=== PATIENT | male | born 1945 | race Caucasian/White ===

== ENCOUNTER → 2018-05-26 14:02 | Outpatient (CLI) | payer MEDICARE, OTHER, SELFPAY ==
[2018-05-26 14:38] LABS: Add Manual Diff / Slide Review NO; Basophils Percent Auto 0.7 % (0-2); Eosinophils Percent Auto 2.5 % (2-4); Hematocrit 39.8 % (41-53); Hemoglobin 13.8 g/dL (13.5-17.5); Mean Corpuscular HGB Conc 34.6 % (30-36); Mean Corpuscular Hemoglobin 30.6 PG (26-34); Mean Corpuscular Volume 88.2 fL (80-100); Neutrophils Absolute Auto 2000 /uL (3000-5900); Neutrophils Percent Auto 54.8 % (50-75); Platelet Count 56 X10^3/uL (150-400); Red Blood Cell Count 4.51 X10^6/uL (4.5-5.9); Red Cell Distribution Width 14.4 % (11.6-14.8); White Blood Cell Count 3.7 X10^3/uL (4.5-11.0)
[2018-05-26 14:56] LABS: Alanine Aminotransferase 65 IU/L (21-72); Albumin 3.8 g/dL (3.5-5.0); Albumin Globulin Ratio 1.5 (1.0-2.8); Alkaline Phosphatase 82 U/L (38-126); Aspartate Aminotransferase 55 IU/L (17-59); Blood Urea Nitrogen 16 mg/dL (9-20); Calcium 9.3 mg/dL (8.4-10.2); Carbon Dioxide 24 mmol/L (22-32); Chloride 107 mmol/L (98-107); Estimated Glomerular Filt Rate > 60.0 mL/min (>60); Globulin 2.6 g/dL (1.7-4.1); Glucose 198 mg/dL (80-110); HEMOLYSIS < 15 (0-50); Potassium 4.1 mmol/L (3.4-5.1); Sodium 142 mmol/L (137-145); Total Protein 6.4 g/dL (6.3-8.2)
== END ==
PROVIDERS: PCP Internal Medicine; Visit Provider Nurse Practitioner Gerontology
DX: D70.9 Neutropenia, unspecified (principal)
CPT/HCPCS: 36415; 80053; 85025

== ENCOUNTER → 2018-06-10 09:11 | Outpatient (CLI) | payer MEDICARE, OTHER, SELFPAY ==
--- NOTE | 2018-06-10 09:17 | DI.US.S_ITS ---
PROCEDURE: US ABDOMEN LIMITED INDICATIONS: Splenomegaly TECHNIQUE: Real-time focused scanning was performed of the abdomen, with image documentation. COMPARISON: [facility], CT, NECK/CHEST/ABD/PEL W CONTRAST, 10/11/2015, 10:06. [facility], US, ABDOMEN LIMITED, 04/03/2016, 9:07. FINDINGS: The spleen is enlarged measuring 17.7 cm in greatest length, with additional dimensions of 8.2 and 17 cm, with a total calculated volume of 1296 cubic centimeters. In 2016, it measured 13.6 cm in length and had a calculated volume of 513 cc. IMPRESSION: Enlarged spleen, which has increased in size compared to 2016. Dictated by: Olvin Cárdenas M.D. on 06/10/2018 at 8:58 Approved by: Olvin Cárdenas M.D. on 06/10/2018 at 9:01
== END ==
PROVIDERS: Family Provider Internal Medicine; Visit Provider Nurse Practitioner Gerontology
DX: R16.1 Splenomegaly, not elsewhere classified (principal); D69.6 Thrombocytopenia, unspecified; D70.9 Neutropenia, unspecified
CPT/HCPCS: 76705

== ENCOUNTER → 2019-09-07 12:19 | Outpatient (CLI) | payer MEDICARE, OTHER, SELFPAY ==
--- NOTE | 2019-09-07 | DI.RAD.S_ITS ---
PROCEDURE: XR CHEST 2V INDICATIONS: PLEURAL EFFUSION TECHNIQUE: 2 views of the chest were acquired. COMPARISON: [facility], CT, ABDOMEN/PELVIS WITH CONTRAST, 01/14/2015, 15:36. FINDINGS: Surgical changes and devices: None. Lungs and pleura: There are small bilateral pleural effusions and bibasilar compression atelectasis. No pneumothorax. Mediastinum: Mediastinal contours are normal. Heart size is normal. Bones and chest wall: No suspicious bony abnormalities. Soft tissues appear unremarkable. IMPRESSION: Small bilateral pleural effusions and bibasilar compression atelectasis. Dictated by: Sylvester Thomson M.D. on 09/07/2019 at 16:45 Approved by: Sylvester Thomson M.D. on 09/07/2019 at 16:46
[2019-09-07 12:57] LABS: Add Manual Diff / Slide Review NO; Basophils Absolute Auto 0 /uL (0-100); Basophils Percent Auto 0.7 % (0-2); Eosinophils Absolute Auto 100 /uL (0-450); Eosinophils Percent Auto 2.1 % (2-4); Hematocrit 39.4 % (41-53); Hemoglobin 13.4 g/dL (13.5-17.5); Lymphocytes Absolute Auto 800 /uL (1100-4500); Lymphocytes Percent Auto 21.3 % (25-40); Mean Corpuscular Hemoglobin 28.7 PG (26-34); Mean Corpuscular Volume 84.3 fL (80-100); Monocytes Absolute Auto 600 /uL (0-900); Monocytes Percent Auto 15.5 % (3-14); Neutrophils Absolute Auto 2400 /uL (1500-7000); Neutrophils Percent Auto 60.4 % (50-75); Platelet Count 82 X10^3/uL (150-400); Red Blood Cell Count 4.67 X10^6/uL (4.5-5.9); Red Cell Distribution Width 15.7 % (11.6-14.8)
[2019-09-07 13:08] LABS: Alanine Aminotransferase 30 IU/L (<50); Albumin 3.5 g/dL (3.5-5.0); Albumin Globulin Ratio 1.3 (1.0-2.8); Alkaline Phosphatase 139 U/L (38-126); Aspartate Aminotransferase 46 IU/L (17-59); Bilirubin Direct 0.1 mg/dL (0.0-0.4); Bilirubin Total 1.3 mg/dL (0.2-1.3); Blood Urea Nitrogen 16 mg/dL (9-20); Calcium 8.7 mg/dL (8.4-10.2); Carbon Dioxide 27 mmol/L (22-32); Chloride 104 mmol/L (98-107); Estimated Glomerular Filt Rate > 60.0 mL/min (>60); Globulin 2.8 g/dL (1.7-4.1); Glucose 146 mg/dL (80-110); HEMOLYSIS < 15 (0-50); Potassium 3.6 mmol/L (3.4-5.1); Sodium 138 mmol/L (137-145); Total Protein 6.3 g/dL (6.3-8.2)
== END ==
PROVIDERS: PCP Internal Medicine; Visit Provider Internal Medicine
DX: J90 Pleural effusion, not elsewhere classified (principal); R18.8 Other ascites; R05 Cough
CPT/HCPCS: 36415; 71046; 80053; 82248; 85025

== ENCOUNTER → 2019-09-09 13:57 | Outpatient (CLI) | payer MEDICARE, OTHER, SELFPAY ==
--- NOTE | 2019-09-09 | DI.CT.S_ITS ---
PROCEDURE: CT ABDOMEN PELVIS W CON INDICATIONS: Other ascites TECHNIQUE: After the administration of oral and intravenous contrast, 5 mm thick sections acquired from the diaphragms to the symphysis. 5 mm thick coronal and sagittal reformats were performed. For radiation dose reduction, the following was used: automated exposure control, adjustment of mA and/or kV according to patient size. COMPARISON: [facility], US, US ABDOMEN LIMITED, 06/10/2018, 9:36. [facility], US, ABDOMEN LIMITED, 04/03/2016, 9:07. [facility], CT, NECK/CHEST/ABD/PEL W CONTRAST, 10/11/2015, 10:06. [facility], CT, ABDOMEN/PELVIS WITH CONTRAST, 01/14/2015, 15:36. FINDINGS: Image quality: Excellent. ABDOMEN: Lung bases: Moderate pleural effusions bilaterally. Bibasilar compression atelectasis. Heart size is normal. There is a small hiatal hernia. Solid organs: Liver is small and nodular in contour consistent with cirrhosis. Gallbladder contains gallstones. Biliary system is non-dilated. Pancreas enhances normally. Spleen is enlarged. There is a 1.9 cm low density mass in spleen, which appears unchanged in size compared to 01/14/2015. Tiny low density nodules are noted in spleen, not definitely seen on the last exam. No adrenal nodules. Kidneys are normal in size and enhancement, without hydronephrosis. Peritoneum and bowel: There is a large amount of ascites. Jejunal loops and colon loops demonstrate increased wall thickness. There are numerous colonic diverticula in descending and sigmoid colon. No CT findings to suggest acute diverticulitis. No free air. Nodes and vessels: No retroperitoneal or mesenteric adenopathy. Aorta and inferior vena cava are normal in caliber. Recannulized umbilical vein consistent portal hypertension. Miscellaneous: No ventral hernias. PELVIS: Genitourinary: Bladder wall thickness is normal. Enlarged prostate. Miscellaneous: No inguinal hernias or adenopathy. Bones: No suspicious bony lesions. No vertebral body compression fractures. IMPRESSION: 1. Cirrhosis. 2. Splenomegaly which may be secondary to portal hypertension. 3. Stable 1.9 cm mass in the spleen. Several small hypodense nodules in spleen are indeterminate. 4. A large amount of ascites. 5. There is diffuse jejunal and colonic wall thickening. Differential diagnoses include hypoalbuminemia versus infectious etiology. 6. Diverticulosis without diverticulitis. 7. Moderate bilateral pleural effusions and bibasilar compression atelectasis. 8. Cholelithiasis. 9. Enlarged prostate. After discussing with the patient, the patient was referred to ER. The result was discussed with Dr. Jernigan in ER. Dictated by: Sylvester Thomson M.D. on 09/09/2019 at 15:00 Approved by: Sylvester Thomson M.D. on 09/09/2019 at 15:24
== END ==
PROVIDERS: PCP Internal Medicine; Visit Provider Internal Medicine
DX: R18.8 Other ascites (principal); K74.60 Unspecified cirrhosis of liver; R16.1 Splenomegaly, not elsewhere classified
CPT/HCPCS: 74177

== ENCOUNTER 2019-09-09 15:04 | Emergency (ER) | payer MEDICARE, OTHER, SELFPAY ==
[2019-09-09 15:15] VITALS: BP 178/87; PULSE 85; RESP 15; TEMP 36.5; O2SAT 96; BMI 26.7
[2019-09-09 15:37] VITALS: BP 163/76; PULSE 71; RESP 16; O2SAT 94
[2019-09-09 16:00] VITALS: BP 147/73; PULSE 73; RESP 16; O2SAT 94
--- NOTE | 2019-09-09 16:15 | ED_ITS ---
HPI - Abdominal Pain <Marlena Jernigan DO - Last Filed: 09/09/19 19:01> General Chief Complaint: Abdominal Pain Stated Complaint: sent post CT scan Time Seen by Provider: 09/09/19 15:18 Source: patient Mode of arrival: Ambulatory Limitations: no limitations History of Present Illness HPI narrative: This is a 73-year-old male who comes to the emergency department with complaint of swelling in his abdomen. Patient states when he lays flat he feels like there's lot of pressure and shortness of breath in his chest. Patient states that if he is upright he does not have much symptoms. Patient denies any fevers. He states he usually doesn't feel nauseated he had a little bit this afternoon while getting a CT scan. Patient states his abdomen has been increasing in size over time. They state that they've noted that it's very hard. He has had some loose stools for the past month. He states that they're back to normal as of this week. He denies any new urinary symptoms. He gets mi ld swelling in his lower extremities. Patient's states he was told he had fatty liver about 20 years ago. He states that some his primary care ordered some lab work to evaluate increasing swelling in his belly. And he is scheduled for an echo later in the month. Patient states he has never had a blood transfusion, he denies IV drug abuse, no history of hepatitis he is aware of. He denies any alcohol use except for occasional. Related Data Home Medications Medication Instructions Recorded Confirmed tamsulosin [Flomax] 0.4 mg PO QDAY #0 01/28/12 05/29/18 hydrochlorothiazide 6.26 mg PO QDAY #0 06/28/16 05/29/18 magnesium 200 mg PO DAILY #0 09/10/16 05/29/18 Allergies Allergy/AdvReac Type Severity Reaction Status Date / Time No Known Drug Allergies Allergy Verified 09/09/19 15:15 Review of Systems <Marlena Jernigan DO - Last Filed: 09/09/19 19:01> Review of Systems ROS Unobtainable: All systems reviewed & are unremarkable except as noted in HPI and below Patient History <Marlena Jernigan DO - Last Filed: 09/09/19 19:01> Social History Smoking Status: Unknown if ever smoked Smoking Status: Unknown if ever smoked alcohol intake frequency: other Substance Use Type: does not use Exam <Marlena Jernigan DO - Last Filed: 09/09/19 19:01> Narrative Exam Narrative: GENERAL: Alert and oriented x three, well-appearing male in mild distress. Patient does appear much more comfortable when sitting upright. HEENT: Head normocephalic, atraumatic, EOMI, pupils reactive, face symmetric, moist mucous membranes NECK: Supple, full range of motion CARDIOVASCULAR: Regular rate and rhythm without murmurs, rubs or gallops. RESPIRATORY: Breath sounds equal bilaterally, no wheezes rales or rhonchi. Patient has mild cough on exam. ABDOMEN: Soft, distended, abdomen feels tight but not hard. No caput. Normoactive bowel sounds all 4 quadrants. No guarding or rebound, rigidity, no mass. : No CVA tenderness EXTREMITIES: Normal range of motion, trace lower extremity edema. Neurova scularly intact NEUROLOGICAL: Cranial nerves II through XII grossly intact. Moving all extremities SKIN: Warm, dry, no petechiae, no rashes or lesions. Initial Vital Signs Initial Vital Signs: Vital Signs Temperature 97.7 F 09/09/19 15:15 Pulse Rate 85 09/09/19 15:15 Respiratory Rate 15 09/09/19 15:15 Blood Pressure 178/87 H 09/09/19 15:15 Pulse Oximetry 96 09/09/19 15:15 <Sandra Hollingsworth PA-C - Last Filed: 09/09/19 17:27> Initial Vital Signs Initial Vital Signs: Vital Signs Temperature 97.7 F 09/09/19 15:15 Pulse Rate 85 09/09/19 15:15 Respiratory Rate 15 09/09/19 15:15 Blood Pressure 178/87 H 09/09/19 15:15 Pulse Oximetry 96 09/09/19 15:15 Course <Marlena Jernigan DO - Last Filed: 09/09/19 19:01> Orders Ordered: ED Orders 09/09/19 15:18 Complete Blood Count AUTO DIFF Stat Comprehensive Metabolic Panel Stat Lipase Stat Partial Thromboplastin Time Stat Prothrombin Time INR Stat Type and Screen Stat 09/09/19 16:37 US paracentesis Stat 09/09/19 17:30 Amylase Body Fluid Stat Cell Count w Diff Body Fluid Stat Glucose Body Fluid Stat LDH Body Fluid Stat Total Protein Body Fluid Stat Vital Signs Vital signs: Vital Signs - 8 hr 09/09/19 15:15 09/09/19 15:37 09/09/19 16:00 Temperature 97.7 F Pulse Rate 85 71 73 Respiratory Rate 15 16 16 Blood Pressure 178/87 H Blood Pressure [Right Arm] 163/76 H 147/73 H Pulse Oximetry 96 94 94 09/09/19 18:34 09/09/19 18:48 Temperature Pulse Rate 83 84 Respiratory Rate 18 19 Blood Pressure 172/69 H Blood Pressure [Right Arm] 172/64 H Pulse Oximetry 96 95 <Sandra Hollingsworth PA-C - Last Filed: 09/09/19 17:27> Orders Ordered: ED Orders 09/09/19 15:18 Complete Blood Count AUTO DIFF Stat Comprehensive Metabolic Panel Stat Lipase Stat Partial Thromboplastin Time Stat Prothrombin Time INR Stat Type and Screen Stat 09/09/19 16:37 US paracentesis Stat 09/09/19 17:30 Amylase Body Fluid Stat Cell Count w Diff Body Fluid Stat Glucose Body Fluid Stat LDH Body Fluid Stat Total Protein Body Fluid Stat Vital Signs Vital signs: Vital Signs - 8 hr 09/09/19 15:15 09/09/19 15:37 09/09/19 16:00 Temperature 97.7 F Pulse Rate 85 71 73 Respiratory Rate 15 16 16 Blood Pressure 178/87 H Blood Pressure [Right Arm] 163/76 H 147/73 H Pulse Oximetry 96 94 94 09/09/19 18:34 09/09/19 18:48 Temperature Pulse Rate 83 84 Respiratory Rate 18 19 Blood Pressure 172/69 H Blood Pressure [Right Arm] 172/64 H Pulse Oximetry 96 95 MDM - Abdominal Pain <Marlena Jernigan DO - Last Filed: 09/09/19 19:01> Lab Data Attestation: I reviewed the patient's lab results. Result diagrams: 09/09/19 15:18 09/09/19 15:18 Labs: Lab Results 09/09/19 09/09/19 09/09/19 Range/Units 15:18 15:18 15:18 WBC 3.6 L (4.5-11.0) X10^3/uL RBC 4.87 (4.5-5.9) X10^6/uL Hgb 13.9 (13.5-17.5) g/dL Hct 40.9 L (41-53) % MCV 84.1 (80-100) fL MCH 28.6 (26-34) PG MCHC 34.0 (30-36) % RDW 15.8 H (11.6-14.8) % Plt Count 84 L (150-400) X10^3/uL Neut % (Auto) 57.5 (50-75) % Lymph % (Auto) 22.3 L (25-40) % Hinds % (Auto) 15.8 H (3-14) % Eos % (Auto) 3.6 (2-4) % Baso % (Auto) 0.8 (0-2) % Neut # (Auto) 2100 (9271-5353) /uL Lymph # (Auto) 800 L (2329-9415) /uL Hinds # (Auto) 600 (0-900) /uL Eos # (Auto) 100 (0-450) /uL Baso # (Auto) 0 (0-100) /uL PT 14.4 H (10.1-12.7) SECONDS INR 1.3 (0.9-1.3) APTT 32 (26.4-36.2) SECONDS Sodium 135 L (137-145) mmol/L Potassium 3.5 (3.4-5.1) mmol/L Chloride 101 (98-107) mmol/L Carbon Dioxide 27 (22-32) mmol/L BUN 20 (9-20) mg/dL Creatinine 0.90 (0.66-1.25) mg/dL Estimated GFR > 60.0 (>60) mL/min BUN/Creatinine Ratio 22.2 H (6-22) Glucose 106 (80-110) mg/dL Calcium 8.9 (8.4-10.2) mg/dL Total Bilirubin 1.4 H (0.2-1.3) mg/dL AST 53 (17-59) IU/L ALT 32 (<50) IU/L Alkaline Phosphatase 144 H (38-126) U/L Total Protein 6.7 (6.3-8.2) g/dL Albumin 3.7 (3.5-5.0) g/dL Globulin 3.0 (1.7-4.1) g/dL Albumin/Globulin Ratio 1.2 (1.0-2.8) Lipase 189 (23-300) U/L Fluid RBC /uL Fld Tot Nucleated Cell /uL Fluid Glucose mg/dL Fluid Total Protein g/dL Fluid LDH U/L Fluid Amylase IU/L Blood Type Antibody Screen 09/09/19 09/09/19 Range/Units 15:18 17:30 WBC (4.5-11.0) X10^3/uL RBC (4.5-5.9) X10^6/uL Hgb (13.5-17.5) g/dL Hct (41-53) % MCV (80-100) fL MCH (26-34) PG MCHC (30-36) % RDW (11.6-14.8) % Plt Count (150-400) X10^3/uL Neut % (Auto) (50-75) % Lymph % (Auto) (25-40) % Hinds % (Auto) (3-14) % Eos % (Auto) (2-4) % Baso % (Auto) (0-2) % Neut # (Auto) (0282-2716) /uL Lymph # (Auto) (9726-5280) /uL Hinds # (Auto) (0-900) /uL Eos # (Auto) (0-450) /uL Baso # (Auto) (0-100) /uL PT (10.1-12.7) SECONDS INR (0.9-1.3) APTT (26.4-36.2) SECONDS Sodium (137-145) mmol/L Potassium (3.4-5.1) mmol/L Chloride (98-107) mmol/L Carbon Dioxide (22-32) mmol/L BUN (9-20) mg/dL Creatinine (0.66-1.25) mg/dL Estimated GFR (>60) mL/min BUN/Creatinine Ratio (6-22) Glucose (80-110) mg/dL Calcium (8.4-10.2) mg/dL Total Bilirubin (0.2-1.3) mg/dL AST (17-59) IU/L ALT (<50) IU/L Alkaline Phosphatase (38-126) U/L Total Protein (6.3-8.2) g/dL Albumin (3.5-5.0) g/dL Globulin (1.7-4.1) g/dL Albumin/Globulin Ratio (1.0-2.8) Lipase (23-300) U/L Fluid RBC 1548 /uL Fld Tot Nucleated Cell 578 /uL Fluid Glucose 125 mg/dL Fluid Total Protein < 2.0 g/dL Fluid LDH 188 U/L Fluid Amylase < 30 IU/L Blood Type O Negative Antibody Screen Negative Imaging Data CT scan - abdomen: Radiologist's impression: [address] [id number] [address] Scan Report Signed Patient: Leonardo Avina [facility]#: [id number] : 5Acct:[id number] Age/Sex: 73 / MDate of Service: 09/09/19 Loc: CT Accession Number: [id number] Procedure: CT abdomen pelvis w con Ordering Provider: Katelyn Campbell MD PROCEDURE: CT ABDOMEN PELVIS W CON INDICATIONS: Other ascites TECHNIQUE: After the administration of oral and intravenous contrast, 5 mm thick sections acquired from the diaphragms to the symphysis. 5 mm thick coronal and sagittal reformats were performed. For radiation dose reduction, the following was used: automated exposure control, adjustment of mA and/or kV according to patient size. COMPARISON: [facility], US, US ABDOMEN LIMITED, 06/10/2018, 9:36. [facility], US, ABDOMEN LIMITED, 04/03/2016, 9:07. [facility], CT, NECK/CHEST/ABD/PEL W CONTRAST, 10/11/2015, 10:06. [facility], CT, ABDOMEN/PELVIS WITH CONTRAST, 01/14/2015, 15:36. FINDINGS: Image quality: Excellent. ABDOMEN: Lung bases: Moderate pleural effusions bilaterally. Bibasilar compression atelectasis. Heart size is normal. There is a small hiatal hernia. Solid organs: Liver is small and nodular in contour consistent with cirrhosis. Gallbladder contains gallstones. Biliary system is non-dilated. Pancreas enhances normally. Spleen is enlarged. There is a 1.9 cm low density mass in spleen, which appears unchanged in size compared to 01/14/2015. Tiny low density nodules are noted in spleen, not definitely seen on the last exam. No adrenal nodules. Kidneys are normal in size and enhancement, without hydronephrosis. Peritoneum and bowel: There is a large amount of ascites. Jejunal loops and colon loops demonstrate increased wall thickness. There are numerous colonic diverticula in descending and sigmoid colon. No CT findings to suggest acute diverticulitis. No free air. Nodes and vessels: No retroperitoneal or mesenteric adenopathy. Aorta and inferior vena cava are normal in caliber. Recannulized umbilical vein consistent portal hypertension. Miscellaneous: No ventral hernias. PELVIS: Genitourinary: Bladder wall thickness is normal. Enlarged prostate. Miscellaneous: No inguinal hernias or adenopathy. Bones: No suspicious bony lesions. No vertebral body compression fractures. IMPRESSION: 1. Cirrhosis. 2. Splenomegaly which may be secondary to portal hypertension. 3. Stable 1.9 cm mass in the spleen. Several small hypodense nodules in spleen are indeterminate. 4. A large amount of ascites. 5. There is diffuse jejunal and colonic wall thickening. Differential diagnoses include hypoalbuminemia versus infectious etiology. 6. Diverticulosis without diverticulitis. 7. Moderate bilateral pleural effusions and bibasilar compression atelectasis. 8. Cholelithiasis. 9. Enlarged prostate. After discussing with the patient, the patient was referred to ER. The result was discussed with Dr. Jernigan in ER. Dictated by: Sylvester Thomson M.D. on 09/09/2019 at 15:00 Approved by: Sylvester Thomson M.D. on 09/09/2019 at 15:24 MDM Narrative Medical decision making narrative: Patient came in with shortness of breath and chest pressure when he lays flat and has again if again ascites. Patient had 5 L drained off with ultrasound-guided paracentesis. Patient feels much better afterwards. We discussed labs from most recently ordered by his primary care in today's labs and potential differential. I did discuss that he may benefit from following up with gastroenterology. Fluid was sent for diagnostic purposes as well. Patient does have some pleural effusions as well. We discussed he can do a short course where he increases his hydrochlorothiazide to see if this is helpful. And patient is to return if worsening symptoms. Has follow-up on with his primary care but I asked that they call tomorrow to discuss today's findings. Patient and family feel comfortable the plan and all questions were answered. <Sandra Hollingsworth PA-C - Last Filed: 09/09/19 17:27> Lab Data Labs: Lab Results 09/09/19 09/09/19 09/09/19 Range/Units 15:18 15:18 15:18 WBC 3.6 L (4.5-11.0) X10^3/uL RBC 4.87 (4.5-5.9) X10^6/uL Hgb 13.9 (13.5-17.5) g/dL Hct 40.9 L (41-53) % MCV 84.1 (80-100) fL MCH 28.6 (26-34) PG MCHC 34.0 (30-36) % RDW 15.8 H (11.6-14.8) % Plt Count 84 L (150-400) X10^3/uL Neut % (Auto) 57.5 (50-75) % Lymph % (Auto) 22.3 L (25-40) % Hinds % (Auto) 15.8 H (3-14) % Eos % (Auto) 3.6 (2-4) % Baso % (Auto) 0.8 (0-2) % Neut # (Auto) 2100 (8600-4970) /uL Lymph # (Auto) 800 L (9469-9208) /uL Hinds # (Auto) 600 (0-900) /uL Eos # (Auto) 100 (0-450) /uL Baso # (Auto) 0 (0-100) /uL PT 14.4 H (10.1-12.7) SECONDS INR 1.3 (0.9-1.3) APTT 32 (26.4-36.2) SECONDS Sodium 135 L (137-145) mmol/L Potassium 3.5 (3.4-5.1) mmol/L Chloride 101 (98-107) mmol/L Carbon Dioxide 27 (22-32) mmol/L BUN 20 (9-20) mg/dL Creatinine 0.90 (0.66-1.25) mg/dL Estimated GFR > 60.0 (>60) mL/min BUN/Creatinine Ratio 22.2 H (6-22) Glucose 106 (80-110) mg/dL Calcium 8.9 (8.4-10.2) mg/dL Total Bilirubin 1.4 H (0.2-1.3) mg/dL AST 53 (17-59) IU/L ALT 32 (<50) IU/L Alkaline Phosphatase 144 H (38-126) U/L Total Protein 6.7 (6.3-8.2) g/dL Albumin 3.7 (3.5-5.0) g/dL Globulin 3.0 (1.7-4.1) g/dL Albumin/Globulin Ratio 1.2 (1.0-2.8) Lipase 189 (23-300) U/L Fluid RBC /uL Fld Tot Nucleated Cell /uL Fluid Glucose mg/dL Fluid Total Protein g/dL Fluid LDH U/L Fluid Amylase IU/L Blood Type Antibody Screen 09/09/19 09/09/19 Range/Units 15:18 17:30 WBC (4.5-11.0) X10^3/uL RBC (4.5-5.9) X10^6/uL Hgb (13.5-17.5) g/dL Hct (41-53) % MCV (80-100) fL MCH (26-34) PG MCHC (30-36) % RDW (11.6-14.8) % Plt Count (150-400) X10^3/uL Neut % (Auto) (50-75) % Lymph % (Auto) (25-40) % Hinds % (Auto) (3-14) % Eos % (Auto) (2-4) % Baso % (Auto) (0-2) % Neut # (Auto) (0166-1170) /uL Lymph # (Auto) (4220-6350) /uL Hinds # (Auto) (0-900) /uL Eos # (Auto) (0-450) /uL Baso # (Auto) (0-100) /uL PT (10.1-12.7) SECONDS INR (0.9-1.3) APTT (26.4-36.2) SECONDS Sodium (137-145) mmol/L Potassium (3.4-5.1) mmol/L Chloride (98-107) mmol/L Carbon Dioxide (22-32) mmol/L BUN (9-20) mg/dL Creatinine (0.66-1.25) mg/dL Estimated GFR (>60) mL/min BUN/Creatinine Ratio (6-22) Glucose (80-110) mg/dL Calcium (8.4-10.2) mg/dL Total Bilirubin (0.2-1.3) mg/dL AST (17-59) IU/L ALT (<50) IU/L Alkaline Phosphatase (38-126) U/L Total Protein (6.3-8.2) g/dL Albumin (3.5-5.0) g/dL Globulin (1.7-4.1) g/dL Albumin/Globulin Ratio (1.0-2.8) Lipase (23-300) U/L Fluid RBC 1548 /uL Fld Tot Nucleated Cell 578 /uL Fluid Glucose 125 mg/dL Fluid Total Protein < 2.0 g/dL Fluid LDH 188 U/L Fluid Amylase < 30 IU/L Blood Type O Negative Antibody Screen Negative Discharge Plan Departure Patient Disposition: Home Clinical Impression: Ascites, Cirrhosis, Splenic mass, Gallstones Discharge Date/Time: 09/09/19 18:49 Instructions: Ascites, DI for Abdominal Paracentesis Activity Restrictions/Additional Instructions: Follow up with Dr. Campbell at your appointment on , call to update Dr. Campbell tomorrow. Recommend following up with Gastroenterology, below is a referral. Call for an appointment. You may increase your hydrochlorothiazide to 2 pills daily for the next 3 days. Continue your other home medications as prescribed. Return for fevers greater 100.4 F, new or worsening CP shortness of breath, lily st pain or pressure, lightheadedness or passing out, abdominal pain, rapidly worsening swelling, new swelling in your lower extremities, altered mental status or other new or concerning symptoms. Prescriptions: No Action tamsulosin [Flomax] 0.4 MG capsule,extended release 24hr 0.4 mg PO QDAY Qty: 0 RF: 0 hydrochlorothiazide 12.5 MG capsule 6.26 mg PO QDAY Qty: 0 RF: 0 magnesium 200 MG tablet 200 mg PO DAILY Qty: 0 RF: 0 Referrals: Aubrey Perez MD [Non-Staff] - Katelyn Campbell MD [Primary Care Provider] -
[2019-09-09 16:22] LABS: INR 1.3 (0.9-1.3); Prothrombin Time 14.4 SECONDS (10.1-12.7)
[2019-09-09 16:24] LABS: Add Manual Diff / Slide Review NO; Basophils Absolute Auto 0 /uL (0-100); Basophils Percent Auto 0.8 % (0-2); Eosinophils Absolute Auto 100 /uL (0-450); Eosinophils Percent Auto 3.6 % (2-4); Hematocrit 40.9 % (41-53); Hemoglobin 13.9 g/dL (13.5-17.5); Lymphocytes Absolute Auto 800 /uL (1100-4500); Lymphocytes Percent Auto 22.3 % (25-40); Mean Corpuscular Hemoglobin 28.6 PG (26-34); Mean Corpuscular Volume 84.1 fL (80-100); Monocytes Absolute Auto 600 /uL (0-900); Monocytes Percent Auto 15.8 % (3-14); Neutrophils Absolute Auto 2100 /uL (1500-7000); Neutrophils Percent Auto 57.5 % (50-75); Red Blood Cell Count 4.87 X10^6/uL (4.5-5.9); Red Cell Distribution Width 15.8 % (11.6-14.8); White Blood Cell Count 3.6 X10^3/uL (4.5-11.0)
[2019-09-09 16:25] LABS: PTT Partial Thromboplastin Tim 32 SECONDS (26.4-36.2)
[2019-09-09 16:26] LABS: Platelet Count 84 X10^3/uL (150-400)
[2019-09-09 16:27] LABS: Alanine Aminotransferase 32 IU/L (<50); Albumin 3.7 g/dL (3.5-5.0); Albumin Globulin Ratio 1.2 (1.0-2.8); Alkaline Phosphatase 144 U/L (38-126); Aspartate Aminotransferase 53 IU/L (17-59); BUN Creatinine Ratio 22.2 (6-22); Bilirubin Total 1.4 mg/dL (0.2-1.3); Blood Urea Nitrogen 20 mg/dL (9-20); Calcium 8.9 mg/dL (8.4-10.2); Carbon Dioxide 27 mmol/L (22-32); Chloride 101 mmol/L (98-107); Estimated Glomerular Filt Rate > 60.0 mL/min (>60); Glucose 106 mg/dL (80-110); HEMOLYSIS 34 (0-50); Lipase 189 U/L (23-300); Potassium 3.5 mmol/L (3.4-5.1); Sodium 135 mmol/L (137-145); Total Protein 6.7 g/dL (6.3-8.2)
--- NOTE | 2019-09-09 16:37 | DI.US.S_ITS ---
PROCEDURE: US PARACENTESIS INDICATIONS: ascites, unknown cause. diagnostic and therapeutic TECHNIQUE: The indications, alternatives, benefits, risks, and complications of the procedure were explained to the patient. Written informed consent was obtained and placed in the chart. The abdomen and pelvis were examined sonographically, and an appropriate site was chosen for paracentesis. The skin was prepared and draped in the usual sterile fashion, and 1% lidocaine was infiltrated from the skin down through the peritoneal surface. A 19-gauge catheter-covered needle was then introduced into the peritoneal space, the catheter was advanced and the needle was withdrawn, and thereafter peritoneal fluid was withdrawn. The catheter was then removed and a dressing was applied. The fluid was discarded if the clinician did not order diagnostic testing of the fluid. COMPARISON: None. FINDINGS: Access site: Right lower quadrant Needle: One-Step centesis catheter with introducer needle. Fluid volume and description: 5000 mL, slightly cloudy Fluid sent for diagnostic testing: Per Dr. Jernigan Medications: 1% lidocaine for local anaesthesia. Complications: None. IMPRESSION: Successful ultrasound-guided paracentesis. Dictated by: Sylvester Thomson M.D. on 09/09/2019 at 18:07 Approved by: Sylvester Thomson M.D. on 09/09/2019 at 18:07
[2019-09-09 18:21] LABS: Amylase Body Fluid < 30 IU/L; Glucose Body Fluid 125 mg/dL; LDH Body Fluid 188 U/L; Total Protein Body Fluid < 2.0 g/dL
[2019-09-09 18:34] VITALS: BP 172/64; PULSE 83; RESP 18; O2SAT 96
[2019-09-09 18:41] LABS: Body Fluid Red Blood Cells 1548 /uL; Body Fluid Tot Nucleated Cells 578 /uL
[2019-09-09 18:48] VITALS: BP 172/69; PULSE 84; RESP 19; O2SAT 95
[2019-09-09 19:00] LABS: Body Fluid Appearance CLEAR; Body Fluid Clotted? NO CLOTS PRESENT; Body Fluid Color YELLOW
[2019-09-09 19:13] LABS: Eosinophils Body Fluid 0 %; Mononuclear WBC Body Fluid 88 %; Other Cells Body Fluid 4 %; Polynuclear WBC Body Fluid 8 %
== END 2019-09-09 18:49 | disposition home or self-care (01) ==
PROVIDERS: Emergency Provider Emergency Medicine; Family Provider Internal Medicine; PCP Internal Medicine
DX: R18.8 Other ascites (principal); K74.60 Unspecified cirrhosis of liver; R16.1 Splenomegaly, not elsewhere classified; K80.20 Calculus of gallbladder without cholecystitis without obstruction
CPT/HCPCS: 36415; 49083; 74177; 80053; 82150; 82945; 83615; 83690; 84157; 85025; 85610; 85730; 86850; 86900; 86901; 89051; 99284

== ENCOUNTER 2019-09-15 12:21 | Emergency (ER) | payer MEDICARE, OTHER, SELFPAY ==
[2019-09-15] VITALS (7 sets, daily range): BP systolic 134–163; BP diastolic 64–76; PULSE 68–75; RESP 16–20; TEMP 36.6; O2SAT 90–98
--- NOTE | 2019-09-15 13:44 | DI.US.S_ITS ---
PROCEDURE: US ABDOMEN LIMITED INDICATIONS: ASCITES TECHNIQUE: Real-time focused scanning was performed of the abdomen, with image documentation. COMPARISON: [facility], CT, CT ABDOMEN PELVIS W CON, 09/09/2019, 14:36. [facility], US, US ABDOMEN LIMITED, 06/10/2018, 9:36. [facility], US, ABDOMEN LIMITED, 04/03/2016, 9:07. FINDINGS: There is moderate simple appearing ascites, and a site was marked on the skin surface overlying the area of safe access for paracentesis, which will be performed by the emergency room physician caring for the patient Nodular hepatic margination with heterogeneous hepatic echotexture indicate cirrhosis. There is a angular focus of increased echotexture within the anterior aspect of the liver, along the inferior hepatic margin measuring 1.2 x 2.1 cm. This structure is mildly heterogeneous and of uncertain etiology and clinical significance. It cannot be seen in this same area on prior CT scanning 09/09/19. IMPRESSION: Cirrhosis, moderate ascites, questionable 1.2 x 2.1 cm mass lesion within the inferior margin of the liver not seen by recent CT scanning. A dedicated hepatic protocol MRI could be obtained if clinically indicated. Dictated by: Calderon Whaley M.D. on 09/15/2019 at 14:49 Approved by: Calderon Whaley M.D. on 09/15/2019 at 14:52
--- NOTE | 2019-09-15 15:53 | ED_ITS ---
HPI - SOB/Dyspnea General Chief Complaint: Shortness of Breath/Dyspnea Stated Complaint: difficulty breathing, sent by oncology Time Seen by Provider: 09/15/19 12:28 Source: patient Mode of arrival: Ambulatory Limitations: no limitations History of Present Illness HPI Narrative: Patient comes emergency department complaining of increasing abdominal girth and difficulty breathing. The patient was recently diagnosed with liver cirrhosis of unknown etiology. Patient states he has never been a regular or heavy drinker and states that he has no history of hepatitis or chronic Tylenol use. Patient states that he just had 5 L of ascitic fluid drained by paracentesis last week and that he feels as though he is feeling up again. Patient went for his annual checkup with Dr. Rodriguez for unrelated issues, and when he reported the symptoms he was having, Dr. Rodriguez asked the patient to come to the emergency department for further evaluation. Patient denies fever or abdominal pain, other than some discomfort associated with the increased abdominal girth. No other complaints at this time. Related Data Home Medications Medication Instructions Recorded Confirmed tamsulosin [Flomax] 0.4 mg PO QDAY #0 01/28/12 09/15/19 acetaminophen 325 mg PO BEDTIME 09/15/19 09/15/19 Previous Rx's Medication Instructions Recorded furosemide [Lasix] 20 mg PO DAILY #30 tab 09/15/19 spironolactone [Aldactone] 25 mg PO DAILY #30 tab 09/15/19 Allergies Allergy/AdvReac Type Severity Reaction Status Date / Time No Known Drug Allergies Allergy Verified 09/09/19 15:15 Review of Systems Constitutional Constitutional: Denies chills, Denies fatigue, Denies fever(s), Denies frequent falls, Denies lethargy and Denies weakness Eyes Eyes: Denies change in vision, Denies eye discharge, Denies irritation and Denies loss of vision ENT Ears, Nose, Mouth, and Throat: Denies change in voice, Denies dizziness, Denies neck pain, Denies sore throat and Denies throat swelling Cardiovascular Cardiovascular: Denies chest pain, Denies irregular heart rhythm, Denies lightheadedness, Denies palpitations, Denies dyspnea, Denies dyspnea on exertion and Denies orthopnea Respiratory Respiratory: Denies cough, Denies dyspnea, Denies dyspnea on exertion and Denies wheezing Gastrointestinal Gastrointestinal: Denies abdominal pain, Denies change in bowel habits, Denies diarrhea, Denies nausea and Denies vomiting Comments: Abdominal discomfort and increasing girth Genitourinary Genitourinary: Denies hematuria, Denies flank pain, Denies urinary incontinence and Denies urinary urgency Musculoskeletal Musculoskeletal: Denies back pain, Denies muscle weakness, Denies neck pain, Denies numbness and Denies tingling Integumentary/Breasts Skin/Breast: Denies pruritus, Denies erythema, Denies rash and Denies wounds Neurologic Neurologic: Denies behavioral changes, Denies confusion, Denies dizziness, Denies frequent falls, Denies loss of vision, Denies numbness, Denies tingling and Denies weakness Psychiatric Psychiatric: Denies anxiety, Denies behavioral changes, Denies confusion, Denies depression, Denies homicidal ideation and Denies suicidal ideation Endocrine Endocrine: Denies fatigue, Denies flushing and Denies palpitations Hematologic/Lymphatic Hematologic/Lymphatic: Denies easy bruising Allergic/Immunologic Allergic/Immunologic: Denies urticaria, Denies throat swelling and Denies wheezing Patient History Medical History Ascites (Acute) Cirrhosis (Acute) Gallstones (Acute) Neutropenia (Acute) Splenic mass (Acute) Thrombocytopenia (Acute) Social History Smoking Status: Unknown if ever smoked Smoking Status: Unknown if ever smoked alcohol intake frequency: other Substance Use Type: does not use Exam Initial Vital Signs Initial Vital Signs: Vital Signs Temperature 97.8 F 09/15/19 12:31 Pulse Rate 68 09/15/19 12:31 Respiratory Rate 20 09/15/19 12:31 Blood Pressure 142/72 H 09/15/19 12:31 Pulse Oximetry 94 09/15/19 12:31 Const General: cooperative and well developed Nutritional Appearance: well nourished Orientation: alert, awake, oriented x3 and not confused [facility] Head: normocephalic and atraumatic Ears: external ears normal Nose: external nose normal and No nasal discharge Face and sinus: face symmetric and No dry mucous membranes Mouth: oral mucosae normal and moist mucous membranes Teeth and gingiva: dentition normal Eyes General: appearance normal, both eyes and all related structures Eyelids: eyelids normal Conjunctivae: conjunctivae normal Sclera: sclerae normal Pupils: PERRL EOM: EOM intact bilaterally Neck Neck: normal visual inspection, trachea midline, No lymphadenopathy, No midline deformity and No JVD Lymphatic: No lymphedema Chest Chest: normal inspection of the chest Resp Effort & Inspection: normal respiratory effort, able to speak in complete sentences, no respiratory distress and no use of accessory muscles Auscultation: clear to auscultation bilaterally, diminished lung sounds bilatera lly in the lower lung diego, no rales, no rhonchi and no wheezes Cardio Rate: regular rate Rhythm: regular rhythm Heart Sounds: no click, no gallops, no murmurs and no rubs Pulses: normal peripheral pulses GI Inspection: distended Palpation: soft, no hepatosplenomegaly, No guarding, No pulsatile mass, tender (Mild, bilateral flank) and ascites (Moderate) Auscultation: normal bowel sounds Back/Spine/Pelvis Back: No CVA tenderness Cervical Spine: cervical ROM normal and No pain with cervical ROM Thoracic/Lumbar Spine: thoracic and lumbar spine normal to inspection Skin General: no rashes or lesions noted, No jaundice and No petechiae Neuro General: alert, oriented x3, gait normal and no focal motor deficits Speech: speech normal Extrem General: full ROM, no clubbing, cyanosis or edema, no pedal edema and no calf tenderness Psych Appearance: well kempt Mental Status: mental status grossly normal Attitude: cooperative Thought Content: normal and suicidality Judgment: judgment good Procedures Paracentesis Indication: Ascites Procedure: therapeutic paracentesis Location: RLQ Local Anesthetic: lidocaine 1% Amount of anesthesia used (mL): 10 Bedside Ultrasound Used: yes, Ascites confirmed and location marked Preparation: sterile prep and drape Amount of fluid obtained (mL): 2,200 Fluid: clear Post Procedure Exam: awake, alert, normal BP, normal HR and normal SpO2 Patient Tolerated Procedure: Well Complications: none Course Course Course Narrative: Paracentesis was performed as above, and a total of 2200 cc of fluid was drained until flow of fluid stopped even with positional change. The patient did not have a fever or significant abdominal pain, and had already had a fluid analysis last week, and I did not feel this needed to be repeated. I do not find any evidence of spontaneous bacterial peritonitis. The patient reported feeling quite a bit better after the procedure. The patient has an appointment coming up with his doctor for further evaluation of his liver issues this week. We've discussed home management of symptoms, as well as the usual indications for return. Orders Ordered: ED Orders 09/15/19 12:41 EKG-12 Lead Routine 09/15/19 13:44 US abdomen limited Stat Vital Signs Vital signs: Vital Signs - 8 hr 09/15/19 12:31 09/15/19 13:03 09/15/19 14:30 Temperature 97.8 F Pulse Rate 68 70 73 Respiratory Rate 20 17 Blood Pressure 142/72 H Blood Pressure [Left Arm] 142/70 H 147/64 H Pulse Oximetry 94 91 98 09/15/19 15:04 Temperature Pulse Rate 71 Respiratory Rate 19 Blood Pressure Blood Pressure [Left Arm] 156/71 H Pulse Oximetry 95 MDM - SOB/Dyspnea Medical Records Attestation: I reviewed the patient's medical records. Discharge Plan Departure Patient Disposition: Home Clinical Impression: Ascites Qualifiers: Ascites type: other type Qualified Code(s): R18.8 - Other ascites Cirrhosis Qualifiers: Hepatic cirrhosis type: unspecified hepatic cirrhosis Ascites presence: with ascites Qualified Code(s): K74.60 - Unspecified cirrhosis of liver Discharge Date/Time: 09/15/19 16:00 Instructions: DI for Ascites, DI for Abdominal Paracentesis Prescriptions: No Action tamsulosin [Flomax] 0.4 MG capsule,extended release 24hr 0.4 mg PO QDAY Qty: 0 RF: 0 acetaminophen 325 mg Tablet 325 mg PO BEDTIME RF: 0 spironolactone [Aldactone] 25 mg Tablet 25 mg PO DAILY Qty: 30 RF: 2 furosemide [Lasix] 20 mg Tablet 20 mg PO DAILY Qty: 30 RF: 3 Referrals: Katelyn Campbell MD [Primary Care Provider] -
--- NOTE | 2019-09-15 16:39 | PC.NURSE ---
one on one with patient during paracentesis procedure
== END 2019-09-15 16:00 | disposition home or self-care (01) ==
PROVIDERS: Emergency Provider Emergency Medicine; Family Provider Internal Medicine; PCP Internal Medicine
DX: K74.60 Unspecified cirrhosis of liver (principal); R18.8 Other ascites; R03.0 Elevated blood-pressure reading, without diagnosis of hypertension
CPT/HCPCS: 36415; 76705; 76942; 80053; 82525; 82728; 83540; 83550; 83735; 85025; 93005; 93010; 99215; 99283; 99284; 99291

== ENCOUNTER → 2019-09-16 15:15 | Outpatient (ROUT) | payer MEDICARE, OTHER, SELFPAY ==
[2019-09-16 16:21] LABS: Hep C Virus Ab w/Reflex Quant NEGATIVE s/c (NEGATIVE)
[2019-09-18 15:04] LABS: Hepatitis B Surf Ab Qualitativ Nonreactive (Nonreactive)
== END ==
PROVIDERS: Family Provider Internal Medicine; PCP Internal Medicine; Visit Provider Internal Medicine
DX: K74.60 Unspecified cirrhosis of liver (principal)
CPT/HCPCS: 86706; 86803

== ENCOUNTER → 2019-09-24 13:28 | Outpatient (CLI) | payer MEDICARE, OTHER, SELFPAY ==
--- NOTE | 2019-09-24 | DI.ECHO.S_ITS ---
[facility] +---------+ : : [address] : : : : [id number] : : : : Phone: [phone] Echocardiogram Report + + :Name: JESSICA CABRAL Study Date: 09/24/2019 Height: 73 in : :[facility] Weight: 193 lb : : Gender: Male BSA: 2.1 m2 : :: 1945 Age: 73 yrs BP: 154/60 mmHg: :Reason For Study: Dyspnea : : Performed By: Ailyn Posey : :Referring: DORCAS SCHREIBER : + + Interpretation Summary 1) Normal left ventricular thickness, size, wall motion, and systolic function (EF 60-65%). 2) Normal right ventricular size and function. 3) No significant valvular abnormalities. 4) The right ventricular systolic pressure is estimated to be at least 25 mmHg based on an estimated right atrial pressure of 3 mm Hg. 5) There are moderate sized bilateral pleural effusions. 6) Hypertension is present during the study (BP 154/60mmHg). 7) No prior Echo available for comparison. Dyspnea probably from bilateral pleural effusions. Procedure: A two-dimensional transthoracic echocardiogram with color flow and Doppler was performed. The study quality was technically adequate. There is no prior echocardiogram noted for this patient. The patient was in normal sinus rhythm during the exam. Left Ventricle: The left ventricle is normal in size, wall thickness, and systolic function without any focal wall motion abnormalities. The ejection fraction is estimated to be 60-65%. Diastolic parameters suggest a relaxation abnormality of the left ventricle, consistent with probable normal filling pressures. Right Ventricle: The right ventricle grossly appears normal in size with probable normal systolic function. Atria: The left atrial size is normal. Right atrial size is normal. Mitral Valve: The mitral valve is normal in structure and function. There is no mitral regurgitation noted. Aortic Valve: The aortic valve opens well. There is no aortic valve stenosis. No aortic regurgitation is present. Tricuspid Valve: The tricuspid valve is normal in structure and function. There is a trace or physiologic amount of tricuspid regurgitation. The right ventricular systolic pressure is estimated to be at least 25 mmHg based on an estimated right atrial pressure of 3 mm Hg. Pulmonic Valve: The pulmonic valve is not well visualized. Great Vessels: The aortic root is borderline dilated. The dimensions of the ascending aorta are normal. The aortic arch could not be visualized. The IVC is of normal diameter and collapses greater than 50% with a sniff. This suggests a low right atrial pressure of 3 mm Hg. Pericardium/ Pleura There is no pericardial effusion. There is a moderate right-sided pleural effusion. There is a moderate left-sided pleural effusion. MMode/2D Measurements & Calculations LVIDd: 4.3 cm Ao root diam: 3.8 cm LVIDs: 1.9 cm Aortic Jxn: 3.2 cm FS: 54.5 % asc Aorta Diam: 3.3 cm IVSd: 1.0 cm LVPWd: 0.93 cm LV gatica. diameter/BSA (cm/m^2): 2.0 LV sys. diameter/BSA (cm/m^2): 0.91 LA dimension: 3.1 cm RA long axis: 3.6 cm LA A2 area: 11.7 cm2 RA area: 11.7 cm2 LA A4 area: 11.7 cm2 RA vol: 31.8 ml LA length (vol): 3.5 cm RA : 15.0 ml/m2 LA vol: 32.9 ml LA vol index: 15.5 ml/m2 Doppler Measurements & Calculations Ao V2 max: 174.7 cm/sec MV E max ryan: 70.5 cm/sec Ao V2 mean: 110.9 cm/sec MV A max ryan: 95.2 cm/sec Ao max P.2 mmHg MV E/A: 0.74 Ao mean P.8 mmHg Med Peak E' Ryan: 5.2 cm/sec Ao V2 VTI: 31.4 cm E/E' med: 13.7 Lat Peak E' Ryan: 8.0 cm/sec E/E' lat: 8.8 E/e' average: 11.2 MV dec time: 0.22 sec MV P1/2t: 66.4 msec TR max ryan: 233.8 cm/sec MV P1/2t max ryan: 70.2 cm/sec TR max P.9 mmHg MVA(P1/2t): 3.3 cm2 Reading Physician:04:04 PM
--- NOTE | 2019-09-24 13:31 | DI.US.S_ITS ---
PROCEDURE: US ABDOMEN LIMITED INDICATIONS: ASCITES, CIRRHOSIS TECHNIQUE: Real-time focused scanning was performed of the abdomen, with image documentation. COMPARISON: [facility], , US ABDOMEN LIMITED, 09/15/2019, 14:22. FINDINGS: Ultrasound examination of abdomen shows no large pockets of ascites fluid for paracentesis. IMPRESSION: No significant ascites fluid is seen. No paracentesis was performed. Dictated by: Carlito Mcdonough M.D. on 09/24/2019 at 15:56 Approved by: Carlito Mcdonough M.D. on 09/24/2019 at 15:57
== END ==
PROVIDERS: PCP Internal Medicine; Visit Provider Internal Medicine
DX: R06.09 Other forms of dyspnea (principal); J90 Pleural effusion, not elsewhere classified; R18.8 Other ascites; K74.60 Unspecified cirrhosis of liver; D69.6 Thrombocytopenia, unspecified
CPT/HCPCS: 76705; 93306

== ENCOUNTER → 2019-09-27 11:37 | Outpatient (CLI) | payer MEDICARE, OTHER, SELFPAY ==
--- NOTE | 2019-09-27 | DI.RAD.S_ITS ---
PROCEDURE: XR CHEST 1V INDICATIONS: POST THORO TECHNIQUE: One view of the chest was acquired. COMPARISON: [facility], CR, XR CHEST 2V, 09/07/2019, 12:26. FINDINGS: Surgical changes and devices: None. Lungs and pleura: Moderate large right pleural effusion. Small left pleural effusion. There is adjacent atelectasis Bones and chest wall: No suspicious bony lesions. Overlying soft tissues appear unremarkable. IMPRESSION: No pneumothorax status post ultrasound-guided right thoracentesis Bilateral persistent pleural effusions, right greater than left Dictated by: Benjamín Mcclani M.D. on 09/27/2019 at 13:50 Approved by: Benjamín Mcclain M.D. on 09/27/2019 at 16:43
--- NOTE | 2019-09-27 | PATH_ITS ---
Note [facility] Accession Number: [id number] TESTS RESULT FLAG UNITS REF RANGE LAB Clinician Provided Cytology Information No. of containers..01 Other (Miscellaneous) 01 PLEURAL FLUID DIAGNOSIS: 02 PLEURAL FLUID MESOTHELIAL CELLS AND A BACKGROUND OF SMALL, MATURE LYMPHOCYTES. NEGATIVE FOR CYTOLOGICALLY MALIGNANT CELLS. CONSIDER FLOW CYTOMETRIC STUDIES TO EXCLUDE A LYMPHOPROLIFERATIVE PROCESS, IF CLINICAL AND IMAGING STUDIES ARE CONCORDANT OR IF FLUID RE-ACCUMULATES. Pathologist ICD10: 02 J90 02 Vani Finely MD, Pathologist NPI- [id number] Chad Lund, Superannuation Funds Manager ([facility]) 01 60 CC, ORANGE, CLEAR /LCS 09/28/2019 1146 Local FLAG LEGEND: L-Low Normal,H-High Normal,LL-Alert Low,HH-Alert High <-Panic Low,>-Panic High,A-Abnormal,AA-Critical Abnormal Performed at: 01 =Z [facility] [address], [place] [address] Trung Costa MD, 02 LWA [facility] [address] [place] [id number] Eneida Lama MD, Performed at: [address] [facility] [address], [place], [place] [id number] MD Trung Costa MD Phone: [phone]
--- NOTE | 2019-09-27 | DI.US.S_ITS ---
PROCEDURE: US THORACENTESIS INDICATIONS: PLEURAL EFFUSION TECHNIQUE: The indications, alternatives, benefits, risks, and complications of the procedure were explained to the patient. Written informed consent was obtained and placed in the chart. The chest was examined sonographically, and an appropriate site was chosen for thoracentesis. The skin was prepared and draped in the usual sterile fashion, and 1% lidocaine was infiltrated from the skin down through the pleural surface. A 19-gauge catheter-covered needle was then introduced into the pleural space, the catheter was advanced and the needle was withdrawn, and thereafter pleural fluid was aspirated. The catheter was then removed and a dressing was applied. COMPARISON: None. FINDINGS: Access site: Right hemithorax. Needle: One-Step centesis catheter with introducer needle. Fluid volume and description: 1620 cc of serosanguineous fluid Fluid sent for diagnostic testing: As requested Medications: 1% lidocaine for local anaesthesia. Complications: None; post-procedural chest radiograph is pending to assess for pneumothorax. IMPRESSION: Successful ultrasound-guided thoracentesis. Dictated by: Benjamín Mcclain M.D. on 09/27/2019 at 16:49 Approved by: Benjamín Mcclain M.D. on 09/27/2019 at 16:49
[2019-09-27 13:34] LABS: Add Manual Diff / Slide Review NO; Basophils Absolute Auto 0 /uL (0-100); Basophils Percent Auto 0.6 % (0-2); Eosinophils Absolute Auto 200 /uL (0-450); Eosinophils Percent Auto 3.2 % (2-4); Hematocrit 41.5 % (41-53); Hemoglobin 13.8 g/dL (13.5-17.5); Lymphocytes Absolute Auto 900 /uL (1100-4500); Lymphocytes Percent Auto 16.9 % (25-40); Mean Corpuscular HGB Conc 33.4 % (30-36); Mean Corpuscular Hemoglobin 28.4 PG (26-34); Mean Corpuscular Volume 85.2 fL (80-100); Monocytes Absolute Auto 1000 /uL (0-900); Monocytes Percent Auto 18.7 % (3-14); Neutrophils Absolute Auto 3300 /uL (1500-7000); Neutrophils Percent Auto 60.6 % (50-75); Platelet Count 86 X10^3/uL (150-400); Red Blood Cell Count 4.86 X10^6/uL (4.5-5.9); Red Cell Distribution Width 16.6 % (11.6-14.8); White Blood Cell Count 5.5 X10^3/uL (4.5-11.0)
[2019-09-27 14:09] LABS: Alanine Aminotransferase 41 IU/L (<50); Albumin 3.5 g/dL (3.5-5.0); Albumin Globulin Ratio 1.3 (1.0-2.8); Alkaline Phosphatase 184 U/L (38-126); Aspartate Aminotransferase 56 IU/L (17-59); Bilirubin Total 1.2 mg/dL (0.2-1.3); Blood Urea Nitrogen 26 mg/dL (9-20); Calcium 8.9 mg/dL (8.4-10.2); Carbon Dioxide 30 mmol/L (22-32); Chloride 101 mmol/L (98-107); Estimated Glomerular Filt Rate > 60.0 mL/min (>60); Globulin 2.8 g/dL (1.7-4.1); Glucose 120 mg/dL (80-110); HEMOLYSIS < 15 (0-50); Sodium 138 mmol/L (137-145); Total Protein 6.3 g/dL (6.3-8.2)
== END ==
PROVIDERS: PCP Internal Medicine; Visit Provider Internal Medicine
DX: J90 Pleural effusion, not elsewhere classified (principal); D69.6 Thrombocytopenia, unspecified; R18.8 Other ascites; K74.60 Unspecified cirrhosis of liver
CPT/HCPCS: 32555; 36415; 71045; 80053; 85025; 88182

== ENCOUNTER → 2019-09-28 11:38 | Outpatient (CLI) | payer MEDICARE, OTHER, SELFPAY ==
--- NOTE | 2019-09-28 11:46 | DI.CT.S_ITS ---
PROCEDURE: CT CHEST W CON INDICATIONS: Cough TECHNIQUE: After the administration of intravenous contrast, 5 mm thick sections acquired from the pulmonary apices to the posterior costophrenic angles. 1 mm axial lung, 5 mm thick coronal and sagittal reformats and 7 mm axial MIP were acquired. For radiation dose reduction, the following was used: automated exposure control, adjustment of mA and/or kV according to patient size. COMPARISON: [facility], CT, ABDOMEN/PELVIS WITH CONTRAST, 01/14/2015, 15:36. [facility], US, US PARACENTESIS, 09/09/2019, 16:44. [facility], CT, CT ABDOMEN PELVIS W CON, 09/09/2019, 14:36. [facility], CR, XR CHEST 2V, 09/07/2019, 12:26. [facility], US, US THORACENTESIS, 09/27/2019, 13:02. [facility], CR, XR CHEST 1V, 09/27/2019, 13:38. FINDINGS: Image quality: Excellent. Lungs and pleura: There is a large right pleural effusion and small to moderate left pleural effusion. Bibasilar atelectasis. There are lingular scars. No acute air space opacities. No pneumothorax. Central and peripheral airways are patent and normal in caliber. Mediastinum: Heart size is normal. No pericardial effusion. No mediastinal or hilar adenopathy by size criteria. A calcified lymph node in the right hilum. Thoracic aorta and central pulmonary arteries are normal in size. Esophagus is normal in caliber. No hiatal hernia. Bones and chest wall: No suspicious bony lesions. No vertebral body compression fractures. No axillary or supraclavicular adenopathy by size criteria. Thyroid gland contains a partially calcified nodule in the left lower lobe measure 1.8 x 2.9 cm. Abdomen: There are gallstones. The liver demonstrates nodular contour suggesting cirrhosis. There is moderate splenomegaly likely secondary to portal hypertension. A of low-density nodules are noted in spleen measuring up to 2 cm. there is ascites. There is thickening of duodenum and jejunum. IMPRESSION: 1. Large right pleural effusion and [id number] left pleural effusion. There are bibasilar partial atelectasis. 2. Lingular scars. 3. The partially calcified left thyroid nodule. Recommend thyroid ultrasound followup. 4. Cholelithiasis. 5. Thickening of duodenum and proximal jejunum, which may be secondary to hypoalbuminemia, infection, or inflammatory process. Recommend clinical correlation. 6. Low density nodules in spleen, indeterminate. Dictated by: Sylvester Thomson M.D. on 09/28/2019 at 15:12 Approved by: Sylvester Thomson M.D. on 09/28/2019 at 18:13
== END ==
PROVIDERS: PCP Internal Medicine; Visit Provider Internal Medicine
DX: R05 Cough (principal); J90 Pleural effusion, not elsewhere classified; J98.4 Other disorders of lung; J98.11 Atelectasis; D73.9 Disease of spleen, unspecified; E04.1 Nontoxic single thyroid nodule; K80.20 Calculus of gallbladder without cholecystitis without obstruction
CPT/HCPCS: 71260; Q9967

== ENCOUNTER → 2019-09-30 13:41 | Outpatient (CLI) | payer MEDICARE, OTHER, SELFPAY ==
--- NOTE | 2019-09-30 | PATH_ITS ---
Note [facility] Accession Number: [id number] TESTS RESULT FLAG UNITS REF RANGE LAB Clinician Provided Cytology Information No. of containers..01 Body Fluid in a Sterile Container 01 ASCITES DIAGNOSIS: 01 ASCITES NEGATIVE FOR MALIGNANT CELLS. COMMENT: Including cell block evaluation. Pathologist ICD10: 01 R18.8 Tamia Cronin MD, Pathologist NPI- [id number] Chad Lund, Microfilmer ([facility]) 01 55 CC, YELLOW, CLEAR /LCS 10/01/2019 1417 Local FLAG LEGEND: L-Low Normal,H-High Normal,LL-Alert Low,HH-Alert High <-Panic Low,>-Panic High,A-Abnormal,AA-Critical Abnormal Performed at: 01 =Z [facility] [address], [place] [address] Trung Costa MD, Performed at: 01 [facility] [address], [place], [place] [id number] MD Trung Costa MD Phone: [phone]
--- NOTE | 2019-09-30 | DI.US.S_ITS ---
PROCEDURE: US PARACENTESIS INDICATIONS: ASCITIES TECHNIQUE: The indications, alternatives, benefits, risks, and complications of the procedure were explained to the patient. Written informed consent was obtained and placed in the chart. The abdomen and pelvis were examined sonographically, and an appropriate site was chosen for paracentesis. The skin was prepared and draped in the usual sterile fashion, and 1% lidocaine was infiltrated from the skin down through the peritoneal surface. A 19-gauge catheter-covered needle was then introduced into the peritoneal space, the catheter was advanced and the needle was withdrawn, and thereafter peritoneal fluid was withdrawn. The catheter was then removed and a dressing was applied. The fluid was discarded if the clinician did not order diagnostic testing of the fluid. COMPARISON: [facility], , PARACENTESIS, 09/09/2019, 16:44. FINDINGS: Access site: Right flank Needle: One-Step centesis catheter with introducer needle. Fluid volume and description: 120 cc of serous fluid Fluid sent for diagnostic testing: As requested Medications: 1% lidocaine for local anaesthesia. Complications: None. IMPRESSION: Successful ultrasound-guided paracentesis. Dictated by: Benjamín Mcclain M.D. on 09/30/2019 at 15:37 Approved by: Benjamín Mcclain M.D. on 09/30/2019 at 15:37
== END ==
PROVIDERS: PCP Internal Medicine; Visit Provider Internal Medicine
DX: R18.8 Other ascites (principal)
CPT/HCPCS: 49083; 88182

== ENCOUNTER → 2019-10-06 19:46 | Outpatient (ROUT) | payer MEDICARE, OTHER, SELFPAY ==
[2019-10-06 20:51] LABS: TSH w/ Reflex to FT4 2.34 uIU/mL (0.47-4.68)
== END ==
PROVIDERS: PCP Internal Medicine; Visit Provider Internal Medicine
DX: E04.1 Nontoxic single thyroid nodule (principal)
CPT/HCPCS: 84443

== ENCOUNTER → 2019-10-08 10:42 | Outpatient (CLI) | payer MEDICARE, OTHER, SELFPAY ==
--- NOTE | 2019-10-08 10:44 | DI.US.S_ITS ---
PROCEDURE: US THYROID INDICATIONS: THYROID NODULE TECHNIQUE: Real-time scanning was performed of the thyroid gland, with image documentation. COMPARISON: None. FINDINGS: Right: Thyroid lobe measures 5 x 2.2 x 2 cm, and is homogeneous in echotexture. Left: Thyroid lobe measures 5.9 x 3.5 x 2.8 cm, and is homogenous in echotexture. Isthmus: 5 mm thick. Nodule number: #1 Location: Upper pole right thyroid lobe Size: 0.8 x 0.7 x 0.6 cm. Composition: Spongiform Echogenicity: Hypoechoic Shape: Wider than tall Margins: Smooth Echogenic foci: None Total points: 2 ACR TI-RADS category: Not suspicious Nodule number: #2 Location: Midpole right thyroid lobe Size: 0.9 x 0.7 x 0.7 cm. Composition: Spongiform Echogenicity: Hypoechoic Shape: Wider than tall Margins: Smooth Echogenic foci: None Total points: 2 ACR TI-RADS category: Not suspicious Nodule number: #3 Location: Inferior pole of right thyroid lobe Size: 1.8 x 1.5 x 1.5 cm. Composition: Solid Echogenicity: Hypoechoic Shape: Wider than tall Margins: Ill-defined Echogenic foci: Macrocalcifications are seen Total points: 5 ACR TI-RADS category: Moderately suspicious Nodule number: #4 Location: Midpole left thyroid lobe Size: 4.1 x 3.3 x 2.5 cm. Composition: Spongiform Echogenicity: Hypoechoic Shape: Wider than tall Margins: Smooth Echogenic foci: Macrocalcifications are seen. Total points: 3 ACR TI-RADS category: Mildly suspicious. IMPRESSION: 1. 3 hypoechoic nodules seen in right thyroid lobe and one hypoechoic nodule seen in left thyroid lobe. The lower pole of right thyroid lobe nodule is moderately suspicious, sonographic followup is recommended. Findings aspiration of this nodule can also be done for more definitive diagnosis. 2. Single hypoechoic nodule in left thyroid lobe is mildly suspicious. Followup ultrasound is recommended. ACR TI-RADS definitions and recommendations: TI-RADS 1 (benign): 0 points. FNA not needed. TI-RADS 2 (not suspicious): 2 points. FNA not needed. TI-RADS 3 (mildly suspicious): 3 points. * FNA if 2.5 cm or larger, follow up if 1.5 cm or larger (at 1, 3, and 5 years). TI-RADS 4 (moderately suspicious): 4-6 points. * FNA if 1.5 cm or larger, follow up if 1 cm or larger (at 1, 2, 3, and 5 years). TI-RADS 5 (highly suspicious): 7 points or more. * FNA if 1 cm or larger, follow up if 0.5 cm or larger (every year for 5 years). Dictated by: Carlito Mcdonough M.D. on 10/08/2019 at 12:25 Approved by: Carlito Mcdonough M.D. on 10/08/2019 at 12:32
== END ==
PROVIDERS: PCP Internal Medicine; Visit Provider Internal Medicine
DX: E04.2 Nontoxic multinodular goiter (principal)
CPT/HCPCS: 76536

== ENCOUNTER → 2019-10-11 13:30 | Outpatient (CLI) | payer MEDICARE, OTHER, SELFPAY ==
--- NOTE | 2019-10-11 | DI.US.S_ITS ---
PROCEDURE: US THORACENTESIS INDICATIONS: PLEURAL EFFUSION TECHNIQUE: The indications, alternatives, benefits, risks, and complications of the procedure were explained to the patient. Written informed consent was obtained and placed in the chart. The chest was examined sonographically, and an appropriate site was chosen for thoracentesis. The skin was prepared and draped in the usual sterile fashion, and 1% lidocaine was infiltrated from the skin down through the pleural surface. A 19-gauge catheter-covered needle was then introduced into the pleural space, the catheter was advanced and the needle was withdrawn, and thereafter pleural fluid was aspirated. The catheter was then removed and a dressing was applied. COMPARISON: [facility], THORACENTESIS, 09/27/2019, 13:02. FINDINGS: Access site: Right hemithorax. Needle: One-Step centesis catheter with introducer needle. Fluid volume and description: 3000 cc of clear serous fluid. Fluid sent for diagnostic testing: At the request of the ordering healthcare provider. Medications: 1% lidocaine for local anaesthesia. Complications: None; post-procedural chest radiograph is pending to assess for pneumothorax. IMPRESSION: Successful ultrasound-guided thoracentesis. Dictated by: Calderon Whaley M.D. on 10/12/2019 at 9:24 Approved by: Calderon Whaley M.D. on 10/12/2019 at 9:25
--- NOTE | 2019-10-11 | PATH_ITS ---
Note [facility] Accession Number: [id number] TESTS RESULT FLAG UNITS REF RANGE LAB Clinician Provided Cytology Information No. of containers..01 Other (Miscellaneous) 01 RIGHT PLEURAL EFFUSI Clinician ICD10: J90 DIAGNOSIS: 01 RIGHT PLEURAL EFFUSION, ASPIRATION. NEGATIVE FOR MALIGNANT CELLS. FEW MESOTHELIAL CELLS AND BACKGROUND LYMPHOCYTES ALSO PRESENT. THIS INTERPRETATION INCLUDES EVALUATION OF A CELL BLOCK. Pathologist ICD10: J90 01 Nasim Robledo MD, Pathologist NPI- [id number] Chad Lund, Manager System ([facility]) 01 80 CC, ORANGE, HAZY /LCS 10/13/2019 1052 Local FLAG LEGEND: L-Low Normal,H-High Normal,LL-Alert Low,HH-Alert High <-Panic Low,>-Panic High,A-Abnormal,AA-Critical Abnormal Performed at: 01 =Z [facility] [address], [place] [address] Trung Costa MD, Performed at: 01 [facility] [address], [place], [place] [id number] MD Trung Costa MD Phone: [phone]
--- NOTE | 2019-10-11 16:20 | DI.RAD.S_ITS ---
PROCEDURE: XR CHEST 1V INDICATIONS: POST THORACENTESIS TECHNIQUE: One view of the chest was acquired. COMPARISON: [facility], CR, XR CHEST 1V, 09/27/2019, 13:38. [facility], CR, XR CHEST 2V, 09/07/2019, 12:26. FINDINGS: Surgical changes and devices: None. Lungs and pleura: Lungs are improved after thoracentesis of the right, with a moderate right and small left residual pleural effusion. No pleural effusions or pneumothorax. Mediastinum: Mediastinal contours appear normal. Heart size is normal. Bones and chest wall: No suspicious bony lesions. Overlying soft tissues appear unremarkable. IMPRESSION: No pneumothorax after right-sided thoracentesis earlier today. Residual moderate right and small left effusion. Dictated by: Calderon Whaley M.D. on 10/11/2019 at 16:30 Approved by: Calderon Whaley M.D. on 10/11/2019 at 16:35
== END ==
PROVIDERS: Family Provider Internal Medicine Gastroenterology; Visit Provider Internal Medicine
DX: J90 Pleural effusion, not elsewhere classified (principal)
CPT/HCPCS: 32555; 71045; 85610

== ENCOUNTER 2020-03-24 15:35 | Inpatient (IN) | payer MEDICARE, OTHER, SELFPAY ==
[2020-03-24] VITALS (13 sets, daily range): BP systolic 138–157; BP diastolic 61–70; PULSE 61–73; RESP 13–18; TEMP 35.7–36.6; O2SAT 92–97; BMI 25.7
[2020-03-24 16:20] LABS: Add Manual Diff / Slide Review NO; Basophils Absolute Auto 100 /uL (0-100); Basophils Percent Auto 0.8 % (0-2); Eosinophils Absolute Auto 200 /uL (0-450); Eosinophils Percent Auto 2.4 % (2-4); Hemoglobin 13.3 g/dL (13.5-17.5); Lymphocytes Absolute Auto 1500 /uL (1100-4500); Lymphocytes Percent Auto 20.3 % (25-40); Mean Corpuscular Hemoglobin 30.2 PG (26-34); Mean Corpuscular Volume 86.2 fL (80-100); Monocytes Absolute Auto 1400 /uL (0-900); Monocytes Percent Auto 19.4 % (3-14); Neutrophils Absolute Auto 4100 /uL (1500-7000); Neutrophils Percent Auto 57.1 % (50-75); Platelet Count 95 X10^3/uL (150-400); Red Blood Cell Count 4.41 X10^6/uL (4.5-5.9); Red Cell Distribution Width 19.5 % (11.6-14.8); White Blood Cell Count 7.2 X10^3/uL (4.5-11.0)
[2020-03-24 16:24] LABS: INR 1.3 (0.9-1.3); Prothrombin Time 14.9 SECONDS (10.1-12.7)
[2020-03-24 16:26] LABS: PTT Partial Thromboplastin Tim 30 SECONDS (26.4-36.2)
[2020-03-24 16:28] LABS: Ammonia (NH3) 115 umol/L (9-30)
[2020-03-24 16:29] LABS: Alanine Aminotransferase 37 IU/L (<50); Albumin 3.9 g/dL (3.5-5.0); Albumin Globulin Ratio 1.3 (1.0-2.8); Alkaline Phosphatase 103 U/L (38-126); Aspartate Aminotransferase 43 IU/L (17-59); BUN Creatinine Ratio 20.2 (6-22); Bilirubin Total 2.1 mg/dL (0.2-1.3); Blood Urea Nitrogen 23 mg/dL (9-20); Calcium 9.9 mg/dL (8.4-10.2); Carbon Dioxide 23 mmol/L (22-32); Chloride 99 mmol/L (98-107); Estimated Glomerular Filt Rate > 60.0 mL/min (>60); Glucose 415 mg/dL (80-110); HEMOLYSIS < 15 (0-50); Lipase 278 U/L (23-300); Potassium 4.8 mmol/L (3.4-5.1); Sodium 131 mmol/L (137-145); Total Protein 6.9 g/dL (6.3-8.2)
--- NOTE | 2020-03-24 16:43 | ED.WEAKNESS ---
HPI - Weakness <MOSHE Negron - Last Filed: 03/24/20 21:43> General Chief complaint: Weakness Stated complaint: dizziness, confusion, weakness/ pain with catheter Time Seen by Provider: 03/24/20 16:20 Mode of arrival: Family Vehicle History of Present Illness HPI Narrative: 74-year-old male with a history of hepatic stenosis and recent TIPPS procedure on 03/06/2020 with at Medicine. Presents to the emergency department with his for increasing weakness and confusion. states after the tips procedure he was feeling better, a week after the procedure he felt well enough to drive. However, over the past week he has had increasing weakness and reports of dizziness. states she notices he is slower to answer questions. Patient reports ?restless leg syndrome over my whole body ?and has difficulty sleeping at night. He states he paces the floor at night when this happens and has noticed the past week he occasionally feels like he will pass out. Patient states 2 days ago he fell in the shower as he felt weak and lost his balance. Patient grabbed the shower curtain and lowered to the floor. states she heard the patient fall and observed in Related Data Home Medications Medication Instructions Recorded Confirmed tamsulosin [Flomax] 0.4 mg PO QDAY #0 01/28/12 03/24/20 furosemide 40 mg PO BID 10/13/19 03/24/20 spironolactone 50 mg PO BID 10/13/19 03/24/20 lactulose 60 ml PO Q6HR 03/24/20 03/24/20 Allergies Allergy/AdvReac Type Severity Reaction Status Date / Time No Known Drug Allergies Allergy Verified 03/24/20 15:54 Patient History <MOSHE Negron - Last Filed: 03/24/20 21:43> Medical History Ascites (Inactive) Cirrhosis (Inactive) Gallstones (Inactive) Hepatic encephalopathy (Acute) MIMS (nonalcoholic steatohepatitis) (Acute) Neutropenia (Resolved) Splenic mass (Inactive) Thrombocytopenia (Chronic) Surgical History S/P TIPS (transjugular intrahepatic portosystemic shunt) (Acute) Family History (Updated 03/24/20 @ 22:22 by MOSHE Schultz) Mother Pancreatic cancer Father Colon cancer Social History household members: significant other Smoking Status: Former smoker Smoking Status: Former smoker alcohol intake frequency: 0-2 drinks per day Substance Use Type: does not use Exam <MOSHE Negron - Last Filed: 03/24/20 21:43> Initial Vital Signs Initial Vital Signs: Vital Signs Temperature 97.8 F 03/24/20 15:48 Pulse Rate 65 03/24/20 15:48 Respiratory Rate 18 03/24/20 15:48 Blood Pressure 153/67 H 03/24/20 15:48 Pulse Oximetry 96 03/24/20 15:48 <Clarisse Magallon MD - Last Filed: 03/25/20 12:39> Initial Vital Signs Initial Vital Signs: Vital Signs Temperature 97.8 F 03/24/20 15:48 Pulse Rate 65 03/24/20 15:48 Respiratory Rate 18 03/24/20 15:48 Blood Pressure 153/67 H 03/24/20 15:48 Pulse Oximetry 96 03/24/20 15:48 Course <MOSHE Negron - Last Filed: 03/24/20 21:43> Course Course Narrative: 1729: Spoke with nuclear fuel processing technician Dr. Wyatt about patient's lab results. She reported labs were completed at on 03/16 which are comparable to today's labs. She reported at that time bilirubin: 2, Creatine 1.28. Discussed ammonia levels and bilirubin are consistent, renal function is improving. States patient is stable due to past reports. She recommended increasing lactulose from 4 times a day to every 4 hours (6 times a day) as patient is tolerating this well with 1 bowel movement. She also recommended treating UTI and admitting for observation. 1808: Spoke with Dr. Solares about patient's history, test, test results, and recent consultation with . Discussed elevated ammonia verses UTI for increased weakness. He recommends transfer to due to lack of GI resources at this time. Dr. Solares willing to speak to if needed. 1845: I spoke with Dr. Wyatt at , she reported no specialized care was needed. Monitoring medicine was appropriate. Additionally, currently had no beds available. Did not recommend transfer. Attempted a [address] Solares was unable to take the call at this time 1906: Spoke with MOSHE Mcclain discussed test, test results, and consult with Dr. Wyatt who accepts patient for admission. MOSHE Mcclain at bedside evaluate patient. Orders Ordered: Dextrose (D50w) 25 gm IV PRN PRN PRN Reason: Hypoglycemia Furosemide (Lasix) 40 mg PO 0900,1700 [facility] Last Admin: 03/25/20 10:24 Dose: 40 mg Documented by: KOKO Ceftriaxone Sodium/Dextrose (Rocephin) 2 gm in 50 mls @ 100 mls/hr IV Q24H [facility] Last Admin: 03/25/20 10:23 Dose: 100 mls/hr Documented by: KOKO Insulin Aspart (Novolog Flexpen) 0 unit SUBCUT ACHS [facility]; Protocol Last Admin: 03/25/20 10:38 Dose: 7 unit Documented by: KOKO Cosigned by: MARTINA Admin: 03/25/20 02:03 Dose: 7 unit Documented by: ROSA Cosigned by: CRISTOFER Admin: 03/24/20 22:12 Dose: 7 unit Documented by: RIAZ Cosigned by: LEONORA Insulin Glargine (Lantus Solostar (Pen)) 10 unit SUBCUT DAILY [facility] Last Admin: 03/25/20 10:39 Dose: 10 unit Documented by: KOKO Cosigned by: MARTINA Lactulose (Enulose) 30 gm PO Q4HR [facility] Last Admin: 03/25/20 10:24 Dose: 30 gm Documented by: KOKO Naloxone HCl (Narcan) 0.2 mg IV Q2MIN PRN PRN Reason: Opiate Reversal Ondansetron HCl (Zofran) 4 mg IV Q6HR [facility] Last Admin: 03/25/20 06:07 Dose: Not Given Documented by: Admin: 03/25/20 00:11 Dose: Not Given Documented by: ROSA Spironolactone (Aldactone) 50 mg PO 0900,1700 [facility] Last Admin: 03/25/20 10:34 Dose: 50 mg Documented by: KOKO Tamsulosin HCl (Flomax) 0.4 mg PO DAILY [facility] Last Admin: 03/25/20 10:34 Dose: 0.4 mg Documented by: KOKO Discontinued Medications Furosemide (Lasix) 40 mg PO BID [facility] Last Admin: 03/24/20 21:41 Dose: 40 mg Documented by: RIAZ Sodium Chloride (Normal Saline 0.9%) 1,000 mls @ 100 mls/hr IV CONT [facility] Last Admin: 03/24/20 21:41 Dose: 75 mls/hr Documented by: RIAZ Ceftriaxone Sodium/Dextrose (Rocephin) 1 gm in 50 mls @ 100 mls/hr IV Q24H [facility] Last Admin: 03/24/20 21:42 Dose: 100 mls/hr Documented by: RIAZ Insulin Aspart (Novolog Flexpen) 0 unit SUBCUT [facility]; Protocol Insulin Human Regular (Humulin R) 5 unit IV NOW ONE Stop: 03/25/20 07:53 Last Admin: 03/25/20 10:40 Dose: 5 unit Documented by: KOKO Cosigned by: JACKIEFARChica Lactulose (Enulose) 20 gm PO Q4HR [facility] Last Admin: 03/25/20 06:04 Dose: 20 gm Documented by: Admin: 03/25/20 00:10 Dose: 20 gm Documented by: Admin: 03/24/20 21:40 Dose: 20 gm Documented by: RIAZ Spironolactone (Aldactone) 50 mg PO BID [facility] Last Admin: 03/24/20 22:28 Dose: Not Given Documented by: RAJEEV Spironolactone (Aldactone) 50 mg PO 0800,1700 [facility] Last Admin: 03/24/20 23:39 Dose: Not Given Documented by: ROSA Spironolactone (Aldactone) 25 mg PO 0900,1700 [facility] Spironolactone (Aldactone) 50 mg PO 0900,1700 [facility] Spironolactone (Aldactone) 50 mg PO 0900,1700 [facility] Last Admin: 03/24/20 23:25 Dose: 50 mg Documented by: RAJEEV Spironolactone (Aldactone) 50 mg PO 0900,1700 [facility] Vital Signs Vital signs: Vital Signs - 8 hr 03/24/20 15:48 03/24/20 17:15 03/24/20 17:30 Temperature 97.8 F Pulse Rate 65 65 62 Respiratory Rate 18 13 14 Blood Pressure 153/67 H Blood Pressure [Left Arm] 138/68 149/70 H Blood Pressure [Right Arm] 149/70 H Pulse Oximetry 96 95 92 03/24/20 17:45 03/24/20 18:00 03/24/20 18:15 Temperature Pulse Rate 62 64 61 Respiratory Rate 15 15 13 Blood Pressure Blood Pressure [Left Arm] 157/70 H Blood Pressure [Right Arm] 157/70 H Pulse Oximetry 94 96 95 03/24/20 18:30 03/24/20 18:45 03/24/20 19:00 Temperature Pulse Rate 63 64 65 Respiratory Rate 14 15 14 Blood Pressure Blood Pressure [Left Arm] 153/68 H Blood Pressure [Right Arm] 153/68 H 142/65 H Pulse Oximetry 93 94 95 03/24/20 19:30 03/24/20 20:00 Temperature Pulse Rate 68 67 Respiratory Rate 15 15 Blood Pressure Blood Pressure [Left Arm] Blood Pressure [Right Arm] 142/65 H 145/64 H Pulse Oximetry 95 95 <Clarisse Magallon MD - Last Filed: 03/25/20 12:39> Orders Ordered: Dextrose (D50w) 25 gm IV PRN PRN PRN Reason: Hypoglycemia Furosemide (Lasix) 40 mg PO 0900,1700 [facility] Last Admin: 03/25/20 10:24 Dose: 40 mg Documented by: KOKO Ceftriaxone Sodium/Dextrose (Rocephin) 2 gm in 50 mls @ 100 mls/hr IV Q24H [facility] Last Admin: 03/25/20 10:23 Dose: 100 mls/hr Documented by: KOKO Insulin Aspart (Novolog Flexpen) 0 unit SUBCUT ACHS [facility]; Protocol Last Admin: 03/25/20 10:38 Dose: 7 unit Documented by: KOKO Cosigned by: MARTINA Admin: 03/25/20 02:03 Dose: 7 unit Documented by: ROSA Cosigned by: CRISTOFER Admin: 03/24/20 22:12 Dose: 7 unit Documented by: RIAZ Cosigned by: LEONORA Insulin Glargine (Lantus Solostar (Pen)) 10 unit SUBCUT DAILY [facility] Last Admin: 03/25/20 10:39 Dose: 10 unit Documented by: KOKO Cosigned by: MARTINA Lactulose (Enulose) 30 gm PO Q4HR [facility] Last Admin: 03/25/20 10:24 Dose: 30 gm Documented by: KOKO Naloxone HCl (Narcan) 0.2 mg IV Q2MIN PRN PRN Reason: Opiate Reversal Ondansetron HCl (Zofran) 4 mg IV Q6HR [facility] Last Admin: 03/25/20 06:07 Dose: Not Given Documented by: Admin: 03/25/20 00:11 Dose: Not Given Documented by: ROSA Spironolactone (Aldactone) 50 mg PO 0900,1700 [facility] Last Admin: 03/25/20 10:34 Dose: 50 mg Documented by: KOKO Tamsulosin HCl (Flomax) 0.4 mg PO DAILY [facility] Last Admin: 03/25/20 10:34 Dose: 0.4 mg Documented by: KOKO Discontinued Medications Furosemide (Lasix) 40 mg PO BID [facility] Last Admin: 03/24/20 21:41 Dose: 40 mg Documented by: RIAZ Sodium Chloride (Normal Saline 0.9%) 1,000 mls @ 100 mls/hr IV CONT [facility] Last Admin: 03/24/20 21:41 Dose: 75 mls/hr Documented by: RIAZ Ceftriaxone Sodium/Dextrose (Rocephin) 1 gm in 50 mls @ 100 mls/hr IV Q24H [facility] Last Admin: 03/24/20 21:42 Dose: 100 mls/hr Documented by: RIAZ Insulin Aspart (Novolog Flexpen) 0 unit SUBCUT [facility]; Protocol Insulin Human Regular (Humulin R) 5 unit IV NOW ONE Stop: 03/25/20 07:53 Last Admin: 03/25/20 10:40 Dose: 5 unit Documented by: KOKO Cosigned by: MARTINA Lactulose (Enulose) 20 gm PO Q4HR [facility] Last Admin: 03/25/20 06:04 Dose: 20 gm Documented by: Admin: 03/25/20 00:10 Dose: 20 gm Documented by: Admin: 03/24/20 21:40 Dose: 20 gm Documented by: RIAZ Spironolactone (Aldactone) 50 mg PO BID [facility] Last Admin: 03/24/20 22:28 Dose: Not Given Documented by: RAJEEV Spironolactone (Aldactone) 50 mg PO 0800,1700 [facility] Last Admin: 03/24/20 23:39 Dose: Not Given Documented by: ROSA Spironolactone (Aldactone) 25 mg PO 0900,1700 [facility] Spironolactone (Aldactone) 50 mg PO 0900,1700 [facility] Spironolactone (Aldactone) 50 mg PO 0900,1700 [facility] Last Admin: 03/24/20 23:25 Dose: 50 mg Documented by: RAJEEV Spironolactone (Aldactone) 50 mg PO 0900,1700 [facility] Vital Signs Vital signs: Vital Signs - 8 hr 03/24/20 15:48 03/24/20 17:15 03/24/20 17:30 Temperature 97.8 F Pulse Rate 65 65 62 Respiratory Rate 18 13 14 Blood Pressure 153/67 H Blood Pressure [Left Arm] 138/68 149/70 H Blood Pressure [Right Arm] 149/70 H Pulse Oximetry 96 95 92 03/24/20 17:45 03/24/20 18:00 03/24/20 18:15 Temperature Pulse Rate 62 64 61 Respiratory Rate 15 15 13 Blood Pressure Blood Pressure [Left Arm] 157/70 H Blood Pressure [Right Arm] 157/70 H Pulse Oximetry 94 96 95 03/24/20 18:30 03/24/20 18:45 03/24/20 19:00 Temperature Pulse Rate 63 64 65 Respiratory Rate 14 15 14 Blood Pressure Blood Pressure [Left Arm] 153/68 H Blood Pressure [Right Arm] 153/68 H 142/65 H Pulse Oximetry 93 94 95 03/24/20 19:30 03/24/20 20:00 Temperature Pulse Rate 68 67 Respiratory Rate 15 15 Blood Pressure Blood Pressure [Left Arm] Blood Pressure [Right Arm] 142/65 H 145/64 H Pulse Oximetry 95 95 MDM - Weakness <MOSHE Negron - Last Filed: 03/24/20 21:43> Medical Records Attestation: I reviewed the patient's medical records. Lab Data Attestation: I reviewed the patient's lab results. Result diagrams: 03/25/20 05:20 03/25/20 05:20 Labs: Lab Results 03/24/20 03/24/20 03/24/20 Range/Units 16:00 16:00 16:00 WBC 7.2 (4.5-11.0) X10^3/uL RBC 4.41 L (4.5-5.9) X10^6/uL Hgb 13.3 L (13.5-17.5) g/dL Hct 38.0 L (41-53) % MCV 86.2 (80-100) fL MCH 30.2 (26-34) PG MCHC 35.0 (30-36) % RDW 19.5 H (11.6-14.8) % Plt Count 95 L (150-400) X10^3/uL Neut % (Auto) 57.1 (50-75) % Lymph % (Auto) 20.3 L (25-40) % [place] % (Auto) 19.4 H (3-14) % Eos % (Auto) 2.4 (2-4) % Baso % (Auto) 0.8 (0-2) % Neut # (Auto) 4100 (2321-5725) /uL Lymph # (Auto) 1500 (2425-2792) /uL [place] # (Auto) 1400 H (0-900) /uL Eos # (Auto) 200 (0-450) /uL Baso # (Auto) 100 (0-100) /uL PT 14.9 H (10.1-12.7) SECONDS INR 1.3 (0.9-1.3) APTT 30 D (26.4-36.2) SECONDS Sodium 131 L (137-145) mmol/L Potassium 4.8 (3.4-5.1) mmol/L Chloride 99 (98-107) mmol/L Carbon Dioxide 23 (22-32) mmol/L BUN 23 H (9-20) mg/dL Creatinine 1.14 (0.66-1.25) mg/dL Estimated GFR > 60.0 (>60) mL/min BUN/Creatinine Ratio 20.2 (6-22) Glucose 415 H (80-110) mg/dL Hemoglobin A1c (4.0-6.0) % Lactate (0.7-2.1) mmol/L Calcium 9.9 (8.4-10.2) mg/dL Total Bilirubin 2.1 H (0.2-1.3) mg/dL AST 43 (17-59) IU/L ALT 37 (<50) IU/L Alkaline Phosphatase 103 (38-126) U/L Ammonia (9-30) umol/L Total Creatine Kinase (55-170) U/L CK-MB (CK-2) CK-MB (CK-2) Rel Index Troponin I (0.01-0.034) ng/mL Total Protein 6.9 (6.3-8.2) g/dL Albumin 3.9 (3.5-5.0) g/dL Globulin 3.0 (1.7-4.1) g/dL Albumin/Globulin Ratio 1.3 (1.0-2.8) Lipase 278 (23-300) U/L Urine RBC (0-5/HPF) Urine WBC (0-5/HPF) Ur Squamous Epith Cells (0-5/HPF) Amorphous Sediment Urine Bacteria (None) Urine Mucus (Negative) Ur Culture Indicated? 03/24/20 03/24/20 03/24/20 Range/Units 16:00 16:00 16:00 WBC (4.5-11.0) X10^3/uL RBC (4.5-5.9) X10^6/uL Hgb (13.5-17.5) g/dL Hct (41-53) % MCV (80-100) fL MCH (26-34) PG MCHC (30-36) % RDW (11.6-14.8) % Plt Count (150-400) X10^3/uL Neut % (Auto) (50-75) % Lymph % (Auto) (25-40) % [place] % (Auto) (3-14) % Eos % (Auto) (2-4) % Baso % (Auto) (0-2) % Neut # (Auto) (3394-5658) /uL Lymph # (Auto) (9922-6730) /uL [place] # (Auto) (0-900) /uL Eos # (Auto) (0-450) /uL Baso # (Auto) (0-100) /uL PT (10.1-12.7) SECONDS INR (0.9-1.3) APTT (26.4-36.2) SECONDS Sodium (137-145) mmol/L Potassium (3.4-5.1) mmol/L Chloride (98-107) mmol/L Carbon Dioxide (22-32) mmol/L BUN (9-20) mg/dL Creatinine (0.66-1.25) mg/dL Estimated GFR (>60) mL/min BUN/Creatinine Ratio (6-22) Glucose (80-110) mg/dL Hemoglobin A1c 8.2 H (4.0-6.0) % Lactate (0.7-2.1) mmol/L Calcium (8.4-10.2) mg/dL Total Bilirubin (0.2-1.3) mg/dL AST (17-59) IU/L ALT (<50) IU/L Alkaline Phosphatase (38-126) U/L Ammonia 115 H (9-30) umol/L Total Creatine Kinase 39 L (55-170) U/L CK-MB (CK-2) TNP CK-MB (CK-2) Rel Index TNP Troponin I < 0.012 (0.01-0.034) ng/mL Total Protein (6.3-8.2) g/dL Albumin (3.5-5.0) g/dL Globulin (1.7-4.1) g/dL Albumin/Globulin Ratio (1.0-2.8) Lipase (23-300) U/L Urine RBC (0-5/HPF) Urine WBC (0-5/HPF) Ur Squamous Epith Cells (0-5/HPF) Amorphous Sediment Urine Bacteria (None) Urine Mucus (Negative) Ur Culture Indicated? 03/24/20 03/24/20 Range/Units 16:52 18:13 WBC (4.5-11.0) X10^3/uL RBC (4.5-5.9) X10^6/uL Hgb (13.5-17.5) g/dL Hct (41-53) % MCV (80-100) fL MCH (26-34) PG MCHC (30-36) % RDW (11.6-14.8) % Plt Count (150-400) X10^3/uL Neut % (Auto) (50-75) % Lymph % (Auto) (25-40) % [place] % (Auto) (3-14) % Eos % (Auto) (2-4) % Baso % (Auto) (0-2) % Neut # (Auto) (2501-3795) /uL Lymph # (Auto) (8928-5162) /uL [place] # (Auto) (0-900) /uL Eos # (Auto) (0-450) /uL Baso # (Auto) (0-100) /uL PT (10.1-12.7) SECONDS INR (0.9-1.3) APTT (26.4-36.2) SECONDS Sodium (137-145) mmol/L Potassium (3.4-5.1) mmol/L Chloride (98-107) mmol/L Carbon Dioxide (22-32) mmol/L BUN (9-20) mg/dL Creatinine (0.66-1.25) mg/dL Estimated GFR (>60) mL/min BUN/Creatinine Ratio (6-22) Glucose (80-110) mg/dL Hemoglobin A1c (4.0-6.0) % Lactate 1.8 (0.7-2.1) mmol/L Calcium (8.4-10.2) mg/dL Total Bilirubin (0.2-1.3) mg/dL AST (17-59) IU/L ALT (<50) IU/L Alkaline Phosphatase (38-126) U/L Ammonia (9-30) umol/L Total Creatine Kinase (55-170) U/L CK-MB (CK-2) CK-MB (CK-2) Rel Index Troponin I (0.01-0.034) ng/mL Total Protein (6.3-8.2) g/dL Albumin (3.5-5.0) g/dL Globulin (1.7-4.1) g/dL Albumin/Globulin Ratio (1.0-2.8) Lipase (23-300) U/L Urine RBC 30-100/hpf H (0-5/HPF) Urine WBC 10-30/hpf H (0-5/HPF) Ur Squamous Epith Cells 0-1 /hpf (0-5/HPF) Amorphous Sediment 1+ Urine Bacteria Many (>30) H (None) Urine Mucus 1+ H (Negative) Ur Culture Indicated? Specimen cultured Urine Dip Bedside Urine Glucose 500 mg/dl Bedside Urine Bilirubin - Negative Bedside Urine Ketone - Negative Urine Specific [place] 1.015 Bedside Urine Occult Blood +++ Bedside Urine pH 6.5 Bedside Urine Protein +/- 15 Bedside Urine Urobilinogen +/- 1mg Bedside Urine Nitrite + Positive Bedside Urine Leukocytes +++ [address] scan - head: Radiologist Impression: [address] [address] [address] Scan Report Signed Patient: Leonardo Avina AMR#: [id number] : 5Acct:[id number] Age/Sex: 74 / MDate of Service: 03/24/20 Loc: ED Accession Number: [id number] Procedure: CT head/brain wo con Ordering Provider: Megha Vázquez PROCEDURE: CT HEAD/BRAIN WO CON INDICATIONS: weakness TECHNIQUE: Noncontrast 4.5 mm thick angled axial sections acquired from the foramen magnum to the vertex, with coronal and sagittal reformats. For radiation dose reduction, the following was used: automated exposure control, adjustment of mA and/or kV according to patient size. COMPARISON: [facility], CT, HEAD WITHOUT CONTRAST, 01/28/2012, 17:48. FINDINGS: Image quality: Excellent. CSF spaces: Basal cisterns are patent. No extra-axial fluid collections. The ventricles are symmetric in size and shape. Brain: No intracranial bleeds or masses. There is cerebral volume loss for age, with resultant ventricular and sulcal prominence. There are periventricular and deep white matter chronic small vessel ischemic changes. There is intracranial internal carotid artery atherosclerosis. Skull and face: Calvarium and visualized facial bones appear intact, without suspicious lesions. Sinuses: Visualized sinuses and mastoids are clear. IMPRESSION: No acute intracranial process. Dictated by: Benjamín Mcclain M.D. on 03/24/2020 at 17:11 Approved by: Benjamín Mcclain M.D. on 03/24/2020 at 17:12 Chest x-ray: Radiologist Impression: [address] [address] XRay Report Signed Patient: Leonardo Avina AMR#: [id number] : 5Acct:[id number] Age/Sex: 74 / MDate of Service: 03/24/20 Loc: ED Accession Number: [id number] Procedure: XR chest 1V Ordering Provider: Megha Vázquez PROCEDURE: XR CHEST 1V INDICATIONS: weakness TECHNIQUE: One view of the chest was acquired. COMPARISON: [facility], CR, XR CHEST 1 VIEW, 10/28/2019, 14:[address]. [facility], CR, XR CHEST 1V, 10/11/2019, 16:17. FINDINGS: Surgical changes and devices: None. Lungs and pleura: . Small right pleural effusion. Adjacent atelectasis. No pneumothorax. Mediastinum: Mediastinal contours appear normal. Heart size is normal. Bones and chest wall: No suspicious bony lesions. Overlying soft tissues appear unremarkable. IMPRESSION: Small right pleural effusion with adjacent atelectasis, decreased since 10/28/19. Dictated by: Benjamín Mcclain M.D. on 03/24/2020 at 17:13 Approved by: Benjamín Mcclain M.D. on 03/24/2020 at 17:15 [facility] Narrative Medical decision making narrative: 74-year-old male post TIPS procedure presents to the emergency department for increasing weakness over the past week. Differential for increasing weakness include encephalopathy due to elevated ammonia versus current urinary tract infection. While both may affecting patient's weakness, I suspect the urinary tract infection is the more acute cause at this point due to conversations with nuclear fuel processing technician at [facility] stating that liver function appears rather stable from previous labs. However, she suggested monitoring and increase lactulose every 4 hours. Patient was started on ceftriaxone for UTI, he does have a indwelling urinary catheter due to urinary retention. Less likely ACS due to lack of shortness of breath or chest pain, troponin negative, EKG non-remarkable, chest x-ray without signs of acute cardiac etiology. Less likely pulmonary etiology, while chest x-ray does show single right pleural effusion, this is decreasing since last observation on 10/28/2019. Less likely intracranial etiology due to negative head CT, no reports of fall or trauma. Patient is hemodynamically stable, alert, slow to respond to questions but does not appear acutely confused but rather more weak. Patient had elevated glucose, denies history of diabetes. Elevated sugar may be due to recent infection, however, further testing and monitoring is needed to determine additional etiology such as new onset diabetes. Patient was admitted, agrees to admission at [facility]. <Clarisse Magallon MD - Last Filed: 03/25/20 12:39> Lab Data Labs: Lab Results 03/24/20 03/24/20 03/24/20 Range/Units 16:00 16:00 16:00 WBC 7.2 (4.5-11.0) X10^3/uL RBC 4.41 L (4.5-5.9) X10^6/uL Hgb 13.3 L (13.5-17.5) g/dL Hct 38.0 L (41-53) % MCV 86.2 (80-100) fL MCH 30.2 (26-34) PG MCHC 35.0 (30-36) % RDW 19.5 H (11.6-14.8) % Plt Count 95 L (150-400) X10^3/uL Neut % (Auto) 57.1 (50-75) % Lymph % (Auto) 20.3 L (25-40) % [place] % (Auto) 19.4 H (3-14) % Eos % (Auto) 2.4 (2-4) % Baso % (Auto) 0.8 (0-2) % Neut # (Auto) 4100 (5268-9257) /uL Lymph # (Auto) 1500 (8443-0936) /uL [place] # (Auto) 1400 H (0-900) /uL Eos # (Auto) 200 (0-450) /uL Baso # (Auto) 100 (0-100) /uL PT 14.9 H (10.1-12.7) SECONDS INR 1.3 (0.9-1.3) APTT 30 D (26.4-36.2) SECONDS Sodium 131 L (137-145) mmol/L Potassium 4.8 (3.4-5.1) mmol/L Chloride 99 (98-107) mmol/L Carbon Dioxide 23 (22-32) mmol/L BUN 23 H (9-20) mg/dL Creatinine 1.14 (0.66-1.25) mg/dL Estimated GFR > 60.0 (>60) mL/min BUN/Creatinine Ratio 20.2 (6-22) Glucose 415 H (80-110) mg/dL Hemoglobin A1c (4.0-6.0) % Lactate (0.7-2.1) mmol/L Calcium 9.9 (8.4-10.2) mg/dL Total Bilirubin 2.1 H (0.2-1.3) mg/dL AST 43 (17-59) IU/L ALT 37 (<50) IU/L Alkaline Phosphatase 103 (38-126) U/L Ammonia (9-30) umol/L Total Creatine Kinase (55-170) U/L CK-MB (CK-2) CK-MB (CK-2) Rel Index Troponin I (0.01-0.034) ng/mL Total Protein 6.9 (6.3-8.2) g/dL Albumin 3.9 (3.5-5.0) g/dL Globulin 3.0 (1.7-4.1) g/dL Albumin/Globulin Ratio 1.3 (1.0-2.8) Lipase 278 (23-300) U/L Urine RBC (0-5/HPF) Urine WBC (0-5/HPF) Ur Squamous Epith Cells (0-5/HPF) Amorphous Sediment Urine Bacteria (None) Urine Mucus (Negative) Ur Culture Indicated? 03/24/20 03/24/20 03/24/20 Range/Units 16:00 16:00 16:00 WBC (4.5-11.0) X10^3/uL RBC (4.5-5.9) X10^6/uL Hgb (13.5-17.5) g/dL Hct (41-53) % MCV (80-100) fL MCH (26-34) PG MCHC (30-36) % RDW (11.6-14.8) % Plt Count (150-400) X10^3/uL Neut % (Auto) (50-75) % Lymph % (Auto) (25-40) % [place] % (Auto) (3-14) % Eos % (Auto) (2-4) % Baso % (Auto) (0-2) % Neut # (Auto) (8439-4685) /uL Lymph # (Auto) (8895-8646) /uL [place] # (Auto) (0-900) /uL Eos # (Auto) (0-450) /uL Baso # (Auto) (0-100) /uL PT (10.1-12.7) SECONDS INR (0.9-1.3) APTT (26.4-36.2) SECONDS Sodium (137-145) mmol/L Potassium (3.4-5.1) mmol/L Chloride (98-107) mmol/L Carbon Dioxide (22-32) mmol/L BUN (9-20) mg/dL Creatinine (0.66-1.25) mg/dL Estimated GFR (>60) mL/min BUN/Creatinine Ratio (6-22) Glucose (80-110) mg/dL Hemoglobin A1c 8.2 H (4.0-6.0) % Lactate (0.7-2.1) mmol/L Calcium (8.4-10.2) mg/dL Total Bilirubin (0.2-1.3) mg/dL AST (17-59) IU/L ALT (<50) IU/L Alkaline Phosphatase (38-126) U/L Ammonia 115 H (9-30) umol/L Total Creatine Kinase 39 L (55-170) U/L CK-MB (CK-2) TNP CK-MB (CK-2) Rel Index TNP Troponin I < 0.012 (0.01-0.034) ng/mL Total Protein (6.3-8.2) g/dL Albumin (3.5-5.0) g/dL Globulin (1.7-4.1) g/dL Albumin/Globulin Ratio (1.0-2.8) Lipase (23-300) U/L Urine RBC (0-5/HPF) Urine WBC (0-5/HPF) Ur Squamous Epith Cells (0-5/HPF) Amorphous Sediment Urine Bacteria (None) Urine Mucus (Negative) Ur Culture Indicated? 03/24/20 03/24/20 Range/Units 16:52 18:13 WBC (4.5-11.0) X10^3/uL RBC (4.5-5.9) X10^6/uL Hgb (13.5-17.5) g/dL Hct (41-53) % MCV (80-100) fL MCH (26-34) PG MCHC (30-36) % RDW (11.6-14.8) % Plt Count (150-400) X10^3/uL Neut % (Auto) (50-75) % Lymph % (Auto) (25-40) % [place] % (Auto) (3-14) % Eos % (Auto) (2-4) % Baso % (Auto) (0-2) % Neut # (Auto) (4147-3974) /uL Lymph # (Auto) (7934-6129) /uL [place] # (Auto) (0-900) /uL Eos # (Auto) (0-450) /uL Baso # (Auto) (0-100) /uL PT (10.1-12.7) SECONDS INR (0.9-1.3) APTT (26.4-36.2) SECONDS Sodium (137-145) mmol/L Potassium (3.4-5.1) mmol/L Chloride (98-107) mmol/L Carbon Dioxide (22-32) mmol/L BUN (9-20) mg/dL Creatinine (0.66-1.25) mg/dL Estimated GFR (>60) mL/min BUN/Creatinine Ratio (6-22) Glucose (80-110) mg/dL Hemoglobin A1c (4.0-6.0) % Lactate 1.8 (0.7-2.1) mmol/L Calcium (8.4-10.2) mg/dL Total Bilirubin (0.2-1.3) mg/dL AST (17-59) IU/L ALT (<50) IU/L Alkaline Phosphatase (38-126) U/L Ammonia (9-30) umol/L Total Creatine Kinase (55-170) U/L CK-MB (CK-2) CK-MB (CK-2) Rel Index Troponin I (0.01-0.034) ng/mL Total Protein (6.3-8.2) g/dL Albumin (3.5-5.0) g/dL Globulin (1.7-4.1) g/dL Albumin/Globulin Ratio (1.0-2.8) Lipase (23-300) U/L Urine RBC 30-100/hpf H (0-5/HPF) Urine WBC 10-30/hpf H (0-5/HPF) Ur Squamous Epith Cells 0-1 /hpf (0-5/HPF) Amorphous Sediment 1+ Urine Bacteria Many (>30) H (None) Urine Mucus 1+ H (Negative) Ur Culture Indicated? Specimen cultured Urine Dip Bedside Urine Glucose 500 mg/dl Bedside Urine Bilirubin - Negative Bedside Urine Ketone - Negative Urine Specific [place] 1.015 Bedside Urine Occult Blood +++ Bedside Urine pH 6.5 Bedside Urine Protein +/- 15 Bedside Urine Urobilinogen +/- 1mg Bedside Urine Nitrite + Positive Bedside Urine Leukocytes +++ 500 Esterase Discharge Plan Departure Patient Disposition: Admitted As Inpatient Clinical Impression: Encephalopathy, Acute UTI, S/P TIPS (transjugular intrahepatic portosystemic shunt), Acute hyperglycemia Discharge Date/Time: 03/24/20 20:30 Referrals: Katelyn Campbell MD [Primary Care Provider] - Admit Date/Time: 03/24/20 20:28 Admit Provider: Karli Mcclain <Clarisse Magallon MD - Last Filed: 03/25/20 12:39> Cosign ED Attending Cosignature Attestation: I was immediately available in the department for consultation throughout this patient's visit. I agree with documentation as above. Clarisse Magallon MD
--- NOTE | 2020-03-24 16:50 | DI.CT.S_ITS ---
PROCEDURE: CT HEAD/BRAIN WO CON INDICATIONS: weakness TECHNIQUE: Noncontrast 4.5 mm thick angled axial sections acquired from the foramen magnum to the vertex, with coronal and sagittal reformats. For radiation dose reduction, the following was used: automated exposure control, adjustment of mA and/or kV according to patient size. COMPARISON: [facility], CT, HEAD WITHOUT CONTRAST, 01/28/2012, 17:48. FINDINGS: Image quality: Excellent. CSF spaces: Basal cisterns are patent. No extra-axial fluid collections. The ventricles are symmetric in size and shape. Brain: No intracranial bleeds or masses. There is cerebral volume loss for age, with resultant ventricular and sulcal prominence. There are periventricular and deep white matter chronic small vessel ischemic changes. There is intracranial internal carotid artery atherosclerosis. Skull and face: Calvarium and visualized facial bones appear intact, without suspicious lesions. Sinuses: Visualized sinuses and mastoids are clear. IMPRESSION: No acute intracranial process. Dictated by: Benjamín Mcclain M.D. on 03/24/2020 at 17:11 Approved by: Benjamín Mcclain M.D. on 03/24/2020 at 17:12
[2020-03-24 17:01] LABS: Creatine Kinase 39 U/L (55-170)
[2020-03-24 17:14] LABS: Troponin I < 0.012 ng/mL (0.01-0.034)
[2020-03-24 17:25] LABS: Amorphous Sediment Urine 1+; Bacteria Urine Many (>30); Culture Indicated Urine Specimen Cultured; Mucus Urine 1+ (Negative); RBC Urine 30-100/HPF (0-5/HPF); Squamous Epithelial Cell Urine 0-1 /HPF (0-5/HPF); WBC Urine 10-30/HPF (0-5/HPF)
[2020-03-24 18:30] LABS: Lactate (Lactic Acid) 1.8 mmol/L (0.7-2.1)
[2020-03-24 21:35] LABS: Hemoglobin A1C% w Est Avg Glu 8.2 % (4.0-6.0)
[2020-03-24] MEDS: LACTULOSE 20 GM/30 ML SOLUTION PO (21:40)
[2020-03-24] MEDS: SODIUM CHLORIDE 0.9% 1,000 ML 75 ML IV (21:41)
[2020-03-24] MEDS: FUROSEMIDE 40 MG TABLET PO (21:41)
[2020-03-24] MEDS: CEFTRIAXONE 1 GM/50 ML FROZ.PIGGY IV (21:42)
--- NOTE | 2020-03-24 22:04 | P.HP_ITS ---
History of Present Illness History of Present Illness Date Patient Seen: 03/24/20 Time Patient Seen: 20:00 Chief complaint: dizziness, confusion, weakness/ pain with catheter Narrative: Leonardo Avina is a very pleasant 74-year-old male with a history of nonalcoholic fatty liver cirrhosis, status post TIPS on March 06, new diagnosis of diabetes type 2, recently diagnosed ileocecal valve polyps, acute urinary retention with an indwelling catheter presented with increased weakness. He was discharged from [facility] after the tips on March 07 and followed up as recently as 2 days ago with providers in the [place] area and drove home. He then began to have increasing in weakness, lethargy, his stated that he was confused, and decreasing bowel movements. Upon discharge from the TIPS surgery, he was placed on lactulose and at that time was having 3-4 bowel movements a day. When they decreased to twice a day his lactulose was increased with apparently no affect. He has been having only 1 bowel movement a day for the last several days. Also during the surgery and afterwards he developed urinary retention and was discharged with an indwelling catheter. He does have a minimal amount of nausea when he was being transported to the imaging room, he has chronic restless legs that has improved since the TIPS surgery. Denies fevers sweats or chills, difficulty swallowing, chest pain, shortness of breath, abdominal cramping or bloating or diarrhea. Patient is scheduled for resection of the ileocecal area in March and a prostate resection after he recovers from the colon surgery. Patient History Medical History Ascites (Inactive) Cirrhosis (Inactive) Gallstones (Inactive) Hepatic encephalopathy (Acute) MIMS (nonalcoholic steatohepatitis) (Acute) Neutropenia (Resolved) Splenic mass (Inactive) Thrombocytopenia (Chronic) Surgical History S/P TIPS (transjugular intrahepatic portosystemic shunt) (Acute) Family & Social History Family History (Updated 03/24/20 @ 22:22 by MOSHE Schultz) Mother Pancreatic cancer Father Colon cancer Social History: household members significant other Prior Living Arrangements House Safety & Behavioral: Feels Safe in Current Yes Environment Been Physically Hurt or No Threatened By a Person Suicidal Ideation Description None Suicide Plan Description No Plan Tobacco & Substance use: Smoking Status Former smoker quit at age 24 alcohol intake frequency denies Substance Use Type does not use Meds Home Medications and Allergies Home Medications Medication Instructions Recorded Confirmed Type tamsulosin [Flomax] 0.4 mg PO QDAY #0 01/28/12 03/24/20 History furosemide 40 mg PO BID 10/13/19 03/24/20 History spironolactone 50 mg PO BID 10/13/19 03/24/20 History lactulose 60 ml PO Q6HR 03/24/20 03/24/20 History Allergies Allergy/AdvReac Type Severity Reaction Status Date / Time No Known Drug Allergies Allergy Verified 03/24/20 15:54 Review of Systems Review of Systems ROS: Yes All systems reviewed with the patient and are negative except as otherwise documented Exam Vital Signs (past 8 hours): - 03/24/20 15:48 03/24/20 17:15 03/24/20 17:30 Temperature 97.8 F Pulse Rate 65 65 62 Respiratory Rate 18 13 14 Blood Pressure 153/67 H Blood Pressure [Left Arm] 138/68 149/70 H Blood Pressure [Right Arm] 149/70 H Pulse Oximetry 96 95 92 03/24/20 17:45 03/24/20 18:00 03/24/20 18:15 Temperature Pulse Rate 62 64 61 Respiratory Rate 15 15 13 Blood Pressure Blood Pressure [Left Arm] 157/70 H Blood Pressure [Right Arm] 157/70 H Pulse Oximetry 94 96 95 03/24/20 18:30 03/24/20 18:45 03/24/20 19:00 Temperature Pulse Rate 63 64 65 Respiratory Rate 14 15 14 Blood Pressure Blood Pressure [Left Arm] 153/68 H Blood Pressure [Right Arm] 153/68 H 142/65 H Pulse Oximetry 93 94 95 03/24/20 19:30 03/24/20 20:00 03/24/20 20:40 Temperature 96.3 F L Pulse Rate 68 67 73 Respiratory Rate 15 15 18 Blood Pressure 147/61 H Blood Pressure [Left Arm] Blood Pressure [Right Arm] 142/65 H 145/64 H Pulse Oximetry 95 95 96 Oxygen Delivery Method Room Air Oxygen Flow Rate 0 Narrative Exam Narrative: Gen: Alert, oriented, well-developed 74 y.o. male, very lethargic HEENT: normocephalic, atraumatic, conjunctiva clear, sclera non-icteric, oral mucosa pink and moist Neck: supple, full ROM, no JVD, trachea is midline Resp: Lungs CTA, non-labored breathing CV: RRR, no murmur or rubs Abd: distended but soft and non-tender, normoactive BTs Skin: Mild generalized jaundice, no lesions or rashes, dry and intact Neuro: Alert and oriented X 4 w/no focal deficits. Speech clear and coherent. Extremities: moves all 4 extremities, is ambulatory, negative Pastor?s sign Psyche: normal mood and affect. Objective Labs Result Diagrams: 03/24/20 16:00 03/24/20 16:00 Labs: Laboratory Results - last 24 hr 03/24/20 03/24/20 03/24/20 16:00 16:00 16:00 WBC 7.2 RBC 4.41 L Hgb 13.3 L Hct 38.0 L MCV 86.2 MCH 30.2 MCHC 35.0 RDW 19.5 H Plt Count 95 L Neut % (Auto) 57.1 Lymph % (Auto) 20.3 L [place] % (Auto) 19.4 H Eos % (Auto) 2.4 Baso % (Auto) 0.8 Neut # (Auto) 4100 Lymph # (Auto) 1500 [place] # (Auto) 1400 H Eos # (Auto) 200 Baso # (Auto) 100 PT 14.9 H INR 1.3 APTT 30 D Sodium 131 L Potassium 4.8 Chloride 99 Carbon Dioxide 23 BUN 23 H Creatinine 1.14 Estimated GFR > 60.0 BUN/Creatinine Ratio 20.2 Glucose 415 H Hemoglobin A1c Lactate Calcium 9.9 Total Bilirubin 2.1 H AST 43 ALT 37 Alkaline Phosphatase 103 Ammonia Total Creatine Kinase CK-MB (CK-2) CK-MB (CK-2) Rel Index Troponin I Total Protein 6.9 Albumin 3.9 Globulin 3.0 Albumin/Globulin Ratio 1.3 Lipase 278 Urine RBC Urine WBC Ur Squamous Epith Cells Amorphous Sediment Urine Bacteria Urine Mucus Ur Culture Indicated? 03/24/20 03/24/20 03/24/20 16:00 16:00 16:00 WBC RBC Hgb Hct MCV MCH MCHC RDW Plt Count Neut % (Auto) Lymph % (Auto) [place] % (Auto) Eos % (Auto) Baso % (Auto) Neut # (Auto) Lymph # (Auto) [place] # (Auto) Eos # (Auto) Baso # (Auto) PT INR APTT Sodium Potassium Chloride Carbon Dioxide BUN Creatinine Estimated GFR BUN/Creatinine Ratio Glucose Hemoglobin A1c 8.2 H Lactate Calcium Total Bilirubin AST ALT Alkaline Phosphatase Ammonia 115 H Total Creatine Kinase 39 L CK-MB (CK-2) TNP CK-MB (CK-2) Rel Index TNP Troponin I < 0.012 Total Protein Albumin Globulin Albumin/Globulin Ratio Lipase Urine RBC Urine WBC Ur Squamous Epith Cells Amorphous Sediment Urine Bacteria Urine Mucus Ur Culture Indicated? 03/24/20 03/24/20 16:52 18:13 WBC RBC Hgb Hct MCV MCH MCHC RDW Plt Count Neut % (Auto) Lymph % (Auto) [place] % (Auto) Eos % (Auto) Baso % (Auto) Neut # (Auto) Lymph # (Auto) [place] # (Auto) Eos # (Auto) Baso # (Auto) PT INR APTT Sodium Potassium Chloride Carbon Dioxide BUN Creatinine Estimated GFR BUN/Creatinine Ratio Glucose Hemoglobin A1c Lactate 1.8 Calcium Total Bilirubin AST ALT Alkaline Phosphatase Ammonia Total Creatine Kinase CK-MB (CK-2) CK-MB (CK-2) Rel Index Troponin I Total Protein Albumin Globulin Albumin/Globulin Ratio Lipase Urine RBC 30-100/hpf H Urine WBC 10-30/hpf H Ur Squamous Epith Cells 0-1 /hpf Amorphous Sediment 1+ Urine Bacteria Many (>30) H Urine Mucus 1+ H Ur Culture Indicated? Specimen cultured Assessment & Plan Assessment & Plan narrative: Leonardo Avina will be admitted for treatment of a catheter associated urinary tract infection and hepatic encephalopathy. Hepatic encephalopathy likely secondary to MIMS, acute, present on admission -ammonia is 115, recheck in the morning -He is increased on lactulose from q.i.d. to q.4 hours with the goal of having a 3-4 BMs in a 24 hour period. Non alcoholic fatty liver disease, ongoing, present on admission -patient underwent a TIPS surgery on March 06 at the [facility] -MELD-NA score is 19 with a mortality of 6 % -patient had been previously referred to GI specialist at [facility] and was attempting to set up an appointment with with Dr. Aubrey Perez -ED provider discussed the patient's case with Dr. Marley, on-call application security developer at the [facility] who remains available for further consultation Acute hyponatremia with a sodium of 131, present on admission -he is started on normal saline at 100 mL/hour. New diagnosis of diabetes type 2 with an A1c of 8.2, acute, present on admission -admission glucoses were over 400 so the A1c was drawn today -patient informed me that his sugars have been elevated but was not something he was pursuing at this time -consider discharge on pioglitazone or liraglutide, per Up-to-Date has shown benefit for improving fibrosis, inflammation and steatosis. -He will need diabetic teaching Consults: None Patient is inpatient status as his stay is likely to exceed 2 midnights. FEN: NS at 100ml/hour, carb control diet, CMP in the am. VTE prophylaxis: Bilateral SCDs, Enoxaparin 40 mg subQ daily Dispo: Unknown at this time Code Status: as discussed with patient and his COVID-19 COVID-19 status: Not tested
[2020-03-24] MEDS: INSULIN ASPART 100 UNIT/ML INSULN PEN SUBCUT (22:12)
[2020-03-24] MEDS: SPIRONOLACTONE 25 MG TABLET 50 MG PO (23:25)
--- NOTE | 2020-03-24 23:59 | PC.NURSE ---
Evening Shift/Admit Note- Patient arrived to room via stretcher from ER. Admission questions done, medications reviewed, and physical assessment completed. Oriented patient and spouse to room, lights, bathroom, phone, menu, and call blanco/tv remote. Skin assessment done with cage shift manager RN Georgie. Safety measures in place. bed alarm activated. Call blanco and phone within reach. will contiunue to monitor.
[2020-03-25] VITALS (9 sets, daily range): BP systolic 126–147; BP diastolic 45–63; PULSE 62–75; RESP 16–18; TEMP 36.1–37.6; O2SAT 93–97
[2020-03-25] MEDS: LACTULOSE 20 GM/30 ML SOLUTION PO ×2 (00:10→06:04)
[2020-03-25] MEDS: INSULIN ASPART 100 UNIT/ML INSULN PEN SUBCUT ×5 (02:03→21:11)
[2020-03-25 05:44] LABS: Add Manual Diff / Slide Review NO; Basophils Absolute Auto 100 /uL (0-100); Basophils Percent Auto 0.9 % (0-2); Eosinophils Absolute Auto 100 /uL (0-450); Eosinophils Percent Auto 2.3 % (2-4); Hematocrit 35.9 % (41-53); Hemoglobin 12.7 g/dL (13.5-17.5); Lymphocytes Absolute Auto 1600 /uL (1100-4500); Lymphocytes Percent Auto 27.4 % (25-40); Mean Corpuscular HGB Conc 35.4 % (30-36); Mean Corpuscular Hemoglobin 30.1 PG (26-34); Monocytes Absolute Auto 1000 /uL (0-900); Monocytes Percent Auto 17.9 % (3-14); Neutrophils Absolute Auto 3000 /uL (1500-7000); Neutrophils Percent Auto 51.5 % (50-75); Platelet Count 88 X10^3/uL (150-400); Red Blood Cell Count 4.23 X10^6/uL (4.5-5.9); Red Cell Distribution Width 19.5 % (11.6-14.8); White Blood Cell Count 5.8 X10^3/uL (4.5-11.0)
[2020-03-25 05:45] LABS: INR 1.3 (0.9-1.3); Prothrombin Time 15.2 SECONDS (10.1-12.7)
[2020-03-25 05:50] LABS: Ammonia (NH3) 98 umol/L (9-30)
[2020-03-25 05:51] LABS: Alanine Aminotransferase 34 IU/L (<50); Albumin 3.6 g/dL (3.5-5.0); Albumin Globulin Ratio 1.2 (1.0-2.8); Alkaline Phosphatase 95 U/L (38-126); Aspartate Aminotransferase 38 IU/L (17-59); BUN Creatinine Ratio 20.5 (6-22); Bilirubin Total 1.8 mg/dL (0.2-1.3); Blood Urea Nitrogen 23 mg/dL (9-20); Calcium 9.6 mg/dL (8.4-10.2); Carbon Dioxide 26 mmol/L (22-32); Chloride 100 mmol/L (98-107); Estimated Glomerular Filt Rate > 60.0 mL/min (>60); Globulin 2.9 g/dL (1.7-4.1); Glucose 351 mg/dL (80-110); HEMOLYSIS < 15 (0-50); Potassium 4.2 mmol/L (3.4-5.1); Sodium 133 mmol/L (137-145); Total Protein 6.5 g/dL (6.3-8.2)
--- NOTE | 2020-03-25 06:17 | PC.NURSE ---
Fingerstick overnight was 468, pt asymptomatic. Reported to MOSHE Mcclain who instructed to give another 7units regular insulin and have morning labs recheck it. AxOx3 No complaints of pain or nausea. NS@100mL/hr 1P FWW to BR
--- NOTE | 2020-03-25 07:42 | P.PN_ITS ---
Subjective Subjective Date Patient Seen: 03/25/20 Interval history: Leonardo Avina is a 74-year-old male with a past medical history significant for nonalcoholic cirrhosis status post recent TIPS and BPH with chronic urinary retention and indwelling Man catheter who presented to the ED with increasing weakness and confusion. The patient is sleeping in bed but arousable. He is quite lethargic and has slowed mentation. He does not appear overtly confused. He complains of pain w ith Man catheter at the tip of his penis and fatigue. He has no other complaints and denies headache, cough, shortness of breath, chest pain, abdominal pain, nausea, vomiting, fever, chills or constipation. He is voiding via Man catheter and eliminating without difficulty. He has had 2 bowel movements today and will titrate lactulose to 3+ bowel movements per day. He is up ambulating with assistance. Exam Vital Signs (past 8 hours): - 03/25/20 00:05 03/25/20 04:57 Temperature 96.9 F L 97.3 F L Pulse Rate 75 62 Respiratory Rate 16 16 Blood Pressure 135/58 L 135/63 Pulse Oximetry 97 96 Oxygen Delivery Method Room Air Oxygen Flow Rate 0 Narrative Exam Narrative: General: Older male lying in bed and in no acute distress, well-developed, well-nourished, slowed mentation and lethargy but otherwise appropriately interactive HEENT: Normocephalic, atraumatic. External ears without defect. Pupils equal, round, and reactive to light. Sclera are slightly icteric. Moist conjunctivae and no lid lag. Oropharynx free of erythema and cobble stoning with moist mucosa. Neck: Supple with full range of motion. No lymphadenopathy or thyromegaly. Cardiovascular: Regular rate and rhythm without murmurs, rubs, or gallops appreciated Pulmonary: Clear to auscultation bilaterally without crackles, wheezes, or rhonchi. Normal respiratory effort with no use of accessory muscles. Genitourinary: Man catheter in place with significant pain around glans penis and Man insertion site. Glans penis appears mildly irritated, slightly erythematous, and moist with probable yeast. Abdomen: Soft, bowel sounds present, mild tenderness to palpation over liver edge otherwise nontender, nondistended. No fluid wave or abdominal ascites. No hepatosplenomegaly or masses appreciated. Extremities: No clubbing, cyanosis, or edema. Skin: Normal temperature, turgor, and texture; no rash, ulcers, or subcutaneous nodules appreciated. Neurological: Cranial nerves grossly intact. Generalized weakness. No asterixis. Psychiatric: Depressed mood and affect. Alert and oriented to person, place, and time. Objective Labs Result Diagrams: 03/25/20 05:20 03/25/20 05:20 Labs: Laboratory Results - last 24 hr 03/24/20 03/24/20 03/24/20 16:00 16:00 16:00 WBC 7.2 RBC 4.41 L Hgb 13.3 L Hct 38.0 L MCV 86.2 MCH 30.2 MCHC 35.0 RDW 19.5 H Plt Count 95 L Neut % (Auto) 57.1 Lymph % (Auto) 20.3 L [place] % (Auto) 19.4 H Eos % (Auto) 2.4 Baso % (Auto) 0.8 Neut # (Auto) 4100 Lymph # (Auto) 1500 [place] # (Auto) 1400 H Eos # (Auto) 200 Baso # (Auto) 100 PT 14.9 H INR 1.3 APTT 30 D Sodium 131 L Potassium 4.8 Chloride 99 Carbon Dioxide 23 BUN 23 H Creatinine 1.14 Estimated GFR > 60.0 BUN/Creatinine Ratio 20.2 Glucose 415 H Hemoglobin A1c Lactate Calcium 9.9 Total Bilirubin 2.1 H AST 43 ALT 37 Alkaline Phosphatase 103 Ammonia Total Creatine Kinase CK-MB (CK-2) CK-MB (CK-2) Rel Index Troponin I Total Protein 6.9 Albumin 3.9 Globulin 3.0 Albumin/Globulin Ratio 1.3 Lipase 278 Urine RBC Urine WBC Ur Squamous Epith Cells Amorphous Sediment Urine Bacteria Urine Mucus Ur Culture Indicated? 03/24/20 03/24/20 03/24/20 16:00 16:00 16:00 WBC RBC Hgb Hct MCV MCH MCHC RDW Plt Count Neut % (Auto) Lymph % (Auto) [place] % (Auto) Eos % (Auto) Baso % (Auto) Neut # (Auto) Lymph # (Auto) [place] # (Auto) Eos # (Auto) Baso # (Auto) PT INR APTT Sodium Potassium Chloride Carbon Dioxide BUN Creatinine Estimated GFR BUN/Creatinine Ratio Glucose Hemoglobin A1c 8.2 H Lactate Calcium Total Bilirubin AST ALT Alkaline Phosphatase Ammonia 115 H Total Creatine Kinase 39 L CK-MB (CK-2) TNP CK-MB (CK-2) Rel Index TNP Troponin I < 0.012 Total Protein Albumin Globulin Albumin/Globulin Ratio Lipase Urine RBC Urine WBC Ur Squamous Epith Cells Amorphous Sediment Urine Bacteria Urine Mucus Ur Culture Indicated? 03/24/20 03/24/20 03/25/20 16:52 18:13 05:20 WBC 5.8 RBC 4.23 L Hgb 12.7 L Hct 35.9 L MCV 85.0 MCH 30.1 MCHC 35.4 RDW 19.5 H Plt Count 88 L Neut % (Auto) 51.5 Lymph % (Auto) 27.4 [place] % (Auto) 17.9 H Eos % (Auto) 2.3 Baso % (Auto) 0.9 Neut # (Auto) 3000 Lymph # (Auto) 1600 [place] # (Auto) 1000 H Eos # (Auto) 100 Baso # (Auto) 100 PT INR APTT Sodium Potassium Chloride Carbon Dioxide BUN Creatinine Estimated GFR BUN/Creatinine Ratio Glucose Hemoglobin A1c Lactate 1.8 Calcium Total Bilirubin AST ALT Alkaline Phosphatase Ammonia Total Creatine Kinase CK-MB (CK-2) CK-MB (CK-2) Rel Index Troponin I Total Protein Albumin Globulin Albumin/Globulin Ratio Lipase Urine RBC 30-100/hpf H Urine WBC 10-30/hpf H Ur Squamous Epith Cells 0-1 /hpf Amorphous Sediment 1+ Urine Bacteria Many (>30) H Urine Mucus 1+ H Ur Culture Indicated? Specimen cultured 03/25/20 03/25/20 03/25/20 05:20 05:20 05:20 WBC RBC Hgb Hct MCV MCH MCHC RDW Plt Count Neut % (Auto) Lymph % (Auto) [place] % (Auto) Eos % (Auto) Baso % (Auto) Neut # (Auto) Lymph # (Auto) [place] # (Auto) Eos # (Auto) Baso # (Auto) PT 15.2 H INR 1.3 APTT Sodium 133 L Potassium 4.2 Chloride 100 Carbon Dioxide 26 BUN 23 H Creatinine 1.12 Estimated GFR > 60.0 BUN/Creatinine Ratio 20.5 Glucose 351 H Hemoglobin A1c Lactate Calcium 9.6 Total Bilirubin 1.8 H AST 38 ALT 34 Alkaline Phosphatase 95 Ammonia 98 H Total Creatine Kinase CK-MB (CK-2) CK-MB (CK-2) Rel Index Troponin I Total Protein 6.5 Albumin 3.6 Globulin 2.9 Albumin/Globulin Ratio 1.2 Lipase Urine RBC Urine WBC Ur Squamous Epith Cells Amorphous Sediment Urine Bacteria Urine Mucus Ur Culture Indicated? Assessment & Plan Assessment & Plan narrative: Leonardo Avina is a 74-year-old male with a past medical history significant for nonalcoholic cirrhosis status post recent TIPS and BPH with chronic urinary retention and indwelling Man catheter who presented to the ED with increasing weakness and confusion. 1. Acute urinary tract infection, secondary to indwelling Man catheter, pres ent on admission. Active. -Patient presented with increasing weakness and confusion. Patient met sirs criteria but did not meet sepsis criteria as he had no end-organ dysfunction and SOFA score 0. -Initial WBC normal at 7.2 and procalcitonin normal at 0.05. Continue to monitor WBC and procalcitonin daily. -Urinalysis appears grossly infected and urine culture preliminarily growing gram-positive cocci. -Continue ceftriaxone 2 g IV daily pending urine culture identification and sensitivities. -Ordered physical and occupational therapy evaluation and treatment, pending. 2. Acute metabolic versus hepatic encephalopathy, present on admission. Resolved. -Likely metabolic encephalopathy and secondary to urinary tract infection versus hepatic encephalopathy and due to hyperammoniemia. -Ammonia level 115 which is reportedly comparable to previous labs at . ED physician discussed patient case with on-call GI at who recommended increasing frequency of lactulose 30 g every 4 hours until having 3+ BMs per day and treating for UTI as above. -Continue to treat UTI as above. 3. Newly diagnosed diabetes mellitus type 2, present on admission. Active. -Patient with elevated blood glucose of 415 on admission. Hemoglobin A1c 8.2% indicative of diabetes mellitus type 2. -Started Lantus 10 units twice daily to better control blood glucose levels during acute infection and . Plan to start metformin at time of discharge. -Continue [facility] blood glucose checks and medium dose correctional scale insulin. -Continue carbohydrate consistent diet. 4. Non alcoholic cirrhosis, chronic, present on admission. Stable. -Patient has non alcoholic cirrhosis with thrombocytopenia and mildly elevated bilirubin 1.8. Patient is status post recent TIPS procedure at [facility] with Dr. Ortiz. -Continue home diuretics furosemide 40 mg twice daily and spironolactone 50 mg twice daily. -Continue lactulose increased to 30 g every 4 hours until having 3 BMs or greater per day. 5. BPH with recent urinary retention and indwelling Man catheter, chronic, present on admission. Stable. -Continue tamsulosin 0.4 mg daily. -Continue Man care daily. Retract foreskin twice daily with lube and apply nystatin triamcinolone cream twice daily to glans penis. Code status: Full Code VTE prophylaxis: SCDs, no chemical due to thrombocytopenia Disposition: Patient will likely discharge home with home health once UTI adequately
[2020-03-25 08:31] LABS: Procalcitonin 0.05 ng/mL (<0.5)
[2020-03-25] MEDS: CEFTRIAXONE 2 GM/50 ML FROZ.PIGGY IV (10:23)
[2020-03-25] MEDS: FUROSEMIDE 40 MG TABLET PO ×2 (10:24→17:35)
[2020-03-25] MEDS: LACTULOSE 20 GM/30 ML SOLUTION 30 GM PO ×4 (10:24→21:14)
[2020-03-25] MEDS: SPIRONOLACTONE 50 MG TABLET PO ×2 (10:34→17:35)
[2020-03-25] MEDS: TAMSULOSIN 0.4 MG CAPSULE PO (10:34)
[2020-03-25] MEDS: INSULIN GLARGINE 100 UNIT/ML 3ML PEN 10 UNIT SUBCUT ×2 (10:39→21:17)
[2020-03-25] MEDS: INSULIN REGULAR 100 UNIT/ML 3 ML VIAL IV (10:40)
--- NOTE | 2020-03-25 10:48 | PT.IIE ---
Current Diagnoses Hepatic failure, unspecified without coma (03/24/20) Surgical History (Last Reviewed 03/24/20 @ 22:21 by MOSHE Schultz) S/P TIPS (transjugular intrahepatic portosystemic shunt) (Acute) Medical History (Last Reviewed 03/24/20 @ 22:21 by MOSHE Schultz) Ascites (Inactive) Cirrhosis (Inactive) Gallstones (Inactive) Hepatic encephalopathy (Acute) MIMS (nonalcoholic steatohepatitis) (Acute) Neutropenia (Resolved) Splenic mass (Inactive) Thrombocytopenia (Chronic) Physical Therapy Inpatient Evaluation/Re-Eval M1 PT/OT-IP Prior Functional Status Start: 03/25/20 14:06 Freq: NEEDED Status: Active Protocol: Document 03/25/20 10:48 AB (Rec: 03/25/20 14:30 AB [id number]) Medical Review Prior Functional Status Medical History Reviewed Yes Communication able to make needs known Mobility and Gait pt stated that he is independent with all mobilities and ambulation without AD. Pt stated that he has slowly been declining in function, still independent but with increrase difficulty moving Social History Household Members significant other Living Arrangements House Number of Floors (Floors) One Floor Number of Stairs To Enter/Railing? 1 step to enter Home Environment High Toilet,Tub/Shower Home Equipment Hand Held Shower Additional Social History Comment sleeps on a recliner spouse stated that they have access to a tub transfer bench M2 PT-IP Current Condition Start: 03/25/20 14:06 Freq: NEEDED Status: Active Protocol: Document 03/25/20 10:48 AB (Rec: 03/25/20 14:30 AB [id number]) Physical Therapy Current Condition Current Condition Evaluation Date 03/25/20 Treatment Diagnosis acute UTI; hepatic encephalopathy; difficulty in walking Onset Date 03/24/20 Precautions Other Precautions falls M3 PT-IP Subjective Start: 03/25/20 14:06 Freq: NEEDED Status: Active Protocol: Document 03/25/20 10:48 AB (Rec: 03/25/20 14:30 AB [id number]) Subjective Physical Therapy Visit Type Type Initial Evaluation Visit Start Time 10:48 Visit Stop Time 11:23 Total Visit Minutes 35 Number of BUSINESS PERFORMANCE SPECIALIST Visits 0 Physical Therapy Visit Comments Patient Comments agreeable to do PT Therapy Pain Assessment Pain When Pain Assessed During Mobility Location penis Scale Used stated due to the catheter Pain Management Techniques Modification of Treatment M4 PT-IP Mobility and Gait Start: 03/25/20 14:06 Freq: NEEDED Status: Active Protocol: Document 03/25/20 10:48 AB (Rec: 03/25/20 14:30 AB [id number]) PT-Bed Mobility Assessment Supine to Sit Supine to Sit Contact Guard Assistance PT-Transfer Assessment Sit to and From Stand Sit to and from Stand Contact Guard Assistance,1 Person Assistance,Use of Upper Extremities Equipment Transfer Assistive Device Gait Belt,Front Wheeled Walker Orthotic/Prosthetic Devices or Brace: No Transfers Transfer Destination Chair,Toilet Transfer Technique ambulated using FWW Transfer Ability Level of Assist Contact Guard Assistance,1 Person Assistance Comments Mobility Comments completed supine to sit SBA. able to sit on EOB SBA. completed sit to stand CGA. ambulated in room ~ 30 ft using FWW. pt agreed to sit on chair. after sitting, requested to use the toilet. completed sit to stand from the chair, CGA and ambulated to the toilet using FWW CGA. pt wants to sit on toilet for awhile. call light positioned next to pt and instructed. informed nurse Gait Assessment Gait Gait Assistance Required: Contact Guard Assist Distance (Feet) 30 Able to Maintain Weight Bearing Status Yes During Gait Assistive Devices Assistive Device Gait Belt,Front Wheeled Walker Orthotic/Prosthetic Devices or Brace: No Gait Deviations General Gait Pattern Decreased Stride Length, Decreased Feet Clearance, Flexed Trunk Factors Limiting Gait Function Factors Limiting Gait Function Decreased Activity Tolerance, Decreased Strength,Pain,Poor Balance,Poor Safety Awareness PT-Balance Assessment Sitting Balance and Reactions Static Sitting Balance Ability Good Dynamic Sitting Balance Ability Good Standing Balance and Reactions Static Standing Balance Ability Fair Dynamic Standing Balance Ability Fair Device Used FWW M5 PT-IP Objective Assessments Start: 03/25/20 14:06 Freq: NEEDED Status: Active Protocol: Document 03/25/20 10:48 AB (Rec: 03/25/20 14:30 AB [id number]) Orientation Orientation/Cognition Level of Alertness Alert Orientation Name,Place,Situation Language Function Ability No Deficits Noted Safety Awareness Understands Safety Issues Memory Description No Deficits Noted Gross Range of Motion Lower Extremity ROM Assessment Within Functional Limits Strength Lower Extremity Strength Assessment Within Functional Limits Coordination Assessment Gross Coordination Gross Coordination WNL Sensation Assessment Sensation Gross Sensation WNL Muscle Tone Muscle Tone WNL Yes M6 PT-IP Treatment Start: 03/25/20 14:06 Freq: NEEDED Status: Active Protocol: Document 03/25/20 10:48 AB (Rec: 03/25/20 14:30 AB [id number]) Physical Therapy Treatment Education Education Provided Safety M7 PT-IP Assessment and Plan Start: 03/25/20 14:06 Freq: NEEDED Status: Active Protocol: Document 03/25/20 10:48 AB (Rec: 03/25/20 14:30 AB [id number]) PT Summary Assessment and Plan Potential Rehabilitation Potential Good Status of Condition at Evaluation Evolving Summary Impairments Pain,ROM,Strength,Balance,Bed Mobility,Transfers,Gait, Activity Tolerance Assessment Summary pt requiring CGA with mobility using FWW but presents with decrease activity tolerance. pt plans to go home with spouse to assist. pt may require homehealth PT or outpt PT depending on progress. pt will need FWW at this time and will continue to assess and determine need upon d/c. Goals Bed Mobility Goal Independent Transfer Goal Independent,Front Wheeled Walker Gait Goal Independent,Front Wheel Walker Gait Distance 200 Other Goals ambulation without AD/least restrictive AD ~ 200 ft SBA 1 step to enter using AD/ without AD SBA Days to Meet Goals 5 Frequency of Treatment Frequency Of Treatment Once a Day Treatment Plan Physical Therapy Treatment Plan Bed Mobility Training,Transfer Training,Gait Training, Therapeutic Exercise,Balance Retraining,Post Op Education, Discharge Planning, Neuromuscular Re-ed, Coordination Retraining Other Recommendations and Next Treatment ambulation Focus Recommendations To Nursing Amount of Assist Needed 1 Person Assist Discharge Recommendations PT Discharge Recommendations Home with Assistance,Home Health,Outpatient PT Equipment Needed for Home Before FWW if not safe without AD/SPC Discharge Transportation Needs at Discharge Private Vehicle
--- NOTE | 2020-03-25 11:42 | PC.NURSE ---
Pt alert and oriented , follows commands one person sba with fww. Pt concerned with yates, catheter is appropriately placed and secure to leg. Presettled to bed. continues attentive at bedside.
[2020-03-25] MEDS: ONDANSETRON 4 MG/2 ML INJ IV ×2 (14:09→17:35)
--- NOTE | 2020-03-25 14:42 | OT.IP.TRT ---
Current Diagnoses Hepatic failure, unspecified without coma (03/24/20) Occupational Therapy Treatment Note M3 OT- IP Subjective and Pain Start: 03/25/20 14:39 Freq: Status: Active Protocol: Document 03/25/20 14:40 CGR (Rec: 03/25/20 14:42 CGR [id number]) OT- Subjective Occupational Therapy Visit Type Type Administrative Note Notes This financial writer spent [id number] in with this pt and his . Pt was sleeping and pt's requesting to allow pt to sleep at this time. Obtained home set up and PLOF from as documented in flow chart.
[2020-03-25 17:31] LABS: Creatine Kinase 28 U/L (55-170)
[2020-03-25] MEDS: NYSTATIN/TRIAMCIN CREAM 15 GM 1 APPLIC TOP (21:19)
--- NOTE | 2020-03-25 22:15 | PC.NURSE ---
Pt has had uneventful evening. Lungs clear, SpO2 98% RA HL LAC intact/patent. CBG AC = 285, (5u coverage) HS = 233 Lantus & Novolog coverage given Up ambulating hallway w/staff x 2 Man care/emily care given & ointment applied as per orders. Coude cath intact/patent derek urine. Call light w/in reach, bed alarm of for pt safety. Continue w/plan of care.
[2020-03-26] MEDS: LACTULOSE 20 GM/30 ML SOLUTION 30 GM PO ×3 (00:16→14:13)
[2020-03-26 03:30] VITALS: BP 125/48; PULSE 76; RESP 16; TEMP 36.3; O2SAT 96
--- NOTE | 2020-03-26 06:12 | PC.NURSE ---
Urine in yates is pretty brown in color with several mucus-like particles in it. Reports no pain CBG overnight 216 Had 1 loose BM overnight and is trying to have another one now
[2020-03-26 06:37] LABS: Add Manual Diff / Slide Review NO; Basophils Absolute Auto 0 /uL (0-100); Basophils Percent Auto 0.6 % (0-2); Eosinophils Absolute Auto 300 /uL (0-450); Eosinophils Percent Auto 4.3 % (2-4); Hematocrit 35.2 % (41-53); Hemoglobin 12.5 g/dL (13.5-17.5); Lymphocytes Absolute Auto 1600 /uL (1100-4500); Lymphocytes Percent Auto 22.7 % (25-40); Mean Corpuscular HGB Conc 35.6 % (30-36); Mean Corpuscular Hemoglobin 30.2 PG (26-34); Mean Corpuscular Volume 84.9 fL (80-100); Monocytes Absolute Auto 1200 /uL (0-900); Monocytes Percent Auto 17.4 % (3-14); Neutrophils Absolute Auto 3900 /uL (1500-7000); Platelet Count 82 X10^3/uL (150-400); Red Blood Cell Count 4.15 X10^6/uL (4.5-5.9); Red Cell Distribution Width 19.5 % (11.6-14.8); White Blood Cell Count 7.2 X10^3/uL (4.5-11.0)
[2020-03-26 06:43] LABS: BUN Creatinine Ratio 20.6 (6-22); Blood Urea Nitrogen 22 mg/dL (9-20); Calcium 9.3 mg/dL (8.4-10.2); Carbon Dioxide 20 mmol/L (22-32); Chloride 104 mmol/L (98-107); Estimated Glomerular Filt Rate > 60.0 mL/min (>60); Glucose 207 mg/dL (80-110); HEMOLYSIS < 15 (0-50); Magnesium 2.2 mg/dL (1.6-2.3); Sodium 132 mmol/L (137-145)
[2020-03-26] MEDS: CEFTRIAXONE 2 GM/50 ML FROZ.PIGGY IV (06:47)
--- NOTE | 2020-03-26 07:38 | P.DS_ITS ---
History of Present Illness History of Present Illness Date Patient Seen: 03/24/20 Chief complaint: dizziness, confusion, weakness/ pain with catheter Narrative: Written by Karli MESA: Leonardo Avina is a very pleasant 74-year-old male with a history of nonalcoholic fatty liver cirrhosis, status post TIPS on March 06, new diagnosis of diabetes type 2, recently diagnosed ileocecal valve polyps, acute urinary retention with an indwelling catheter presented with increased weakness. He was discharged from [facility] after the tips on March 07 and followed up as recently as 2 days ago with providers in the [place] area and drove home. He then began to have increasing in weakness, lethargy, his stated that he was confused, and decreasing bowel movements. Upon discharge from the TIPS surgery, he was placed on lactulose and at that time was having 3-4 bowel movements a day. When they decreased to twice a day his lactulose was increased with appare ntly no affect. He has been having only 1 bowel movement a day for the last several days. Also during the surgery and afterwards he developed urinary retention and was discharged with an indwelling catheter. He does have a minimal amount of nausea when he was being transported to the imaging room, he has chronic restless legs that has improved since the TIPS surgery. Denies fevers sweats or chills, difficulty swallowing, chest pain, shortness of breath, abdominal cramping or bloating or diarrhea. Patient is scheduled for resection of the ileocecal area in March and a prostate resection after he recovers from the colon surgery. Discharge Providers Provider Date of admission: 03/24/20 20:28 Discharge Date: 03/26/20 Primary care physician: Katelyn Campbell MD Consults: 03/25/20 07:56 Consult to Occupational Therapy Evaluate & Treat Comment: Physician Instructions: Evaluate and treat Consult to Physical Therapy Evaluate & Treat Comment: Physician Instructions: Evaluate and Treat 03/26/20 12:27 Consult to Dietitian, Adult Routine Comment: Please call sister superior in for consult and education Reason For Exam: New diagnosis of Diabetes Mellitis 03/26/20 15:19 Consult to Home Health Routine Comment: REFERRAL SENT TO [facility] Reason For Exam: HOME HEALTH RN AND PT AT D/C Discharge provider: Christy Manzano DO Summary Hospital Course Discharge Diagnosis: 1. Acute urinary tract infection, secondary to indwelling Man catheter, present on admission. Resolving. 2. Likely metabolic and hepatic encephalopathy, present on admission. Resolved. 3. Newly diagnosed diabetes mellitus type 2, present on admission. Active. 4. Non alcoholic cirrhosis, chronic, present on admission. Stable. 5. BPH with recent urinary retention and indwelling Man catheter and yeast infection of glans penis, chronic, present on admission. Stable. Hospital Course: Leonardo Avina is a 74-year-old male with a past medical history significant for nonalcoholic cirrhosis status post recent TIPS and BPH with chronic urinary retention and indwelling Man catheter who presented to the ED with increasing weakness and confusion. 1. Acute urinary tract infection, secondary to indwelling Man catheter, present on admission. Resolving. -Patient presented with increasing weakness and confusion. Patient met sirs criteria but did not meet sepsis criteria as he had no end-organ dysfunction and SOFA score 0. -Initial WBC normal at 7.2 and procalcitonin normal at 0.05. Continued to monitor WBC and procalcitonin daily. -Received ceftriaxone 2 g IV daily pending urine culture identification and sensitivities. Urine culture grew Enterococcus faecalis sensitive to fluoroquinolones and patient was discharged on levofloxacin 750 mg for 7 additional days to complete 10 days total of antibiotic therapy. -Continued physical and occupational therapy evaluation and treatment. 2. Likely metabolic and hepatic encephalopathy, present on admission. Resolved. -Likely metabolic encephalopathy and secondary to urinary tract infection versus hepatic encephalopathy and due to hyperammoniemia. -Ammonia level 115 which is reportedly comparable to previous labs at . ED physician discussed patient case with on-call GI at who recommended increasing frequency of lactulose 30 g every 4 hours until having 2-3 BMs per day and treating for UTI as above. -Continued to treat UTI as above. 3. Newly diagnosed diabetes mellitus type 2, present on admission. Active. -Patient with elevated blood glucose of 415 on admission. Hemoglobin A1c 8.2% indicative of diabetes mellitus type 2. -Continued Lantus 10 units twice daily while hospitalized to control blood glucose levels during acute infection. Patient discharged this start metformin XR 500 mg twice daily and titrate up per PCP. Provided glucometer and instructions to keep a blood glucose log. Recommend referral to dietitian and diabetic Education per PCP. -Continued ACHS blood glucose checks and medium dose correctional scale insulin. -Continued carbohydrate consistent diet. -Consulted dietitian but was not available on the weekend. 4. Non alcoholic cirrhosis, chronic, present on admission. Stable. -Patient has non alcoholic cirrhosis with thrombocytopenia and mildly elevated bilirubin 1.8. Patient is status post recent TIPS procedure at [facility] with Dr. Ortiz. -Continued home diuretics furosemide 40 mg twice daily and spironolactone 50 mg twice daily. -Continued lactulose increased to 30 g every 2-3 times per day until having 2-3 BMs per day. 5. BPH with recent urinary retention and indwelling Man catheter and yeast i nfection of glans penis, chronic, present on admission. Stable. -Continue tamsulosin 0.4 mg daily. -Continued Man care daily. Patient reports planned colon resection for large questionable polyp and probable TURP in the next several months with plans to keep Man catheter throughout that time. -Continued to lubricate and retract foreskin to avoid phimosis, cleaned penis twice daily with antibacterial soap and water and applied nystatin/triamcinolone cream twice daily to glans penis with significant improvement almost immediately. -Recommend continued follow-up with urology as previously instructed. Exam Vital Signs (past 8 hours): Oxygen Delivery Method Room Air Oxygen Flow Rate 0 Narrative Exam Narrative: General: Older male lying in bed and in no acute distress, well-developed, well-nourished, slowed mentation and lethargy but otherwise appropriately interactive HEENT: Normocephalic, atraumatic. External ears without defect. Pupils equal, round, and reactive to light. Sclera are slightly icteric. Moist conjunctivae and no lid lag. Oropharynx free of erythema and cobble stoning with moist mucosa. Neck: Supple with full range of motion. No lymphadenopathy or thyromegaly. Cardiovascular: Regular rate and rhythm without murmurs, rubs, or gallops appreciated Pulmonary: Clear to auscultation bilaterally without crackles, wheezes, or rhonchi. Normal respiratory effort with no use of accessory muscles. Genitourinary: Man catheter in place with tenderness around glans penis and Man insertion site nearly resolved. Glans penis appears mildly irritated, slightly erythematous, and moist with probable yeast, resolving. Abdomen: Soft, bowel sounds present, mild tenderness to palpation over liver edge otherwise nontender, nondistended. No fluid wave or abdominal ascites. Extremities: No clubbing, cyanosis, or edema. Skin: Normal temperature, turgor, and texture; no rash, ulcers, or subcutaneous nodules appreciated. No spider angiomata or palmar erythema. Neurological: Cranial nerves grossly intact. Generalized weakness. No asterixis. Psychiatric: Normal mood and affect. Alert and oriented to person, place, and time. Slowed mentation improved. Objective Labs Result Diagrams: 03/26/20 05:49 03/26/20 05:49 Labs: Laboratory Results - last 24 hr 03/26/20 05:49 Procalcitonin < 0.05 Discharge Plan Discharge Plan Patient Disposition: Home Health Service Discharge comment: You are being discharged home. You have and Enterococcus faecalis urinary tract infection and have been prescribed levofloxacin 750 mg d aily for 7 additional days to complete 10 days total. You also have a yeast infection of the head of your penis and recommend retracting foreskin with lubrication once in the morning and once in the evening then washing the foreskin and head of penis with mild antibacterial soap and water once in the morning and once in the evening then patting the penis and foreskin completely dry and applying nystatin/triamcinolone cream to the head of penis once in the morning and once in the evening for at least 7-10 days. Please follow-up with urology as previously instructed. You have diabetes mellitus type 2 and have been prescribed metformin XR 500 mg twice daily to help control blood glucose levels. Please keep a blood glucose log with 1 measurements fasting (1st thing in the morning nothing to eat or drink) and 3 additional 2 hours after meals. Goal blood glucose fasting 128 and after meals less than 180. Please follow-up with your primary care physician, Dr. Campbell, regarding your hospitalization and diabetic management and referral to telehealth nurse educator. Discharge orders & Medications Prescriptions: New nystatin-triamcinolone 100,000-0.1 unit/g-% Cream 1 applic topical BID Qty: 30 RF: 0 levofloxacin 750 mg tablet 750 mg PO DAILY Qty: 7 RF: 0 metformin 500 mg tablet extended release 24hr 500 mg PO BID Qty: 60 RF: 0 (DME) blood-glucose meter [Glucocard 01 Meter] Kit See Rx Instructions .ROUTE .MEDSUPPLY Qty: 1 RF: 0 Continued tamsulosin [Flomax] 0.4 MG capsule,extended release 24hr 0.4 mg PO QDAY Qty: 0 RF: 0 furosemide 40 mg Tablet 40 mg PO BID RF: 0 spironolactone 100 mg Tablet 50 mg PO BID RF: 0 Changed lactulose 10 gram/15 mL Solution 60 ml PO TID-QID Qty: 0 RF: 0 Follow up/Referrals: Katelyn Campbell MD [Primary Care Provider] - 1 Week Diet/Activity/Treatments Diet: Low-sodium Diet comment: < 2000 mg sodium and no more than 2L all fluid Visit Report/Discharge Packet Instructions: How to Care for Your Man Catheter -- Male, The Mediterranean Diet and Good Health, DI for Urinary Tract Infection (UTI), DI for Diabetes Type 2, Nystatin and Triamcinolone, Metformin, DI for Yeast Infection-Skin Visit Report Forms: Patient Portal/API, Stroke Signs & Symptoms Discharge Data Primary Care Provider: Katelyn Campbell Discharges patient from system. Discharge Date/Time: 03/26/20 17:45
[2020-03-26 08:00] VITALS: BP 140/58; PULSE 68; RESP 16; TEMP 36.3; O2SAT 97
--- NOTE | 2020-03-26 08:41 | PC.NURSE ---
Pt up frequently around change of shift dt increased stooling. Pt presently resting, holding off on b'fast. asleep at bedside.
[2020-03-26 09:04] LABS: Procalcitonin < 0.05 ng/mL (<0.5)
[2020-03-26] MEDS: FUROSEMIDE 40 MG TABLET PO ×2 (09:30→17:24)
[2020-03-26] MEDS: INSULIN GLARGINE 100 UNIT/ML 3ML PEN 10 UNIT SUBCUT (10:10)
[2020-03-26] MEDS: INSULIN ASPART 100 UNIT/ML INSULN PEN SUBCUT ×3 (10:11→17:23)
[2020-03-26] MEDS: NYSTATIN/TRIAMCIN CREAM 15 GM 1 APPLIC TOP (10:12)
[2020-03-26] MEDS: TAMSULOSIN 0.4 MG CAPSULE PO (10:12)
[2020-03-26] MEDS: SPIRONOLACTONE 50 MG TABLET PO ×2 (10:12→17:24)
--- NOTE | 2020-03-26 14:04 | PT.IPTN ---
Current Diagnoses Hepatic failure, unspecified without coma (03/24/20) Physical Therapy Treatment Note M2 PT-IP Current Condition Start: 03/25/20 14:06 Freq: NEEDED Status: Active Protocol: Document 03/25/20 10:48 AB (Rec: 03/25/20 14:30 AB [id number]) Physical Therapy Current Condition Current Condition Evaluation Date 03/25/20 Treatment Diagnosis acute UTI; hepatic encephalopathy; difficulty in walking Onset Date 03/24/20 Precautions Other Precautions falls M3 PT-IP Subjective Start: 03/25/20 14:06 Freq: NEEDED Status: Active Protocol: Document 03/26/20 13:16 LJ (Rec: 03/26/20 14:04 LJ [id number]) Subjective Physical Therapy Visit Type Type Treatment Note Visit Start Time 13:16 Visit Stop Time 13:41 Total Visit Minutes 25 Number of CLOUD SYSTEMS ARCHITECT Visits 1 Physical Therapy Visit Comments Patient Comments agreeable to do PT Therapy Pain Assessment Pain When Pain Assessed During Mobility Pain Present Pain Present Denied Pain M4 PT-IP Mobility and Gait Start: 03/25/20 14:06 Freq: NEEDED Status: Active Protocol: Document 03/26/20 13:16 LJ (Rec: 03/26/20 14:04 LJ [id number]) PT-Bed Mobility Assessment Supine to Sit Supine to Sit Standby Assistance Scooting Scooting to Edge of Bed Standby Assistance PT-Transfer Assessment Sit to and From Stand Sit to and from Stand Standby Assistance,1 Person Assistance,Use of Upper Extremities Equipment Transfer Assistive Device Gait Belt,Front Wheeled Walker Orthotic/Prosthetic Devices or Brace: No Transfers Transfer Destination Chair Transfer Technique ambulated using FWW Transfer Ability Level of Assist Standby Assistance,1 Person Assistance Comments Mobility Comments Pt sitting in bed with HEB elevated. Able to get out of bed SBA. After ambulating in hallway pt returned to ditting in chair SBA with cues for hand positioning on chair rails. Gait Assessment Gait Gait Assistance Required: Standby Assistance Distance (Feet) 250 Assistive Devices Assistive Device Gait Belt,Front Wheeled Walker Orthotic/Prosthetic Devices or Brace: No Gait Deviations General Gait Pattern Decreased Stride Length, Decreased Feet Clearance Factors Limiting Gait Function Factors Limiting Gait Function Decreased Activity Tolerance, Decreased Strength,Pain,Poor Balance Comments Gait Comments Pt initially walking in room carrying FWW. Cued to put it on the floor and push it. Pt had good FWW management and posture using FWW. was with pt during ambulation and stair trial. Discussed safety and activity level in house for return home Stair Climbing Assessment Evaluation Level of Assist On Stairs Standby Assistance Devices Stair Climbing Assistive Devices Front Wheel Walker Technique/Endurance Stair Climbing Direction Ascend and Descend Stair Climbing Technique Step to Step Number of Steps Climbed 2 Stair Climbing Set # Repetitions (reps) 2 Comments Stair Climbing Comments pt used FWW on platform step. Able to safely get up and down steps. Pt carried FWW when stepping down from the step first trial. M5 PT-IP Objective Assessments Start: 03/25/20 14:06 Freq: NEEDED Status: Active Protocol: Document 03/25/20 10:48 AB (Rec: 03/25/20 14:30 AB [id number]) Orientation Orientation/Cognition Level of Alertness Alert Orientation Name,Place,Situation Language Function Ability No Deficits Noted Safety Awareness Understands Safety Issues Memory Description No Deficits Noted Gross Range of Motion Lower Extremity ROM Assessment Within Functional Limits Strength Lower Extremity Strength Assessment Within Functional Limits Coordination Assessment Gross Coordination Gross Coordination WNL Sensation Assessment Sensation Gross Sensation WNL Muscle Tone Muscle Tone WNL Yes M6 PT-IP Treatment Start: 03/25/20 14:06 Freq: NEEDED Status: Active Protocol: Document 03/26/20 13:16 DEVORA (Rec: 03/26/20 14:04 [id number]) Physical Therapy Treatment Education Education Provided Safety Other Treatments Other Treatment Performed Sit<>stand from chair. x2 to practice when going home. M7 PT-IP Assessment and Plan Start: 03/25/20 14:06 Freq: NEEDED Status: Active Protocol: Document 03/26/20 13:16 DEVORA (Rec: 03/26/20 14:04 DEVORA [id number]) PT Summary Assessment and Plan Potential Rehabilitation Potential Good Status of Condition at Evaluation Evolving Summary Impairments Pain,Strength,Balance,Gait, Activity Tolerance Assessment Summary Pt SBA for all bed mobility with assist with Man. He initially carried the walker in the room walking toward the door but put it on the floor when cued. present for caregiver training. Pt ambulated to stairs in hallway with good walker use. Most likely will not need to use walker at home. He expressed concern about the difficulty he has with getting out of his recliner at home. Reviewed steps and practiced in room with pt easily able to get out . Main difficulty was pain in penis prior to having it adjusted. Reported no pain in that area now. They have a FWW at home for pt to use. Goals Bed Mobility Goal Independent Transfer Goal Independent,Front Wheeled Walker Gait Goal Independent,Front Wheel Walker Gait Distance 200 Other Goals ambulation without AD/least restrictive AD ~ 200 ft SBA 1 step to enter using AD/ without AD SBA Days to Meet Goals 5 Frequency of Treatment Frequency Of Treatment Once a Day Treatment Plan Physical Therapy Treatment Plan Bed Mobility Training,Transfer Training,Gait Training, Therapeutic Exercise,Balance Retraining,Post Op Education, Discharge Planning, Neuromuscular Re-ed, Coordination Retraining Other Recommendations and Next Treatment ambulation Focus Recommendations To Nursing Amount of Assist Needed 1 Person Assist Discharge Recommendations PT Discharge Recommendations Home with Assistance,Home Health,Outpatient PT Transportation Needs at Discharge Private Vehicle
--- NOTE | 2020-03-26 15:39 | CM.DANOTE ---
Discharge Planning/Care Management DCP: assessment: case received, EMR reviewed and met with pt and his during Team Bedside Rounds. Introduced self and role. Pt is a 74 year old male who admitted night of 03/26 to care of hospitalist team. Payer: Medicare and [employer] Admission status: INPT. PCP: Dr. Katelyn Manzano stated she was putting in the d/c order but would be back to talk with pt and his later about the details. She also noted she wanted a dietary consult. She confirms that pt will be going home with a yates catheter and with specific instructions for penis cleaning related to yeast infection. PT has recommended HH and RN will also be needed. Dr. Manzano agrees with same and has signed the Face/Face. Discussed HH with pt and his Thelma. Pt has never had HH and went over specifics of same. Choice list: given: no preference: went with vendor calendar for this week: [facility]/referral accepted. DC orders were completed this afternoon. Clinical information, d/c orders including HH orders and Face/Face are faxed now to [facility]. Brochure given to pt's . Home with [facility] and clinic followup as noted. No d/c summary is available at this time. Advanced directive, confirm from FAMILY Start: 03/24/20 21:24 Freq: Q24H Status: Active Protocol: Document 03/24/20 21:25 AKP (Rec: 03/24/20 21:25 AKP [id number]) Advance Directive, confirm on record Time 21:25 Person contacted Thelma- Copy received No Document 03/25/20 21:24 KMD (Rec: 03/25/20 22:14 KMD [id number]) Advance Directive, confirm on record Time 21:25 Person contacted Thelma- Copy received No Time 22:00 Person contacted & Pt. Copy received No CM Discharge Assessment Start: 03/26/20 15:37 Freq: Status: Active Protocol: Document 03/26/20 15:37 ITV (Rec: 03/26/20 15:39 ITV [id number]) Discharge Planning Assessment Advance Directives? Yes History Provided By Patient,Family Member,Medical Record Prior Living Arrangements House Household Members spouse Comment Thelma: cell: : she is the primary contact Review Status In Process
--- NOTE | 2020-03-26 17:35 | PC.NURSE ---
Pt and spouse state he has all of his belongings and understands his discharge instructions and follow up appointments. He is being driven home by his in a private car. He is A and O x 4, denies pain and nausea.
== END 2020-03-26 17:45 | disposition home health service (06) | DRG 698 ==
LOC: ED 20:23 → AC 20:29
PROVIDERS: Emergency Medicine; Internal Medicine; Admitting Provider Nurse Practitioner Family; Emergency Provider Nurse Practitioner; Family Provider Internal Medicine Gastroenterology; PCP Internal Medicine; Referring Provider Nurse Practitioner; Visit Provider Nurse Practitioner Family
DX: T83.511A Infection and inflammatory reaction due to indwelling urethral catheter, initial encounter (principal); G93.41 Metabolic encephalopathy; E87.1 Hypo-osmolality and hyponatremia; B37.49 Other urogenital candidiasis; K72.90 Hepatic failure, unspecified without coma; K75.81 Nonalcoholic steatohepatitis (NASH); E11.65 Type 2 diabetes mellitus with hyperglycemia; D69.59 Other secondary thrombocytopenia; R33.9 Retention of urine, unspecified; N40.1 Benign prostatic hyperplasia with lower urinary tract symptoms; Z98.890 Other specified postprocedural states
CPT/HCPCS: 36415; 70450; 71045; 80048; 80053; 81003; 81015; 82140; 82550; 82962; 83036; 83605; 83690; 83735; 84145; 84484; 85025; 85610; 85730; 87040; 87077; 87086; 87186; 93005; 97116; 97162; 99284; J0696; J2405

== ENCOUNTER 2020-04-01 16:03 | Inpatient (IN) | payer MEDICARE, OTHER, SELFPAY ==
[2020-03-24 20:52] VITALS: BMI 25.7
[2020-04-01] VITALS (14 sets, daily range): BP systolic 118–170; BP diastolic 66–71; PULSE 62–88; RESP 12–17; TEMP 36.6–37.1; O2SAT 97–98; BMI 25.0
--- NOTE | 2020-04-01 16:24 | DI.RAD.S_ITS ---
PROCEDURE: XR CHEST 1V INDICATIONS: chest pain TECHNIQUE: One view of the chest was acquired. COMPARISON: [facility], CR, XR CHEST 1V, 03/24/2020, 16:44. FINDINGS: Surgical changes and devices: None. Lungs and pleura: Lungs are clear. No pleural effusions or pneumothorax. Mediastinum: Mediastinal contours appear normal. Heart size is normal. Bones and chest wall: No suspicious bony lesions. Overlying soft tissues appear unremarkable. Old, healed right rib fracture. IMPRESSION: No evidence acute pulmonary process. Dictated by: Willy Servin M.D. on 04/01/2020 at 16:03 Approved by: Willy Servin M.D. on 04/01/2020 at 16:05
[2020-04-01 16:53] LABS: Add Manual Diff / Slide Review NO; Basophils Absolute Auto 0 /uL (0-100); Basophils Percent Auto 0.3 % (0-2); Eosinophils Absolute Auto 100 /uL (0-450); Eosinophils Percent Auto 1.3 % (2-4); Hematocrit 36.3 % (41-53); Hemoglobin 12.7 g/dL (13.5-17.5); Lymphocytes Absolute Auto 1200 /uL (1100-4500); Lymphocytes Percent Auto 25.1 % (25-40); Mean Corpuscular HGB Conc 35.1 % (30-36); Mean Corpuscular Volume 85.5 fL (80-100); Monocytes Absolute Auto 900 /uL (0-900); Monocytes Percent Auto 19.1 % (3-14); Neutrophils Absolute Auto 2700 /uL (1500-7000); Neutrophils Percent Auto 54.2 % (50-75); Platelet Count 71 X10^3/uL (150-400); Red Blood Cell Count 4.24 X10^6/uL (4.5-5.9); Red Cell Distribution Width 20.8 % (11.6-14.8); White Blood Cell Count 4.9 X10^3/uL (4.5-11.0)
[2020-04-01 17:01] LABS: INR 1.3 (0.9-1.3); Prothrombin Time 15.5 SECONDS (10.1-12.7)
[2020-04-01 17:03] LABS: PTT Partial Thromboplastin Tim 29 SECONDS (26.4-36.2)
[2020-04-01 17:04] LABS: Ammonia (NH3) 153 umol/L (9-30)
[2020-04-01 17:05] LABS: Alanine Aminotransferase 49 IU/L (<50); Albumin 3.7 g/dL (3.5-5.0); Albumin Globulin Ratio 1.2 (1.0-2.8); Alkaline Phosphatase 120 U/L (38-126); Aspartate Aminotransferase 56 IU/L (17-59); BUN Creatinine Ratio 20.2 (6-22); Bilirubin Total 1.4 mg/dL (0.2-1.3); Blood Urea Nitrogen 24 mg/dL (9-20); Calcium 9.8 mg/dL (8.4-10.2); Carbon Dioxide 21 mmol/L (22-32); Chloride 103 mmol/L (98-107); Creatine Kinase 24 U/L (55-170); Estimated Glomerular Filt Rate 59.6 mL/min (>60); Glucose 205 mg/dL (80-110); HEMOLYSIS < 15 (0-50); Lipase 395 U/L (23-300); Potassium 4.1 mmol/L (3.4-5.1); Sodium 134 mmol/L (137-145); Total Protein 6.7 g/dL (6.3-8.2)
[2020-04-01 17:16] LABS: Troponin I < 0.012 ng/mL (0.01-0.034)
--- NOTE | 2020-04-01 18:12 | ED_ITS ---
HPI - General Adult General Chief complaint: Dizziness Stated complaint: lethargic,meds not working,confusion,dizzy Time Seen by Provider: 04/01/20 18:07 Source: patient Mode of arrival: Family Vehicle Limitations: no limitations History of Present Illness HPI narrative: 74-year-old male. Epb-ilowvba-wmhlcbvhy diabetic. Approximately 1 month ago underwent a TIPPS procedure the [facility]. Celestine ately 7-10 days ago was admitted to our facility with the diagnosis of hepatic encephalopathy and urinary tract infection. Patient's states that during that visit he was treated with antibiotics. He was also given lactulose at a higher dose than what he was on prior to that admission. She states that he had 1 bowel movement. Was sent home on lactulose. Since he was discharged earlier this week he has been declining steadily every day to include weakness and inability to stand and some confusion and unsteadiness on his feet. He states that he has had some chest discomfort and some shortness of breath however this is not necessarily new for him. He has been doing his lactulose. Has not had a bowel movement since he was discharged from the hospital. They contacted the nurse for his electronic repair troubleshooter who informed him that he should come into the emergency department. Related Data Home Medications Medication Instructions Recorded Confirmed tamsulosin [Flomax] 0.4 mg PO QDAY #0 01/28/12 04/01/20 furosemide 40 mg PO BID 10/13/19 04/01/20 spironolactone 50 mg PO BID 10/13/19 04/01/20 Previous Rx's Medication Instructions Recorded blood-glucose meter [Glucocard 01 #1 each 03/26/20 Meter] lactulose 60 ml PO TID-QID #0 ml 03/26/20 levofloxacin 750 mg PO DAILY #7 tab 03/26/20 metformin 500 mg PO BID #60 tab 03/26/20 nystatin-triamcinolone 1 applic TOPICAL BID #30 gram 03/26/20 Allergies Allergy/AdvReac Type Severity Reaction Status Date / Time No Known Drug Allergies Allergy Verified 04/01/20 16:33 Review of Systems Constitutional Constitutional: Reports fatigue, Denies fever(s), Denies headache(s), Reports malaise and Reports weakness Eyes Eyes: Denies change in vision ENT Ears, Nose, Mouth, and Throat: Denies headache(s) Cardiovascular Cardiovascular: Reports chest pain and Reports dyspnea Respiratory Respiratory: Reports dyspnea Gastrointestinal Gastrointestinal: Denies abdominal pain Comments: No bowel movement since being discharged from the hospital. Genitourinary Comments: Indwelling Man catheter secondary to urine retention after his procedure. Has not drained since arriving here in the ER. Integumentary/Breasts Skin/Breast: Denies rash Neurologic Neurologic: Denies behavioral changes, Denies headache(s) and Reports weakness Psychiatric Psychiatric: Denies behavioral changes Endocrine Endocrine: Reports fatigue Hematologic/Lymphatic Hematologic/Lymphatic: Denies easy bleeding and Denies easy bruising Patient History Medical History Ascites (Inactive) Cirrhosis (Inactive) Gallstones (Inactive) Hepatic encephalopathy (Acute) MIMS (nonalcoholic steatohepatitis) (Acute) Neutropenia (Resolved) Splenic mass (Inactive) Thrombocytopenia (Chronic) Urinary retention (Acute) Surgical History (Updated 04/01/20 @ 21:43 by MOSHE Roblero) S/P TIPS (transjugular intrahepatic portosystemic shunt) (Acute) Family History Mother Pancreatic cancer Father Colon cancer Social History household members: spouse Smoking Status: Former smoker Smoking Status: Former smoker alcohol intake frequency: 0-2 drinks per day Substance Use Type: does not use Exam Initial Vital Signs Initial Vital Signs: Vital Signs Temperature 98.7 F 04/01/20 16:27 Pulse Rate 63 04/01/20 16:27 Respiratory Rate 16 04/01/20 16:27 Blood Pressure 118/68 04/01/20 16:27 Pulse Oximetry 98 04/01/20 16:27 Const General: cooperative and comfortable Limitations: altered mental status HENMT Head: normal to inspection and normocephalic Resp Effort & Inspection: normal respiratory effort Auscultation: clear to auscultation bilaterally Cardio Rate: regular rate Rhythm: regular rhythm Pulses: radial pulses present GI Inspection: non-distended Palpation: soft and No tender Other: Man catheter in place Skin Lesions: no lesions Rashes: no rashes Neuro General: patient alert, patient awake and patient oriented x3 Speech: speech normal Extrem General: normal to inspection and capillary refill normal Psych Appearance: grossly normal and well kempt Scores GCS [place] coma scale eye opening: Spontaneous [place] coma scale verbal response: Orientated [place] coma scale motor response: Obey commands [place] coma scale total score: 15 Course Orders Ordered: ED Orders 04/01/20 16:24 XR chest 1V Stat EKG-12 Lead Stat 04/01/20 16:40 Ammonia (NH3) Stat Complete Blood Count AUTO DIFF Stat Comprehensive Metabolic Panel Stat Lipase Stat Magnesium Routine Partial Thromboplastin Time Stat Procalcitonin Stat Prothrombin Time INR Stat Troponin & CK Cardiac Panel Stat 04/01/20 19:52 CT abdomen pelvis w con Stat 04/01/20 20:18 Consult to Dietitian, Adult Routine Consult to Discharge Planning Routine 04/02/20 05:00 Basic Metabolic Panel Routine Complete Blood Count AUTO DIFF Routine Acetaminophen (Tylenol) 650 mg PO Q8H PRN PRN Reason: Fever/Mild Pain (1-3) Al Hydrox/Mg Hydrox/Simethicone (Maalox Plus) 30 ml PO Q6HR PRN PRN Reason: Dyspepsia Calcium Carbonate (Tums) 1,000 mg PO Q4HR PRN PRN Reason: Dyspepsia Dextrose (D50w) 25 gm IV PRN PRN; Protocol PRN Reason: Hypoglycemia Enoxaparin Sodium (Lovenox) 40 mg SUBCUT DAILY [facility] Sodium Chloride (Normal Saline 0.9%) 1,000 mls @ 50 mls/hr IV CONT [facility] Last Admin: 04/01/20 20:50 Dose: Not Given Documented by: CSIEDLE Insulin Aspart (Novolog Flexpen) 0 unit SUBCUT [facility]; Protocol Lactulose (Enulose) 200 gm LA NOW ONE Stop: 04/01/20 21:47 Lactulose (Enulose) 30 gm PO TID [facility] Metoclopramide HCl (Reglan) 10 mg IV NOW ONE Stop: 04/01/20 21:47 Morphine Sulfate (Morphine) 2 mg IV Q4HR PRN PRN Reason: Pain, Moderate (4-6) Naloxone HCl (Narcan) 0.2 mg IV Q2MIN PRN PRN Reason: Opiate Reversal Ondansetron HCl (Zofran) 4 mg IV Q6HR PRN PRN Reason: Nausea And Vomiting Discontinued Medications Sodium Chloride (Normal Saline 0.9%) 1,000 mls @ 125 mls/hr IV CONT [facility] Last Infusion: 04/01/20 20:49 Dose: 50 mls/hr Documented by: Admin: 04/01/20 20:43 Dose: 125 mls/hr Documented by: KAY Lactulose (Enulose) 20 gm PO NOW ONE Stop: 04/01/20 19:06 Lactulose (Enulose) 20 gm LA NOW ONE Stop: 04/01/20 21:47 Ondansetron HCl (Zofran) 4 mg IV NOW ONE Stop: 04/01/20 20:05 Last Admin: 04/01/20 20:43 Dose: 4 mg Documented by: KAY Promethazine HCl (Phenadoz) 12.5 mg LA Q6HR PRN PRN Reason: Nausea And Vomiting Vital Signs Vital signs: Vital Signs - 8 hr 04/01/20 16:27 04/01/20 16:30 04/01/20 16:54 Temperature 98.7 F Pulse Rate 63 62 62 Respiratory Rate 16 12 14 Blood Pressure 118/68 153/66 H Pulse Oximetry 98 98 97 04/01/20 16:55 04/01/20 17:00 04/01/20 17:30 Temperature Pulse Rate 63 62 66 Respiratory Rate 14 15 14 Blood Pressure 153/66 H 146/67 H 156/71 H Pulse Oximetry 98 98 97 04/01/20 18:00 04/01/20 18:30 04/01/20 18:31 Temperature Pulse Rate 63 64 68 Respiratory Rate 13 14 13 Blood Pressure 154/66 H 149/67 H Pulse Oximetry 97 98 97 04/01/20 19:00 04/01/20 19:30 04/01/20 20:00 Temperature Pulse Rate 66 70 73 Respiratory Rate 12 12 12 Blood Pressure 153/70 H 156/67 H 156/67 H Pulse Oximetry 98 98 98 Medical Decision Making Medical Records Medical records reviewed: Yes I reviewed the patient's medical records. Lab Data Lab results reviewed: Yes I reviewed the patient's lab results. Result diagrams: 04/01/20 16:40 04/01/20 16:40 Labs: Lab Results 04/01/20 04/01/20 04/01/20 Range/Units 16:40 16:40 16:40 WBC 4.9 (4.5-11.0) X10^3/uL RBC 4.24 L (4.5-5.9) X10^6/uL Hgb 12.7 L (13.5-17.5) g/dL Hct 36.3 L (41-53) % MCV 85.5 (80-100) fL MCH 30.0 (26-34) PG MCHC 35.1 (30-36) % RDW 20.8 H (11.6-14.8) % Plt Count 71 L (150-400) X10^3/uL Neut % (Auto) 54.2 (50-75) % Lymph % (Auto) 25.1 (25-40) % Valencia % (Auto) 19.1 H (3-14) % Eos % (Auto) 1.3 L (2-4) % Baso % (Auto) 0.3 (0-2) % Neut # (Auto) 2700 (6356-9385) /uL Lymph # (Auto) 1200 (1816-3757) /uL Valencia # (Auto) 900 (0-900) /uL Eos # (Auto) 100 (0-450) /uL Baso # (Auto) 0 (0-100) /uL Nucleated RBCs Cancelled Hypersegmented Neuts Cancelled Hypogranular Neuts Cancelled Reactive Lymphocytes Cancelled Smudge Cells Cancelled Other Cell Type Cancelled Toxic Granulation Cancelled Toxic Vacuolation Cancelled Dohle Bodies Cancelled Rancho Rods Cancelled WBC Morphology Comment Cancelled Platelet Estimate Cancelled Clumped Platelets Cancelled Plt Morphology Comment Cancelled RBC Morphology Cancelled Dimorphic RBCs Cancelled Polychromasia Cancelled Hypochromasia Cancelled Poikilocytosis Cancelled Basophilic Stippling Cancelled Anisocytosis Cancelled Microcytosis Cancelled Macrocytosis Cancelled Spherocytes Cancelled Pappenheimer Bodies Cancelled Sickle Cells Cancelled Target Cells Cancelled Tear Drop Cells Cancelled Ovalocytes Cancelled Stomatocytes Cancelled Helmet Cells Cancelled [place] Bodies Cancelled [place] Rings Cancelled Keyshawn Cells Cancelled Acanthocytes (Spur) Cancelled Rouleaux Cancelled Schistocytes Cancelled PT 15.5 H (10.1-12.7) SECONDS INR 1.3 (0.9-1.3) APTT 29 (26.4-36.2) SECONDS Sodium 134 L (137-145) mmol/L Potassium 4.1 (3.4-5.1) mmol/L Chloride 103 (98-107) mmol/L Carbon Dioxide 21 L (22-32) mmol/L BUN 24 H (9-20) mg/dL Creatinine 1.19 (0.66-1.25) mg/dL Estimated GFR 59.6 L (>60) mL/min BUN/Creatinine Ratio 20.2 (6-22) Glucose 205 H (80-110) mg/dL Calcium 9.8 (8.4-10.2) mg/dL Magnesium (1.6-2.3) mg/dL Total Bilirubin 1.4 H (0.2-1.3) mg/dL AST 56 (17-59) IU/L ALT 49 (<50) IU/L Alkaline Phosphatase 120 (38-126) U/L Ammonia (9-30) umol/L Total Creatine Kinase 24 L (55-170) U/L CK-MB (CK-2) TNP CK-MB (CK-2) Rel Index TNP Troponin I < 0.012 (0.01-0.034) ng/mL Total Protein 6.7 (6.3-8.2) g/dL Albumin 3.7 (3.5-5.0) g/dL Globulin 3.0 (1.7-4.1) g/dL Albumin/Globulin Ratio 1.2 (1.0-2.8) Lipase 395 H (23-300) U/L Procalcitonin (<0.5) ng/mL 04/01/20 04/01/20 04/01/20 Range/Units 16:40 16:40 16:40 WBC (4.5-11.0) X10^3/uL RBC (4.5-5.9) X10^6/uL Hgb (13.5-17.5) g/dL Hct (41-53) % MCV (80-100) fL MCH (26-34) PG MCHC (30-36) % RDW (11.6-14.8) % Plt Count (150-400) X10^3/uL Neut % (Auto) (50-75) % Lymph % (Auto) (25-40) % Valencia % (Auto) (3-14) % Eos % (Auto) (2-4) % Baso % (Auto) (0-2) % Neut # (Auto) (4985-4276) /uL Lymph # (Auto) (5777-4848) /uL [place] # (Auto) (0-900) /uL Eos # (Auto) (0-450) /uL Baso # (Auto) (0-100) /uL Nucleated RBCs Hypersegmented Neuts Hypogranular Neuts Reactive Lymphocytes Smudge Cells Other Cell Type Toxic Granulation Toxic Vacuolation Dohle Bodies Rancho Rods WBC Morphology Comment Platelet Estimate Clumped Platelets Plt Morphology Comment RBC Morphology Dimorphic RBCs Polychromasia Hypochromasia Poikilocytosis Basophilic Stippling Anisocytosis Microcytosis Macrocytosis Spherocytes Pappenheimer Bodies Sickle Cells Target Cells Tear Drop Cells Ovalocytes Stomatocytes Helmet Cells [place] Bodies [place] Rings Keyshawn Cells Acanthocytes (Spur) Rouleaux Schistocytes PT (10.1-12.7) SECONDS INR (0.9-1.3) APTT (26.4-36.2) SECONDS Sodium (137-145) mmol/L Potassium (3.4-5.1) mmol/L Chloride (98-107) mmol/L Carbon Dioxide (22-32) mmol/L BUN (9-20) mg/dL Creatinine (0.66-1.25) mg/dL Estimated GFR (>60) mL/min BUN/Creatinine Ratio (6-22) Glucose (80-110) mg/dL Calcium (8.4-10.2) mg/dL Magnesium 2.4 H (1.6-2.3) mg/dL Total Bilirubin (0.2-1.3) mg/dL AST (17-59) IU/L ALT (<50) IU/L Alkaline Phosphatase (38-126) U/L Ammonia 153 H (9-30) umol/L Total Creatine Kinase (55-170) U/L CK-MB (CK-2) CK-MB (CK-2) Rel Index Troponin I (0.01-0.034) ng/mL Total Protein (6.3-8.2) g/dL Albumin (3.5-5.0) g/dL Globulin (1.7-4.1) g/dL Albumin/Globulin Ratio (1.0-2.8) Lipase (23-300) U/L Procalcitonin < 0.05 (<0.5) ng/mL Imaging Data Chest x-ray: Radiologist's Impression: [facility] [address] [place] [id number] XRay Report Signed Patient: Leonardo Avina [facility]#: [id number] : 5Acct:[id number] Age/Sex: 74 / MDate of Service: 04/01/20 Loc: ED Accession Number: [id number] Procedure: XR chest 1V Ordering Provider: Alexey Serna MD PROCEDURE: XR CHEST 1V INDICATIONS: chest pain TECHNIQUE: One view of the chest was acquired. COMPARISON: [facility], , XR CHEST 1V, 03/24/2020, 16:44. FINDINGS: Surgical changes and devices: None. Lungs and pleura: Lungs are clear. No pleural effusions or pneumothorax. Mediastinum: Mediastinal contours appear normal. Heart size is normal. Bones and chest wall: No suspicious bony lesions. Overlying soft tissues appear unremarkable. Old, healed right rib fracture. IMPRESSION: No evidence acute pulmonary process. Dictated by: Willy Servin M.D. on 04/01/2020 at 16:03 Approved by: Willy Servin M.D. on 04/01/2020 at 16:05 [facility] Narrative Medical decision making narrative: Patient is alert and oriented x3 however is slow to answer questions and is obviously very weak. Has an elevated ammonia level today. I did discuss the case with Dr. Gurerero who was regional construction manager for hepatology at the [facility]. He recommended hourly lactulose until the patient has a bowel movement. He also recommended continue surveillance for potential infection. Discussed the case with TED Mancera the night hospitalist to asked that we order a CT scan of the abdomen. Discussed this with the patient and his who is at bedside. Will admit for further evaluation and treatment. Discharge Plan Departure Patient Disposition: Admitted As Inpatient Clinical Impression: Encephalopathy, hepatic Discharge Date/Time: 04/01/20 21:20 Admit Date/Time: 04/01/20 20:38 Admit Provider: Arden Mancera
--- NOTE | 2020-04-01 19:52 | DI.CT.S_ITS ---
PROCEDURE: CT ABDOMEN PELVIS W CON INDICATIONS: Eval for ascites/SBO TECHNIQUE: After the administration of intravenous contrast, 5 mm thick sections acquired from the diaphragm to the symphysis. 5 mm coronal and sagittal reformats were acquired. For radiation dose reduction, the following was used: automated exposure control, adjustment of mA and/or kV according to patient size. COMPARISON: [facility], CT, NECK/CHEST/ABD/PEL W CONTRAST, 10/11/2015, 10:06. [facility], CT, CT CHEST W CON, 09/28/2019, 11:49. [facility], CT, CT ABDOMEN PELVIS W CON, 09/09/2019, 14:36. [facility], CT, CT ABDOMEN PELVIS WITH CONTRAST, 10/28/2019, 15:45. FINDINGS: Image quality: Excellent. ABDOMEN: Lung bases: A mild right effusion with is present with superimposed consolidation. This is decreased compared to 10/28/19. 7 mm right middle lobe nodule, unchanged since 2016 Solid organs: Liver is enlarged with nodularity consistent with cirrhosis. Interval TIPS placement is noted. Gallbladder continues to demonstrate an appearance of partially calcified masslike structure at the fundus, unchanged. In addition, within the more distended portion of the lung, there are linear areas of calcification as well as ill-defined masslike luminal density. Biliary system is non dilated. Pancreas demonstrates an unchanged appearance of cystic foci within the pancreatic head. Spleen is enlarged with multiple areas of hypodensity that appear slightly more prominent when compared to 10/18/19. No adrenal nodules. Kidneys demonstrate normal size and enhancement, without hydronephrosis. Peritoneum and bowel: Bowel loops demonstrate normal wall thickness and caliber. Moderate stool is present. Scattered colonic diverticula are present without associated inflammatory change. No free fluid or air. Prominent hiatal hernia with fluid in the distal esophagus. Nodes and vessels: No retroperitoneal or mesenteric adenopathy by size criteria. Aorta and inferior vena cava are normal in size. Miscellaneous: No ventral hernias. PELVIS: Genitourinary: Bladder is prominently distended. Prostate gland is enlarged. Penile implant is noted. Miscellaneous: No inguinal hernias or adenopathy. Bones: No suspicious bony lesions. No vertebral body compression fractures. IMPRESSION: 1. Nodular appearance of the liver with TIPS. 2. Persistent calcified masslike appearance within the gallbladder fundus with additional ill-defined density identified within the remainder of the gallbladder lumen. As previously noted, neoplasm cannot be excluded. 3. Multiple splenic hypodensities appearing slightly more prominent when compared to prior exam. Etiology remains indeterminate. These could represent small cysts/hemangiomas. However, as previously noted, metastatic disease or appropriate clinical setting, persistent infection cannot be excluded. 4. Moderate stool consistent with constipation. No colonic or small bowel obstruction. 5. Mild right effusion with superimposed consolidation, decreased since prior exam. Superimposed consolidation could represent atelectasis and/or pneumonia. Dictated by: Tanisha Anne M.D. on 04/01/2020 at 20:26 Approved by: Tanisha Anne M.D. on 04/01/2020 at 20:35
[2020-04-01 20:39] LABS: Magnesium 2.4 mg/dL (1.6-2.3)
[2020-04-01] MEDS: ONDANSETRON 4 MG/2 ML INJ IV (20:43)
[2020-04-01] MEDS: SODIUM CHLORIDE 0.9% 1,000 ML 125 ML IV (20:43)
--- NOTE | 2020-04-01 20:43 | PC.NURSE ---
1900: assumed care of pt. report from ESTEBAN Guadalupe. pt resting in bed. states nausea. taken to and from CT. made RN aware that yates is not draining. yates repositioned and draining noted. Yates has been in place since 03/09. pt has not had much to drink due to nausea therefore not much urine to drain, urine in bag is concentrated and cloudy. denies pain. Had TIPS procedure at . scheduled to have colon resection surgery in 2 weeks. 2030: Advised by Dr Schmitz not to remove yates cath since it was a hard placement per . Attempted to irrigate with minimal success. pt actively vomiting--approx 150-200mL of blue colored emesis pt states he ate as assortment of berries this morning. Zofran given for nausea. Lactulose ordered but will hold until nausea subsides. IVF infusing at 125ml/hr. Pritesh Mancera NP in for evaluation. Plan for admit to acute care.
[2020-04-01 20:54] LABS: Procalcitonin < 0.05 ng/mL (<0.5)
--- NOTE | 2020-04-01 21:08 | PC.NURSE ---
Bladder scanned. 640ml in bladder with indwelling catheter in place. Per Pritesh Mancera, [employer]ILN, DC yates. Do not replace until atleast 2 hours when pt tries to void. advised to take urine sample from voided urine. Pt refusing to take lactulose at this time. Pritesh Mancera aware.
--- NOTE | 2020-04-01 21:18 | P.HP_ITS ---
History of Present Illness History of Present Illness Date Patient Seen: 04/01/20 Time Patient Seen: 20:54 Chief complaint: lethargic,meds not working,confusion,dizzy Narrative: Mr. Leonardo Avina is a 74-year-old male male with a history of cryptogenic liver cirrhosis with ascites, status post TIPS (03/06/2020 at [facility]), splenic mass, cholelithiasis, non insulin-dependent diabetes type 2, urinary retention with indwelling catheter placed on 03/08/2020 on discharge from [facility] who presents to the emergency department with increasing weakness over several days and nausea. The patient is somewhat poor historian and his is at bedside providing additional information. The patient has been on lactulose therapy until today with decreased stooling. He had 1 BM today that was normal and formed with his last bowel movement prior to that being 4 days ago. Presented with increased weakness and confusion that has been progressive for several days and has developed nausea and has been unable to take lactulose today. He also reports complaints of intermittent dressed pressure that is nonpleuritic and nonradiati ng without associated shortness of breath or diaphoresis that he states feels similar to when he had pleural effusions previously. The patient was admitted to [facility] under similar circumstances between March 24 and March 26 at which time he was diagnosed with urinary tract infection, and hepatic encephalopathy. The patient was discharged on Levaquin that he has been taking with 2 doses remaining. The patient denies complaints of fevers or chills her COVID-19 exposure. He has no complaints of headaches or dizziness and sustained no falls. He reports no nasal congestion or sore throat. He has chest pressure as described above which is intermittent and nonpleuritic. He denies complaints of shortness of breath, cough or wheezing. He does complain a suprapubic abdominal discomfort but no epigastric or abdominal pain. He has nausea and had 1 food content emesis while in the emergency department. Has indwelling Man catheter since 03/08/2020 that is draining poorly. He reports no hematuria or flank tenderness. Upon arrival to the ER the patient is afebrile with temperature of 90.7?, heart rate of 63, blood pressure 118/68, respirations 16 saturating 98 % on room air. A chest x-ray obtained reveals no acute cardiopulmonary processes. CT the abdomen finds a prominent hiatal hernia with fluid in the distal esophagus, liver nodularity with TIPS, calcified masslike appearance i within the gallbladder and additional ill-defined density within the gallbladder lumen, n eoplasm cannot be excluded multiple splenic hypodensities slightly more prominent when compared to prior exam, may represent small cysts/hemangiomas, metastatic disease or persistent infection cannot be excluded, moderate stool consistent with constipation, no colonic wall thickening or bowel obstruction, mild right effusion with superimposed consolidation improved from prior exam. On laboratory analysis the patient has a normal white count at 4.9 with elevated monocytes 19.1%, hemoglobin of 12.7, hematocrit of 36.3 and platelets of 71. He has a PT of 15.5, INR of 1.3 and PTT of 29. He has a sodium of 134, potassium of 4.1, BUN of 24 and a creatinine of 1.19. His nonfasting glucose is 205. He has an elevated bilirubin of 1.4, AST of 56, ALT of 49 and alkaline phosphatase of 120. His lipase is mildly elevated at 395 and has an albumin of 3.7. His ammonia levels 153. His total CK is 24 and troponin is less than 0.012. While in the ER patient complains of suprapubic discomfort and thing catheter has not been draining well. Nursing attempted to flush catheter in found resistance. A bladder scan finds a bladder volume of over 600 cc. Due to the date of the catheter in the lack patency and patient discomfort the Man catheter was discontinued. Lactulose 20 g is ordered in the ER with the patient is unable to take the medication related to nausea, Zofran is administered with modest improvement in nausea. Patient is receiving normal saline 125 cc/hour. The patient is admitted to the medicine service for hepatic encephalopathy related to elevated ammonia and urinary retention. The patient's primary care providers Katelyn Campbell. Patient History Medical History Ascites (Inactive) Cirrhosis (Inactive) Gallstones (Inactive) Hepatic encephalopathy (Acute) MIMS (nonalcoholic steatohepatitis) (Acute) Neutropenia (Resolved) Splenic mass (Inactive) Thrombocytopenia (Chronic) Urinary retention (Acute) Surgical History (Updated 04/01/20 @ 21:43 by MOSHE Roblero) S/P TIPS (transjugular intrahepatic portosystemic shunt) (Acute) Family & Social History Family History Mother Pancreatic cancer Father Colon cancer Social History: household members spouse Safety & Behavioral: Feels Safe in Current Yes Environment Been Physically Hurt or No Threatened By a Person Tobacco & Substance use: Smoking Status Former smoker alcohol intake frequency 0-2 drinks per day Substance Use Type does not use Meds Home Medications and Allergies Home Medications Medication Instructions Recorded Confirmed Type tamsulosin [Flomax] 0.4 mg PO QDAY #0 01/28/12 04/01/20 History furosemide 40 mg PO BID 10/13/19 04/01/20 History spironolactone 50 mg PO BID 10/13/19 04/01/20 History blood-glucose meter [Glucocard 01 #1 each 03/26/20 04/01/20 Rx Meter] lactulose 60 ml PO TID-QID #0 ml 03/26/20 04/01/20 Rx levofloxacin 750 mg PO DAILY #7 tab 03/26/20 04/01/20 Rx metformin 500 mg PO BID #60 tab 03/26/20 04/01/20 Rx nystatin-triamcinolone 1 applic TOPICAL BID #30 gram 03/26/20 04/01/20 Rx Allergies Allergy/AdvReac Type Severity Reaction Status Date / Time No Known Drug Allergies Allergy Verified 04/01/20 16:33 Review of Systems Review of Systems ROS: Yes All systems reviewed with the patient and are negative except as otherwise documented Exam Vital Signs (past 8 hours): - 04/01/20 16:27 04/01/20 16:30 04/01/20 16:54 Temperature 98.7 F Pulse Rate 63 62 62 Respiratory Rate 16 12 14 Blood Pressure 118/68 153/66 H Pulse Oximetry 98 98 97 04/01/20 16:55 04/01/20 17:00 04/01/20 17:30 Temperature Pulse Rate 63 62 66 Respiratory Rate 14 15 14 Blood Pressure 153/66 H 146/67 H 156/71 H Pulse Oximetry 98 98 97 04/01/20 18:00 04/01/20 18:30 04/01/20 18:31 Temperature Pulse Rate 63 64 68 Respiratory Rate 13 14 13 Blood Pressure 154/66 H 149/67 H Pulse Oximetry 97 98 97 04/01/20 19:00 04/01/20 19:30 04/01/20 20:00 Temperature Pulse Rate 66 70 73 Respiratory Rate 12 12 12 Blood Pressure 153/70 H 156/67 H 156/67 H Pulse Oximetry 98 98 98 04/01/20 20:57 Temperature Pulse Rate 76 Respiratory Rate 16 Blood Pressure 157/68 H Pulse Oximetry 97 Oxygen Delivery Method Room Air Narrative Exam Narrative: GENERAL APPEARANCE: well developed, ill-appearing of male with blunted affect, in no acute distress. HEENT: Normocephalic, PERRLA, mildly icteric sclera, EOMs intact without nystagmus, no sinus tenderness to percussion, no rhinorrhea, mucous membranes are dry and pink, white coating on his tongue NECK/THYROID: neck supple, no JVD, no carotid bruit, no thyromegaly, trachea midline. LYMPH NODES: no cervical or supraclavicular lymphadenopathy. SKIN: [place], warm and dry, no visible lesions, rashes, petechiae. HEART: regular rate and rhythm, S1-S2, no murmur, no rubs or gallops, brisk capillary refill, no edema LUNGS: clear to auscultation bilaterally, no coarseness crackles or wheezing, no cough present CHEST: Symmetrical movement, no accessory muscle use, good tidal volume. ABDOMEN: Distended, no abdominal tenderness on palpation, unable to palpate liver margin, no organomegaly, no flank pain, active bowel tones. GENITOURINARY: In suprapubic tenderness on palpation, indwelling Man catheter with redness of the penile glans, nontender to palpation, no discharge, dark tea-colored urine. BACK: Normal curvature, nontender to palpation, no CVA tenderness on percussion EXTREMITIES: moves all extremities, strength is 5/5 and symmetrical, no deformities or joint effusions. NEUROLOGIC: Is alert and oriented to person and place elderly, cranial nerves II-XII grossly intact, sensation intact to light touch, hearing grossly normal to speech. PSYCH: Good eye contact, blunted affect, impaired cognition unable to follow conversation or questions, cooperative with stable behavior. Objective Labs Result Diagrams: 04/01/20 16:40 04/01/20 16:40 Labs: Laboratory Results - last 24 hr 04/01/20 04/01/20 04/01/20 16:40 16:40 16:40 WBC 4.9 RBC 4.24 L Hgb 12.7 L Hct 36.3 L MCV 85.5 MCH 30.0 MCHC 35.1 RDW 20.8 H Plt Count 71 L Neut % (Auto) 54.2 Lymph % (Auto) 25.1 [place] % (Auto) 19.1 H Eos % (Auto) 1.3 L Baso % (Auto) 0.3 Neut # (Auto) 2700 Lymph # (Auto) 1200 [place] # (Auto) 900 Eos # (Auto) 100 Baso # (Auto) 0 Nucleated RBCs Cancelled Hypersegmented Neuts Cancelled Hypogranular Neuts Cancelled Reactive Lymphocytes Cancelled Smudge Cells Cancelled Other Cell Type Cancelled Toxic Granulation Cancelled Toxic Vacuolation Cancelled Dohle Bodies Cancelled [place] Rods Cancelled WBC Morphology Comment Cancelled Platelet Estimate Cancelled Clumped Platelets Cancelled Plt Morphology Comment Cancelled RBC Morphology Cancelled Dimorphic RBCs Cancelled Polychromasia Cancelled Hypochromasia Cancelled Poikilocytosis Cancelled Basophilic Stippling Cancelled Anisocytosis Cancelled Microcytosis Cancelled Macrocytosis Cancelled Spherocytes Cancelled Pappenheimer Bodies Cancelled Sickle Cells Cancelled Target Cells Cancelled Tear Drop Cells Cancelled Ovalocytes Cancelled Stomatocytes Cancelled Helmet Cells Cancelled Giraldo-Leedey Bodies Cancelled [place] Rings Cancelled [place] Cells Cancelled Acanthocytes (Spur) Cancelled Rouleaux Cancelled Schistocytes Cancelled PT 15.5 H INR 1.3 APTT 29 Sodium 134 L Potassium 4.1 Chloride 103 Carbon Dioxide 21 L BUN 24 H Creatinine 1.19 Estimated GFR 59.6 L BUN/Creatinine Ratio 20.2 Glucose 205 H Calcium 9.8 Magnesium Total Bilirubin 1.4 H AST 56 ALT 49 Alkaline Phosphatase 120 Ammonia Total Creatine Kinase 24 L CK-MB (CK-2) TNP CK-MB (CK-2) Rel Index TNP Troponin I < 0.012 Total Protein 6.7 Albumin 3.7 Globulin 3.0 Albumin/Globulin Ratio 1.2 Lipase 395 H Procalcitonin 04/01/20 04/01/20 04/01/20 16:40 16:40 16:40 WBC RBC Hgb Hct MCV MCH MCHC RDW Plt Count Neut % (Auto) Lymph % (Auto) [place] % (Auto) Eos % (Auto) Baso % (Auto) Neut # (Auto) Lymph # (Auto) [place] # (Auto) Eos # (Auto) Baso # (Auto) Nucleated RBCs Hypersegmented Neuts Hypogranular Neuts Reactive Lymphocytes Smudge Cells Other Cell Type Toxic Granulation Toxic Vacuolation Dohle Bodies [place]s WBC Morphology Comment Platelet Estimate Clumped Platelets Plt Morphology Comment RBC Morphology Dimorphic RBCs Polychromasia Hypochromasia Poikilocytosis Basophilic Stippling Anisocytosis Microcytosis Macrocytosis Spherocytes Pappenheimer Bodies Sickle Cells Target Cells Tear Drop Cells Ovalocytes Stomatocytes Helmet Cells Giraldo-Leedey Bodies [place] Rings [place] Cells Acanthocytes (Spur) Rouleaux Schistocytes PT INR APTT Sodium Potassium Chloride Carbon Dioxide BUN Creatinine Estimated GFR BUN/Creatinine Ratio Glucose Calcium Magnesium 2.4 H Total Bilirubin AST ALT Alkaline Phosphatase Ammonia 153 H Total Creatine Kinase CK-MB (CK-2) CK-MB (CK-2) Rel Index Troponin I Total Protein Albumin Globulin Albumin/Globulin Ratio Lipase Procalcitonin < 0.05 Assessment & Plan Assessment & Plan narrative: This is a 74-year-old male patient who returns to the hospital following a recent hospitalization for recurrent hepatic encephalopathy and recent urinary tract infection with 2 days remaining on course of antibiotics who has developed recurrent hepatic encephalopathy and complications with indwelling Man catheter. 1. Acute hepatic encephalopathy secondary to elevated ammonia, present on admission, active -patient has a history of cryptogenic cirrhosis and has undergone tips procedure on 03/06/2020. -he has had fluctuating episodes hepatic encephalopathy on lactulose therapy. The patient has become nauseated unable to take lactulose and has an ammonia of 153 on admission to the ER. -nausea improved with Zofran in the emergency department administered 20 g of or lactulose. Ordered an additional 10 g now, continue lactulose 45 g 4 times daily at the recommendation of hepatology with a goal of 2-3 soft stools daily. -ordered Reglan 10 mg IV every 8 hours to enhance gastric motility and reduce nausea. 2. Cryptogenic non alcoholic liver cirrhosis, present on admission, stable. -patient is status post tips procedure [employer] completed on 03/06/2020. -patient with mild scleral jaundice and elevated ammonia as discussed above. No evidence of ascites on CT scan no abdominal fluid wave appreciated. -Total bilirubin is 1.4, AST 56, ALT 49 and alkaline phosphatase of 120. Albumin is 3.7. No as does present with an anion gap 10. -MELD-Na score is 15, patient has a 6% 3 month mortality the risk and is currently followed by hepatology at [facility]. -no evidence of bleeding, petechiae bruising. -continue Lasix 40 mg twice daily and spironolactone 50 mg twice daily her management of ascites 3. Urinary retention with indwelling Man catheter, present on admission, active. -patient with poorly draining urinary catheter with bladder distension without hydronephrosis identified on CT. Bladder scan finds residual volume over 600 cc. -patient tamsulosin 0.4 mg daily, patient is see Dr. Alexis. -Man catheter has been in place since 03/08/2020, ordered Man catheter removed. Patient spine stains the voided over 300 cc with no further discomfort. -will monitor urinary output and bladder scan as necessary. -obtain urinalysis. 4. Benign prostatic hypertrophy, present on admission, stable. -patient has been on tamsulosin since placement of Man catheter for urinary retention on 03/06/2020. -ordered Man catheter removed and patient is able to spontaneously void. -ordered finasteride 5 mg at bedtime. 5. Diabetes type 2, non insulin depenent, present on admission, stable -patient newly diagnosed with type 2 diabetes and has been started on metformin 500 mg twice daily. -blood sugar this morning at home was 158. On admission labs blood sugars 205. -ordered fingersticks AC and HS, coverage with correctional insulin low-dose range. -medium constant carbohydrate diet 6. 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 -platelet count is 71 with no evidence of bleeding. -patient started on VTE prophylaxis with enoxaparin will monitor platelet count and discontinue if indicated. 7. Chest pressure, present on admission, stable. -the patient describes lower mid chest pressure that has been present off and on since his TIPS procedure. He denies SOB, radiation of discomfort or diaphoresis. -CK is low at 24, troponin is negative at less than 0.012. Twelve lead EKG finds a normal sinus rhythm with ventricular rate 64 without ectopy or block, QTC is 480 milliseconds, no evidence of ischemia or infarct. -rsistent fluid containing hiatal hernias identified on CT scan, small right pleural effusion. -ordered Reglan 10 mg IV every 8 hours. VTE prophylaxis: Bilateral SCDs, enoxaparin. IV fluid: Normal saline 50 cc/hour Diet: Medium constant carbohydrate, cirrhotic diet Code status: FULL CODE, the patient's is his surrogate decision maker. The patient is admitted to the hospital due to the severity of his symptoms, risk for complications adverse events. The patient is admitted as an inpatient with expected length of stay to be greater than 2 midnights. COVID-19 COVID-19 status: Negative Result date/Date tested (Pos, Neg/Pending): 04/01/20 Scores [facility] [place] coma scale eye opening: Spontaneous [place] coma scale verbal response: Confused [place] coma scale motor response: Obey commands [place] coma scale total score: 14
[2020-04-01] MEDS: LACTULOSE 20 GM/30 ML SOLUTION PO (21:58)
[2020-04-01 22:01] LABS: COVID19 -Nasal RAPID Negative (Negative)
[2020-04-01 22:20] LABS: Bacteria Urine None Seen
[2020-04-01 22:21] LABS: Bilirubin Urine UA NEGATIVE (NEGATIVE); Color Urine UA YELLOW; Glucose Urine UA NEGATIVE (Negative); Ketones Urine UA NEGATIVE (NEGATIVE); Leukocyte Esterase Urine UA NEGATIVE (NEGATIVE); Nitrite Urine UA NEGATIVE (Negative); Occult Blood Urine UA 3+ (Negative); Protein Urine UA NEGATIVE (Negative); Specific Gravity Urine UA <=1.005 (1.000-1.035); Urobilinogen Urine UA 0.2 E.U./dL (0.2); pH Urine UA 7.5 (4.5-8.0)
[2020-04-01] MEDS: METOCLOPRAMIDE 10 MG/2 ML INJ IV (22:22)
[2020-04-01 22:25] LABS: Appearance Urine UA Slightly Cloudy
[2020-04-01 22:29] LABS: Culture Indicated Urine Cult Not Indicated; RBC Urine 30-100/HPF (0-5/HPF); WBC Urine 0-1/HPF (0-5/HPF)
[2020-04-01] MEDS: LACTULOSE 20 GM/30 ML SOLUTION 10 GM PO (22:32)
[2020-04-01] MEDS: ROPINIROLE 0.25 MG TABLET PO (23:44)
[2020-04-02] VITALS (10 sets, daily range): BP systolic 126–157; BP diastolic 48–61; PULSE 64–94; RESP 16–17; TEMP 36.3–37.1; O2SAT 94–98
[2020-04-02 05:12] LABS: Add Manual Diff / Slide Review NO; Basophils Absolute Auto 0 /uL (0-100); Basophils Percent Auto 0.4 % (0-2); Eosinophils Absolute Auto 100 /uL (0-450); Eosinophils Percent Auto 1.8 % (2-4); Hematocrit 35.5 % (41-53); Hemoglobin 12.3 g/dL (13.5-17.5); Lymphocytes Absolute Auto 1200 /uL (1100-4500); Lymphocytes Percent Auto 23.5 % (25-40); Mean Corpuscular HGB Conc 34.6 % (30-36); Mean Corpuscular Hemoglobin 29.8 PG (26-34); Mean Corpuscular Volume 86.3 fL (80-100); Monocytes Absolute Auto 1000 /uL (0-900); Monocytes Percent Auto 20.6 % (3-14); Neutrophils Absolute Auto 2600 /uL (1500-7000); Neutrophils Percent Auto 53.7 % (50-75); Platelet Count 62 X10^3/uL (150-400); Red Blood Cell Count 4.12 X10^6/uL (4.5-5.9); Red Cell Distribution Width 20.8 % (11.6-14.8); White Blood Cell Count 4.9 X10^3/uL (4.5-11.0)
[2020-04-02 05:24] LABS: Alanine Aminotransferase 44 IU/L (<50); Albumin 3.3 g/dL (3.5-5.0); Albumin Globulin Ratio 1.1 (1.0-2.8); Alkaline Phosphatase 101 U/L (38-126); Aspartate Aminotransferase 50 IU/L (17-59); Bilirubin Total 1.6 mg/dL (0.2-1.3); Bilirubin Unconjugated 1.7 mg/dL (0.0-1.1); Globulin 2.9 g/dL (1.7-4.1); HEMOLYSIS < 15 (0-50); Total Protein 6.2 g/dL (6.3-8.2)
[2020-04-02 05:26] LABS: BUN Creatinine Ratio 17.8 (6-22); Blood Urea Nitrogen 23 mg/dL (9-20); Calcium 9.4 mg/dL (8.4-10.2); Carbon Dioxide 22 mmol/L (22-32); Chloride 104 mmol/L (98-107); Estimated Glomerular Filt Rate 54.3 mL/min (>60); Glucose 163 mg/dL (80-110); HEMOLYSIS < 15 (0-50); Potassium 4.1 mmol/L (3.4-5.1); Sodium 134 mmol/L (137-145)
[2020-04-02] MEDS: METOCLOPRAMIDE 10 MG/2 ML INJ IV ×3 (05:54→21:31)
[2020-04-02 05:55] LABS: Anisocytosis 3+; Platelet Estimate Decreased on smear
[2020-04-02 06:31] LABS: Ammonia (NH3) 98 umol/L (9-30)
[2020-04-02] MEDS: LACTULOSE 20 GM/30 ML SOLUTION 45 GM PO ×4 (08:00→21:34)
[2020-04-02] MEDS: INSULIN ASPART 100 UNIT/ML INSULN PEN SUBCUT ×3 (08:01→17:10)
[2020-04-02] MEDS: FUROSEMIDE 40 MG TABLET PO ×2 (08:03→21:31)
[2020-04-02] MEDS: TAMSULOSIN 0.4 MG CAPSULE PO (08:03)
[2020-04-02] MEDS: ENOXAPARIN 40 MG/0.4 ML SYRINGE SUBCUT (08:03)
[2020-04-02] MEDS: SPIRONOLACTONE 50 MG TABLET PO ×2 (08:03→21:32)
--- NOTE | 2020-04-02 08:32 | CM.DANOTE ---
Addendum entered by Matilde Ariza R.N. 04/02/20 10:03: Spoke to Maria Eugenia at [facility]. Will fax her over H&P. During team rounds, Dr. Solares indicated that patient could possibly go home tomorrow, no P.T. is needed at this time. Will send over resumption orders if he becomes inpatient status, to [facility]. Original Note: DCP: Case received, EMR reviewed and met with patient. Introduced self and role. Was able to meet with patient and obtain some information regarding his baseline activity level and living situation. Was also able to obtain same information from recent visit here in the hospital with care management's notes. DCP assessment completed with information currently available. Patient came to the hospital via family vehicle secondary to lethargy and confusion. Patient has history of liver cirrhosis, ascites, and had a recent TIP at [facility]. 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 Patient had gone home with a yates at last admit, but ended up with retention, UTI. He is also diagnosed with hepatic encephalopathy. Patient is getting increased amounts of lactulose here in the hospital, due to his ammonia level. Looking at recent note from last admission, patient was discharged home with [facility], nursing and P.T. Spoke to patient in his room. He was sitting up in his bed, alert and oriented, eating his breakfast. He remembered being here recently. Confirmed with him that he resides with his spouse, Thelma. He no longer drives. Stated that he uses a walker when weak. P: DCP to continue to follow for needs. Will also update [facility] as well. Matilde Ariza RN/Cnc Grinder
--- NOTE | 2020-04-02 09:31 | P.PN_ITS ---
Subjective Subjective Date Patient Seen: 04/02/20 Time Patient Seen: 09:33 Interval history: Leonardo Avina is a 74-year-old male with a past medical history significant for nonalcoholic cirrhosis status post recent TIPS and BPH with chronic urinary retention and indwelling Man catheter who presented to the ED with increasing weakness and confusion and was admitted for hepatic encephalopathy with disorientation. His disorientation is improved this morning, but he still is very weak and confused. He feels very weak, and also complains of dizziness when he tries to get up, although he does admit he has not got not this morning. He has not had a bowel movement since yesterday, and had not had a bowel movement for 2 days before that. His lactulose has been increased. Exam Vital Signs (past 8 hours): - 04/02/20 04:45 04/02/20 08:16 Temperature 97.4 F L 98.7 F Pulse Rate 77 64 Respiratory Rate 16 16 Blood Pressure 132/61 134/52 L Pulse Oximetry 98 97 Oxygen Delivery Method Room Air Oxygen Flow Rate 0 Narrative Exam Narrative: General: Older male lying in bed and in no acute distress, well-developed, well-nourished, slowed mentation and lethargy but otherwise appropriately interactive HEENT: Normocephalic, atraumatic. External ears without defect. Pupils equal, round, and reactive to light. Sclera are slightly icteric. Moist conjunctivae and no lid lag. Oropharynx free of erythema and cobble stoning with moist mucosa. Breath smells of fetor hepaticus. Neck: Supple with full range of motion. No lymphadenopathy or thyromegaly. Chest: Spider angiomata present, equal chest rise bilaterally, non-tender. Cardiovascular: Regular rate and rhythm without murmurs, rubs, or gallops appreciated Pulmonary: Clear to auscultation bilaterally without crackles, wheezes, or rhonchi. Normal respiratory effort with no use of accessory muscles. Abdomen: Soft, bowel sounds present, nontender, nondistended. No fluid wave or abdominal ascites. No hepatosplenomegaly or masses appreciated. Extremities: No clubbing, cyanosis, or edema. Skin: Normal temperature, turgor, and texture; no rash, ulcers, or subcutaneous nodules appreciated. Neurological: Cranial nerves grossly intact. Generalized weakness. No asterixis. Psychiatric: Depressed mood and affect. Alert and oriented to person, place, and time Objective Labs Result Diagrams: 04/02/20 04:50 04/02/20 04:50 Labs: Laboratory Results - last 24 hr 04/01/20 04/01/20 04/01/20 16:40 16:40 16:40 WBC 4.9 RBC 4.24 L Hgb 12.7 L Hct 36.3 L MCV 85.5 MCH 30.0 MCHC 35.1 RDW 20.8 H Plt Count 71 L Neut % (Auto) 54.2 Lymph % (Auto) 25.1 [place] % (Auto) 19.1 H Eos % (Auto) 1.3 L Baso % (Auto) 0.3 Neut # (Auto) 2700 Lymph # (Auto) 1200 [place] # (Auto) 900 Eos # (Auto) 100 Baso # (Auto) 0 Nucleated RBCs Cancelled Hypersegmented Neuts Cancelled Hypogranular Neuts Cancelled Reactive Lymphocytes Cancelled Smudge Cells Cancelled Other Cell Type Cancelled Toxic Granulation Cancelled Toxic Vacuolation Cancelled Dohle Bodies Cancelled [place]s Cancelled WBC Morphology Comment Cancelled Platelet Estimate Cancelled Clumped Platelets Cancelled Plt Morphology Comment Cancelled RBC Morphology Cancelled Dimorphic RBCs Cancelled Polychromasia Cancelled Hypochromasia Cancelled Poikilocytosis Cancelled Basophilic Stippling Cancelled Anisocytosis Cancelled Microcytosis Cancelled Macrocytosis Cancelled Spherocytes Cancelled Pappenheimer Bodies Cancelled Sickle Cells Cancelled Target Cells Cancelled Tear Drop Cells Cancelled Ovalocytes Cancelled Stomatocytes Cancelled Helmet Cells Cancelled Giraldo-Alderpoint Bodies Cancelled [place] Rings Cancelled [place] Cells Cancelled Acanthocytes (Spur) Cancelled Rouleaux Cancelled Schistocytes Cancelled PT 15.5 H INR 1.3 APTT 29 Sodium 134 L Potassium 4.1 Chloride 103 Carbon Dioxide 21 L BUN 24 H Creatinine 1.19 Estimated GFR 59.6 L BUN/Creatinine Ratio 20.2 Glucose 205 H Calcium 9.8 Magnesium Total Bilirubin 1.4 H Conjugated Bilirubin Unconjugated Bilirubin AST 56 ALT 49 Alkaline Phosphatase 120 Ammonia Total Creatine Kinase 24 L CK-MB (CK-2) TNP CK-MB (CK-2) Rel Index TNP Troponin I < 0.012 Total Protein 6.7 Albumin 3.7 Globulin 3.0 Albumin/Globulin Ratio 1.2 Lipase 395 H Procalcitonin Urine Color Urine Appearance Urine pH Ur Specific [place] Urine Protein Urine Glucose (UA) Urine Ketones Urine Occult Blood Urine Nitrate Urine Bilirubin Urine Urobilinogen Ur Leukocyte Esterase Urine RBC Urine WBC Urine Bacteria Ur Culture Indicated? COVID-19 [facility] 04/01/20 04/01/20 04/01/20 16:40 16:40 16:40 WBC RBC Hgb Hct MCV MCH MCHC RDW Plt Count Neut % (Auto) Lymph % (Auto) [place] % (Auto) Eos % (Auto) Baso % (Auto) Neut # (Auto) Lymph # (Auto) [place] # (Auto) Eos # (Auto) Baso # (Auto) Nucleated RBCs Hypersegmented Neuts Hypogranular Neuts Reactive Lymphocytes Smudge Cells Other Cell Type Toxic Granulation Toxic Vacuolation Dohle Bodies [place] WBC Morphology Comment Platelet Estimate Clumped Platelets Plt Morphology Comment RBC Morphology Dimorphic RBCs Polychromasia Hypochromasia Poikilocytosis Basophilic Stippling Anisocytosis Microcytosis Macrocytosis Spherocytes Pappenheimer Bodies Sickle Cells Target Cells Tear Drop Cells Ovalocytes Stomatocytes Helmet Cells Giraldo-[place] Bodies [place] Rings [place]wn Cells Acanthocytes (Spur) Rouleaux Schistocytes PT INR APTT Sodium Potassium Chloride Carbon Dioxide BUN Creatinine Estimated GFR BUN/Creatinine Ratio Glucose Calcium Magnesium 2.4 H Total Bilirubin Conjugated Bilirubin Unconjugated Bilirubin AST ALT Alkaline Phosphatase Ammonia 153 H Total Creatine Kinase CK-MB (CK-2) CK-MB (CK-2) Rel Index Troponin I Total Protein Albumin Globulin Albumin/Globulin Ratio Lipase Procalcitonin < 0.05 Urine Color Urine Appearance Urine pH Ur Specific [place] Urine Protein Urine Glucose (UA) Urine Ketones Urine Occult Blood Urine Nitrate Urine Bilirubin Urine Urobilinogen Ur Leukocyte Esterase Urine RBC Urine WBC Urine Bacteria Ur Culture Indicated? COVID-19 [facility] 04/01/20 04/01/20 04/02/20 21:00 21:40 04:50 WBC 4.9 RBC 4.12 L Hgb 12.3 L Hct 35.5 L MCV 86.3 MCH 29.8 MCHC 34.6 RDW 20.8 H Plt Count 62 L Neut % (Auto) 53.7 Lymph % (Auto) 23.5 L [place] % (Auto) 20.6 H Eos % (Auto) 1.8 L Baso % (Auto) 0.4 Neut # (Auto) 2600 Lymph # (Auto) 1200 [place] # (Auto) 1000 H Eos # (Auto) 100 Baso # (Auto) 0 Nucleated RBCs Hypersegmented Neuts Hypogranular Neuts Reactive Lymphocytes Smudge Cells Other Cell Type Toxic Granulation Toxic Vacuolation Dohle Bodies [place] WBC Morphology Comment Platelet Estimate Decreased on smear Clumped Platelets Plt Morphology Comment RBC Morphology See below Dimorphic RBCs Polychromasia Hypochromasia Poikilocytosis Basophilic Stippling Anisocytosis 3+ H Microcytosis Macrocytosis Spherocytes Pappenheimer Bodies Sickle Cells Target Cells Tear Drop Cells Ovalocytes Stomatocytes Helmet Cells Giraldo-[place] Bodies [place] Rings [place] Cells Acanthocytes (Spur) Rouleaux Schistocytes PT INR APTT Sodium Potassium Chloride Carbon Dioxide BUN Creatinine Estimated GFR BUN/Creatinine Ratio Glucose Calcium Magnesium Total Bilirubin Conjugated Bilirubin Unconjugated Bilirubin AST ALT Alkaline Phosphatase Ammonia Total Creatine Kinase CK-MB (CK-2) CK-MB (CK-2) Rel Index Troponin I Total Protein Albumin Globulin Albumin/Globulin Ratio Lipase Procalcitonin Urine Color Yellow Urine Appearance Slightly cloudy Urine pH 7.5 Ur Specific [place] <=1.005 Urine Protein Negative Urine Glucose (UA) Negative Urine Ketones Negative Urine Occult Blood 3+ H Urine Nitrate Negative Urine Bilirubin Negative Urine Urobilinogen 0.2 Ur Leukocyte Esterase Negative Urine RBC 30-100/hpf H Urine WBC 0-1/hpf Urine Bacteria None seen Ur Culture Indicated? Cult not indicated COVID-19 PCR Negative 04/02/20 04/02/20 04/02/20 04:50 04:50 06:15 WBC RBC Hgb Hct MCV MCH MCHC RDW Plt Count Neut % (Auto) Lymph % (Auto) [place] % (Auto) Eos % (Auto) Baso % (Auto) Neut # (Auto) Lymph # (Auto) [place] # (Auto) Eos # (Auto) Baso # (Auto) Nucleated RBCs Hypersegmented Neuts Hypogranular Neuts Reactive Lymphocytes Smudge Cells Other Cell Type Toxic Granulation Toxic Vacuolation Dohle Bodies [place] WBC Morphology Comment Platelet Estimate Clumped Platelets Plt Morphology Comment RBC Morphology Dimorphic RBCs Polychromasia Hypochromasia Poikilocytosis Basophilic Stippling Anisocytosis Microcytosis Macrocytosis Spherocytes Pappenheimer Bodies Sickle Cells Target Cells Tear Drop Cells Ovalocytes Stomatocytes Helmet Cells Giraldo-[place] Bodies [place] Rings [place] Cells Acanthocytes (Spur) Rouleaux Schistocytes PT INR APTT Sodium 134 L Potassium 4.1 Chloride 104 Carbon Dioxide 22 BUN 23 H Creatinine 1.29 H Estimated GFR 54.3 L BUN/Creatinine Ratio 17.8 Glucose 163 H Calcium 9.4 Magnesium Total Bilirubin 1.6 H Conjugated Bilirubin 0.0 Unconjugated Bilirubin 1.7 H AST 50 ALT 44 Alkaline Phosphatase 101 Ammonia 98 H Total Creatine Kinase CK-MB (CK-2) CK-MB (CK-2) Rel Index Troponin I Total Protein 6.2 L Albumin 3.3 L Globulin 2.9 Albumin/Globulin Ratio 1.1 Lipase Procalcitonin Urine Color Urine Appearance Urine pH Ur Specific [place] Urine Protein Urine Glucose (UA) Urine Ketones Urine Occult Blood Urine Nitrate Urine Bilirubin Urine Urobilinogen Ur Leukocyte Esterase Urine RBC Urine WBC Urine Bacteria Ur Culture Indicated? COVID-19 PCR Assessment & Plan Assessment & Plan narrative: This is a 74-year-old male patient who returns to the hospital following a recent hospitalization for recurrent hepatic encephalopathy and recent urinary tract infection with 1 day remaining on course of antibiotics who has developed recurrent hepatic encephalopathy and complications with indwelling Man catheter. 1. Acute hepatic encephalopathy, present on admission, active -patient has a history of cryptogenic cirrhosis and has undergone tips procedure on 03/06/2020. -he has had fluctuating episodes hepatic encephalopathy on lactulose therapy. On admission the patient had evidence of moderate to severe hepatic encephalopathy as he was disoriented and confused. The patient was unable to take lactulose and had an ammonia of 153 on admission. -nausea improved with Zofran in the emergency department administered 20 g of or lactulose. Ordered an additional 10 g now, continue lactulose 45 g 4 times daily at the recommendation of hepatology with a goal of 2-3 soft stools daily. -ordered Reglan 10 mg IV every 8 hours to enhance gastric motility and reduce nausea. 2. Cryptogenic non alcoholic liver cirrhosis, present on admission, stable. -patient is status post tips procedure [employer] completed on 03/06/2020. -patient with mild scleral jaundice and elevated ammonia as discussed above. No evidence of ascites on CT scan no abdominal fluid wave appreciated. -Total bilirubin is 1.4, AST 56, ALT 49 and alkaline phosphatase of 120. Albumin is 3.7. No as does present with an anion gap 10. -MELD-Na score is 15, patient has a 6% 3 month mortality the risk and is currently followed by hepatology at [facility]. -no evidence of bleeding, petechiae bruising. -continue Lasix 40 mg twice daily and spironolactone 50 mg twice daily for management of ascites 3. Urinary retention with indwelling Man catheter, present on admission, active. -patient with poorly draining urinary catheter with bladder distension without hydronephrosis identified on CT. Bladder scan finds residual volume over 600 cc. -patient tamsulosin 0.4 mg daily, patient is to see Dr. Alexis as an outpatient. -Man catheter has been in place since 03/08/2020, was removed. Patient then voided over 300 cc with no further discomfort. -will monitor urinary output and bladder scan as necessary. -UA was negative for infection on admission, but will continue previous treatment of levaquin due to end today (04/02). 4. Benign prostatic hypertrophy, present on admission, stable. -patient has been on tamsulosin since placement of Man catheter for urinary retention on 03/06/2020. -ordered Man catheter removed and patient is able to spontaneously void. -ordered finasteride 5 mg at bedtime. 5. Diabetes type 2, non insulin depenent, present on admission, stable -patient newly diagnosed with type 2 diabetes and has been started on metformin 500 mg twice daily. -blood sugar this morning at home was 158. On admission labs blood sugars 205. -ordered fingersticks AC and HS, coverage with correctional insulin low-dose range. -medium constant carbohydrate diet 6. 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 -platelet count is 71 with no evidence of bleeding. -patient started on VTE prophylaxis with enoxaparin will monitor platelet count and discontinue if indicated. 7. Chest pressure, present on admission, stable. -the patient describes lower mid chest pressure that has been present off and on since his TIPS procedure. He denies SOB, radiation of discomfort or diaphoresis. -CK is low at 24, troponin is negative at less than 0.012. Twelve lead EKG finds a normal sinus rhythm with ventricular rate 64 without ectopy or block, QTC is 480 milliseconds, no evidence of ischemia or infarct. -rsistent fluid containing hiatal hernias identified on CT scan, small right pleural effusion. -ordered Reglan 10 mg IV every 8 hours. 8. Acute cystitis, not present on admission. - will continue previously prescribed treatment of levaquin and final dose will be today. VTE prophylaxis: Bilateral SCDs, enoxaparin. IV fluid: Normal saline 50 cc/hour, will discontinue once tolerating a diet reliably. Diet: Medium constant carbohydrate, cirrhotic diet Code status: FULL CODE, the patient's is his surrogate decision maker. The patient is admitted to the hospital due to the severity of his symptoms, r isk for complications adverse events. The patient is admitted as an inpatient with expected length of stay to be greater than 2 midnights.
[2020-04-02] MEDS: levoFLOXacin 250 MG TABLET 750 MG PO (10:44)
[2020-04-02] MEDS: SODIUM CHLORIDE 0.9% FLUSH 10 ML IV (10:52)
[2020-04-02] MEDS: ONDANSETRON 4 MG/2 ML INJ IV (10:52)
[2020-04-02] MEDS: SODIUM CHLORIDE 0.9% 1,000 ML 50 ML IV (19:10)
[2020-04-02] MEDS: FINASTERIDE 5 MG TABLET PO (21:32)
[2020-04-02] MEDS: ROPINIROLE 0.25 MG TABLET PO (21:35)
--- NOTE | 2020-04-02 22:30 | PC.NURSE ---
Rifimin not given - dosage not available. 550mg PO BID available per Dora Robles ([facility]). Day shift to follow up per evening hospitalist. Pt's concerned about pt not having a BM - would like an update in AM.
--- NOTE | 2020-04-02 23:04 | PC.NURSE ---
MOSHE Mancera made aware pt has not stooled this evening shift. Inquired re orders for labs in the a.m. as per spouse's inquisition.
[2020-04-03] VITALS (10 sets, daily range): BP systolic 121–149; BP diastolic 47–76; PULSE 72–97; RESP 16–20; TEMP 36.2–36.8; O2SAT 93–98
[2020-04-03 05:17] LABS: Add Manual Diff / Slide Review NO; Basophils Absolute Auto 0 /uL (0-100); Basophils Percent Auto 0.5 % (0-2); Eosinophils Absolute Auto 100 /uL (0-450); Eosinophils Percent Auto 3.1 % (2-4); Hematocrit 33.8 % (41-53); Lymphocytes Absolute Auto 1200 /uL (1100-4500); Lymphocytes Percent Auto 27.1 % (25-40); Mean Corpuscular HGB Conc 35.4 % (30-36); Mean Corpuscular Hemoglobin 30.3 PG (26-34); Mean Corpuscular Volume 85.7 fL (80-100); Monocytes Absolute Auto 900 /uL (0-900); Monocytes Percent Auto 19.4 % (3-14); Neutrophils Absolute Auto 2200 /uL (1500-7000); Neutrophils Percent Auto 49.9 % (50-75); Platelet Count 57 X10^3/uL (150-400); Red Blood Cell Count 3.95 X10^6/uL (4.5-5.9); Red Cell Distribution Width 20.9 % (11.6-14.8); White Blood Cell Count 4.4 X10^3/uL (4.5-11.0)
[2020-04-03 05:23] LABS: Ammonia (NH3) 74 umol/L (9-30)
[2020-04-03 05:25] LABS: BUN Creatinine Ratio 15.8 (6-22); Blood Urea Nitrogen 18 mg/dL (9-20); Carbon Dioxide 18 mmol/L (22-32); Chloride 106 mmol/L (98-107); Estimated Glomerular Filt Rate > 60.0 mL/min (>60); Glucose 176 mg/dL (80-110); HEMOLYSIS < 15 (0-50); Potassium 3.9 mmol/L (3.4-5.1); Sodium 134 mmol/L (137-145)
[2020-04-03] MEDS: METOCLOPRAMIDE 10 MG/2 ML INJ IV ×2 (05:38→13:04)
[2020-04-03 05:55] LABS: Anisocytosis 3+; Platelet Estimate Decreased on smear
--- NOTE | 2020-04-03 07:01 | PC.NURSE ---
Patient had BM in the forward air controller/air officer, small ammt.
[2020-04-03] MEDS: TAMSULOSIN 0.4 MG CAPSULE PO (08:56)
[2020-04-03] MEDS: RIFAXIMIN 550 MG TABLET PO ×2 (08:56→22:11)
[2020-04-03] MEDS: SPIRONOLACTONE 50 MG TABLET PO ×2 (08:57→22:11)
[2020-04-03] MEDS: levoFLOXacin 250 MG TABLET 750 MG PO (08:57)
[2020-04-03] MEDS: INSULIN ASPART 100 UNIT/ML INSULN PEN SUBCUT ×3 (08:57→17:22)
[2020-04-03] MEDS: SODIUM CHLORIDE 0.9% FLUSH 10 ML IV ×3 (08:58→22:11)
[2020-04-03] MEDS: FUROSEMIDE 40 MG TABLET PO ×2 (08:58→22:10)
[2020-04-03] MEDS: LACTULOSE 20 GM/30 ML SOLUTION 45 GM PO ×4 (08:58→22:10)
--- NOTE | 2020-04-03 10:44 | P.PN_ITS ---
Subjective Subjective Date Patient Seen: 04/03/20 Interval history: Leonardo Avina is a 74-year-old male with a past medical history significant for non-alcoholic cryptogenic liver cirrhosis with complication of portal hypertension, status post TIPS (03/06/2020 at [facility]), ascites, hepatic encephalopathy, and thrombocytopenia; splenic mass, cholelithiasis, diabetes mellitus type 2, non-insulin using, and BPH who presented to the emergency department with increasing weakness over several days and nausea. The patient is sleeping in bed comfortably and is easily arousable. His mentation is slow but he is not confused. He continues to be lethargic. His frequency of bowel movements is slowly increasing but not to the degree that one would anticipate with lactulose 45 g 4 times daily. Plan to use suppository and/or mineral oil enema if ineffective. May possibly need to consider small- bowel follow-through tomorrow to assess for possible obstruction as patient has reported large questionable colon polyp and is planning for colonic resection next month. He denies headache, chest pain, shortness of breath, abdominal pain, nausea, vomiting, fever, chills, dysuria, or diarrhea. He reports his appetite is normal and he is eating well. He does endorses abdominal fullness and constipation. He is voiding without difficulty. He is up ambulating with assistance. Exam Vital Signs (past 8 hours): - 04/03/20 05:00 04/03/20 05:50 04/03/20 08:00 Temperature 98.2 F 97.6 F Pulse Rate 86 76 Respiratory Rate 16 16 Blood Pressure 122/52 L 121/47 L Pulse Oximetry 93 93 94 Oxygen Delivery Method Room Air Oxygen Flow Rate 0 Narrative Exam Narrative: General: Older male lying in bed and in no acute distress, appears stated age. Well-developed, well-nourished, slowed mentation and lethargy but otherwise appropriately interactive. HEENT: Normocephalic, atraumatic. External ears without defect. Pupils equal, round, and reactive to light. Sclera are slightly icteric. Moist conjunctivae and no lid lag. Oropharynx free of erythema and cobble stoning with moist mucosa. Neck: Supple with full range of motion. No lymphadenopathy or thyromegaly. Cardiovascular: Regular rate and rhythm without murmurs, rubs, or gallops appreciated. Pulmonary: Clear to auscultation bilaterally without crackles, wheezes, or rhonchi. Normal respiratory effort with no use of accessory muscles. Abdomen: Soft, bowel sounds present, nontender, nondistended. No fluid wave or abdominal ascites. No hepatosplenomegaly or masses appreciated. Extremities: No clubbing, cyanosis, or edema. Skin: Normal temperature, turgor, and texture; no rash, ulcers, or subcutaneous nodules appreciated. No stigmata of liver disease such as spider angiomata, telangiectasias, palmar erythema, or caput medusae. Neurological: Cranial nerves grossly intact. Generalized weakness. No asterix is. Psychiatric: Depressed mood and affect. Alert and oriented to person, place, and time. Objective Labs Result Diagrams: 04/04/20 05:20 04/04/20 05:20 Labs: Laboratory Results - last 24 hr 04/03/20 04/03/20 04/03/20 05:00 05:00 05:00 WBC 4.4 L RBC 3.95 L Hgb 12.0 L Hct 33.8 L MCV 85.7 MCH 30.3 MCHC 35.4 RDW 20.9 H Plt Count 57 L Neut % (Auto) 49.9 L Lymph % (Auto) 27.1 [place] % (Auto) 19.4 H Eos % (Auto) 3.1 Baso % (Auto) 0.5 Neut # (Auto) 2200 Lymph # (Auto) 1200 [place] # (Auto) 900 Eos # (Auto) 100 Baso # (Auto) 0 Platelet Estimate Decreased on smear RBC Morphology See below Anisocytosis 3+ H Sodium 134 L Potassium 3.9 Chloride 106 Carbon Dioxide 18 L BUN 18 Creatinine 1.14 Estimated GFR > 60.0 BUN/Creatinine Ratio 15.8 Glucose 176 H Calcium 9.0 Ammonia 74 H Assessment & Plan Assessment & Plan narrative: Leonardo Avina is a 74-year-old male with a past medical history significant for non-alcoholic cryptogenic liver cirrhosis with complication of portal hypertension status post TIPS (03/06/2020 at [facility]), ascites, hepatic encephalopathy, and thrombocytopenia; splenic mass, cholelithiasis, diabetes mellitus type 2, non-insulin using, and BPH who presented to the emergency department with increasing weakness over several days and nausea. 1. Acute hepatic encephalopathy, present on admission. Resolving. -Patient presented with constipation x 4 days and increasing lethargy, disorientation and confusion and unable to take lactulose. -Initial ammonia level 153 and is trending down. No need to continue to trend ammonia level as improvement in hepatic encephalopathy is a clinical observation and does not always correlate. -Continue lactulose 45 g 4 times daily with a goal of 2-3 soft stools daily and started and continue rifaximin 550 mg twice daily. 2. Non-alcoholic cryptogenic cirrhosis, chronic, present on admission. Stable. -Patient has non-alcoholic cryptogenic cirrhosis with portal hypertension status post TIPS (03/06/2020 at [facility]), ascites, hepatic encephalopathy, thrombocytopenia and mildly elevated bilirubin. Patient is followed by [facility] with Dr. Faust. -MELD-Na score is 15, patient has a 6% risk of 3 month mortality. Initial LFTs: Total bilirubin is 1.4, AST 56, ALT 49 and alkaline phosphatase of 120. -Initial LFTs: Total bilirubin is 1.4, AST 56, ALT 49 and alkaline phosphatase of 120. Albumin is 3.7. -Continue home diuretics furosemide 40 mg twice daily and spironolactone 50 mg twice daily for management of ascites. 3. Recently diagnosed diabetes mellitus type 2, non-insulin using, present on admission. Stable. -Hemoglobin A1c 8.2% 03/2020. -Held metformin and will restart at time of discharge. -Continue [facility] blood glucose checks and low dose correctional scale insulin. -Continue carbohydrate consistent diet. 4. BPH with history of urinary retention and indwelling Man catheter, status post removal of Man catheter, chronic, present on admission. Stable. -Patient presented with indwelling Man catheter which was draining poorly and there was bladder distension without hydronephrosis evident on CT. Man catheter was removed and patient passed voiding trial. Continue to monitor postvoid residual to ensure patient is urinating effectively. -Continue tamsulosin 0.4 mg daily and finasteride 5 mg at bedtime. -Continue outpatient follow-up with Urology, Dr. Alexis. 5. Chest pressure, likely secondary to recent TIPS, present on admission. Intermittent and stable. -Likely secondary to recent TIPS versus prominent hiatal hernia with fluid in the distal esophagus. -Patient describes lower mid chest pressure that has been present off and on since his TIPS procedure. He denies shortness of breath, nausea, diaphoresis, or radiation of chest pressure to neck/jaw/arms. -Troponin negative at < 0.012. CK is low at 24. EKG demonstrated normal sinus rhythm without acute ischemic changes such as ST elevation or depression. No further workup indicated. 6. Recent Enterococcus faecalis UTI secondary to indwelling Man catheter. -Finished course of levofloxacin Code status: Full code. VTE prophylaxis: SCDs, chemical prophylaxis relatively contraindicated due to low platelet count Disposition: Patient will likely discharge home with home health in 1-2 days once frequency of BM's improve.
--- NOTE | 2020-04-03 11:20 | DIET.PN ---
Dietary Progress Note Assessment: Mr. Avina is a 74-year-old male with a past medical history significant for nonalcoholic cirrhosis status post recent TIPS and BPH who presented to the ED with increasing weakness and confusion and was admitted for hepatic encephalopathy with disorientation. He was sleeping during my assessment, but his Thelma was present to provide history. She reports recent diagnosis of type 2 diabetes which she states came as a shock. He is currently taking metformin 500mg BID. She reports overall healthy eating habits low in sugary foods/beverages. Since diagnosis they have cut down on fruits and replaced most starches with whole grains. reports weight loss in September related to severe ascites. She reports scheduled colon resection in 2 weeks. HT: 182.88cm WT: 83.9kg BMI: 25 Labs: Na: 134 Gluc: 163, 176 T Bili: 1.6 MNA: 9 Janak: 18 Nutrition Diagnosis: Altered Nutrition related labs related to impaired glucose metabolism, lack of previous exposure to accurate nutrition information as evidenced by pt report, dx of diabetes, previous diet high in refined carbohydrates.? Interventions: 1. Provided instruction on carb conscious, low sodium nutrition therapy. 2. Discussed recommended BG ranges for fasting and 2 hr Post Prandial. 3. Reviewed basic pathophysiology of diabetes and organ systems. 4. Discussed Diabetes Education Program. Pt will request referral. Diet Order: CCD medium (3); cirrhotic EER: [id number] yousuf (25-27cal/kg); Pro: 84-109g (1-1.3) Monitoring/Evaluations: weight, PO's, glucose, other associated labs
--- NOTE | 2020-04-03 13:07 | OT.IP.EVAL ---
Current Diagnoses Acute and subacute hepatic failure without coma (04/01/20) Past Medical History (Last Reviewed 04/01/20 @ 22:01 by Dameon Schmitz DO) Ascites (Inactive) Cirrhosis (Inactive) Gallstones (Inactive) Hepatic encephalopathy (Acute) MMIS (nonalcoholic steatohepatitis) (Acute) Neutropenia (Resolved) Splenic mass (Inactive) Thrombocytopenia (Chronic) Urinary retention (Acute) Surgical History (Last Updated 04/01/20 @ 21:43 by MOSHE Roblero) S/P TIPS (transjugular intrahepatic portosystemic shunt) (Acute) Occupational Therapy Inpatient Evaluation/Re-Eval M1 PT/OT-IP Prior Functional Status Start: 04/03/20 13:12 Freq: NEEDED Status: Active Protocol: Document 04/03/20 13:18 CGR (Rec: 04/03/20 13:36 CGR [email or web address]) Medical Review Prior Functional Status Medical History Reviewed Yes Communication Pt is an effective verbal communicator Mobility and Gait Pt was IND in all mobility prior to ~1 month ago. Pt has been using a 2WW since his last admission. Activities of Daily Living and IADL's Pt is IND or MOD I for all ADLs. Pt's performs cooking and cleaning. Social History Household Members spouse Living Arrangements House Number of Floors (Floors) One Floor Number of Stairs To Enter/Railing? Pt has one step to enter. Home Environment High Toilet,Tub/Shower Home Equipment Front Wheel Walker,Hand Held Shower Employment Status Retired Additional Social History Comment Pt has access to a tub transfer bench if needed. 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 M2 OT-IP Current Condition Start: 04/03/20 13:17 Freq: Status: Active Protocol: Document 04/03/20 13:18 CGR (Rec: 04/03/20 13:36 CGR [email or web address]) Occupational Therapy Current Condition Current Condition Evaluation Date 04/03/20 Treatment Diagnosis hepatic encephalopathy, elevated amonia, urinary retension. Diagnosis Onset Date 04/01/20 M3 OT- IP Subjective and Pain Start: 04/03/20 13:17 Freq: Status: Active Protocol: Document 04/03/20 13:18 CGR (Rec: 04/03/20 13:36 CGR [email or web address]) OT- Subjective Occupational Therapy Visit Type Type Initial Evaluation Visit Start Time 12:52 Visit Stop Time 13:07 Total Visit Minutes 15 OT Pain Assessment Pain When Pain Assessed At Rest Pain Present Pain Present Denied Pain M4 OT- IP ADL's Start: 04/03/20 13:17 Freq: Status: Active Protocol: Document 04/03/20 13:18 CGR (Rec: 04/03/20 13:36 CGR [email or web address]) OT [id number] Comments OT Self-Feeding Comments Not meal time OT ADL-Grooming Comments OT Grooming Comments Pt declined, states he already performed this AM OT ADL-Oral Care Comments Oral Care Comments Pt declined, states he already performed this AM OT ADL-Dressing General Eval Lower Body Dressing Ability Independent Areas Needing Assistance Socks Comments OT Dressing Comments seated EOB OT ADL-Toileting General Evaluation Toileting Ability Standby Assistance Devices Toileting Assistive Devices Grab Bars Comments OT Toileting Comments pt simulated toileting sitting on toielt OT ADL-Bathing Comments OT Bathing Comments not performed at this time. M5 OT- IP IADL's Start: 04/03/20 13:17 Freq: Status: Active Protocol: Document 04/03/20 13:18 CGR (Rec: 04/03/20 13:36 CGR [email or web address]) OT-Instrumental Activities of Daily Living Deficits IADL Deficits Identified No Deficits Home Safety Awareness Awareness of Need for Assistance at Home Good Awareness Ability to Problem Solve Emergency Able to Problem Solve Situations Medication Management Medication Management No Deficits Identified Medication Management Comments Pts available to assist Money Management Money Management No Deficits Identified Money Management Comments Pts available to assist Meal Preparation Meal Preparation Caregiver Provides Assist Per Diem Interpreter Per Diem Interpreter No Deficits Identified Driving Driving Caregiver Provides Assist M6 OT- IP Functional Cognition Start: 04/03/20 13:17 Freq: Status: Active Protocol: Document 04/03/20 13:18 CGR (Rec: 04/03/20 13:36 CGR [email or web address]) Cognitive Factors Limiting Selfcare Function Cognitive Ability Level of Alertness Alert Patient Orientation Name,Age,Birthday,Month,Date, Year,Day of Week,Place, Situation Attention Span Ability Capable of Focused Attention, Capable of Sustained Attention Ability to Follow Commands Able to Follow Multi-Step Commands Cognitive Comments Cognitive Assessment Comments Pt appeared very cognitively clear at time of OT eval. OT- Vision and Hearing OT- Hearing Assessment OT- Hearing Assessment WFL OT- Vision Assessment Visual Acuity WFL Visual Attentiveness WFL Occular Pursuits WFL Visual Convergence WFL M7 OT- IP Mobility and Balance Start: 04/03/20 13:17 Freq: Status: Active Protocol: Document 04/03/20 13:18 CGR (Rec: 04/03/20 13:36 CGR [email or web address]) OT- Bed Mobility Assessment Rolling Type of Rolling Roll to Left Level of Assistance Standby Assistance Supine to Sit Supine to Sit Assist Standby Assistance Sit to Supine Sit to Supine Assist Standby Assistance Scooting Scooting to Edge of Bed Standby Assistance OT-Transfer Assessment Sit to and From Stand Sit to and from Stand Standby Assistance Transfers Transfer Ability Standby Assistance Technique Transfer Destination Bed,Toilet Transfer Technique Stand Step Pivot Devices Transfer Assistive Devices Gait Belt,Front Wheeled Walker OT- Gait Assessment Gait Gait Assistance Required: Standby Assistance Assistive Devices Assistive Device Gait Belt,Front Wheeled Walker Comments Gait Ability Comments mobility around the room. OT- Balance Assessment Sitting Balance and Reactions Static Sitting Balance Ability Normal Dynamic Sitting Balance Ability Fair M8 OT- IP Objective Assessments Start: 04/03/20 13:17 Freq: Status: Active Protocol: Document 04/03/20 13:18 CGR (Rec: 04/03/20 13:36 CGR [email or web address]) OT Gross Range of Motion Upper Extremity Range of Motion Assessment Within Functional Limits OT Strength Upper Extremity Strength Assessment Within Functional Limits Comments Strength Comments 4/5 throughout. OT- Coordination Assessment Upper Extremity Finger to Nose Test Within Functional Limits Finger Tapping Test Within Functional Limits OT-Muscle Tone Assessment Muscle Tone WNL Yes OT Sensation Assessment Edema Edema Absent M9 OT- IP Assessment and Plan Start: 04/03/20 13:17 Freq: Status: Active Protocol: Document 04/03/20 13:18 CGR (Rec: 04/03/20 13:36 CGR [email or web address]) OT Summary Assessment and Plan Potential Rehabilitation Potential Good Analytic Complexity at Evaluation Low Summary OT Impairments Balance,Functional Mobility, Bathing,Shower Transfers, Activity Tolerance Progress Towards Goals Slow Progress due to Activity Tolerance Assessment Summary Pt presents as a low complexity evaluation s/p admit with hepatic encephalopathy, elevated ammonia, and urinary retention with Man. Pt displays low endurance but is otherwise capable to perform his functional mobility and ADLs using DME as needed. Pt will benefit from a shower assessment and energy conservation education. Pt will likely be safe for d/c home with family assist. Goals Dressing Goal Independent Bathing Goal Independent Shower Transfer Goal Independent Days to Meet Goals 2 Frequency of Treatment Frequency Of Treatment Once a Day Treatment Plan OT Treatment Plan ADL Training,Functional Mobility,Patient/Family Education,Discharge Planning Other Treatment Recommendations and Next shower and energy conservation Treatment Focus Discharge Recommendations OT Discharge Recommendations Home with Assistance Transportation Needs at Discharge Private Vehicle
[2020-04-03] MEDS: BISACODYL 10 MG SUPP PR (14:28)
--- NOTE | 2020-04-03 17:44 | PT.IIE ---
Current Diagnoses Acute and subacute hepatic failure without coma (04/01/20) Surgical History (Last Updated 04/01/20 @ 21:43 by MOSHE Roblero) S/P TIPS (transjugular intrahepatic portosystemic shunt) (Acute) Medical History (Last Reviewed 04/01/20 @ 22:01 by Dameon Schmitz DO) Ascites (Inactive) Cirrhosis (Inactive) Gallstones (Inactive) Hepatic encephalopathy (Acute) MIMS (nonalcoholic steatohepatitis) (Acute) Neutropenia (Resolved) Splenic mass (Inactive) Thrombocytopenia (Chronic) Urinary retention (Acute) Physical Therapy Inpatient Evaluation/Re-Eval M1 PT/OT-IP Prior Functional Status Start: 04/03/20 13:12 Freq: NEEDED Status: Active Protocol: Document 04/03/20 17:32 AW (Rec: 04/03/20 17:44 AW [id number]) Medical Review Prior Functional Status Medical History Reviewed Yes Communication Pt is an effective verbal communicator Mobility and Gait Pt was IND in all mobility prior to ~1 month ago. Pt has been using a 2WW since his last admission. Activities of Daily Living and IADL's Pt is IND or MOD I for all ADLs. Pt's performs cooking and cleaning. Social History Household Members spouse Living Arrangements House Number of Floors (Floors) One Floor Number of Stairs To Enter/Railing? Pt has one step to enter. Home Environment High Toilet,Tub/Shower Home Equipment Front Wheel Walker,Hand Held Shower Employment Status Retired Additional Social History Comment Pt has access to a tub transfer bench if needed. 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 M2 PT-IP Current Condition Start: 04/03/20 13:12 Freq: NEEDED Status: Active Protocol: Document 04/03/20 17:32 AW (Rec: 04/03/20 17:44 AW [id number]) Physical Therapy Current Condition Current Condition Evaluation Date 04/03/20 Treatment Diagnosis hepatic encephalopathy; weakness; difficulty in walking M3 PT-IP Subjective Start: 04/03/20 13:12 Freq: NEEDED Status: Active Protocol: Document 04/03/20 17:32 AW (Rec: 04/03/20 17:44 AW [id number]) Subjective Physical Therapy Visit Type Type Initial Evaluation Visit Start Time 14:54 Visit Stop Time 15:12 Total Visit Minutes 18 Physical Therapy Visit Comments Patient Comments Pt willing to participate with PT. He has not had a bowel movement and is hoping walking will help. Patient Goals Pt hopes to return home at discharge Therapy Pain Assessment Pain When Pain Assessed During Mobility Pain Present Pain Present Denied Pain M4 PT-IP Mobility and Gait Start: 04/03/20 13:12 Freq: NEEDED Status: Active Protocol: Document 04/03/20 17:32 AW (Rec: 04/03/20 17:44 AW [id number]) PT-Bed Mobility Assessment Supine to Sit Supine to Sit Standby Assistance Sit to Supine Sit to Supine Standby Assistance Scooting Scooting to Edge of Bed Standby Assistance PT-Transfer Assessment Sit to and From Stand Sit to and from Stand Contact Guard Assistance,Use of Upper Extremities Equipment Transfer Assistive Device Gait Belt,Front Wheeled Walker Transfers Transfer Destination Bed Transfer Technique pt ambulated with FWW Transfer Ability Level of Assist Contact Guard Assistance Comments Mobility Comments Pt completed all bed mobility with extra time and SBA due to weakness and decreased activity tolerance. He required CGA for sit to stand using FWW and SBA to CGA for ambulation in the halls using FWW. Pt is moving very slowly and deliberately with increased effort compared with baseline. Gait Assessment Gait Gait Assistance Required: Standby Assistance,Contact Guard Assist Distance (Feet) 240 Assistive Devices Assistive Device Gait Belt,Front Wheeled Walker Gait Deviations General Gait Pattern Decreased Stride Length, Decreased Feet Clearance, Flexed Trunk Factors Limiting Gait Function Factors Limiting Gait Function Decreased Activity Tolerance, Decreased Strength,Limited Range of Motion Comments Gait Comments Pt ambulated 120 feet x 2 with one brief standing rest break . Gait speed was quite slow and pt required extra time for all mobility tasks. Stair Climbing Assessment Comments Stair Climbing Comments Not assessed. PT-Balance Assessment Sitting Balance and Reactions Static Sitting Balance Ability Good Dynamic Sitting Balance Ability Good Standing Balance and Reactions Static Standing Balance Ability Good Dynamic Standing Balance Ability Good Device Used FWW M5 PT-IP Objective Assessments Start: 04/03/20 13:12 Freq: NEEDED Status: Active Protocol: Document 04/03/20 17:32 AW (Rec: 04/03/20 17:44 AW [id number]) Orientation Orientation/Cognition Level of Alertness Confusional State Orientation Name,Day of Week,Place, Situation Language Function Ability No Deficits Noted Safety Awareness Decreased Safety Awareness Memory Description No Deficits Noted Comments Pt was oriented but sleepy/ groggy with difficulty attending to task ~10% of the time. Gross Range of Motion Lower Extremity ROM Assessment Within Functional Limits Strength Lower Extremity Strength Assessment Bilaterally Impaired Hip 3+/5 Knee 4/5 Ankle 4+/5 Coordination Assessment Gross Coordination Gross Coordination WNL Sensation Assessment Sensation Gross Sensation WNL Muscle Tone Muscle Tone WNL Yes M6 PT-IP Treatment Start: 04/03/20 13:12 Freq: NEEDED Status: Active Protocol: Document 04/03/20 17:32 AW (Rec: 04/03/20 17:44 AW [id number]) Physical Therapy Treatment Education Education Provided Precautions,Safety Other Treatments Other Treatment Performed Provided education on role of PT, plan of care, and importance of continued mobillity. M7 PT-IP Assessment and Plan Start: 04/03/20 13:12 Freq: NEEDED Status: Active Protocol: Document 04/03/20 17:32 AW (Rec: 04/03/20 17:44 AW [id number]) PT Summary Assessment and Plan Potential Rehabilitation Potential Good Status of Condition at Evaluation Evolving Summary Impairments ROM,Strength,Balance,Cognition ,Bed Mobility,Transfers,Gait, Activity Tolerance Assessment Summary Ed is a 74 yo man seen for PT evaluation upon readmission with hepatic encephalopathy. He was discharged from a recent hospitalization with recommendation to use a FWW and to engage with HH PT. Pt has been mobilizing with FWW but continues to decline in his mobility independence. On evaluation, he was able to walk 120 feet x 2 but required CGA with increased distance. Pt will benefit from continued acute PT and HH PT upon discharge. Goals Bed Mobility Goal Independent Transfer Goal Independent,Front Wheeled Walker Gait Goal Independent,Front Wheel Walker Gait Distance 300 Other Goals - up/down 2 steps without railing Days to Meet Goals 5 Frequency of Treatment Frequency Of Treatment Once a Day Treatment Plan Physical Therapy Treatment Plan Bed Mobility Training,Transfer Training,Gait Training, Therapeutic Exercise,Balance Retraining,Discharge Planning, Hot or Cold Pack,Neuromuscular Re-ed,Coordination Retraining Other Recommendations and Next Treatment progress gait distance with Focus FWW as able; consider baseline 5 Time Sit to Stand Recommendations To Nursing Amount of Assist Needed Standby Assistance,1 Person Assist Discharge Recommendations PT Discharge Recommendations Home with Assistance,Home Health Transportation Needs at Discharge Private Vehicle
[2020-04-03 19:07] LABS: Magnesium 2.2 mg/dL (1.6-2.3)
[2020-04-03] MEDS: FINASTERIDE 5 MG TABLET PO (22:10)
[2020-04-03] MEDS: ROPINIROLE 0.25 MG TABLET PO (22:11)
[2020-04-04] VITALS: O2SAT 97
--- NOTE | 2020-04-04 01:14 | PC.NURSE ---
Evening note: Ed had 2 formed BM's earlier this evening. Later around 1945 was incontinent of large amts of liquid stool when assisted to the BR, linens & floor soiled. Gown changed, floor cleaned. Denies difficulty urinating, urine mixed with stool & unable to measure output as unable to use urinal during BM's.
[2020-04-04 03:00] VITALS: BP 144/79; PULSE 88; RESP 18; TEMP 36.6; O2SAT 97
[2020-04-04 04:00] VITALS: O2SAT 98
[2020-04-04 05:42] LABS: Add Manual Diff / Slide Review NO; Basophils Absolute Auto 0 /uL (0-100); Basophils Percent Auto 0.5 % (0-2); Eosinophils Absolute Auto 200 /uL (0-450); Eosinophils Percent Auto 2.9 % (2-4); Hematocrit 35.3 % (41-53); Hemoglobin 12.3 g/dL (13.5-17.5); Lymphocytes Absolute Auto 1500 /uL (1100-4500); Lymphocytes Percent Auto 27.4 % (25-40); Mean Corpuscular HGB Conc 34.9 % (30-36); Mean Corpuscular Hemoglobin 29.8 PG (26-34); Mean Corpuscular Volume 85.4 fL (80-100); Monocytes Absolute Auto 1100 /uL (0-900); Monocytes Percent Auto 20.1 % (3-14); Neutrophils Absolute Auto 2700 /uL (1500-7000); Neutrophils Percent Auto 49.1 % (50-75); Platelet Count 61 X10^3/uL (150-400); Red Blood Cell Count 4.14 X10^6/uL (4.5-5.9); Red Cell Distribution Width 20.5 % (11.6-14.8); White Blood Cell Count 5.4 X10^3/uL (4.5-11.0)
[2020-04-04 05:53] LABS: Alanine Aminotransferase 62 IU/L (<50); Albumin 3.2 g/dL (3.5-5.0); Albumin Globulin Ratio 1.1 (1.0-2.8); Alkaline Phosphatase 121 U/L (38-126); Aspartate Aminotransferase 75 IU/L (17-59); BUN Creatinine Ratio 15.1 (6-22); Bilirubin Total 1.7 mg/dL (0.2-1.3); Blood Urea Nitrogen 19 mg/dL (9-20); Calcium 9.1 mg/dL (8.4-10.2); Carbon Dioxide 22 mmol/L (22-32); Chloride 104 mmol/L (98-107); Estimated Glomerular Filt Rate 55.8 mL/min (>60); Globulin 2.9 g/dL (1.7-4.1); Glucose 183 mg/dL (80-110); HEMOLYSIS < 15 (0-50); Magnesium 2.3 mg/dL (1.6-2.3); Potassium 3.9 mmol/L (3.4-5.1); Sodium 134 mmol/L (137-145); Total Protein 6.1 g/dL (6.3-8.2)
[2020-04-04 06:37] LABS: Anisocytosis 3+; Platelet Estimate Decreased on smear
[2020-04-04 07:53] VITALS: BP 147/65; PULSE 80; RESP 15; TEMP 36.8; O2SAT 96
[2020-04-04 09:18] VITALS: O2SAT 97
--- NOTE | 2020-04-04 09:21 | PT.IPTN ---
Current Diagnoses Acute and subacute hepatic failure without coma (04/01/20) Physical Therapy Treatment Note M2 PT-IP Current Condition Start: 04/03/20 13:12 Freq: NEEDED Status: Active Protocol: Document 04/03/20 17:32 AW (Rec: 04/03/20 17:44 AW [id number]) Physical Therapy Current Condition Current Condition Evaluation Date 04/03/20 Treatment Diagnosis hepatic encephalopathy; weakness; difficulty in walking M3 PT-IP Subjective Start: 04/03/20 13:12 Freq: NEEDED Status: Active Protocol: Document 04/04/20 08:54 CLB (Rec: 04/04/20 10:37 CLB [id number]) Subjective Physical Therapy Visit Type Type Treatment Note Visit Start Time 08:54 Visit Stop Time 09:21 Total Visit Minutes 27 Number of CAR SHAGGER Visits 1 Physical Therapy Visit Comments Patient Comments Pt willing to participate with therapy. Therapy Pain Assessment Pain When Pain Assessed During Mobility Pain Present Pain Present Denied Pain M4 PT-IP Mobility and Gait Start: 04/03/20 13:12 Freq: NEEDED Status: Active Protocol: Document 04/04/20 08:54 CLB (Rec: 04/04/20 10:37 CLB [id number]) PT-Transfer Assessment Sit to and From Stand Sit to and from Stand Standby Assistance,Use of Upper Extremities Equipment Transfer Assistive Device Gait Belt,Front Wheeled Walker Transfers Transfer Destination Chair Transfer Technique pt ambulated with FWW Transfer Ability Level of Assist Standby Assistance Comments Mobility Comments Pt in chair upon arrival. Pt stood with use of UE's pushing from arms of chair. Pt ambulated with FWW/SBA ~600ft. Pt had steady gait and good safety awareness. Pt recalled directions to therapy stairs from last admission. Pt ambulated with slow pace to start then able to increase aminta. Pt stated he feels so much better. Pt returned to room sitting in chair SBA. Left pt in chair with present, all needs within reach. Informed RN of pt mobilty. Gait Assessment Gait Gait Assistance Required: Standby Assistance Distance (Feet) 600 Assistive Devices Assistive Device Gait Belt,Front Wheeled Walker Gait Deviations General Gait Pattern Decreased Stride Length, Decreased Feet Clearance, Flexed Trunk Factors Limiting Gait Function Factors Limiting Gait Function Decreased Activity Tolerance, Decreased Strength,Limited Range of Motion Comments Gait Comments Pt increased ambulation to ~ 600ft with good steady gait and pace. Stair Climbing Assessment Evaluation Level of Assist On Stairs Contact Guard Assistance Devices Stair Climbing Assistive Devices Four Wheel Walker Technique/Endurance Stair Climbing Direction Ascend and Descend Number of Steps Climbed 1 Stair Climbing Set # Repetitions (reps) 2 Comments Stair Climbing Comments Pt able to safely climb platform step CGA. M5 PT-IP Objective Assessments Start: 04/03/20 13:12 Freq: NEEDED Status: Active Protocol: Document 04/03/20 17:32 AW (Rec: 04/03/20 17:44 AW [id number]) Orientation Orientation/Cognition Level of Alertness Confusional State Orientation Name,Day of Week,Place, Situation Language Function Ability No Deficits Noted Safety Awareness Decreased Safety Awareness Memory Description No Deficits Noted Comments Pt was oriented but sleepy/ groggy with difficulty attending to task ~10% of the time. Gross Range of Motion Lower Extremity ROM Assessment Within Functional Limits Strength Lower Extremity Strength Assessment Bilaterally Impaired Hip 3+/5 Knee 4/5 Ankle 4+/5 Coordination Assessment Gross Coordination Gross Coordination WNL Sensation Assessment Sensation Gross Sensation WNL Muscle Tone Muscle Tone WNL Yes M6 PT-IP Treatment Start: 04/03/20 13:12 Freq: NEEDED Status: Active Protocol: Document 04/03/20 17:32 AW (Rec: 04/03/20 17:44 AW [id number]) Physical Therapy Treatment Education Education Provided Precautions,Safety Other Treatments Other Treatment Performed Provided education on role of PT, plan of care, and importance of continued mobillity. M7 PT-IP Assessment and Plan Start: 04/03/20 13:12 Freq: NEEDED Status: Active Protocol: Document 04/04/20 08:54 CLB (Rec: 04/04/20 10:37 CLB [id number]) PT Summary Assessment and Plan Summary Assessment Summary Pt required SBA for all transfers, sit<>stand and ambulation. Pt required CGA for climbing platform step. Pt increased gait distance with good safety awareness and steady gait. Goals Bed Mobility Goal Independent Transfer Goal Independent,Front Wheeled Walker Gait Goal Independent,Front Wheel Walker Gait Distance 300 Other Goals - up/down 2 steps without railing Days to Meet Goals 5 Frequency of Treatment Frequency Of Treatment Once a Day Treatment Plan Physical Therapy Treatment Plan Bed Mobility Training,Transfer Training,Gait Training, Therapeutic Exercise,Balance Retraining,Discharge Planning, Hot or Cold Pack,Neuromuscular Re-ed,Coordination Retraining Recommendations To Nursing Amount of Assist Needed Standby Assistance,1 Person Assist Discharge Recommendations PT Discharge Recommendations Home with Assistance,Home Health Transportation Needs at Discharge Private Vehicle
[2020-04-04] MEDS: TAMSULOSIN 0.4 MG CAPSULE PO (09:36)
[2020-04-04] MEDS: FUROSEMIDE 40 MG TABLET PO (09:36)
[2020-04-04] MEDS: SODIUM CHLORIDE 0.9% FLUSH 10 ML IV (09:37)
[2020-04-04] MEDS: LACTULOSE 20 GM/30 ML SOLUTION 45 GM PO (09:37)
[2020-04-04] MEDS: RIFAXIMIN 550 MG TABLET PO (09:38)
[2020-04-04] MEDS: INSULIN ASPART 100 UNIT/ML INSULN PEN SUBCUT (09:38)
[2020-04-04] MEDS: SPIRONOLACTONE 50 MG TABLET PO (09:38)
--- NOTE | 2020-04-04 10:14 | OT.IP.TRT ---
Current Diagnoses Acute and subacute hepatic failure without coma (04/01/20) Occupational Therapy Treatment Note M2 OT-IP Current Condition Start: 04/03/20 13:17 Freq: Status: Active Protocol: Document 04/03/20 13:18 CGR (Rec: 04/03/20 13:36 CGR [id number]) Occupational Therapy Current Condition Current Condition Evaluation Date 04/03/20 Treatment Diagnosis hepatic encephalopathy, elevated amonia, urinary retension. Diagnosis Onset Date 04/01/20 M3 OT- IP Subjective and Pain Start: 04/03/20 13:17 Freq: Status: Active Protocol: Document 04/04/20 09:45 [facility] (Rec: 04/04/20 12:14 [facility] [id number]) OT- Subjective Occupational Therapy Visit Type Type Treatment Note Visit Start Time 09:45 Visit Stop Time 10:14 Notes 29 Occupational Therapy Visit Comments Patient Comments Pt's present for the session. Pt not wanting to shower at this time and wanting to just get dressed. Patient/Caregiver Goals TO go home. OT Pain Assessment Pain When Pain Assessed At Rest Pain Present Pain Present Denied Pain M4 OT- IP ADL's Start: 04/03/20 13:17 Freq: Status: Active Protocol: Document 04/04/20 09:45 [facility] (Rec: 04/04/20 12:14 [facility] [id number]) OT [id number] Comments OT Self-Feeding Comments Not meal time OT ADL-Grooming Comments OT Grooming Comments Pt declined, states he already performed this AM OT ADL-Oral Care Comments Oral Care Comments Pt declined, states he already performed this AM OT ADL-Dressing General Eval Lower Body Dressing Ability Standby Assistance Areas Needing Assistance Pull-Over Shirt,Underpants/ Brief,Pants/Shorts,Socks Comments OT Dressing Comments Set-up and SBA while standing to pull up brief/pants over hips while standing. OT ADL-Toileting Comments OT Toileting Comments Not performed. OT ADL-Bathing Comments OT Bathing Comments Pt states grab bars were installed for the bathroom. Pt's states will assist to help step over the tub and there is a shower chair inside . M5 OT- IP IADL's Start: 04/03/20 13:17 Freq: Status: Active Protocol: Document 04/03/20 13:18 CGR (Rec: 04/03/20 13:36 CGR [id number]) OT-Instrumental Activities of Daily Living Deficits IADL Deficits Identified No Deficits Home Safety Awareness Awareness of Need for Assistance at Home Good Awareness Ability to Problem Solve Emergency Able to Problem Solve Situations Medication Management Medication Management No Deficits Identified Medication Management Comments Pts available to assist Money Management Money Management No Deficits Identified Money Management Comments Pts available to assist Meal Preparation Meal Preparation Caregiver Provides Assist Creative Perfumer Creative Perfumer No Deficits Identified Driving Driving Caregiver Provides Assist M6 OT- IP Functional Cognition Start: 04/03/20 13:17 Freq: Status: Active Protocol: Document 04/04/20 09:45 [facility] (Rec: 04/04/20 12:14 [facility] [id number]) Cognitive Factors Limiting Selfcare Function Cognitive Comments Cognitive Assessment Comments No deficits. M7 OT- IP Mobility and Balance Start: 04/03/20 13:17 Freq: Status: Active Protocol: Document 04/04/20 09:45 [facility] (Rec: 04/04/20 12:14 [facility] [id number]) OT-Transfer Assessment Sit to and From Stand Sit to and from Stand Standby Assistance OT- Balance Assessment Sitting Balance and Reactions Static Sitting Balance Ability Normal Dynamic Sitting Balance Ability Good Standing Balance and Reactions Static Standing Balance Ability Good M8 OT- IP Objective Assessments Start: 04/03/20 13:17 Freq: Status: Active Protocol: Document 04/03/20 13:18 CGR (Rec: 04/03/20 13:36 CGR [id number]) OT Gross Range of Motion Upper Extremity Range of Motion Assessment Within Functional Limits OT Strength Upper Extremity Strength Assessment Within Functional Limits Comments Strength Comments 4/5 throughout. OT- Coordination Assessment Upper Extremity Finger to Nose Test Within Functional Limits Finger Tapping Test Within Functional Limits OT-Muscle Tone Assessment Muscle Tone WNL Yes OT Sensation Assessment Edema Edema Absent M9 OT- IP Assessment and Plan Start: 04/03/20 13:17 Freq: Status: Active Protocol: Document 04/04/20 09:45 [facility] (Rec: 04/04/20 12:14 [facility] [id number]) OT Summary Assessment and Plan Potential Rehabilitation Potential Good Analytic Complexity at Evaluation Low Summary OT Impairments Balance,Functional Mobility, Bathing,Shower Transfers, Activity Tolerance Progress Towards Goals Progressing Toward Goals Assessment Summary Pt looking to go home today. Able to go over OT suggestions with and pt , both have good understanding for his needs. Pt's wondering whether a lift chair would be beneficial to pt due to upcoming sx. Suggested extra cushion in his current recliner may help, a lift chair can be beneficial as long as pt does not end up relying on the lift chair and get weaker. Encouraged pt to get up and move which may also help with his bowel movements and try to work on keeping his legs strong. Goals Bathing Goal Independent Shower Transfer Goal Independent Days to Meet Goals 1 Frequency of Treatment Frequency Of Treatment Once a Day Treatment Plan OT Treatment Plan ADL Training,Functional Mobility,Patient/Family Education,Discharge Planning Discharge Recommendations OT Discharge Recommendations Home with Assistance Transportation Needs at Discharge Private Vehicle
--- NOTE | 2020-04-04 10:44 | CM.DPC ---
Addendum entered by Brittany Sultana LPN 04/04/20 10:51: nicho [facility] orders are in place and these, too, are being faxed to [facility]. Original Note: DCP: continued: Case received, EMR reviewed (including pt's last admission to : 03/24 to 03/26 with a d/c home with [facility].) Met with pt and his after being informed by Dr. Manzano that pt was to d/c home today. Pt is found up and dressed, at bedside. She explains that had only made one visit before pt readmitted to the hospital but they are pleased thus far with that service. Left a vm on cell for [facility] liaison re the d/c today and the resume orders. [facility] agrees to fax clinical and d/c medications specifics to [facility]. At this point there is no d/c summary available. P: home today, neftalie [facility], 's ongoing assist.
--- NOTE | 2020-04-04 10:45 | P.DS_ITS ---
History of Present Illness History of Present Illness Date Patient Seen: 04/01/20 Chief complaint: lethargic,meds not working,confusion,dizzy Narrative: Written by Arden MESA: Mr. Leonardo Avina is a 74-year-old male male with a history of cryptogenic liver cirrhosis with ascites, status post TIPS (03/06/2020 at [facility]), splenic mass, cholelithiasis, non insulin-dependent diabetes type 2, urinary retention with indwelling catheter placed on 03/08/2020 on discharge from [facility] who presents to the emergency department with increasing weakness over several days and nausea. The patient is somewhat poor historian and his is at bedside providing additional information. The patient has been on lactulose therapy until today with decreased stooling. He had 1 BM today that was normal and formed with his last bowel movement prior to that being 4 days ago. Presented with increased weakness and confusion that has been progressive for several days and has developed nausea and has been unable to take lactulose today. He also reports complaints of intermittent dressed pressure that is nonpleuritic and nonradiatin g without associated shortness of breath or diaphoresis that he states feels similar to when he had pleural effusions previously. The patient was admitted to [facility] under similar circumstances between March 24 and March 26 at which time he was diagnosed with urinary tract infection, and hepatic encephalopathy. The patient was discharged on Levaquin that he has been taking with 2 doses remaining. The patient denies complaints of fevers or chills her COVID-19 exposure. He has no complaints of headaches or dizziness and sustained no falls. He reports no nasal congestion or sore throat. He has chest pressure as described above which is intermittent and nonpleuritic. He denies complaints of shortness of breath, cough or wheezing. He does complain a suprapubic abdominal discomfort but no epigastric or abdominal pain. He has nausea and had 1 food content emesis while in the emergency department. Has indwelling Man catheter since 03/08/2020 that is draining poorly. He reports no hematuria or flank tenderness. Upon arrival to the ER the patient is afebrile with temperature of 90.7?, heart rate of 63, blood pressure 118/68, respirations 16 saturating 98 % on room air. A chest x-ray obtained reveals no acute cardiopulmonary processes. CT the abdomen finds a prominent hiatal hernia with fluid in the distal esophagus, liver nodularity with TIPS, calcified masslike appearance i within the gallbladder and additional ill-defined density within the gallbladder lumen, ne oplasm cannot be excluded multiple splenic hypodensities slightly more prominent when compared to prior exam, may represent small cysts/hemangiomas, metastatic disease or persistent infection cannot be excluded, moderate stool consistent with constipation, no colonic wall thickening or bowel obstruction, mild right effusion with superimposed consolidation improved from prior exam. On laboratory analysis the patient has a normal white count at 4.9 with elevated monocytes 19.1%, hemoglobin of 12.7, hematocrit of 36.3 and platelets of 71. He has a PT of 15.5, INR of 1.3 and PTT of 29. He has a sodium of 134, potassium of 4.1, BUN of 24 and a creatinine of 1.19. His nonfasting glucose is 205. He has an elevated bilirubin of 1.4, AST of 56, ALT of 49 and alkaline phosphatase of 120. His lipase is mildly elevated at 395 and has an albumin of 3.7. His ammonia levels 153. His total CK is 24 and troponin is less than 0.012. While in the ER patient complains of suprapubic discomfort and thing catheter has not been draining well. Nursing attempted to flush catheter in found resistance. A bladder scan finds a bladder volume of over 600 cc. Due to the date of the catheter in the lack patency and patient discomfort the Man catheter was discontinued. Lactulose 20 g is ordered in the ER with the patient is unable to take the medication related to nausea, Zofran is administered with modest improvement in nausea. Patient is receiving normal saline 125 cc/hour. The patient is admitted to the medicine service for hepatic encephalopathy related to elevated ammonia and urinary retention. The patient's primary care providers Katelyn Campbell. Discharge Providers Provider Date of admission: 04/01/20 20:38 Discharge Date: 04/04/20 Primary care physician: Katelyn Campbell MD Consults: 04/01/20 20:18 Consult to Dietitian, Adult Routine Comment: Reason For Exam: Liver cirrhosis, hepatic encephalopathy Consult to Discharge Planning Routine Comment: 04/03/20 09:46 Consult to Occupational Therapy Evaluate & Treat Comment: Physician Instructions: Evaluate and treat Consult to Physical Therapy Evaluate & Treat Comment: Physician Instructions: Evaluate and Treat 04/04/20 10:36 Consult to Home Health Routine Comment: Pt is already open to [facility] services Reason For Exam: resume home health services. Discharge provider: Christy Manzano DO Summary Hospital Course Discharge Diagnosis: 1. Acute hepatic encephalopathy, secondary to constipation, present on admission. Resolved. 2. Non-alcoholic cryptogenic cirrhosis, chronic, present on admission. Stable. 3. Recently diagnosed diabetes mellitus type 2, non-insulin using, present on admission. Stable. 4. BPH with history of urinary retention and indwelling Man catheter, status post removal of Man catheter, chronic, present on admission. Stable. 5. Chest pressure, likely secondary to recent TIPS, present on admission. Intermittent and stable. 6. Recent Enterococcus faecalis UTI secondary to indwelling Man catheter status post removal. Resolved. Hospital Course: Leonardo Avina is a 74-year-old male with a past medical history significant for n on-alcoholic cryptogenic liver cirrhosis with complication of portal hypertension status post TIPS (03/06/2020 at [facility]), ascites, hepatic encephalopathy, and thrombocytopenia; splenic mass, cholelithiasis, diabetes mellitus type 2, non-insulin using, and BPH who presented to the em ergency department with increasing weakness over several days and nausea. 1. Acute hepatic encephalopathy, secondary to constipation, present on admission. Resolved. -Patient presented with constipation x 4 days and increasing lethargy, disorientation and confusion and unable to take lactulose. -Initial ammonia level 153 and is trending down. No need to continue to trend ammonia level as improvement in hepatic encephalopathy is a clinical observation and does not always correlate. -CT abdomen and pelvis demonstrated with contrast moderate stool consistent with constipation and no colonic or small bowel obstruction. -Continued lactulose 45 g every 2-3 hours as needed with a goal of 2-3 soft stools daily then hold for the rest of the day and started and continued rifaximin 550 mg twice daily. Patient had copious amount of stools prior to dischage. -Concerned that large polyp/mass with planned colon resection later this month is contributing to constipation. Recommend keeping patient bowel movements on the loose side and following up with general surgery at the [facility] at his scheduled appointment on 04/10/2020. 2. Non-alcoholic cryptogenic cirrhosis, chronic, present on admission. Stable. -Patient has non-alcoholic cryptogenic cirrhosis with portal hypertension status post TIPS (03/06/2020 at [facility]), ascites, hepatic encephalopathy, thrombocytopenia and mildly elevated bilirubin. Patient is followed by [facility] with Dr. Faust. -MELD-Na score is 15, patient has a 6% risk of 3 month mortality. Initial LFTs: Total bilirubin is 1.4, AST 56, ALT 49 and alkaline phosphatase of 120. -Initial LFTs: Total bilirubin is 1.4, AST 56, ALT 49 and alkaline phosphatase of 120. Albumin is 3.7. -Continued home diuretics furosemide 40 mg twice daily and spironolactone 50 mg twice daily for management of ascites. 3. Recently diagnosed diabetes mellitus type 2, non-insulin using, present on admission. Stable. -Hemoglobin A1c 8.2% 03/2020. -Held metformin and will restarted at time of discharge. -Continued [facility] blood glucose checks and low dose correctional scale insulin. -Continued carbohydrate consistent diet. 4. BPH with history of urinary retention and indwelling Man catheter, status post removal of Man catheter, chronic, present on admission. Stable. -Patient presented with indwelling Man catheter which was draining poorly and there was bladder distension without hydronephrosis evident on CT. Man catheter was removed and the patient passed voiding trial. Continued to monitor post-void residual and patient is urinating effectively with low residuals -Continued tamsulosin 0.4 mg daily and finasteride 5 mg at bedtime. -Continue outpatient follow-up with Urology, Dr. Alexis. 5. Chest pressure, likely secondary to recent TIPS, present on admission. Intermittent and stable. -Likely secondary to recent TIPS versus prominent hiatal hernia with fluid in the distal esophagus. -Patient described lower mid chest pressure that has been present off and on since his TIPS procedure. He denies shortness of breath, nausea, diaphoresis, or radiation of chest pressure to neck/jaw/arms. -Troponin negative at < 0.012. CK is low at 24. EKG demonstrated normal sinus rhythm without acute ischemic changes such as ST elevation or depression. No further workup indicated. 6. Recent Enterococcus faecalis UTI secondary to indwelling Man catheter status post removal. Resolved. -Finished course of levofloxacin. Exam Vital Signs (past 8 hours): - 04/04/20 03:00 04/04/20 04:00 04/04/20 07:53 Temperature 97.9 F 98.2 F Pulse Rate 88 80 Respiratory Rate 18 15 Blood Pressure 144/79 H 147/65 H Pulse Oximetry 97 98 96 04/04/20 09:18 Temperature Pulse Rate Respiratory Rate Blood Pressure Pulse Oximetry 97 Oxygen Delivery Method Room Air Oxygen Flow Rate 0 Narrative Exam Narrative: General: Older male sitting in bedside chair and in no acute distress, appears stated age, well-developed, well-nourished, improved mentation, more energetic, awake and alert, appropriately interactive. HEENT: Normocephalic, atraumatic. External ears without defect. Pupils equal, round, and reactive to light. Sclera are slightly icteric. Moist conjunctivae and no lid lag. Oropharynx free of erythema and cobble stoning with moist mucosa. Neck: Supple with full range of motion. No lymphadenopathy or thyromegaly. Cardiovascular: Regular rate and rhythm without murmurs, rubs, or gallops shania reciated. Pulmonary: Clear to auscultation bilaterally without crackles, wheezes, or rhonchi. Normal respiratory effort with no use of accessory muscles. Abdomen: Soft, bowel sounds present, nontender, nondistended. No fluid wave or abdominal ascites. No hepatosplenomegaly or masses appreciated. Extremities: No clubbing, cyanosis, or edema. Skin: Normal temperature, turgor, and texture; no rash, ulcers, or subcutaneous nodules appreciated. No stigmata of liver disease such as spider angiomata, telangiectasias, palmar erythema, or caput medusae. Neurological: Cranial nerves grossly intact. Generalized weakness. No asterixis. Psychiatric: Normal mood and affect. Alert and oriented to person, place, and time. Objective Labs Result Diagrams: 04/04/20 05:20 04/04/20 05:20 Labs: Laboratory Results - last 24 hr 04/03/20 04/04/20 04/04/20 05:00 05:20 05:20 WBC 5.4 RBC 4.14 L Hgb 12.3 L Hct 35.3 L MCV 85.4 MCH 29.8 MCHC 34.9 RDW 20.5 H Plt Count 61 L Neut % (Auto) 49.1 L Lymph % (Auto) 27.4 [place] % (Auto) 20.1 H Eos % (Auto) 2.9 Baso % (Auto) 0.5 Neut # (Auto) 2700 Lymph # (Auto) 1500 [place] # (Auto) 1100 H Eos # (Auto) 200 Baso # (Auto) 0 Platelet Estimate Decreased on smear RBC Morphology See below Anisocytosis 3+ H Sodium 134 L Potassium 3.9 Chloride 104 Carbon Dioxide 22 BUN 19 Creatinine 1.26 H Estimated GFR 55.8 L BUN/Creatinine Ratio 15.1 Glucose 183 H Calcium 9.1 Magnesium 2.2 2.3 Total Bilirubin 1.7 H AST 75 H ALT 62 H Alkaline Phosphatase 121 Total Protein 6.1 L Albumin 3.2 L Globulin 2.9 Albumin/Globulin Ratio 1.1 Discharge Plan Discharge Plan Patient Disposition: Home Health Service Discharge comment: You are being discharged home to resume home health for physical therapy, occupational therapy and nursing. You were constipated and your lactulose was titrated to effect. Continue taking lactulose 45 g every 2-3 hours until you have had 2-3 bowel movements a day and then stop for the day and repeat daily. You may use a suppository if needed once daily for constipation. You were also prescribed rifaximin 550 mg twice daily to help decrease ammonia levels. You have been prescribed ropinirole 0.25 mg daily at bedtime for restless leg syndrome and finasteride 5 mg at bedtime in addition to tamsulosin for enlarged prostate. Please follow-up with your gastroenterolog ist/computer tech at the [facility] in the next 1-2 weeks regarding your hospitalization. Please keep your scheduled surgical consultation on 04/10 for planned colon resection as your large polyp/mass is likely contributing to your constipation. Please follow-up with your primary care physician, Dr. Campbell, in the next 1 week regarding your hospitalization. Discharge orders & Medications Prescriptions: New bisacodyl 10 mg Suppository 10 mg AR DAILY PRN (Reason: Constipation) Qty: 10 RF: 0 finasteride 5 mg Tablet 5 mg PO BEDTIME Qty: 30 RF: 0 lactulose 20 gram/30 mL Solution 45 gram PO Q2-3H PRN (Reason: 2-3 BM's a day) Qty: 3000 RF: 0 ropinirole [Requip] 0.25 mg Tablet 0.25 mg PO BEDTIME Qty: 30 RF: 0 Xifaxan 550 mg Tablet 550 mg PO BID Qty: 60 RF: 0 Continued tamsulosin [Flomax] 0.4 MG capsule,extended release 24hr 0.4 mg PO QDAY Qty: 0 RF: 0 furosemide 40 mg Tablet 40 mg PO BID RF: 0 spironolactone 100 mg Tablet 50 mg PO BID RF: 0 metformin 500 mg tablet extended release 24hr 500 mg PO BID Qty: 60 RF: 0 (DME) blood-glucose meter [Glucocard 01 Meter] Kit See Rx Instructions .ROUTE .MEDSUPPLY Qty: 1 RF: 0 Discontinued nystatin-triamcinolone 100,000-0.1 unit/g-% Cream 1 applic topical BID Qty: 30 RF: 0 levofloxacin 750 mg tablet 750 mg PO DAILY Qty: 7 RF: 0 lactulose 10 gram/15 mL Solution 60 ml PO TID-QID Qty: 0 RF: 0 Follow up/Referrals: Katelyn Campbell MD [Primary Care Provider] - 1 Week (Follow up with Dr Campbell on 04/12 (Friday) with check-in time of 1:00 p.m.) Diet/Activity/Treatments Diet: Carb-consistent/Diabetic, Low-fat, Low-sodium and Low-cholesterol Activity: Activity as tolerated with forward wheeled walker and physical and occupational therapy Visit Report/Discharge Packet Instructions: Restless Legs Syndrome, DI for Constipation, Rifaximin, Bisacodyl Rectal, Lactulose, Ropinirole, Finasteride, DI for Hepatic Encephalopathy Visit Report Forms: Patient Portal/API, Stroke Signs & Symptoms Discharge Data Primary Care Provider: Katelyn Campbell
--- NOTE | 2020-04-04 11:26 | PC.NURSE ---
Discharge: IV dc'd intact. Reviewed all d/c instructions and med list thoroughly with patient and his Thelma. Dr Manzano also spoke with them at length about d/c info and outpatient POC. They are aware that there are scripts to be picked up at [facility] today. F/U scheduled with Dr Campbell for next Friday (04/12) and patient already has F/U scheduled down at on the 10 of April and plans to keep that. Patient and both verbalized understanding of d/c instructions and stated no further questions. All personal belongings sent with patient at d/c, wheeled out to private vehicle by nursing staff.
--- NOTE | 2020-04-04 12:42 | CM.DPC ---
DCP cont: Faxed discharge records ( resume order, discharge report, 04/03/20 progress note and discharge summary) to [facility] at fax # [phone]. Fax confirmation scanned in. Naya Gaffney, Care Fabric Designer
== END 2020-04-04 11:33 | disposition home health service (06) | DRG 442 ==
LOC: ED 19:50 → AC 20:38
PROVIDERS: Emergency Medicine; Internal Medicine; Admitting Provider Nurse Practitioner Adult Health; Emergency Provider Emergency Medicine; Family Provider Internal Medicine Gastroenterology; PCP Internal Medicine; Referring Provider Emergency Medicine; Visit Provider Nurse Practitioner Adult Health
DX: K72.00 Acute and subacute hepatic failure without coma (principal); T83.511A Infection and inflammatory reaction due to indwelling urethral catheter, initial encounter; N39.0 Urinary tract infection, site not specified; K76.6 Portal hypertension; K74.69 Other cirrhosis of liver; D69.59 Other secondary thrombocytopenia; T83.098A Other mechanical complication of other urinary catheter, initial encounter; B95.2 Enterococcus as the cause of diseases classified elsewhere; N40.1 Benign prostatic hyperplasia with lower urinary tract symptoms; R33.8 Other retention of urine; R07.89 Other chest pain; E11.9 Type 2 diabetes mellitus without complications; Z87.891 Personal history of nicotine dependence; Z79.84 Long term (current) use of oral hypoglycemic drugs; Z03.818 Encounter for observation for suspected exposure to other biological agents ruled out
CPT/HCPCS: 36415; 51798; 71045; 74177; 80048; 80053; 80076; 81001; 82140; 82550; 82962; 83690; 83735; 84145; 84484; 85025; 85610; 85730; 87635; 93005; 96374; 97116; 97161; 97165; 97530; 97535; 99284; J1650; J2405; J2765; Q9967

== ENCOUNTER 2020-04-08 12:18 | Emergency (ER) | payer MEDICARE, OTHER, SELFPAY ==
[2020-04-01 21:37] VITALS: BMI 25.0
[2020-04-08] VITALS (7 sets, daily range): BP systolic 136–139; BP diastolic 62–64; PULSE 74–89; RESP 13–18; TEMP 36.8; O2SAT 97–99; BMI 23.8
--- NOTE | 2020-04-08 12:52 | ED_ITS ---
HPI - Male Genitourinary <Megha VázquezMOSHE - Last Filed: 04/08/20 18:37> General Chief complaint: Urogenital-Male Stated complaint: UTI symptoms Time Seen by Provider: 04/08/20 12:19 Source: patient Mode of arrival: Ambulatory Limitations: no limitations History of Present Illness HPI Narrative: 74yo male with a history of liver cirrhosis, recent TIPs procedure on 03/06/2020 performed at , DMII, and hepatic encephalopathy, presents to the emergency department today for increasing dysuria over the past 2 days and weakness. Patient was admitted on 03/26 he had [facility] for acute encephalopathy in UTI from indwelling catheter, he was then discharged and admitted again on 04/01 for acute hepatic encephalopathy, patient was discharged on 04/04. He states after discharge he was feeling much better and was able to go for walks as usual. However, over the past few days he has noticed increasing weakness and dysuria. Patient also reports over the past month he has felt ?wobbly ?. Patient states that the ascites and his abdomen has improved as well as his shortness of breath over the past few weeks. Patient has a procedure scheduled for a colon resection for removal of a large follow-up in the next week at [facility]. He has an appointment on Friday to see a surgeon and a life sciences teacher. Patient is concern for a urinary tract infection like he has had in the past. He had his catheter removed a few weeks ago. Patient denies any chest pain, fevers, shortness of breath, nausea, vomiting, diarrhea, abdominal pain, abdominal swelling, falls, or any other concerns. He states he feels that his ?liver problems are better under control with increased lactulose. Related Data Home Medications Medication Instructions Recorded Confirmed tamsulosin [Flomax] 0.4 mg PO QDAY #0 01/28/12 04/01/20 furosemide 40 mg PO BID 10/13/19 04/01/20 spironolactone 50 mg PO BID 10/13/19 04/01/20 Previous Rx's Medication Instructions Recorded blood-glucose meter [Glucocard 01 #1 each 03/26/20 Meter] metformin 500 mg PO BID #60 tab 03/26/20 bisacodyl 10 mg NJ DAILY PRN #10 ea 04/04/20 finasteride 5 mg PO BEDTIME #30 tab 04/04/20 lactulose 45 gram PO Q2-3H PRN #3000 ml 04/04/20 rifaximin [Xifaxan] 550 mg PO BID #60 tab 04/04/20 ropinirole [Requip] 0.25 mg PO BEDTIME #30 tab 04/04/20 Allergies Allergy/AdvReac Type Severity Reaction Status Date / Time No Known Drug Allergies Allergy Verified 04/08/20 12:33 Review of Systems <MOSHE Negron - Last Filed: 04/08/20 18:37> Review of Systems Narrative: REVIEW OF SYSTEMS: GENERAL: Denies fever or chills. HENT: No head trauma. CARDIOVASCULAR: No chest pain. RESPIRATORY: No shortness of breath or cough. GASTROINTESTINAL: No nausea, vomiting, or abdominal pain, see HPI. GENITOURINARY: Reports dysuria, See HPI. MUSCULOSKELETAL: No trauma. INTEGUMENTARY: No rash, lesions, or pruritus. NEURO: No memory loss or confusion. Reports ?wobbly gait for over a month. Patient History <MOSHE Negron - Last Filed: 04/08/20 18:37> Medical History Ascites (Inactive) Cirrhosis (Inactive) Gallstones (Inactive) Hepatic encephalopathy (Acute) MIMS (nonalcoholic steatohepatitis) (Acute) Neutropenia (Resolved) Splenic mass (Inactive) Thrombocytopenia (Chronic) Urinary retention (Acute) Surgical History S/P TIPS (transjugular intrahepatic portosystemic shunt) (Acute) Family History Mother Pancreatic cancer Father Colon cancer Social History household members: spouse Smoking Status: Former smoker Smoking Status: Former smoker alcohol intake frequency: holidays/special occasions only Substance Use Type: does not use Exam <MOSHE Negron - Last Filed: 04/08/20 18:37> Initial Vital Signs Initial Vital Signs: Vital Signs Temperature 98.2 F 04/08/20 12:25 Pulse Rate 89 04/08/20 12:25 Respiratory Rate 14 04/08/20 12:25 Blood Pressure 139/64 04/08/20 12:25 Pulse Oximetry 97 04/08/20 12:25 PHYSICAL EXAMINATION: GENERAL: Well groomed, alert, and cooperative. Answers questions promptly and appropriately. Vital signs noted. HENT: Normocephalic, atraumatic. Hearing intact. Oral mucosa is pink and moist. EYES: Conjunctiva pink, sclera white, no periorbital swelling. CARDIOVASCULAR: S1 and S2 sounds normal. Regular rate and rhythm, no murmurs, clicks, or bruits. No pedal edema. RESPIRATORY: Normal respiratory rate, trachea midline, airway patent. No stridor, nasal flaring or accessory muscle use. Lungs are clear in all [place] without wheeze, rhonchi, or crackles. GASTROINTESTINAL: Bowel sounds normoactive. Abdomen is soft and non-tender. No organomegaly, no palpable masses. Mild ascites noted (patient states this has improved since last admission to the hospital). GENITALURINARY: No flank tenderness. MUSCULOSKELETAL: Normal gait and coordination. Equal tone and mass bilaterally. EXTREMITIES: CMS intact, no pedal edema. SKIN: Warm, dry, soft, appropriate color for ethnicity. No lesions, rashes, or wounds to visualized areas. NEURO: Alert and Oriented X 3. Good coordination. No ataxia, or sensory deficits, or cognitive issues. No asterixis. PSYCH: Appropriate affect and mood. <Humphrey Quinones DO - Last Filed: 04/08/20 18:58> Initial Vital Signs Initial Vital Signs: Vital Signs Temperature 98.2 F 04/08/20 12:25 Pulse Rate 89 04/08/20 12:25 Respiratory Rate 14 04/08/20 12:25 Blood Pressure 139/64 04/08/20 12:25 Pulse Oximetry 97 04/08/20 12:25 Course <MOSHE Negron - Last Filed: 04/08/20 18:37> Course Course Narrative: 1455: I spoke with Dr. Faust from hepatology about patient's symptoms and labs. Recommended checking for asterixis and is present admission. If no asterixis present and patient continues to have bowel movements with lactulose, given no other source infection, follow-up as scheduled on Friday and I will see him an officer. 1500: Initial bladder scan 700ml and post-void bladder scan 155ml. Patient had an additional bowel movement at this time, reports feeling much better. Orders Ordered: ED Orders 04/08/20 12:21 Urine Culture Stat 04/08/20 12:51 EKG-12 Lead Stat 04/08/20 13:01 XR chest 1V Stat 04/08/20 13:10 Ammonia (NH3) Stat Complete Blood Count AUTO DIFF Stat Comprehensive Metabolic Panel Stat Partial Thromboplastin Time Stat Prothrombin Time INR Stat Troponin & CK Cardiac Panel Stat 04/08/20 13:19 CT head/brain wo con Stat Consultations Consultation #1: Patient staffed with Dr. Quinones discussed test, test results, and plan of care. Vital Signs Vital signs: Vital Signs - 8 hr 04/08/20 12:25 04/08/20 13:06 04/08/20 13:30 Temperature 98.2 F Pulse Rate 89 81 80 Respiratory Rate 14 17 18 Blood Pressure 139/64 Pulse Oximetry 97 04/08/20 14:00 04/08/20 14:30 04/08/20 15:03 Temperature Pulse Rate 77 81 81 Respiratory Rate 13 13 16 Blood Pressure Pulse Oximetry 98 99 04/08/20 15:16 Temperature Pulse Rate 74 Respiratory Rate 16 Blood Pressure 136/62 Pulse Oximetry 97 <Humphrey Quinones, DO - Last Filed: 04/08/20 18:58> Orders Ordered: ED Orders 04/08/20 12:21 Urine Culture Stat 04/08/20 12:51 EKG-12 Lead Stat 04/08/20 13:01 XR chest 1V Stat 04/08/20 13:10 Ammonia (NH3) Stat Complete Blood Count AUTO DIFF Stat Comprehensive Metabolic Panel Stat Partial Thromboplastin Time Stat Prothrombin Time INR Stat Troponin & CK Cardiac Panel Stat 04/08/20 13:19 CT head/brain wo con Stat Vital Signs Vital signs: Vital Signs - 8 hr 04/08/20 12:25 04/08/20 13:06 04/08/20 13:30 Temperature 98.2 F Pulse Rate 89 81 80 Respiratory Rate 14 17 18 Blood Pressure 139/64 Pulse Oximetry 97 04/08/20 14:00 04/08/20 14:30 04/08/20 15:03 Temperature Pulse Rate 77 81 81 Respiratory Rate 13 13 16 Blood Pressure Pulse Oximetry 98 99 04/08/20 15:16 Temperature Pulse Rate 74 Respiratory Rate 16 Blood Pressure 136/62 Pulse Oximetry 97 MDM - Male Genitourinary <Megha Vázquez, ENGINE TURNER - Last Filed: 04/08/20 18:37> Medical Records Attestation: I reviewed the patient's medical records. Lab Data Attestation: I reviewed the patient's lab results. Result diagrams: 04/08/20 13:10 04/08/20 13:10 Labs: Lab Results 04/08/20 04/08/20 04/08/20 Range/Units 13:10 13:10 13:10 WBC 3.8 L (4.5-11.0) X10^3/uL RBC 3.75 L (4.5-5.9) X10^6/uL Hgb 11.4 L (13.5-17.5) g/dL Hct 32.6 L (41-53) % MCV 87.0 (80-100) fL MCH 30.4 (26-34) PG MCHC 35.0 (30-36) % RDW 20.4 H (11.6-14.8) % Plt Count 59 L (150-400) X10^3/uL Neut % (Auto) 57.8 (50-75) % Lymph % (Auto) 23.9 L (25-40) % [place] % (Auto) 14.6 H (3-14) % Eos % (Auto) 3.1 (2-4) % Baso % (Auto) 0.6 (0-2) % Neut # (Auto) 2200 (2469-8118) /uL Lymph # (Auto) 900 L (4524-2967) /uL [place] # (Auto) 600 (0-900) /uL Eos # (Auto) 100 (0-450) /uL Baso # (Auto) 0 (0-100) /uL RBC Morphology See below Poikilocytosis 1+ H Anisocytosis 2+ H PT 14.7 H (10.1-12.7) SECONDS INR 1.3 (0.9-1.3) APTT 29 (26.4-36.2) SECONDS Sodium 134 L (137-145) mmol/L Potassium 4.3 (3.4-5.1) mmol/L Chloride 105 (98-107) mmol/L Carbon Dioxide 22 (22-32) mmol/L BUN 27 H (9-20) mg/dL Creatinine 0.99 (0.66-1.25) mg/dL Estimated GFR > 60.0 (>60) mL/min BUN/Creatinine Ratio 27.3 H (6-22) Glucose 283 H D (80-110) mg/dL Calcium 9.6 (8.4-10.2) mg/dL Total Bilirubin 1.1 (0.2-1.3) mg/dL AST 60 H (17-59) IU/L ALT 47 (<50) IU/L Alkaline Phosphatase 121 (38-126) U/L Ammonia (9-30) umol/L Total Creatine Kinase (55-170) U/L CK-MB (CK-2) CK-MB (CK-2) Rel Index Troponin I (0.01-0.034) ng/mL Total Protein 6.0 L (6.3-8.2) g/dL Albumin 3.2 L (3.5-5.0) g/dL Globulin 2.8 (1.7-4.1) g/dL Albumin/Globulin Ratio 1.1 (1.0-2.8) 04/08/20 04/08/20 Range/Units 13:10 13:10 WBC (4.5-11.0) X10^3/uL RBC (4.5-5.9) X10^6/uL Hgb (13.5-17.5) g/dL Hct (41-53) % MCV (80-100) fL MCH (26-34) PG MCHC (30-36) % RDW (11.6-14.8) % Plt Count (150-400) X10^3/uL Neut % (Auto) (50-75) % Lymph % (Auto) (25-40) % [place] % (Auto) (3-14) % Eos % (Auto) (2-4) % Baso % (Auto) (0-2) % Neut # (Auto) (8119-0359) /uL Lymph # (Auto) (8966-0958) /uL [place] # (Auto) (0-900) /uL Eos # (Auto) (0-450) /uL Baso # (Auto) (0-100) /uL RBC Morphology Poikilocytosis Anisocytosis PT (10.1-12.7) SECONDS INR (0.9-1.3) APTT (26.4-36.2) SECONDS Sodium (137-145) mmol/L Potassium (3.4-5.1) mmol/L Chloride (98-107) mmol/L Carbon Dioxide (22-32) mmol/L BUN (9-20) mg/dL Creatinine (0.66-1.25) mg/dL Estimated GFR (>60) mL/min BUN/Creatinine Ratio (6-22) Glucose (80-110) mg/dL Calcium (8.4-10.2) mg/dL Total Bilirubin (0.2-1.3) mg/dL AST (17-59) IU/L ALT (<50) IU/L Alkaline Phosphatase (38-126) U/L Ammonia 97 H (9-30) umol/L Total Creatine Kinase 28 L (55-170) U/L CK-MB (CK-2) TNP CK-MB (CK-2) Rel Index TNP Troponin I < 0.012 (0.01-0.034) ng/mL Total Protein (6.3-8.2) g/dL Albumin (3.5-5.0) g/dL Globulin (1.7-4.1) g/dL Albumin/Globulin Ratio (1.0-2.8) Urine Dip Bedside Urine Glucose 100 mg/dl Bedside Urine Bilirubin - Negative Bedside Urine Ketone - Negative Urine Specific [place] 1.015 Bedside Urine Occult Blood - Negative Bedside Urine pH 6.0 Bedside Urine Protein - Negative Bedside Urine Urobilinogen - Negative Bedside Urine Nitrite - Negative Bedside Urine Leukocytes - Negative Esterase Imaging Data Chest x-ray: Radiologist's Impression: [address] [address] XRay Report Signed Patient: Leonardo Avina [facility]#: [id number] : 5Acct:[id number] Age/Sex: 74 / MDate of Service: 04/08/20 Loc: ED Accession Number: [id number] Procedure: XR chest 1V Ordering Provider: Megha Vázquez PROCEDURE: XR CHEST 1V INDICATIONS: weakness TECHNIQUE: One view of the chest was acquired. COMPARISON: [facility], CT, CT CHEST W CON, 09/28/2019, 11:49. [facility], CR, XR CHEST 1V, 04/01/2020, 16:54. FINDINGS: Surgical changes and devices: None. Lungs and pleura: There is a small right-sided pleural effusion. No focal pulmonary consolidation is evident. There may be a small rounded nodule within the right mid lung. No pneumothorax is evident. Mediastinum: Mediastinal contours appear normal. Heart size is normal. Bones and chest wall: No suspicious bony lesions. Overlying soft tissues appear unremarkable. IMPRESSION: 1. Small right-sided pleural effusion. 2. Questionable right-sided pulmonary nodule. A CT of the chest is recommended, when clinically appropriate. Dictated by: Porfirio Monroy M.D. on 04/08/2020 at 12:43 Approved by: Porfirio Monroy M.D. on 04/08/2020 at 12:[address]: Radiologist's Impression: [place] [address] CT Scan Report Signed Patient: Leonardo Avina [facility]#: [id number] : 5Acct:[id number] Age/Sex: 74 / MDate of Service: 04/08/20 Loc: ED Accession Number: [id number] Procedure: CT head/brain wo con Ordering Provider: Megha Vázquez PROCEDURE: CT HEAD/BRAIN WO CON INDICATIONS: Gait disturbance TECHNIQUE: Noncontrast 4.5 mm thick angled axial sections acquired from the foramen magnum to the vertex, with coronal and sagittal reformats. For radiation dose reduction, the following was used: automated exposure control, adjustment of mA and/or kV according to patient size. COMPARISON: [facility], CT, CT HEAD/BRAIN WO CON, 03/24/2020, 16:48. FINDINGS: Image quality: Excellent. CSF spaces: Basal cisterns are patent. No extra-axial fluid collections. Ventricles are mildly prominent with corresponding parenchymal volume loss. Coarse calcifications along the midline folds are similar to the prior study. Brain: No midline shift. No intracranial masses or hemorrhage. Keller-white matter interface is normal. Skull and face: Calvarium and visualized facial bones are intact, without suspicious lesions. Sinuses: Visualized sinuses and mastoids are clear. IMPRESSION: Stable head CT. No acute intracranial hemorrhage. Dictated by: Porfirio Monroy M.D. on 04/08/2020 at 13:23 Approved by: Porfirio Monroy M.D. on 04/08/2020 at 13:24 ECG Data Interpretation: 1313: Sinus rhythm, rate 79, NJ interval 174, QTC 438. No ST elevation or ST depression. T-wave inversion noted in V1. No ectopy. EKG also viewed Dr. Quinones per protocol. [facility] Narrative Medical decision making narrative: 74yo male with history of liver cirrhosis and recent catheter placement this month, presents emergency department for dysuria but also not ?wobbly gait for the past month ?. Urine without leukocytes, bacteria, or blood. Given symptoms and recent history, urine was sent for culture for further evaluation. Bladder scan showed initial 700ml of urine in the bladder but postvoid residual was 155ml, which decreases suspicion for urinary tension. No rectal pain, low white blood cell count, normal white fevers, or tachycardia which decreased suspicion for acute infection such prostatitis. Head CT obtain due to report of wobbly gait however, this has been ongoing for the past month so less concern for acute etiology. Patient's ammonia was slightly elevated from last laboratory results so hepatology at was consulted. No asterixis was evaluated, patient had a large bowel movement (BM 2) today and is feeling well. Patient was discharged with follow-up on Friday . Less likely CVA due to lack of concerning symptoms such as unilateral limb weakness, facial droop, dizziness, or other concerns. Less likely other infections such as pneumonia due to negative chest x-ray, clear lungs, no white blood cell count, no skin lesion, no abdominal pain. Return precautions given for new or worsening symptoms. Patient agrees to plan of care verbalized understanding. <Humphrey Quinones, DO - Last Filed: 04/08/20 18:58> Lab Data Labs: Lab Results 04/08/20 04/08/20 04/08/20 Range/Units 13:10 13:10 13:10 WBC 3.8 L (4.5-11.0) X10^3/uL RBC 3.75 L (4.5-5.9) X10^6/uL Hgb 11.4 L (13.5-17.5) g/dL Hct 32.6 L (41-53) % MCV 87.0 (80-100) fL MCH 30.4 (26-34) PG MCHC 35.0 (30-36) % RDW 20.4 H (11.6-14.8) % Plt Count 59 L (150-400) X10^3/uL Neut % (Auto) 57.8 (50-75) % Lymph % (Auto) 23.9 L (25-40) % [place] % (Auto) 14.6 H (3-14) % Eos % (Auto) 3.1 (2-4) % Baso % (Auto) 0.6 (0-2) % Neut # (Auto) 2200 (5170-6390) /uL Lymph # (Auto) 900 L (3244-2498) /uL [place] # (Auto) 600 (0-900) /uL Eos # (Auto) 100 (0-450) /uL Baso # (Auto) 0 (0-100) /uL RBC Morphology See below Poikilocytosis 1+ H Anisocytosis 2+ H PT 14.7 H (10.1-12.7) SECONDS INR 1.3 (0.9-1.3) APTT 29 (26.4-36.2) SECONDS Sodium 134 L (137-145) mmol/L Potassium 4.3 (3.4-5.1) mmol/L Chloride 105 (98-107) mmol/L Carbon Dioxide 22 (22-32) mmol/L BUN 27 H (9-20) mg/dL Creatinine 0.99 (0.66-1.25) mg/dL Estimated GFR > 60.0 (>60) mL/min BUN/Creatinine Ratio 27.3 H (6-22) Glucose 283 H D (80-110) mg/dL Calcium 9.6 (8.4-10.2) mg/dL Total Bilirubin 1.1 (0.2-1.3) mg/dL AST 60 H (17-59) IU/L ALT 47 (<50) IU/L Alkaline Phosphatase 121 (38-126) U/L Ammonia (9-30) umol/L Total Creatine Kinase (55-170) U/L CK-MB (CK-2) CK-MB (CK-2) Rel Index Troponin I (0.01-0.034) ng/mL Total Protein 6.0 L (6.3-8.2) g/dL Albumin 3.2 L (3.5-5.0) g/dL Globulin 2.8 (1.7-4.1) g/dL Albumin/Globulin Ratio 1.1 (1.0-2.8) 04/08/20 04/08/20 Range/Units 13:10 13:10 WBC (4.5-11.0) X10^3/uL RBC (4.5-5.9) X10^6/uL Hgb (13.5-17.5) g/dL Hct (41-53) % MCV (80-100) fL MCH (26-34) PG MCHC (30-36) % RDW (11.6-14.8) % Plt Count (150-400) X10^3/uL Neut % (Auto) (50-75) % Lymph % (Auto) (25-40) % [place] % (Auto) (3-14) % Eos % (Auto) (2-4) % Baso % (Auto) (0-2) % Neut # (Auto) (0712-0269) /uL Lymph # (Auto) (6327-6727) /uL [place] # (Auto) (0-900) /uL Eos # (Auto) (0-450) /uL Baso # (Auto) (0-100) /uL RBC Morphology Poikilocytosis Anisocytosis PT (10.1-12.7) SECONDS INR (0.9-1.3) APTT (26.4-36.2) SECONDS Sodium (137-145) mmol/L Potassium (3.4-5.1) mmol/L Chloride (98-107) mmol/L Carbon Dioxide (22-32) mmol/L BUN (9-20) mg/dL Creatinine (0.66-1.25) mg/dL Estimated GFR (>60) mL/min BUN/Creatinine Ratio (6-22) Glucose (80-110) mg/dL Calcium (8.4-10.2) mg/dL Total Bilirubin (0.2-1.3) mg/dL AST (17-59) IU/L ALT (<50) IU/L Alkaline Phosphatase (38-126) U/L Ammonia 97 H (9-30) umol/L Total Creatine Kinase 28 L (55-170) U/L CK-MB (CK-2) TNP CK-MB (CK-2) Rel Index TNP Troponin I < 0.012 (0.01-0.034) ng/mL Total Protein (6.3-8.2) g/dL Albumin (3.5-5.0) g/dL Globulin (1.7-4.1) g/dL Albumin/Globulin Ratio (1.0-2.8) Urine Dip Bedside Urine Glucose 100 mg/dl Bedside Urine Bilirubin - Negative Bedside Urine Ketone - Negative Urine Specific [place] 1.015 Bedside Urine Occult Blood - Negative Bedside Urine pH 6.0 Bedside Urine Protein - Negative Bedside Urine Urobilinogen - Negative Bedside Urine Nitrite - Negative Bedside Urine Leukocytes - Negative Esterase Discharge Plan Departure Patient Disposition: Home Clinical Impression: Dysuria Discharge Date/Time: 04/08/20 15:34 Instructions: DI for Dysuria -- Adult Activity Restrictions/Additional Instructions: Thank you for entrusting me with your care today. As discussed, your head CT is negative for any concerning findings. Your ammonia level today was 97. Your chest x-ray shows no infection, there is a small pulmonary nodule that was found incidentally. I recommend following up with her primary care provider about continuing to monitor this. Your urine was negative for any bacteria or infection. I spoke with Dr. Faust at the [facility] about your labs, she encourages you to follow-up on Friday and continue taking lactulose as directed, it is reassuring that you continue to have bowel movements. Return emergency department for any new or worsening symptoms such as increased confusion, weakness, chest pain, shortness of breath, high fevers, uncontrollable vomiting, or any other concerns. Prescriptions: No Action tamsulosin [Flomax] 0.4 MG capsule,extended release 24hr 0.4 mg PO QDAY Qty: 0 RF: 0 furosemide 40 mg Tablet 40 mg PO BID RF: 0 spironolactone 100 mg Tablet 50 mg PO BID RF: 0 metformin 500 mg tablet extended release 24hr 500 mg PO BID Qty: 60 RF: 0 (DME) blood-glucose meter [Glucocard 01 Meter] Kit See Rx Instructions .ROUTE .MEDSUPPLY Qty: 1 RF: 0 bisacodyl 10 mg Suppository 10 mg NJ DAILY PRN (Reason: Constipation) Qty: 10 RF: 0 finasteride 5 mg Tablet 5 mg PO BEDTIME Qty: 30 RF: 0 lactulose 20 gram/30 mL Solution 45 gram PO Q2-3H PRN (Reason: 2-3 BM's a day) Qty: 3000 RF: 0 ropinirole [Requip] 0.25 mg Tablet 0.25 mg PO BEDTIME Qty: 30 RF: 0 Xifaxan 550 mg Tablet 550 mg PO BID Qty: 60 RF: 0 Referrals: Katelyn Campbell MD [Primary Care Provider] - <Humphrey Quinones DO - Last Filed: 04/08/20 18:58> Cosign ED Attending Cosignature Attestation: I was immediately available in the department for consultation. This documentation has been reviewed and I agree with assessment and plan. Supervised by Humphrey Quinones DO
--- NOTE | 2020-04-08 13:01 | DI.RAD.S_ITS ---
PROCEDURE: XR CHEST 1V INDICATIONS: weakness TECHNIQUE: One view of the chest was acquired. COMPARISON: [facility], CT, CT CHEST W CON, 09/28/2019, 11:49. [facility], CR, XR CHEST 1V, 04/01/2020, 16:54. FINDINGS: Surgical changes and devices: None. Lungs and pleura: There is a small right-sided pleural effusion. No focal pulmonary consolidation is evident. There may be a small rounded nodule within the right mid lung. No pneumothorax is evident. Mediastinum: Mediastinal contours appear normal. Heart size is normal. Bones and chest wall: No suspicious bony lesions. Overlying soft tissues appear unremarkable. IMPRESSION: 1. Small right-sided pleural effusion. 2. Questionable right-sided pulmonary nodule. A CT of the chest is recommended, when clinically appropriate. Dictated by: Porfirio Monroy M.D. on 04/08/2020 at 12:43 Approved by: Porfirio Monroy M.D. on 04/08/2020 at 12:46
--- NOTE | 2020-04-08 13:19 | DI.CT.S_ITS ---
PROCEDURE: CT HEAD/BRAIN WO CON INDICATIONS: Gait disturbance TECHNIQUE: Noncontrast 4.5 mm thick angled axial sections acquired from the foramen magnum to the vertex, with coronal and sagittal reformats. For radiation dose reduction, the following was used: automated exposure control, adjustment of mA and/or kV according to patient size. COMPARISON: [facility], CT, CT HEAD/BRAIN WO CON, 03/24/2020, 16:48. FINDINGS: Image quality: Excellent. CSF spaces: Basal cisterns are patent. No extra-axial fluid collections. Ventricles are mildly prominent with corresponding parenchymal volume loss. Coarse calcifications along the midline folds are similar to the prior study. Brain: No midline shift. No intracranial masses or hemorrhage. Keller-white matter interface is normal. Skull and face: Calvarium and visualized facial bones are intact, without suspicious lesions. Sinuses: Visualized sinuses and mastoids are clear. IMPRESSION: Stable head CT. No acute intracranial hemorrhage. Dictated by: Porfirio Monroy M.D. on 04/08/2020 at 13:23 Approved by: Porfirio Monroy M.D. on 04/08/2020 at 13:24
[2020-04-08 13:30] LABS: Add Manual Diff / Slide Review NO; Basophils Absolute Auto 0 /uL (0-100); Basophils Percent Auto 0.6 % (0-2); Eosinophils Absolute Auto 100 /uL (0-450); Eosinophils Percent Auto 3.1 % (2-4); Hematocrit 32.6 % (41-53); Hemoglobin 11.4 g/dL (13.5-17.5); Lymphocytes Absolute Auto 900 /uL (1100-4500); Lymphocytes Percent Auto 23.9 % (25-40); Mean Corpuscular Hemoglobin 30.4 PG (26-34); Monocytes Absolute Auto 600 /uL (0-900); Monocytes Percent Auto 14.6 % (3-14); Neutrophils Absolute Auto 2200 /uL (1500-7000); Neutrophils Percent Auto 57.8 % (50-75); Platelet Count 59 X10^3/uL (150-400); Red Blood Cell Count 3.75 X10^6/uL (4.5-5.9); Red Cell Distribution Width 20.4 % (11.6-14.8); White Blood Cell Count 3.8 X10^3/uL (4.5-11.0)
[2020-04-08 13:37] LABS: INR 1.3 (0.9-1.3); Prothrombin Time 14.7 SECONDS (10.1-12.7)
[2020-04-08 13:40] LABS: PTT Partial Thromboplastin Tim 29 SECONDS (26.4-36.2)
[2020-04-08 13:42] LABS: Ammonia (NH3) 97 umol/L (9-30); Creatine Kinase 28 U/L (55-170)
[2020-04-08 13:44] LABS: Alanine Aminotransferase 47 IU/L (<50); Albumin 3.2 g/dL (3.5-5.0); Albumin Globulin Ratio 1.1 (1.0-2.8); Alkaline Phosphatase 121 U/L (38-126); Aspartate Aminotransferase 60 IU/L (17-59); BUN Creatinine Ratio 27.3 (6-22); Bilirubin Total 1.1 mg/dL (0.2-1.3); Blood Urea Nitrogen 27 mg/dL (9-20); Calcium 9.6 mg/dL (8.4-10.2); Carbon Dioxide 22 mmol/L (22-32); Chloride 105 mmol/L (98-107); Estimated Glomerular Filt Rate > 60.0 mL/min (>60); Globulin 2.8 g/dL (1.7-4.1); Glucose 283 mg/dL (80-110); HEMOLYSIS < 15 (0-50); Potassium 4.3 mmol/L (3.4-5.1); Sodium 134 mmol/L (137-145)
[2020-04-08 13:55] LABS: Troponin I < 0.012 ng/mL (0.01-0.034)
[2020-04-08 14:41] LABS: Anisocytosis 2+; Poikilocytosis 1+
== END 2020-04-08 15:34 | disposition home or self-care (01) ==
PROVIDERS: Emergency Provider Nurse Practitioner; Family Provider Internal Medicine Gastroenterology; PCP Internal Medicine
DX: R30.0 Dysuria (principal); R53.1 Weakness; R26.81 Unsteadiness on feet; R07.9 Chest pain, unspecified
CPT/HCPCS: 36415; 51798; 70450; 71045; 80053; 81003; 82140; 82550; 84484; 85025; 85610; 85730; 87086; 93005; 99284

== ENCOUNTER → 2020-05-04 11:25 | Outpatient (CLI) | payer MEDICARE, OTHER, SELFPAY ==
[2020-04-01 21:37] VITALS: BMI 25.0
[2020-05-04 11:51] LABS: Platelet Count 159 X10^3/uL (150-400)
[2020-05-04 11:57] LABS: INR 1.3 (0.9-1.3); Prothrombin Time 15.1 SECONDS (10.1-12.7)
== END ==
PROVIDERS: Family Provider Internal Medicine Gastroenterology; PCP Internal Medicine; Referring Provider Internal Medicine; Visit Provider Internal Medicine
DX: J90 Pleural effusion, not elsewhere classified (principal)
CPT/HCPCS: 36415; 85049; 85610

== ENCOUNTER → 2020-05-08 10:06 | Outpatient (CLI) | payer MEDICARE, OTHER, SELFPAY ==
[2020-04-01 21:37] VITALS: BMI 25.0
--- NOTE | 2020-05-08 | DI.RAD.S_ITS ---
PROCEDURE: XR CHEST 1V INDICATIONS: post thoracentesis TECHNIQUE: One view of the chest was acquired. COMPARISON: [facility], CR, XR CHEST 1V, 04/08/2020, 13:31. FINDINGS: Surgical changes and devices: None. Moderate to large amount of residual right pleural effusion. No pneumothorax. Left lung appears clear. Mediastinum: Mediastinal contours appear normal. Heart size is normal. Bones and chest wall: No suspicious bony lesions. Overlying soft tissues appear unremarkable. IMPRESSION: Residual moderate to large right pleural effusion with adjacent atelectasis. No pneumothorax, status post right ultrasound-guided thoracentesis. Dictated by: Benjamín Mcclain M.D. on 05/08/2020 at 10:55 Approved by: Benjamín Mcclain M.D. on 05/08/2020 at 10:57
--- NOTE | 2020-05-08 | DI.US.S_ITS ---
PROCEDURE: US THORACENTESIS INDICATIONS: Pleural effusion, not elsewhere classified TECHNIQUE: The indications, alternatives, benefits, risks, and complications of the procedure were explained to the patient. Written informed consent was obtained and placed in the chart. The chest was examined sonographically, and an appropriate site was chosen for thoracentesis. The skin was prepared and draped in the usual sterile fashion, and 1% lidocaine was infiltrated from the skin down through the pleural surface. A 19-gauge catheter-covered needle was then introduced into the pleural space, the catheter was advanced and the needle was withdrawn, and thereafter pleural fluid was aspirated. The catheter was then removed and a dressing was applied. COMPARISON: [facility], THORACENTESIS, 10/11/2019, 15:44. FINDINGS: Access site: Right hemithorax. Needle: One-Step centesis catheter with introducer needle. Fluid volume and description: 1500 cc of serosanguineous fluid Fluid sent for diagnostic testing: Not requested. Medications: 1% lidocaine for local anaesthesia. Complications: None; post-procedural chest radiograph is pending to assess for pneumothorax. IMPRESSION: Successful ultrasound-guided thoracentesis. Dictated by: Benjamín Mcclain M.D. on 05/08/2020 at 14:11 Approved by: Benjamín Mcclain M.D. on 05/08/2020 at 14:12
== END ==
PROVIDERS: Family Provider Internal Medicine Gastroenterology; PCP Internal Medicine; Referring Provider Internal Medicine; Visit Provider Internal Medicine
DX: J90 Pleural effusion, not elsewhere classified (principal); J98.11 Atelectasis
CPT/HCPCS: 32555; 71045

== ENCOUNTER → 2020-05-16 15:50 | Outpatient (CLI) | payer MEDICARE, OTHER, SELFPAY ==
[2020-04-01 21:37] VITALS: BMI 25.0
== END ==
PROVIDERS: Family Provider Internal Medicine Gastroenterology; PCP Internal Medicine; Visit Provider Physician Assistant
DX: J02.9 Acute pharyngitis, unspecified (principal)
CPT/HCPCS: 87070

== ENCOUNTER → 2020-05-29 12:02 | Outpatient (CLI) | payer MEDICARE, OTHER, SELFPAY ==
[2020-04-01 21:37] VITALS: BMI 25.0
--- NOTE | 2020-05-29 | DI.US.S_ITS ---
PROCEDURE: US THORACENTESIS INDICATIONS: PLEURAL EFFUSION TECHNIQUE: The indications, alternatives, benefits, risks, and complications of the procedure were explained to the patient. Written informed consent was obtained and placed in the chart. The chest was examined sonographically, and an appropriate site was chosen for thoracentesis. The skin was prepared and draped in the usual sterile fashion, and 1% lidocaine was infiltrated from the skin down through the pleural surface. A 19-gauge catheter-covered needle was then introduced into the pleural space, the catheter was advanced and the needle was withdrawn, and thereafter pleural fluid was aspirated. The catheter was then removed and a dressing was applied. COMPARISON: [facility], THORACENTESIS, 05/08/2020, 10:21. FINDINGS: Access site: Right hemithorax. Needle: One-Step centesis catheter with introducer needle. Fluid volume and description: 1500 mL of dark derek colored pleural effusion. Fluid sent for diagnostic testing: Fluid was sent to cytology for evaluation. Medications: 1% lidocaine for local anaesthesia. Complications: None; post-procedural chest radiograph is pending to assess for pneumothorax. IMPRESSION: Successful ultrasound-guided thoracentesis. Dictated by: Primo Austin M.D. on 05/29/2020 at 17:17 Approved by: Primo Austin M.D. on 05/29/2020 at 17:18
--- NOTE | 2020-05-29 | PATH_ITS ---
Note [facility] Accession Number: [id number] TESTS RESULT FLAG UNITS REF RANGE LAB Clinician Provided Cytology Information No. of containers..01 Other (Miscellaneous) RIGHT THORACENTESIS DIAGNOSIS: RIGHT THORACENTESIS NEGATIVE FOR MALIGNANT CELLS. Pathologist ICD10: J90 Anita Blake MD, Pathologist NPI- [id number] Chad Lund, Glazing Machine Operator ([facility]) 01 10 CC, ORANGE, CLOUDY RECEIVED: FRESH IN ORANGE CAP CONTAINER. /[facility] 05/30/2020 0747 [facility] FLAG LEGEND: L-Low Normal,H-High Normal,LL-Alert Low,HH-Alert High <-Panic Low,>-Panic High,A-Abnormal,AA-Critical Abnormal Performed at: 01 =Z [facility] [address], [place] [address] Trung Costa MD, Performed at: 01 [facility] [address], [place], [place] [id number] MD Trung Costa MD Phone: [phone]
[2020-05-29 13:28] LABS: Hemoglobin A1C% w Est Avg Glu 5.7 % (4.0-6.0)
--- NOTE | 2020-05-29 13:28 | DI.RAD.S_ITS ---
PROCEDURE: XR CHEST 1V INDICATIONS: POST THORACENTESIS TECHNIQUE: One view of the chest was acquired. COMPARISON: [facility], CR, XR CHEST 1V, 05/08/2020, 9:42. FINDINGS: Surgical changes and devices: None. Lungs and pleura: Interval decrease in size of now moderate sized right pleural effusion status post thoracentesis. No pneumothorax seen. Compressive atelectasis of the lower lung zone. Left lung is clear. Mediastinum: Mediastinal contours appear normal. Heart size is normal. Bones and chest wall: No suspicious bony lesions. Overlying soft tissues appear unremarkable. IMPRESSION: Moderate-sized residual right pleural effusion status post thoracentesis. No pneumothorax seen. Dictated by: Primo Austin M.D. on 05/29/2020 at 13:47 Approved by: Primo Austin M.D. on 05/29/2020 at 13:48
[2020-05-29 13:34] LABS: Alanine Aminotransferase 104 IU/L (<50); Albumin 3.7 g/dL (3.5-5.0); Albumin Globulin Ratio 1.1 (1.0-2.8); Alkaline Phosphatase 235 U/L (38-126); Aspartate Aminotransferase 133 IU/L (17-59); BUN Creatinine Ratio 14.6 (6-22); Bilirubin Total 1.1 mg/dL (0.2-1.3); Blood Urea Nitrogen 15 mg/dL (9-20); Calcium 9.4 mg/dL (8.4-10.2); Carbon Dioxide 24 mmol/L (22-32); Chloride 105 mmol/L (98-107); Estimated Glomerular Filt Rate > 60.0 mL/min (>60); Globulin 3.3 g/dL (1.7-4.1); Glucose 215 mg/dL (80-110); HEMOLYSIS < 15 (0-50); Potassium 4.6 mmol/L (3.4-5.1); Sodium 136 mmol/L (137-145)
== END ==
PROVIDERS: Family Provider Internal Medicine Gastroenterology; PCP Internal Medicine; Referring Provider Internal Medicine; Visit Provider Internal Medicine
DX: J90 Pleural effusion, not elsewhere classified (principal); E08.9 Diabetes mellitus due to underlying condition without complications; K75.81 Nonalcoholic steatohepatitis (NASH)
CPT/HCPCS: 32555; 36415; 71045; 80053; 83036

== ENCOUNTER → 2020-06-15 20:00 | Outpatient (ROUT) | payer MEDICARE, OTHER, SELFPAY ==
[2020-04-01 21:37] VITALS: BMI 25.0
== END ==
PROVIDERS: Family Provider Internal Medicine Gastroenterology; PCP Internal Medicine; Visit Provider Student in an Organized Health Care Education/Training Program
DX: R39.9 Unspecified symptoms and signs involving the genitourinary system (principal); R39.12 Poor urinary stream; N20.9 Urinary calculus, unspecified
CPT/HCPCS: 87077; 87086; 87185; 87186

== ENCOUNTER → 2020-06-16 09:42 | Outpatient (CLI) | payer MEDICARE, OTHER, SELFPAY ==
[2020-04-01 21:37] VITALS: BMI 25.0
--- NOTE | 2020-06-16 | DI.CT.S_ITS ---
PROCEDURE: CT ABDOMEN PELVIS WO CON INDICATIONS: Urinary calculus, unspecified TECHNIQUE: Noncontrast 5 mm thick sections acquired from the diaphragms to the symphysis. 5 mm thick coronal and sagittal reformats were then performed. For radiation dose reduction, the following was used: automated exposure control, adjustment of mA and/or kV according to patient size. COMPARISON: [facility], CT, CT ABDOMEN PELVIS W CON, 04/01/2020, 19:51. [facility], CR, XR CHEST 1V, 05/08/2020, 9:42. [facility], CR, XR CHEST 1V, 05/29/2020, 13:18. FINDINGS: Image quality: Excellent. Lung bases: Lung bases are clear on the left but show 5 right lung base atelectasis associated with a moderate posterior layering right pleural effusion. Heart size is normal. Urinary system: Both kidneys are normal in size. No kidney stones. No hydronephrosis or perinephric fat stranding. Both ureters appear non-dilated throughout their expected courses. Bladder wall thickness is normal; no calcified bladder stones. Other solid organs: Liver is small in size and nodular in margination, and demonstrates an expandable TIPS stent. Note is made within the left lateral hepatic segment of a anterior ovoid hypo dense 1.5 x 2.1 cm abnormality potentially on early manifestation of hepatic neoplasm. Gallbladder has been resected . Pancreas is normal in contours. Spleen is enlarged in size at 13.8 cm craniocaudad. No adrenal nodules. Peritoneum and bowel: Unenhanced bowel loops demonstrate normal wall thickness and caliber. No free fluid or air. Nodes and vessels: No retroperitoneal or mesenteric adenopathy by size criteria. Aorta and inferior vena cava are normal in caliber. Abdominal wall: No ventral hernias. Pelvis: No free pelvic fluid. No inguinal hernias or adenopathy. Within the bladder lumen on the right there are 3 layering calculi, each measuring only approximately 2.5 mm in diameter. Bones: No suspicious bony lesions. No vertebral body compression fractures. IMPRESSION: 1. There is an unexpected finding of a mass-like lesion within the anterior left lateral hepatic segment in this patient with cirrhosis, mild splenomegaly, and a TIPS shunt in place. Hepatocellular carcinoma is a potential etiology of this finding, and follow-up by hepatic neoplasm protocol contrast-enhanced MR scanning is recommended. 2. Layering small bladder calculi are present to the right of midline within the bladder lumen. Incidental note is made of prior cholecystectomy. 3. Right lung base pleural effusion, secondary atelectasis right lower lobe. Dictated by: Calderon Whaley M.D. on 06/16/2020 at 10:42 Approved by: Calderon Whaley M.D. on 06/16/2020 at 10:51
== END ==
PROVIDERS: Family Provider Internal Medicine Gastroenterology; PCP Internal Medicine; Referring Provider Student in an Organized Health Care Education/Training Program; Visit Provider Student in an Organized Health Care Education/Training Program
DX: N20.9 Urinary calculus, unspecified (principal); N21.0 Calculus in bladder; R39.9 Unspecified symptoms and signs involving the genitourinary system; R39.12 Poor urinary stream; R35.0 Frequency of micturition; K76.9 Liver disease, unspecified; K74.60 Unspecified cirrhosis of liver; R16.1 Splenomegaly, not elsewhere classified; J90 Pleural effusion, not elsewhere classified; J98.11 Atelectasis; Z90.49 Acquired absence of other specified parts of digestive tract
CPT/HCPCS: 74176

== ENCOUNTER → 2020-08-17 10:25 | Outpatient (CLI) | payer MEDICARE, OTHER, SELFPAY ==
[2020-04-01 21:37] VITALS: BMI 25.0
== END ==
PROVIDERS: Family Provider Internal Medicine Gastroenterology; PCP Internal Medicine; Referring Provider Specialist; Visit Provider Specialist
DX: N39.0 Urinary tract infection, site not specified (principal); T83.511A Infection and inflammatory reaction due to indwelling urethral catheter, initial encounter; N40.1 Benign prostatic hyperplasia with lower urinary tract symptoms; N13.8 Other obstructive and reflux uropathy; Z87.898 Personal history of other specified conditions
CPT/HCPCS: 51798; 81002; 87077; 87086; 87185; 87186; 99215

== ENCOUNTER → 2020-09-19 12:38 | Outpatient (CLI) | payer MEDICARE, OTHER, SELFPAY ==
[2020-08-17 11:18] VITALS: BMI 25.0
[2020-09-19 12:57] LABS: Appearance Urine UA CLEAR; Bilirubin Urine UA NEGATIVE (NEGATIVE); Color Urine UA YELLOW; Glucose Urine UA 1+ g/dL (Negative); Ketones Urine UA NEGATIVE (NEGATIVE); Leukocyte Esterase Urine UA NEGATIVE (NEGATIVE); Nitrite Urine UA NEGATIVE (Negative); Occult Blood Urine UA NEGATIVE (Negative); Protein Urine UA NEGATIVE (Negative); Specific Gravity Urine UA 1.015 (1.000-1.035); Urobilinogen Urine UA 0.2 E.U./dL (0.2); pH Urine UA 6.5 (4.5-8.0)
== END ==
PROVIDERS: Family Provider Internal Medicine Gastroenterology; PCP Internal Medicine; Referring Provider Specialist; Visit Provider Specialist
DX: N39.0 Urinary tract infection, site not specified (principal); Z87.898 Personal history of other specified conditions
CPT/HCPCS: 81003

== ENCOUNTER → 2021-01-24 14:39 | Outpatient (CLI) | payer MEDICARE, OTHER, SELFPAY ==
[2020-11-27 10:23] VITALS: BMI 25.0
[2021-01-24 16:44] LABS: Prostate Specific Antigen 2.16 ng/mL (0.10-4.00)
== END ==
PROVIDERS: Family Provider Internal Medicine Gastroenterology; PCP Internal Medicine; Referring Provider Specialist; Visit Provider Specialist
DX: R97.20 Elevated prostate specific antigen [PSA] (principal)
CPT/HCPCS: 36415; 84153

== ENCOUNTER → 2021-04-30 09:17 | Outpatient (CLI) | payer MEDICARE, OTHER, SELFPAY ==
[2020-11-27 10:23] VITALS: BMI 25.0
[2021-04-30 11:47] LABS: COVID19 -Nasal RAPID Negative (Negative)
== END ==
PROVIDERS: Family Provider Internal Medicine Gastroenterology; PCP Internal Medicine; Visit Provider Physician Assistant
DX: Z01.812 Encounter for preprocedural laboratory examination (principal); Z20.822 Contact with and (suspected) exposure to COVID-19
CPT/HCPCS: 87635; C9803

== ENCOUNTER 2021-05-01 13:55 | Day surgery (SDC) | payer MEDICARE, OTHER, SELFPAY ==
[2020-11-27 10:23] VITALS: BMI 25.0
--- NOTE | 2021-05-01 | PATH_ITS ---
[facility] Accession Number: [id number] . 01 Material submitted: . PART A: colon - RIGHT COLON POLYP PART B: colon - RIGHT COLON INFLAMMATION X2 PART C: colon - DESCENDING COLON POLYP X2 . 02 Diagnosis: A. Right Colon, Polyp, Biopsy: Tubular adenoma. . B. Right Colon, Inflammation x2, Biopsies: Colonic mucosa with extravasated red blood cells in the lamina propria. Please see comment. Negative for active, chronic and microscopic colitis. Negative for dysplasia and malignancy. . C. Descending Colon, Polyp x2, Biopsies: Tubular adenomas. [facility] 05/03/2021 0921 Local . 02 Comment: The part B, right colon biopsies, show colonic mucosa with patchy mild extravasated red blood cells in the lamina propria without accompanying features of active, chronic or microscopic colitis. The differential diagnosis includes procedure-related change, trauma/prolapse/ diverticular disease, or early ischemia-type changes. . 02 Electronically signed: . Eneida Lama MD, Pathologist NPI- [id number] . 01 Gross description: . Part A: RIGHT COLON POLYP: Received in formalin is 1 fragment(s) of kaplan, soft tissue measuring 0.3 x 0.3 x 0.3 cm submitted entirely in 1 cassette(s) Part B: RIGHT COLON INFLAMMATION X2: Received in formalin are 2 fragment(s) of kaplan, soft tissue measuring 0.2 x 0.2 x 0.1 cm to 0.2 x 0.2 x 0.1 cm submitted entirely in 1 cassette(s) Part C: DESCENDING COLON POLYP X2: Received in formalin are multiple fragment(s) of kaplan, soft tissue measuring 2.4 x 0.7 x 0.2 cm in aggregate submitted entirely in 1 cassette(s) /[facility] 05/02/2021 0434 [facility] . 02 Pathologist provided ICD-10: D12.6, D12.4 . 02 CPT . 430484, 769151, [id number] Performed at: 01 [facility] [address] [id number] MD Trung Costa MD Phone: [phone] Performed at: 02 [facility] [id number] [place], [place] [id number] MD Eneida Lama MD Phone: [phone]
[2021-05-01] MEDS: SODIUM CHLORIDE 0.9% 1,000 ML 100 ML IV (14:50)
[2021-05-01 14:51] VITALS: BP 157/74; PULSE 60; RESP 12; TEMP 36.2; O2SAT 95; BMI 25.6
--- NOTE | 2021-05-01 15:59 | PM.HP.1 ---
History of Present Illness History of Present Illness Date Patient Seen: 05/01/21 Time Patient Seen: 15:59 Chief complaint: SDC Narrative: I reviewed my recent clinic note from March 26. No changes. Patient History Medical History Ascites BPH (benign prostatic hyperplasia) BPH w urinary obs/LUTS Chronic neutropenia Cirrhosis Diabetes Gallstones Hepatic encephalopathy History of elevated PSA History of urinary retention Hypertension Inguinal hernia Liver disease MIMS (nonalcoholic steatohepatitis) Neutropenia Splenic mass Thrombocytopenia Urinary retention Surgical History H/O prostate biopsy History of colon surgery Hx of appendectomy S/P TIPS (transjugular intrahepatic portosystemic shunt) Family & Social History Family History Mother Pancreatic cancer Hypertension Father Colon cancer Hypertension Social History: household members spouse Tobacco & Substance use: Smoking Status Former smoker alcohol intake never alcohol intake frequency holiday/special occasion Substance Use Type does not use Meds Home Medications and Allergies Home Medications Medication Instructions Recorded Confirmed Type tamsulosin 0.4 mg capsule (Flomax) 0.4 mg PO QDAY #0 01/28/12 01/31/21 History furosemide 40 mg tablet 40 mg PO BID 10/13/19 05/01/21 History spironolactone 100 mg tablet 100 mg PO BID 10/13/19 05/01/21 History blood-glucose meter (Glucocard 01 #1 each 03/26/20 01/31/21 Rx Meter) rifaximin 550 mg tablet (Xifaxan) 550 mg PO BID #60 tab 04/04/20 05/01/21 Rx insulin glargine 100 unit/mL (3 24 unit SUBCUT DAILY 08/17/20 01/31/21 History mL) subcutaneous pen (Lantus Solostar U-100 Insulin) lactulose 20 gram/30 mL oral 30 gram PO DAILY 05/01/21 05/01/21 History solution Allergies Allergy/AdvReac Type Severity Reaction Status Date / Time No Known Drug Allergies Allergy Verified 05/01/21 14:28 Review of Systems Review of Systems ROS: Yes All systems reviewed with the patient and are negative except as otherwise documented Exam Vital Signs (past 8 hours): - 05/01/21 14:51 Temperature 97.1 F L Pulse Rate 60 Respiratory Rate 12 Blood Pressure 157/74 H Pulse Oximetry 95 Oxygen Delivery Method Room Air Const General: cooperative and comfortable Orientation: alert HENNV Head: normocephalic Ears: external ears normal Nose: external nose normal Face and sinus: normal facial exam Mouth: oral mucosae normal Eyes General: appearance normal, both eyes and all related structures Neck Neck: normal visual inspection Chest Chest: normal inspection of the chest Resp Effort & Inspection: normal respiratory effort Auscultation: clear to auscultation bilaterally Cardio Rate: regular rate Rhythm: regular rhythm Heart Sounds: no murmurs GI Inspection: normal to inspection Palpation: soft and No tender Auscultation: normal bowel sounds Skin General: no rashes or lesions noted and No jaundice Neuro General: patient alert and moves all extremities Cognition: normal cognition Speech: speech normal Extrem General: No no pedal edema Psych Appearance: grossly normal Assessment & Plan Assessment & Plan narrative: Personal hx of colon cancer. Due for surveillance colonoscopy. MAc requested in light of cirrhosis hx.
--- NOTE | 2021-05-01 16:04 | PM.PREOP ---
Pre-operative Note COVID-19 COVID-19 status: Negative Result date/Date tested (Pos, Neg/Pending): 04/30/21 Interval Note History & Physical reviewed/Exam performed by Physician: Yes Changes to H&P: No ASA Class (for procedural sedation): II
--- NOTE | 2021-05-01 16:53 | PM.OP.ENDO ---
Operative Date/Time/Diagnoses Date of procedure: 05/01/21 Time of procedure: 16:54 Pre-op diagnosis: Personal history of colon cancer status post right hemicolectomy Post-op diagnosis: same Procedure & Clinicians Study performed: Colonoscopy with biopsies and hot snare polypectomy Same procedure as scheduled: Yes Indications: Personal history of colon cancer Surgeon: Aubrey Perez Procedure Notes SCOAP/Timeout: Done Procedure in detail: After the risks and benefits were explained, written and verbal informed consent was obtained. The patient was brought into the procedure room and placed into the left lateral decubitus position. MAC was applied. Digital rectal examination was accomplished. The scope was introduced into the patient and advanced under direct visualization to the cecum as identified by the appendiceal orifice and ileocecal valve. The scope was slowly withdrawn to carefully examine the mucosa for any defects or lesions. Comprehensive imaging was accomplished throughout the rectum including the dentate line. The colon was decompressed, the scope was then removed from the patient who tolerated the procedure well. Bowel prep fair initially. With copious irrigation and suction this was rendered adequate. Scope withdrawal time: Not applicable in a patient wi Sedation minutes: 42 Complications: none Impression: Patient had scattered diverticulosis in the left colon. He had a lengthy somewhat tortuous colon. There was evidence of a right hemicolectomy anastomosis. Normal-appearing small bowel mucosa was evident. In the right colon there were some scattered areas of obvious inflammation characterized by superficial ulceration and erythema. These were targeted for biopsy. In the right colon there was a small polyp removed with hot snare polypectomy. This was perhaps 5 mm in greatest dimension. In the descending colon there were 2 other polyps ranging in size from 5-7 mm removed with hot snare polypectomy as well. No additional pathology was appreciated. Endoscopic diagnosis 1. Multiple colon polyps 2. Scattered right colon inflammation 3. Diverticulosis 4. Right hemicolectomy anastomosis Post-procedure Recommendations: Colonscopy in 1 year Plan for aftercare: 1. Await histopathology 2. If adenomatous features are confirmed repeat colonoscopy will be suggested for 1 year. Disposition: PACU
[2021-05-01 16:59] VITALS: BP 133/54; PULSE 50; RESP 11; TEMP 36.3; O2SAT 95
[2021-05-01 17:04] VITALS: BP 137/54; PULSE 48; RESP 9; TEMP 36.4; O2SAT 96
[2021-05-01 17:09] VITALS: BP 148/49; PULSE 52; RESP 97; TEMP 36.6; O2SAT 11
[2021-05-01 17:14] VITALS: BP 147/52; PULSE 50; RESP 11; TEMP 36.6; O2SAT 97
[2021-05-01 17:21] VITALS: BP 161/61; PULSE 53; RESP 14; TEMP 36.4; O2SAT 97
== END 2021-05-01 17:28 | disposition home or self-care (01) ==
PROVIDERS: Family Provider Internal Medicine Gastroenterology; PCP Internal Medicine; Referring Provider Internal Medicine Gastroenterology; Visit Provider Internal Medicine Gastroenterology
PROC: 0DJD8ZZ Inspection of Lower Intestinal Tract, Via Natural or Artificial Opening Endoscopic (ICD-10-PCS; CPT 45378; principal; 2021-05-01 15:00)
DX: Z12.11 Encounter for screening for malignant neoplasm of colon (principal); Z85.038 Personal history of other malignant neoplasm of large intestine; K74.69 Other cirrhosis of liver; K43.9 Ventral hernia without obstruction or gangrene; K57.30 Diverticulosis of large intestine without perforation or abscess without bleeding; D12.6 Benign neoplasm of colon, unspecified; D12.4 Benign neoplasm of descending colon
CPT/HCPCS: 45385; 45380

== ENCOUNTER → 2022-04-08 14:07 | Outpatient (CLI) | payer MEDICARE, OTHER, SELFPAY ==
[2020-11-27 10:23] VITALS: BMI 25.0
--- NOTE | 2022-04-08 | DI.CT.S_ITS ---
PROCEDURE: CT ABDOMEN WO/W CON INDICATIONS: Liver cell carcinoma TECHNIQUE: 4 phase scanning was performed. Non-contrast 5 mm axial sections acquired from the diaphragm to the iliac crests. Following the administration of intravenous contrast, 5 mm thick arterial-phase, portal venous-phase, and 5-minute delayed phase images were acquired through the liver. 5 mm thick coronal and sagittal reformats were performed. For radiation dose reduction, the following was used: automated exposure control, adjustment of mA and/or kV according to patient size. COMPARISON: [facility], CT, CT ABDOMEN PELVIS WITH CONTRAST, 10/28/2019, 15:45. FINDINGS: Image quality: Motion artifact limits evaluation of the venous and delayed phase images. Lung bases: Consolidated radiopacities at the right lung base suggest 2 foci of rounded atelectasis. There is a small low-density right pleural effusion. The left lung base is clear. Heart is mildly enlarged. There is a large hiatal hernia. Liver: The liver demonstrates mild surface nodularity suggesting cirrhotic transformation. 3 ill-defined lesions are visualized on the delayed phase study: 1. 3.1 x 3.0 x 2.8 cm lesion within hepatic segment V 2. 0.8 x 1.4 x 1.7 cm lesion within hepatic segment III 3. Ill-defined, lobulated 6.9 by 3.4 x 4.1 cm lesion within hepatic segment HALLE It is unclear whether there is arterial phase enhancement due to motion artifact. Other solid organs: Gallbladder is surgically absent. Biliary system is non dilated. A metallic biliary stent is present within the bile duct. The pancreas demonstrates overall normal enhancement. 3 cystic lesions are visualized within the head of the pancreas, 1 of which measures 1.3 cm in diameter, 1 of which measures 2.2 cm in diameter, and 1 of which measures 1.1 cm in diameter. Spleen measures 12.9 cm in diameter. No adrenal nodules. Both kidneys demonstrate normal size and enhancement, without hydronephrosis or nephrolithiasis. Nodes and vessels: No retroperitoneal or mesenteric adenopathy by size criteria. Aorta and inferior vena cava are normal in size. Bowel and peritoneum: Unenhanced bowel loops are normal in caliber. No free fluid or air. Bones: No suspicious bony lesions. No vertebral body compression fractures. Miscellaneous: No ventral hernias. IMPRESSION: 1. Probable rounded atelectasis at the right lung base. 2. Small low-density right pleural effusion. 3. 3 hepatic lesions which demonstrate washout on the delayed phase studies. Arterial or portal venous phase enhancement is difficult to characterize given motion artifact; however findings are most consistent with multifocal hepatocellular carcinoma. 4. 3 cystic lesions within the head of the pancreas which are poorly characterized by motion artifact. These were not well characterized or not present on the comparison study from October 28, 2019. Attention should be directed to these lesions on future surveillance scans. Dictated by: Ashley Gabriel M.D. on 04/08/2022 at 16:21 Approved by: Ashley Gabriel M.D. on 04/08/2022 at 16:35
== END ==
PROVIDERS: Family Provider Internal Medicine Gastroenterology; PCP Internal Medicine; Referring Provider Radiology Diagnostic Radiology; Visit Provider Radiology Diagnostic Radiology
DX: C22.0 Liver cell carcinoma (principal); K86.9 Disease of pancreas, unspecified; J90 Pleural effusion, not elsewhere classified; Z90.49 Acquired absence of other specified parts of digestive tract
CPT/HCPCS: 74170; Q9967

== ENCOUNTER → 2022-06-05 10:05 | Outpatient (CLI) | payer MEDICARE, OTHER, SELFPAY ==
[2020-11-27 10:23] VITALS: BMI 25.0
[2022-06-05 11:37] LABS: COVID-19 CEPHEID PCR (VTM/NP) Negative (Negative)
== END ==
PROVIDERS: Family Provider Internal Medicine Gastroenterology; PCP Internal Medicine Gastroenterology; Referring Provider Internal Medicine Gastroenterology; Visit Provider Internal Medicine Gastroenterology
DX: Z20.822 Contact with and (suspected) exposure to COVID-19 (principal)
CPT/HCPCS: C9803; U0003; U0005

== ENCOUNTER → 2022-10-01 13:58 | Outpatient (CLI) | payer MEDICARE, OTHER, SELFPAY ==
[2020-11-27 10:23] VITALS: BMI 25.0
--- NOTE | 2022-10-01 13:59 | DI.MRI.S_ITS ---
PROCEDURE: MR ABDOMEN WO/W CON INDICATIONS: liver cancer TECHNIQUE: Coronal HASTE, axial 2D FLASH in- and [id number]; axial breath-hold T2 FSE. Dynamic axial VIBE during the administration of contrast; post-contrast coronal VIBE or 2D FLASH with fat saturation from the hepatic dome to the iliac crests. Optional diffusion weighted imaging and ADC may be performed. COMPARISON: [facility], CT, CT ABDOMEN WO/W CON, 04/08/2022, 14:22. FINDINGS: Image quality: Good Lower chest: Partially visualized right pleural effusion and suspected rounded opacities which may represent round atelectasis, also seen on prior CT. Small hiatal hernia, not well evaluated on this study. Left lower lobe focal opacity. Gynecomastia. Solid organs: A nonenhancing region with intrinsic T1 signal is seen in hepatic segment 5 measuring 3.4 x 3.7 cm, similar to prior. Similar nonenhancing regions, for example measuring 4.1 x 3.3 cm is seen in the left lobe on image 25/37, and 25/42. However, peripherally, there is ill-defined hypervascularity and heterogeneous enhancement in the left lobe, associated with T2 signal abnormality and diffusion signal (20/59). This area is more conspicuous than prior CT. No pathologic dilation of the biliary tree. Numerous pancreatic cystic lesions again seen, the largest measuring 2.8 x 3.0 cm at the tail. Splenomegaly, with multiple T2 hyperintense lesions, also present on prior imaging. No adrenal nodules. Small left hyperdense renal cyst. Vessels and lymph nodes: No pathologic adenopathy by size criteria. No abdominal aortic aneurysm. Tips in place, not well evaluated on MRI. Varices are present. Bowel and peritoneum: No bowel obstruction. No pathologic ascites. Body wall: Partially seen ventral hernia. Pelvis: Partially seen bladder trabeculations/diverticula. Bones: No acute or suspicious osseous abnormality. IMPRESSION: Nonenhancing focal liver lesions in segment 5 and the left lobe may represent prior treatment sites. Adjacent to the left lobe regions, there is an ill-defined hypervascular region with T2 and diffusion signal abnormality suspicious for infiltrative neoplasm. Please correlate with any history of targeted liver therapies. LR TR viable. TIPS in place, the hepatic veins are not well seen. Right pleural effusion and rounded opacities in the right pulmonary lower lobe, probably round atelectasis. Numerous pancreatic cystic lesions and splenic lesions should be followed also on subsequent imaging. Dictated by: German Jimenes M.D. on 10/01/2022 at 17:00 Approved by: German Jimenes M.D. on 10/01/2022 at 17:24
== END ==
PROVIDERS: Family Provider Internal Medicine Gastroenterology; PCP Internal Medicine Gastroenterology; Referring Provider Internal Medicine Hematology & Oncology; Visit Provider Internal Medicine Hematology & Oncology
DX: C22.0 Liver cell carcinoma (principal); J90 Pleural effusion, not elsewhere classified; D73.9 Disease of spleen, unspecified; K86.2 Cyst of pancreas; K44.9 Diaphragmatic hernia without obstruction or gangrene; N28.1 Cyst of kidney, acquired; N62 Hypertrophy of breast; R16.1 Splenomegaly, not elsewhere classified; K43.9 Ventral hernia without obstruction or gangrene
CPT/HCPCS: 74183

== ENCOUNTER → 2023-01-01 08:04 | Outpatient (CLI) | payer MEDICARE, OTHER, SELFPAY ==
[2020-11-27 10:23] VITALS: BMI 25.0
--- NOTE | 2023-01-01 08:05 | DI.MRI.S_ITS ---
PROCEDURE: MR ABDOMEN WO/W CON INDICATIONS: liver cancer TECHNIQUE: Coronal HASTE, axial 2D FLASH in- and [id number]; axial breath-hold T2 FSE. Dynamic axial VIBE during the administration of contrast; post-contrast coronal VIBE or 2D FLASH with fat saturation from the hepatic dome to the iliac crests. Optional diffusion weighted imaging and ADC may be performed. COMPARISON: [facility], , MR ABDOMEN WO/W CON, 10/01/2022, 14:31. FINDINGS: Image quality: Excellent. Lung bases: Moderate pleural effusion rounded atelectasis. Moderate hiatal hernia. Solid organs: Posttreatment changes in the left hepatic lobe and segment 5/6, with slightly decreased size of the treated lesions and no evidence of local recurrence. The segment 5/6 lesion measures 2.8 centimeters, previously 3.7 centimeters, and the left hepatic lobe lesion measures 3.96 centimeters, previously 4.1 centimeter. Persistent restricted diffusion in the lateral left hepatic lobe, with heterogeneous enhancement (20/68). Tips present. Similar T2 intermediate, T1 hypointense splenic lesions. Splenomegaly. Similar cystic lesions throughout the pancreatic parenchyma, without associated nodularity or ductal dilation. Hemorrhagic cyst on the inferior pole of the left kidney. No adrenal nodules. Nodes and vessels: No retroperitoneal or mesenteric adenopathy by size criteria. Aorta and inferior vena cava are normal in size. Bowel and peritoneum: Unenhanced bowel loops are normal in caliber. No free fluid. Bones and soft tissues: Ventral wall hernia containing nonobstructed bowel. Bone marrow is normal in overall signal. IMPRESSION: Posttreatment change in the liver. The measured lesions have decreased in size, without features to suggest local recurrence. LRTR nonviable. Persistent heterogeneous enhancement and restricted diffusion in the left lateral hepatic lobe, but decreased restricted diffusion. Findings probably represent posttreatment change. No measurable lesion. Similar splenic lesions and pancreatic cystic lesions. Attention on follow-up. Ventral hernia containing nonobstructed bowel. Dictated by: Aleksandr Coates M.D. on 01/01/2023 at 10:22 Approved by: Aleksandr Coates M.D. on 01/01/2023 at 10:28
== END ==
PROVIDERS: Family Provider Internal Medicine Gastroenterology; PCP Internal Medicine; Referring Provider Internal Medicine Hematology & Oncology; Visit Provider Internal Medicine Hematology & Oncology
DX: C22.0 Liver cell carcinoma (principal); J90 Pleural effusion, not elsewhere classified; J98.11 Atelectasis; D73.9 Disease of spleen, unspecified; K86.2 Cyst of pancreas; N28.1 Cyst of kidney, acquired; K44.9 Diaphragmatic hernia without obstruction or gangrene; R16.1 Splenomegaly, not elsewhere classified; K43.9 Ventral hernia without obstruction or gangrene
CPT/HCPCS: 74183

== ENCOUNTER → 2023-01-08 15:33 | Outpatient (CLI) | payer MEDICARE, OTHER, SELFPAY ==
[2020-11-27 10:23] VITALS: BMI 25.0
[2023-01-08 16:05] LABS: Add Manual Diff / Slide Review NO; Basophils Absolute Auto 0 /uL (0-100); Basophils Percent Auto 1.1 % (0-2); Eosinophils Absolute Auto 100 /uL (0-450); Hematocrit 40.6 % (41-53); Hemoglobin 14.3 g/dL (13.5-17.5); Lymphocytes Absolute Auto 500 /uL (1100-4500); Lymphocytes Percent Auto 17.4 % (25-40); Mean Corpuscular HGB Conc 35.3 % (30-36); Mean Corpuscular Hemoglobin 35.7 PG (26-34); Monocytes Absolute Auto 500 /uL (0-900); Monocytes Percent Auto 17.2 % (3-14); Neutrophils Absolute Auto 1600 /uL (1500-7000); Neutrophils Percent Auto 59.3 % (50-75); Platelet Count 50 X10^3/uL (150-400); Red Blood Cell Count 4.02 X10^6/uL (4.5-5.9); Red Cell Distribution Width 15.3 % (11.6-14.8); White Blood Cell Count 2.8 X10^3/uL (4.5-11.0)
[2023-01-08 16:20] LABS: INR 1.5 (0.9-1.3)
[2023-01-08 16:24] LABS: Ammonia (NH3) 60 umol/L (9-30)
[2023-01-08 16:39] LABS: Alanine Aminotransferase 43 IU/L (<50); Albumin 2.6 g/dL (3.5-5.0); Albumin Globulin Ratio 0.9 (1.0-2.8); Alkaline Phosphatase 106 U/L (38-126); Aspartate Aminotransferase 68 IU/L (17-59); Bilirubin Unconjugated 2.3 mg/dL (0.0-1.1); Globulin 2.9 g/dL (1.7-4.1); HEMOLYSIS < 15 (0-50); Total Protein 5.5 g/dL (6.3-8.2)
[2023-01-08 16:54] LABS: Thyroid Stimulating Hormone 2.42 uIU/mL (0.47-4.68)
[2023-01-08 16:55] LABS: Blood Urea Nitrogen 27 mg/dL (9-20); Calcium 8.5 mg/dL (8.4-10.2); Carbon Dioxide 21 mmol/L (22-32); Chloride 105 mmol/L (98-107); Estimated Glomerular Filt Rate 51 mL/min (>60); Glucose 234 mg/dL (80-110); Potassium 5.1 mmol/L (3.4-5.1); Sodium 132 mmol/L (137-145)
[2023-01-08 18:47] LABS: Collection Time Urine 24 Hours; Protein (Total) Urine Random < 5 mg/dL (0-12); Total Protein 24 Hour Urine 150 mg/day (42-225); Total Volume Urine 3000 mL
[2023-01-09 07:09] LABS: Alpha Fetoprotein 3.9 ng/mL (0.0-8.4)
== END ==
PROVIDERS: Internal Medicine Hematology & Oncology; Family Provider Internal Medicine Gastroenterology; PCP Internal Medicine; Referring Provider Nurse Practitioner Gerontology; Visit Provider Nurse Practitioner Gerontology
DX: C22.0 Liver cell carcinoma (principal); K74.69 Other cirrhosis of liver; K74.60 Unspecified cirrhosis of liver; E06.4 Drug-induced thyroiditis; R94.6 Abnormal results of thyroid function studies; Z95.828 Presence of other vascular implants and grafts
CPT/HCPCS: 36415; 80048; 80076; 82105; 82140; 84156; 84443; 85025; 85610

== ENCOUNTER 2023-05-17 12:36 | Emergency (ER) | payer MEDICARE, OTHER, SELFPAY ==
[2020-11-27 10:23] VITALS: BMI 25.0
[2023-05-17] VITALS (9 sets, daily range): BP systolic 151–171; BP diastolic 67–76; PULSE 67–81; RESP 14–22; TEMP 36.6; O2SAT 93–95; BMI 28.2
--- NOTE | 2023-05-17 12:55 | DI.RAD.S_ITS ---
PROCEDURE: XR CHEST 1V INDICATIONS: Shortness of breath TECHNIQUE: One view of the chest was acquired. COMPARISON: [facility], , XR CHEST 1V, 05/29/2020, 13:18. FINDINGS: Surgical changes and devices: None. Lungs and pleura: Large right pleural effusion has increased in size compared to the prior exam. Left lung pleural space clear. Mediastinum: Mediastinal contours appear normal. Heart size is normal. Atherosclerotic vascular calcification noted in the aortic arch. Bones and chest wall: No suspicious bony lesions. Overlying soft tissues appear unremarkable. IMPRESSION: Large right pleural effusion has increased from the prior. Approved by: Harinder Pretty M.D. on 05/17/2023 at 13:30
[2023-05-17 13:39] LABS: INR 1.6 (0.9-1.3); Prothrombin Time 18.4 SECONDS (10.1-12.7)
[2023-05-17 13:41] LABS: Add Manual Diff / Slide Review NO; Basophils Absolute Auto 0 /uL (0-100); Basophils Percent Auto 0.4 % (0-2); Eosinophils Absolute Auto 300 /uL (0-450); Eosinophils Percent Auto 9.8 % (2-4); Hematocrit 35.5 % (41-53); Hemoglobin 12.5 g/dL (13.5-17.5); Lymphocytes Absolute Auto 500 /uL (1100-4500); Lymphocytes Percent Auto 13.9 % (25-40); Mean Corpuscular HGB Conc 35.3 % (30-36); Mean Corpuscular Hemoglobin 36.6 PG (26-34); Mean Corpuscular Volume 103.7 fL (80-100); Monocytes Absolute Auto 600 /uL (0-900); Monocytes Percent Auto 16.4 % (3-14); Neutrophils Absolute Auto 2100 /uL (1500-7000); Neutrophils Percent Auto 59.5 % (50-75); Red Blood Cell Count 3.42 X10^6/uL (4.5-5.9); Red Cell Distribution Width 16.2 % (11.6-14.8); White Blood Cell Count 3.5 X10^3/uL (4.5-11.0)
[2023-05-17 13:42] LABS: Platelet Count 37 X10^3/uL (150-400)
[2023-05-17 13:43] LABS: Lactate (Lactic Acid) 2.1 mmol/L (0.7-2.1)
[2023-05-17 13:45] LABS: Alanine Aminotransferase 32 IU/L (<50); Albumin 2.1 g/dL (3.5-5.0); Albumin Globulin Ratio 0.7 (1.0-2.8); Alkaline Phosphatase 118 U/L (38-126); Aspartate Aminotransferase 59 IU/L (17-59); BUN Creatinine Ratio 21.7 (6-22); Bilirubin Total 4.4 mg/dL (0.2-1.3); Blood Urea Nitrogen 36 mg/dL (9-20); Carbon Dioxide 18 mmol/L (22-32); Chloride 104 mmol/L (98-107); Estimated Glomerular Filt Rate 42 mL/min (>60); Globulin 2.9 g/dL (1.7-4.1); Glucose 191 mg/dL (80-110); HEMOLYSIS < 15 (0-50); Potassium 4.5 mmol/L (3.4-5.1); Sodium 127 mmol/L (137-145)
[2023-05-17 13:50] LABS: Influenza A - CEPHEID Flu A NEGATIVE (NEGATIVE); Influenza B - CEPHEID Flu B NEGATIVE (NEGATIVE); Respiratory Syncytial Virus Negative (Negative)
[2023-05-17 13:51] LABS: COVID-19 CEPHEID 4-PLEX PCR Negative (Negative)
[2023-05-17 13:56] LABS: NT-proBNP (BNP-Adult 18+) 106 pg/mL (<450); Troponin I < 0.012 ng/mL (0.01-0.034)
[2023-05-17 14:00] LABS: Ammonia (NH3) 68 umol/L (9-30)
--- NOTE | 2023-05-17 14:02 | ED.SOB ---
HPI - SOB/Dyspnea General Chief Complaint: Shortness of Breath/Dyspnea Stated Complaint: SOB/pressure on heart/D/hacking cough/edema Time Seen by Provider: 05/17/23 12:59 Source: patient Mode of arrival: Ambulatory Limitations: no limitations History of Present Illness HPI Narrative: Patient is a 69-year-old male history of insulin-dependent diabetes, hepatocellular carcinoma being followed by [facility] and Dr. Araya. He is on diuretics Lasix and spironolactone for ascites. Reports that he has not had a paracentesis in a long time it has been pretty stable he is receiving immunotherapy. However over the past week or so he is gained 10 lb he is having increasing shortness of breath. No fever or chills. No real pain. Related Data Home Medications Medication Instructions Recorded Confirmed tamsulosin 0.4 mg capsule (Flomax) 0.4 mg PO BID ##0 01/28/12 02/20/23 furosemide 40 mg tablet 40 mg PO DAILY 10/13/19 02/20/23 spironolactone 100 mg tablet 100 mg PO DAILY 10/13/19 02/20/23 insulin glargine 100 unit/mL (3 24 unit SUBCUT DAILY 08/17/20 02/20/23 mL) subcutaneous pen (Lantus Solostar U-100 Insulin) lactulose 20 gram/30 mL oral 30 gram PO DAILY 05/01/21 02/20/23 solution magnesium 200 mg tablet 200 mg PO PRN PRN Cramps 02/20/23 02/20/23 Previous Rx's Medication Instructions Recorded blood-glucose meter (Glucocard 01 #1 ea 03/26/20 Meter kit) rifaximin 550 mg tablet (Xifaxan) 550 mg PO BID #60 tabs 04/04/20 hydroxychloroquine 200 mg tablet 200 mg PO DAILY muscle crampe #14 04/14/23 tabs Allergies Allergy/AdvReac Type Severity Reaction Status Date / Time No Known Drug Allergies Allergy Verified 05/01/21 14:28 Review of Systems Review of Systems ROS Unobtainable: All systems reviewed & are unremarkable except as noted in HPI and below Patient History Medical History Ascites BPH (benign prostatic hyperplasia) BPH w urinary obs/LUTS Chronic neutropenia Cirrhosis Diabetes Gallstones Hepatic encephalopathy Hepatocellular carcinoma History of elevated PSA History of urinary retention Hypertension Inguinal hernia Liver disease MIMS (nonalcoholic steatohepatitis) Neutropenia Splenic mass Thrombocytopenia Urinary retention Surgical History H/O prostate biopsy History of colon surgery Hx of appendectomy S/P TIPS (transjugular intrahepatic portosystemic shunt) Family History Mother Pancreatic cancer Hypertension Father Colon cancer Hypertension Social History marital status: number of children: 4 household members: spouse Smoking Status: Former smoker alcohol intake: never caffeine: Yes Smoking Status: Former smoker alcohol intake frequency: holidays/special occasions only Substance Use Type: does not use Exam Initial Vital Signs Initial Vital Signs: Vital Signs Temperature 97.8 F 05/17/23 12:48 Pulse Rate 81 05/17/23 12:48 Respiratory Rate 22 05/17/23 12:48 Blood Pressure 171/73 H 05/17/23 12:48 Pulse Oximetry 94 05/17/23 12:48 Oxygen Delivery Method Room Air 05/17/23 12:48 GENERAL: Alert 77-year-old male and in no acute distress. HEENT: Head atraumatic,EOMI, pupils reactive, face symmetric, moist mucous membranes CARDIOVASCULAR: Regular rate and rhythm without murmurs, rubs or gallops. RESPIRATORY: Decreased breath sounds right side no wheezes rales or rhonchi ABDOMEN: Soft, positive fluid wave soft reducible hernia appreciated no contusion EXTREMITIES: Normal range of motion, no clubbing or edema. Neurovascularly intact NEUROLOGICAL: Alert and oriented x4. SKIN: Warm, dry, no laceration, no petechiae, no rashes or lesions. Course Orders Ordered: ED Orders 05/17/23 12:55 XR chest 1V Stat Measure peak expiratory flow ONCE RT Consult Eval and Treat NOW 05/17/23 13:00 Covid-19 + FLU A/B + RSV - PCR Stat 05/17/23 13:20 Ammonia (NH3) Stat Complete Blood Count AUTO DIFF Stat Comprehensive Metabolic Panel Stat Lactate (Lactic Acid) Stat NT-proBNP (BNP-Adult 18+) Stat Platelet Irradiated Stat Prothrombin Time INR Stat Troponin I Stat Type and Screen Stat 05/17/23 13:30 EKG-12 Lead Stat Discontinued Medications Hydrocodone Bitart/Acetaminophen (Hydrocodone/Acet 5/325 Prepack) 1 bottle MISC SEEINSTR ONE Stop: 05/17/23 16:05 Last Admin: 05/17/23 16:13 Dose: 1 bottle Documented By: SCAR Furosemide (Furosemide 40 Mg/4 Ml Vial) 40 mg IV NOW ONE Stop: 05/17/23 13:50 Last Admin: 05/17/23 14:12 Dose: 40 mg Documented By: SCAR Vital Signs Vital signs: Vital Signs - 8 hr 05/17/23 12:48 05/17/23 14:05 05/17/23 14:07 Temperature 97.8 F Pulse Rate 81 67 Respiratory Rate 22 16 Blood Pressure 171/73 H 159/71 H Pulse Oximetry 94 94 Oxygen Delivery Method Room Air 05/17/23 14:07 05/17/23 14:17 05/17/23 14:17 Temperature Pulse Rate 67 70 Respiratory Rate 22 Blood Pressure 161/72 H Pulse Oximetry 94 94 Oxygen Delivery Method 05/17/23 14:30 05/17/23 14:30 05/17/23 15:00 Temperature Pulse Rate 69 Respiratory Rate Blood Pressure 160/72 H 168/76 H Pulse Oximetry 94 Oxygen Delivery Method 05/17/23 15:00 05/17/23 15:27 05/17/23 15:27 Temperature Pulse Rate 70 70 Respiratory Rate 14 Blood Pressure 156/68 H Pulse Oximetry 93 95 Oxygen Delivery Method 05/17/23 15:30 05/17/23 15:30 05/17/23 16:00 Temperature Pulse Rate 69 Respiratory Rate 19 Blood Pressure 151/67 H 159/73 H Pulse Oximetry 94 Oxygen Delivery Method 05/17/23 16:00 Temperature Pulse Rate 70 Respiratory Rate 17 Blood Pressure Pulse Oximetry 94 Oxygen Delivery Method MDM - SOB/Dyspnea Lab Data 05/17/23 13:20 05/17/23 13:20 Labs: Lab Results 05/17/23 05/17/23 05/17/23 Range/Units 13:00 13:20 13:20 WBC 3.5 L (4.5-11.0) X10^3/uL RBC 3.42 L (4.5-5.9) X10^6/uL Hgb 12.5 L (13.5-17.5) g/dL Hct 35.5 L (41-53) % MCV 103.7 H (80-100) fL MCH 36.6 H (26-34) PG MCHC 35.3 (30-36) % RDW 16.2 H (11.6-14.8) % Plt Count 37 L (150-400) X10^3/uL Neut % (Auto) 59.5 (50-75) % Lymph % (Auto) 13.9 L (25-40) % Price % (Auto) 16.4 H (3-14) % Eos % (Auto) 9.8 H (2-4) % Baso % (Auto) 0.4 (0-2) % Neut # (Auto) 2100 (3313-9738) /uL Lymph # (Auto) 500 L (4673-7342) /uL Price # (Auto) 600 (0-900) /uL Eos # (Auto) 300 (0-450) /uL Baso # (Auto) 0 (0-100) /uL Platelet Estimate Decreased on smear RBC Morphology Normal morphology PT 18.4 H (10.1-12.7) SECONDS INR 1.6 H (0.9-1.3) Sodium (137-145) mmol/L Potassium (3.4-5.1) mmol/L Chloride (98-107) mmol/L Carbon Dioxide (22-32) mmol/L BUN (9-20) mg/dL Creatinine (0.66-1.25) mg/dL Estimated GFR (>60) mL/min BUN/Creatinine Ratio (6-22) Glucose (80-110) mg/dL Lactate (0.7-2.1) mmol/L Calcium (8.4-10.2) mg/dL Total Bilirubin (0.2-1.3) mg/dL AST (17-59) IU/L ALT (<50) IU/L Alkaline Phosphatase (38-126) U/L Ammonia (9-30) umol/L Troponin I (0.01-0.034) ng/mL NT-Pro-B Natriuret Pep (<450) pg/mL Total Protein (6.3-8.2) g/dL Albumin (3.5-5.0) g/dL Globulin (1.7-4.1) g/dL Albumin/Globulin Ratio (1.0-2.8) SARS-CoV-2 (PCR) Negative (Negative) Influenza A (RT-PCR) Flu a negative (NEGATIVE) Influenza B (RT-PCR) Flu b negative (NEGATIVE) RSV (PCR) Negative (Negative) Blood Type Antibody Screen 05/17/23 05/17/23 05/17/23 Range/Units 13:20 13:20 13:20 WBC (4.5-11.0) X10^3/uL RBC (4.5-5.9) X10^6/uL Hgb (13.5-17.5) g/dL Hct (41-53) % MCV (80-100) fL MCH (26-34) PG MCHC (30-36) % RDW (11.6-14.8) % Plt Count (150-400) X10^3/uL Neut % (Auto) (50-75) % Lymph % (Auto) (25-40) % Price % (Auto) (3-14) % Eos % (Auto) (2-4) % Baso % (Auto) (0-2) % Neut # (Auto) (9244-2234) /uL Lymph # (Auto) (6100-8432) /uL Price # (Auto) (0-900) /uL Eos # (Auto) (0-450) /uL Baso # (Auto) (0-100) /uL Platelet Estimate RBC Morphology PT (10.1-12.7) SECONDS INR (0.9-1.3) Sodium 127 L (137-145) mmol/L Potassium 4.5 (3.4-5.1) mmol/L Chloride 104 (98-107) mmol/L Carbon Dioxide 18 L (22-32) mmol/L BUN 36 H (9-20) mg/dL Creatinine 1.66 H (0.66-1.25) mg/dL Estimated GFR 42 L (>60) mL/min BUN/Creatinine Ratio 21.7 (6-22) Glucose 191 H (80-110) mg/dL Lactate 2.1 (0.7-2.1) mmol/L Calcium 8.0 L (8.4-10.2) mg/dL Total Bilirubin 4.4 H (0.2-1.3) mg/dL AST 59 (17-59) IU/L ALT 32 (<50) IU/L Alkaline Phosphatase 118 (38-126) U/L Ammonia 68 H (9-30) umol/L Troponin I < 0.012 (0.01-0.034) ng/mL NT-Pro-B Natriuret Pep 106 (<450) pg/mL Total Protein 5.0 L (6.3-8.2) g/dL Albumin 2.1 L (3.5-5.0) g/dL Globulin 2.9 (1.7-4.1) g/dL Albumin/Globulin Ratio 0.7 L (1.0-2.8) SARS-CoV-2 (PCR) (Negative) Influenza A (RT-PCR) (NEGATIVE) Influenza B (RT-PCR) (NEGATIVE) RSV (PCR) (Negative) Blood Type Antibody Screen 05/17/23 Range/Units 13:20 WBC (4.5-11.0) X10^3/uL RBC (4.5-5.9) X10^6/uL Hgb (13.5-17.5) g/dL Hct (41-53) % MCV (80-100) fL MCH (26-34) PG MCHC (30-36) % RDW (11.6-14.8) % Plt Count (150-400) X10^3/uL Neut % (Auto) (50-75) % Lymph % (Auto) (25-40) % Price % (Auto) (3-14) % Eos % (Auto) (2-4) % Baso % (Auto) (0-2) % Neut # (Auto) (8588-6506) /uL Lymph # (Auto) (2332-5627) /uL Price # (Auto) (0-900) /uL Eos # (Auto) (0-450) /uL Baso # (Auto) (0-100) /uL Platelet Estimate RBC Morphology PT (10.1-12.7) SECONDS INR (0.9-1.3) Sodium (137-145) mmol/L Potassium (3.4-5.1) mmol/L Chloride (98-107) mmol/L Carbon Dioxide (22-32) mmol/L BUN (9-20) mg/dL Creatinine (0.66-1.25) mg/dL Estimated GFR (>60) mL/min BUN/Creatinine Ratio (6-22) Glucose (80-110) mg/dL Lactate (0.7-2.1) mmol/L Calcium (8.4-10.2) mg/dL Total Bilirubin (0.2-1.3) mg/dL AST (17-59) IU/L ALT (<50) IU/L Alkaline Phosphatase (38-126) U/L Ammonia (9-30) umol/L Troponin I (0.01-0.034) ng/mL NT-Pro-B Natriuret Pep (<450) pg/mL Total Protein (6.3-8.2) g/dL Albumin (3.5-5.0) g/dL Globulin (1.7-4.1) g/dL Albumin/Globulin Ratio (1.0-2.8) SARS-CoV-2 (PCR) (Negative) Influenza A (RT-PCR) (NEGATIVE) Influenza B (RT-PCR) (NEGATIVE) RSV (PCR) (Negative) Blood Type O Negative Antibody Screen Negative Imaging Data Chest x-ray: Radiologist's Impression: PROCEDURE:? XR CHEST 1V ? INDICATIONS:? Shortness of breath ? TECHNIQUE:? One view of the chest was acquired.? ? COMPARISON:? [facility], , XR CHEST 1V, 05/29/2020, 13:18. ? FINDINGS:? ? Surgical changes and devices:? None.? ? Lungs and pleura:? Large right pleural effusion has increased in size compared to the prior exam.? Left lung pleural space clear. ? Mediastinum:? Mediastinal contours appear normal.? Heart size is normal.? Atherosclerotic vascular calcification noted in the aortic arch. ? Bones and chest wall:? No suspicious bony lesions.? Overlying soft tissues appear unremarkable.? ? IMPRESSION:? Large right pleural effusion has increased from the prior. ? ? ? Approved by: Harinder Pretty M.D. on 05/17/2023 at 13:30? ECG Data Interpretation: Sinus rhythm rate 71 MO interval 156 QRS [address] changes similar to previous EKGs MDM Narrative Medical decision making narrative: Patient is 77-year-old male history of hepatocellular carcinoma he had a pleural effusion previously presents today with increasing shortness of breath worse with lying down. He is found have a large right-sided pleural effusion. He is given an extra dose of Lasix he is not hypoxic he has no work of breathing in the ED. BNP is negative. Platelets are noted to be low at 37. Discussed case with Dr. Valenzuela on-call Hematology/Oncology who recommends that the patient just come back to the ED for a thoracentesis rather than outpatient thoracentesis. Likely be done quicker. Patient has follow-up with Oncology in [place] in 5 days. He has no fever. He overall appears comfortable. Requesting something for pain and cough home. Platelets have been ordered and will be delivered on Friday he is to keep his blood band on. Thoracentesis has been partially scheduled from the ED for 08 28 on Friday. I fortunately we work on Friday and will see him. Discharge Plan Departure Patient Disposition: Home Clinical Impression: Pleural effusion Instructions: Pleural Effusion Activity Restrictions/Additional Instructions: *You have been diagnosed with pleural effusion *What to do: Fluid on your lungs will need to be drained. The fast and easiest way to as returning to the ER on Friday preferably before 10:00 a.m. possibly around 9:00 a.m. Do not remove your hospital bands so that you can receive a platelet transfusion if needed *Continue to take medications as directed *Follow up with your primary care provider in 2-3 days or call [phone] *Return to ER if you should have increasing shortness of breath pain or any new, worsening or concerning symptoms Prescriptions: No Action tamsulosin [Flomax] 0.4 MG capsule,extended release 24hr 0.4 mg PO BID Qty: 0 lactulose 20 gram/30 mL solution 30 gram PO DAILY furosemide 40 mg Tablet 40 mg PO DAILY spironolactone 100 mg Tablet 100 mg PO DAILY magnesium 200 mg Tablet 200 mg PO PRN PRN (Reason: Cramps) hydroxychloroquine 200 mg Tablet 200 mg PO DAILY Qty: 14 0RF (DME) blood-glucose meter [Glucocard 01 Meter] Kit See Rx Instructions .ROUTE .MEDSUPPLY Qty: 1 0RF Rx Instructions: Measure blood glucose level 4 times daily Xifaxan 550 mg Tablet 550 mg PO BID Qty: 60 0RF Lantus Solostar U-100 Insulin 100 unit/mL (3 mL) insulin pen 24 unit SUBCUT DAILY Referrals: Katelyn Campbell MD [Primary Care Provider] - Stand Alone Forms: Patient Portal/API
[2023-05-17] MEDS: FUROSEMIDE 40 MG/4 ML VIAL IV (14:12)
[2023-05-17 14:14] LABS: Platelet Estimate Decreased on smear; RBC Morphology Normal Morphology
[2023-05-17 15:28] LABS: Reflexed Lactate in 2 Hours Y
[2023-05-17] MEDS: HYDROCODONE/ACET 5/325 PREPACK 1 BOTTLE MISC (16:13)
== END 2023-05-17 16:22 | disposition home or self-care (01) ==
PROVIDERS: Emergency Provider Emergency Medicine; Family Provider Internal Medicine Gastroenterology; PCP Internal Medicine
DX: J90 Pleural effusion, not elsewhere classified (principal); R06.02 Shortness of breath; Z79.01 Long term (current) use of anticoagulants; Z20.822 Contact with and (suspected) exposure to COVID-19
CPT/HCPCS: 0241U; 36415; 71045; 80053; 82140; 83605; 83880; 84484; 85025; 85610; 86850; 86900; 86901; 93005; 96374; 99284; J1940

== ENCOUNTER 2023-05-19 09:37 | Emergency (ER) | payer MEDICARE, OTHER, SELFPAY ==
[2020-11-27 10:23] VITALS: BMI 25.0
[2023-05-19] VITALS (9 sets, daily range): BP systolic 148–163; BP diastolic 65–83; PULSE 65–85; RESP 15–25; TEMP 36.7; O2SAT 92–97; BMI 27.9
--- NOTE | 2023-05-19 10:01 | DI.RAD.S_ITS ---
PROCEDURE: XR CHEST 1V INDICATIONS: pleural effusion TECHNIQUE: One view of the chest was acquired. COMPARISON: [facility], CR, XR CHEST 1V, 05/17/2023, 12:58. FINDINGS: Surgical changes and devices: None. Lungs and pleura: Interval increase in right pleural effusion, large, with compressive atelectasis on the right lower lobe. Pulmonary edema. Mediastinum: Mediastinal contours appear normal. Heart size is normal. Bones and chest wall: No suspicious bony lesions. Overlying soft tissues appear unremarkable. Worsening pulmonary status. Congestive heart failure. Findings include a large right pleural effusion. Dictated by: Willy Servin M.D. on 05/19/2023 at 11:59 Approved by: Willy Servin M.D. on 05/19/2023 at 12:00
[2023-05-19 10:19] LABS: Basophils Absolute Auto 0 /uL (0-100); Basophils Percent Auto 0.5 % (0-2); Eosinophils Absolute Auto 600 /uL (0-450); Eosinophils Percent Auto 14.6 % (2-4); Hematocrit 39.5 % (41-53); Hemoglobin 13.9 g/dL (13.5-17.5); Lymphocytes Absolute Auto 600 /uL (1100-4500); Lymphocytes Percent Auto 13.9 % (25-40); Mean Corpuscular HGB Conc 35.1 % (30-36); Mean Corpuscular Hemoglobin 36.3 PG (26-34); Mean Corpuscular Volume 103.2 fL (80-100); Monocytes Absolute Auto 600 /uL (0-900); Monocytes Percent Auto 13.6 % (3-14); Neutrophils Absolute Auto 2500 /uL (1500-7000); Neutrophils Percent Auto 57.4 % (50-75); Platelet Count 46 X10^3/uL (150-400); Red Blood Cell Count 3.83 X10^6/uL (4.5-5.9); Red Cell Distribution Width 16.7 % (11.6-14.8); White Blood Cell Count 4.4 X10^3/uL (4.5-11.0)
[2023-05-19 10:27] LABS: INR 1.5 (0.9-1.3); Prothrombin Time 17.1 SECONDS (10.1-12.7)
--- NOTE | 2023-05-19 10:27 | ED.RECABL ---
HPI - Recheck/Abnormal Lab/Rx General Chief Complaint: Recheck/Abnormal Lab/Rx Stated Complaint: back for more procedures mayur Zheng Time Seen by Provider: 05/19/23 10:01 Source: patient Mode of arrival: Ambulatory History of Present Illness HPI narrative: Patient is a 77-year-old male history of hepatocellular carcinoma, thrombocytopenia presents today for a thoracentesis. He was seen evaluated by myself 2 days ago found to have a large right-sided pleural effusion. Platelets were ordered for platelets at that time were 37. He reports that he was on Lasix we increased to 120 mg for the last day. reports that he is down 2 lb today but started having some leg cramping last night. He reports he still having some shortness of breath. He is followed by [facility] down in [place]. Related Data Home Medications Medication Instructions Recorded Confirmed tamsulosin 0.4 mg capsule (Flomax) 0.4 mg PO BID ##0 01/28/12 02/20/23 furosemide 40 mg tablet 40 mg PO DAILY 10/13/19 02/20/23 spironolactone 100 mg tablet 100 mg PO DAILY 10/13/19 02/20/23 insulin glargine 100 unit/mL (3 24 unit SUBCUT DAILY 08/17/20 02/20/23 mL) subcutaneous pen (Lantus Solostar U-100 Insulin) lactulose 20 gram/30 mL oral 30 gram PO DAILY 05/01/21 02/20/23 solution magnesium 200 mg tablet 200 mg PO PRN PRN Cramps 02/20/23 02/20/23 Previous Rx's Medication Instructions Recorded blood-glucose meter (Glucocard 01 #1 ea 03/26/20 Meter kit) rifaximin 550 mg tablet (Xifaxan) 550 mg PO BID #60 tabs 04/04/20 hydroxychloroquine 200 mg tablet 200 mg PO DAILY muscle crampe #14 04/14/23 tabs Allergies Allergy/AdvReac Type Severity Reaction Status Date / Time No Known Drug Allergies Allergy Verified 05/01/21 14:28 Review of Systems Review of Systems ROS Unobtainable: All systems reviewed & are unremarkable except as noted in HPI and below Patient History Medical History Ascites BPH (benign prostatic hyperplasia) BPH w urinary obs/LUTS Chronic neutropenia Cirrhosis Diabetes Gallstones Hepatic encephalopathy Hepatocellular carcinoma History of elevated PSA History of urinary retention Hypertension Inguinal hernia Liver disease MIMS (nonalcoholic steatohepatitis) Neutropenia Splenic mass Thrombocytopenia Urinary retention Surgical History H/O prostate biopsy History of colon surgery Hx of appendectomy S/P TIPS (transjugular intrahepatic portosystemic shunt) Family History Mother Pancreatic cancer Hypertension Father Colon cancer Hypertension Social History marital status: number of children: 4 household members: spouse Smoking Status: Former smoker alcohol intake: never caffeine: Yes Smoking Status: Former smoker alcohol intake frequency: holidays/special occasions only Substance Use Type: does not use Exam Initial Vital Signs Initial Vital Signs: Vital Signs Pulse Rate 85 05/19/23 09:46 Pulse Oximetry 93 05/19/23 09:46 GENERAL: Alert pleasant 77-year-old male chronically ill HEENT: Head atraumatic,EOMI, pupils reactive, face symmetric, moist mucous membranes CARDIOVASCULAR: Regular rate and rhythm without murmurs, rubs or gallops. RESPIRATORY: Decreased breath sounds right side ABDOMEN: Soft, nontender. Normoactive bowel sounds all 4 quadrants. No guarding or rebound. EXTREMITIES: Normal range of motion, no clubbing or edema. Neurovascularly intact NEUROLOGICAL: Alert and oriented x4. SKIN: Warm, dry, no laceration, no petechiae, no rashes or lesions. Course Orders Ordered: ED Orders 05/19/23 10:00 ABO RH Type Stat CMP [Comprehensive Metabolic Panel] Stat Complete Blood Count AUTO DIFF Stat LDH [Lactate Dehydrogenase] Stat PT [Prothrombin Time INR] Stat PTT Partial Thromboplastin Floyd Stat 05/19/23 10:01 Chest [XR chest 1V] Stat 05/19/23 10:37 US thoracentesis Stat 05/19/23 10:40 CT chest abd pel w con Stat 05/19/23 12:00 XR chest 1V Stat 05/19/23 12:20 Body Fluid Culture Stat Cell Count w Diff Body Fluid Stat Vital Signs Vital signs: Vital Signs - 8 hr 05/19/23 11:04 05/19/23 11:04 05/19/23 11:30 Pulse Rate 75 Respiratory Rate 24 Blood Pressure 163/73 H 161/71 H Pulse Oximetry 94 Oxygen Delivery Method 05/19/23 11:30 05/19/23 13:33 05/19/23 13:33 Pulse Rate 66 72 Respiratory Rate 15 18 Blood Pressure 155/67 H Pulse Oximetry 92 94 Oxygen Delivery Method Room Air 05/19/23 14:30 Pulse Rate 73 Respiratory Rate Blood Pressure 148/65 H Pulse Oximetry 95 Oxygen Delivery Method Room Air MDM - Recheck/Abnormal Lab/Rx Lab Data 05/19/23 10:00 05/19/23 10:00 Labs: Lab Results 05/19/23 05/19/23 05/19/23 Range/Units 10:00 10:00 10:00 WBC 4.4 L (4.5-11.0) X10^3/uL RBC 3.83 L (4.5-5.9) X10^6/uL Hgb 13.9 (13.5-17.5) g/dL Hct 39.5 L (41-53) % MCV 103.2 H (80-100) fL MCH 36.3 H (26-34) PG MCHC 35.1 (30-36) % RDW 16.7 H (11.6-14.8) % Plt Count 46 L (150-400) X10^3/uL Neut % (Auto) 57.4 (50-75) % Lymph % (Auto) 13.9 L (25-40) % Haralson % (Auto) 13.6 (3-14) % Eos % (Auto) 14.6 H (2-4) % Baso % (Auto) 0.5 (0-2) % Neut # (Auto) 2500 (8477-7857) /uL Lymph # (Auto) 600 L (8775-2738) /uL Haralson # (Auto) 600 (0-900) /uL Eos # (Auto) 600 H (0-450) /uL Baso # (Auto) 0 (0-100) /uL Platelet Estimate Decreased on smear RBC Morphology Normal morphology PT 17.1 H (10.1-12.7) SECONDS INR 1.5 H (0.9-1.3) APTT 31 (26-36) SECONDS Sodium (137-145) mmol/L Potassium (3.4-5.1) mmol/L Chloride (98-107) mmol/L Carbon Dioxide (22-32) mmol/L BUN (9-20) mg/dL Creatinine (0.66-1.25) mg/dL Estimated GFR (>60) mL/min BUN/Creatinine Ratio (6-22) Glucose (80-110) mg/dL Calcium (8.4-10.2) mg/dL Total Bilirubin (0.2-1.3) mg/dL AST (17-59) IU/L ALT (<50) IU/L Alkaline Phosphatase (38-126) U/L Lactate Dehydrogenase (120-246) U/L Total Protein (6.3-8.2) g/dL Albumin (3.5-5.0) g/dL Globulin (1.7-4.1) g/dL Albumin/Globulin Ratio (1.0-2.8) Fluid Color Fluid Appearance Fluid RBC /uL Fld Tot Nucleated Cell /uL Fluid Polynuclear WBCs % Fluid Mononuclear WBCs % Fluid Eosinophils % Fluid Other Cells Body Fluid Clot Blood Type O Negative 05/19/23 05/19/23 05/19/23 Range/Units 10:00 10:00 12:20 WBC (4.5-11.0) X10^3/uL RBC (4.5-5.9) X10^6/uL Hgb (13.5-17.5) g/dL Hct (41-53) % MCV (80-100) fL MCH (26-34) PG MCHC (30-36) % RDW (11.6-14.8) % Plt Count (150-400) X10^3/uL Neut % (Auto) (50-75) % Lymph % (Auto) (25-40) % Haralson % (Auto) (3-14) % Eos % (Auto) (2-4) % Baso % (Auto) (0-2) % Neut # (Auto) (9410-4881) /uL Lymph # (Auto) (3394-5540) /uL Haralson # (Auto) (0-900) /uL Eos # (Auto) (0-450) /uL Baso # (Auto) (0-100) /uL Platelet Estimate RBC Morphology PT (10.1-12.7) SECONDS INR (0.9-1.3) APTT (26-36) SECONDS Sodium 128 L (137-145) mmol/L Potassium 4.5 (3.4-5.1) mmol/L Chloride 104 (98-107) mmol/L Carbon Dioxide 18 L (22-32) mmol/L BUN 38 H (9-20) mg/dL Creatinine 1.62 H (0.66-1.25) mg/dL Estimated GFR 43 L (>60) mL/min BUN/Creatinine Ratio 23.5 H (6-22) Glucose 174 H (80-110) mg/dL Calcium 8.1 L (8.4-10.2) mg/dL Total Bilirubin 3.7 H (0.2-1.3) mg/dL AST 75 H (17-59) IU/L ALT 39 (<50) IU/L Alkaline Phosphatase 150 H (38-126) U/L Lactate Dehydrogenase 325 H (120-246) U/L Total Protein 5.5 L (6.3-8.2) g/dL Albumin 2.4 L (3.5-5.0) g/dL Globulin 3.1 (1.7-4.1) g/dL Albumin/Globulin Ratio 0.8 L (1.0-2.8) Fluid Color Yellow Fluid Appearance Hazy Fluid RBC 1709 /uL Fld Tot Nucleated Cell 225 /uL Fluid Polynuclear WBCs 4 % Fluid Mononuclear WBCs 95 % Fluid Eosinophils 1 % Fluid Other Cells Not Reportable Body Fluid Clot No clots present Blood Type Urine Dip Bedside Urine Glucose Negative Bedside Urine Bilirubin - Negative Bedside Urine Ketone - Negative Urine Specific Heppner 1.010 Bedside Urine Occult Blood - Negative Bedside Urine pH 6.0 Bedside Urine Protein - Negative Bedside Urine Urobilinogen - Negative Bedside Urine Nitrite - Negative Bedside Urine Leukocytes - Negative Esterase Imaging Data CT scan - abdomen/pelvis: Radiologist's Impression: PROCEDURE:? CT CHEST ABD PEL W CON ? INDICATIONS:? hepatocellular carcinoma with pleural effusion ? TECHNIQUE:? After the administration of oral and intravenous contrast, axial sections acquired from the supraclavicular neck to the pubic symphysis.? Coronal and sagittal reformats were performed.? For radiation dose reduction, the following was used:? automated exposure control, adjustment of mA and/or kV according to patient size.? ? COMPARISON: ? [facility], CR, XR CHEST 1V, 05/19/2023, 10:11.? [facility], MR, MR ABDOMEN WO/W CON, 01/01/2023, 8:25. ? FINDINGS:? Image quality:? Excellent.? ? CHEST: Lower Neck: No enlarged lymph nodes.? Thyroid:? Heterogeneous left thyroid lobe containing several coarse calcifications. Axillae: No enlarged lymph nodes. Chest Wall:? Symmetric gynecomastia. ? Lungs and Airways:? Central spiculated linear opacity in the left upper lobe.? A lobulated solid left upper lobe lung mass 1.4 x 1.1 cm, 5/115.? Interstitial and peribronchovascular thickening in the right infrahilar right middle lobe.? Masslike opacity centrally in the right middle lobe and right lower lobe, presumably atelectasis.? Minor dependent left lower lobe atelectasis. Pleura:? Large right pleural effusion.? Trace left pleural effusion. ? Heart:? Normal heart size.? Trace pericardial effusion. Thoracic Vessels: The aorta and pulmonary arteries demonstrate normal size.? Mediastinum and Stephie: No enlarged lymph nodes.? Esophagus:? Normal esophageal caliber.? Moderate-sized hiatal hernia containing fluid, fat, and small varices. ? ABDOMEN: Liver:? Cirrhotic liver morphology.? There is a TIPS shunt in place.? Several hypodense masses in the atrophic left lobe, and one inferiorly in the right hepatic lobe.? These range in size from 1.7 cm to 4.7 cm. Gallbladder:? Surgically absent. Biliary ducts:? Nondilated. Pancreas:? 2.9 cm hypodensity arising from the ventral pancreatic tail.? Ill-defined hypodense mass in the pancreatic head measuring 2.2 cm. Spleen:? The spleen is enlarged measuring 16.8 cm in length and contains innumerable rounded hypodensities ranging in size from a few mm to 2.1 cm. Adrenal Glands:? No nodules. Kidneys and Ureters: Symmetric enhancement.? No nephrolithiasis or hydronephrosis.? No hydroureter. ? Stomach and Bowel:? The stomach is within normal limits.? There is diffuse proximal small bowel wall thickening involving distal duodenum and several loops of jejunum.? 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 Peritoneum:? There is a small amount of perihepatic ascites and pelvic ascites.? No free air. ? Ventral Wall:? There is a wide necked periumbilical rectus diastasis containing fat, fluid, and nonobstructed small bowel.? Infraumbilical Gil's hernia without obstruction. Abdominal Nodes:? No retroperitoneal or mesenteric adenopathy by size criteria.? Vessels:? IVC and aorta are normal caliber.? There is marked dilatation of the splenic and portal vein.? Partial thrombosis of the superior mesenteric vein just prior to the lexy splenic confluence.? Recanalized umbilical vein.? There are small perigastric varices. ? PELVIS: Pelvic Organs:? Moderate prostatomegaly. Bladder:? Irregular urinary bladder wall thickening with morphology of under distended diverticuli along the posterior superior margin.? No calcifications. Pelvic Nodes: No enlarged lymph nodes.? Miscellaneous:? Small fluid containing left inguinal hernia. ? Bones:? Unremarkable.? ? ? IMPRESSION:? ? 1.? Large right and trace left pleural effusion. ? 2.? 1.4 cm left upper lobe lobulated lung mass suspicious for metastatic disease.? There is either metastatic disease or atelectasis involving the central right middle and lower lobes. ? 3.? Cirrhotic liver morphology with several hypodense masses suspicious for neoplasm. ? 4. Findings of portal hypertension.? The enlarged spleen contains numerous masses which are nonspecific but in the setting of known malignancy may indicate metastatic disease. ? 5. Partial thrombosis of the proximal superior mesenteric vein. ? 6. Proximal small bowel wall thickening with differential diagnosis of portal enteropathy, early ischemic congestion, or enteritis. ? 7. Nonobstructing ventral wall hernias.? Dictated by: Sharon Mock M.D. on 05/19/2023 at 11:39 ? ? Approved by: Sharon Mock M.D. on 05/19/2023 at 11:58 ? Chest x-ray: Radiologist's Impression: PROCEDURE:? XR CHEST 1V ? INDICATIONS:? POST THORACENTESIS ? TECHNIQUE:? One view of the chest was acquired.? ? COMPARISON:? [facility], CR, XR CHEST 1V, 05/19/2023, 10:11.? [facility], CR, XR CHEST 1V, 05/17/2023, 12:58. ? FINDINGS:? ? Surgical changes and devices:? None.? ? Lungs and pleura:? Moderate right pleural effusion.? Diffuse interstitial airspace opacities.? No pneumothorax. ? Mediastinum:? Mediastinal contours appear normal.? Heart size is normal.? ? Bones and chest wall:? No suspicious bony lesions.? Overlying soft tissues appear unremarkable.? ? IMPRESSION:? Moderate pleural effusion.? No pneumothorax. ? Diffuse interstitial airspace opacities, concerning for pulmonary edema.? Superimposed infection not excluded. ? ? Dictated by: Aleksandr Coates M.D. on 05/19/2023 at 13:39 ?? Thoracentesis: Radiologist's Impression: PROCEDURE:? US THORACENTESIS ? INDICATIONS:? right pleural effusion ? TECHNIQUE:? The indications, alternatives, benefits, risks, and complications of the procedure were explained to the patient.? Written informed consent was obtained and placed in the chart. ?The chest was examined sonographically, and an appropriate site was chosen for thoracentesis.? The skin was prepared and draped in the usual sterile fashion, and 1% lidocaine was infiltrated from the skin down through the pleural surface.? A 19-gauge catheter-covered needle was then introduced into the pleural space, the catheter was advanced and the needle was withdrawn, and thereafter pleural fluid was aspirated.? The catheter was then removed and a dressing was applied.? ? COMPARISON:? [facility], CT, CT CHEST ABD PEL W CON, 05/19/2023, 11:01.? [facility], , US THORACENTESIS, 05/29/2020, 12:58. ? FINDINGS:? Access site:? Left hemithorax.? Needle:? One-Step centesis catheter with introducer needle.? Fluid volume and description:? 1.5 liters clear yellow pleural fluid. Fluid sent for diagnostic testing:? Yes. Medications:? 1% lidocaine for local anaesthesia.? Complications:? None; post-procedural chest radiograph is pending to assess for pneumothorax.? ? IMPRESSION:? Successful ultrasound-guided thoracentesis.? ? ? Dictated by: Aleksandr Coates M.D. on 05/19/2023 at 13:28? [facility] Narrative Medical decision making narrative: Patient is a 77-year-old male with history of hepatocellular carcinoma presenting today for thoracentesis of his right pleural effusion. He required a platelet transfusion platelets today are 46 platelets have been ordered and transfused. Thoracentesis removed 1.[address] confirms probable metastatic disease there is a mass in his left upper lobe. However patient reports that mass is probably still He has follow-up with [facility] on Friday. Blood work has been reviewed sodium is slightly better today 128 creatinine 1.62 previously 1.66. Overall feeling much better after thoracentesis. Discharge Plan Departure Patient Disposition: Home Clinical Impression: Pleural effusion Instructions: DI for Thoracentesis Activity Restrictions/Additional Instructions: *You have been diagnosed with pleural effusion *What to do: you had 1.5 L removed from right lung *Continue to take medications as directed You may continue Lasix 120 mg next 1-2 days. Then resume 80 mg twice daily *Follow up with your primary care provider in 2-3 days or call [phone] Follow-up with oncology on Friday as scheduled *Return to ER if you should have increasing chest pain shortness of breath or any new, worsening or concerning symptoms Prescriptions: No Action tamsulosin [Flomax] 0.4 MG capsule,extended release 24hr 0.4 mg PO BID Qty: 0 lactulose 20 gram/30 mL solution 30 gram PO DAILY furosemide 40 mg Tablet 40 mg PO DAILY spironolactone 100 mg Tablet 100 mg PO DAILY magnesium 200 mg Tablet 200 mg PO PRN PRN (Reason: Cramps) hydroxychloroquine 200 mg Tablet 200 mg PO DAILY Qty: 14 0RF (DME) blood-glucose meter [Glucocard 01 Meter] Kit See Rx Instructions .ROUTE .MEDSUPPLY Qty: 1 0RF Rx Instructions: Measure blood glucose level 4 times daily Xifaxan 550 mg Tablet 550 mg PO BID Qty: 60 0RF Lantus Solostar U-100 Insulin 100 unit/mL (3 mL) insulin pen 24 unit SUBCUT DAILY Referrals: Katelyn Campbell MD [Primary Care Provider] - Stand Alone Forms: Patient Portal/API
[2023-05-19 10:30] LABS: PTT Partial Thromboplastin Tim 31 SECONDS (26-36)
[2023-05-19 10:33] LABS: Add Manual Diff / Slide Review SLIDE REVIEW
[2023-05-19 10:34] LABS: RBC Morphology Normal Morphology
[2023-05-19 10:35] LABS: Platelet Estimate Decreased on smear
--- NOTE | 2023-05-19 10:37 | DI.US.S_ITS ---
PROCEDURE: US THORACENTESIS INDICATIONS: right pleural effusion TECHNIQUE: The indications, alternatives, benefits, risks, and complications of the procedure were explained to the patient. Written informed consent was obtained and placed in the chart. The chest was examined sonographically, and an appropriate site was chosen for thoracentesis. The skin was prepared and draped in the usual sterile fashion, and 1% lidocaine was infiltrated from the skin down through the pleural surface. A 19-gauge catheter-covered needle was then introduced into the pleural space, the catheter was advanced and the needle was withdrawn, and thereafter pleural fluid was aspirated. The catheter was then removed and a dressing was applied. COMPARISON: [facility], CT, CT CHEST ABD PEL W CON, 05/19/2023, 11:01. [facility], US, US THORACENTESIS, 05/29/2020, 12:58. FINDINGS: Access site: Left hemithorax. Needle: One-Step centesis catheter with introducer needle. Fluid volume and description: 1.5 liters clear yellow pleural fluid. Fluid sent for diagnostic testing: Yes. Medications: 1% lidocaine for local anaesthesia. Complications: None; post-procedural chest radiograph is pending to assess for pneumothorax. IMPRESSION: Successful ultrasound-guided thoracentesis. Dictated by: Aleksandr Coates M.D. on 05/19/2023 at 13:28 Approved by: Aleksandr Coates M.D. on 05/19/2023 at 13:29
--- NOTE | 2023-05-19 10:37 | PATH_ITS ---
Note [facility] Accession Number: [id number] TESTS RESULT FLAG UNITS REF RANGE LAB Clinician Provided Cytology Information No. of containers..01 Other (Miscellaneous) Source: PLEURAL FLUID DIAGNOSIS: PLEURAL FLUID NEGATIVE FOR CYTOLOGICALLY MALIGNANT CELLS. INCREASED SMALL, MATURE LYMPHOCYTES; CANNOT COMPLETELY EXCLUDE INVOLVEMENT BY SMALL LYMPHOCYTIC LYMPHOMA / CHRONIC LYMPHOCYTIC LEUKEMIA IN THIS STUDY. FLOW CYTOMETRIC STUDIES COULD BE CONSIDERED, IF CLINICALLY APPROPRIATE. THIS INTERPRETATION INCLUDES EVALUATION OF A CELL BLOCK. Pathologist ICD10: J90 Signed out by: Mak Finley MD, Pathologist NPI- [id number] Performed by: Chad Lund, Social Organization Professor ([facility]) Gross description: 65 CC, YELLOW, CLOUDY RECEIVED: FRESH IN ORANGE CAP CONTAINER.VO /VDU 05/20/2023 06 Local FLAG LEGEND: L-Low Normal,H-High Normal,LL-Alert Low,HH-Alert High <-Panic Low,>-Panic High,A-Abnormal,AA-Critical Abnormal Performed at: 01 =Z [facility] [address], [place] [address] Trung Costa MD, Performed at: 01 [facility] [address], [place], [place] [id number] MD Trung Costa MD Phone: [phone]
--- NOTE | 2023-05-19 10:40 | DI.CT.S_ITS ---
PROCEDURE: CT CHEST ABD PEL W CON INDICATIONS: hepatocellular carcinoma with pleural effusion TECHNIQUE: After the administration of oral and intravenous contrast, axial sections acquired from the supraclavicular neck to the pubic symphysis. Coronal and sagittal reformats were performed. For radiation dose reduction, the following was used: automated exposure control, adjustment of mA and/or kV according to patient size. COMPARISON: [facility], CR, XR CHEST 1V, 05/19/2023, 10:11. [facility], MR, MR ABDOMEN WO/W CON, 01/01/2023, 8:25. FINDINGS: Image quality: Excellent. CHEST: Lower Neck: No enlarged lymph nodes. Thyroid: Heterogeneous left thyroid lobe containing several coarse calcifications. Axillae: No enlarged lymph nodes. Chest Wall: Symmetric gynecomastia. Lungs and Airways: Central spiculated linear opacity in the left upper lobe. A lobulated solid left upper lobe lung mass 1.4 x 1.1 cm, 5/115. Interstitial and peribronchovascular thickening in the right infrahilar right middle lobe. Masslike opacity centrally in the right middle lobe and right lower lobe, presumably atelectasis. Minor dependent left lower lobe atelectasis. Pleura: Large right pleural effusion. Trace left pleural effusion. Heart: Normal heart size. Trace pericardial effusion. Thoracic Vessels: The aorta and pulmonary arteries demonstrate normal size. Mediastinum and Stephie: No enlarged lymph nodes. Esophagus: Normal esophageal caliber. Moderate-sized hiatal hernia containing fluid, fat, and small varices. ABDOMEN: Liver: Cirrhotic liver morphology. There is a TIPS shunt in place. Several hypodense masses in the atrophic left lobe, and one inferiorly in the right hepatic lobe. These range in size from 1.7 cm to 4.7 cm. Gallbladder: Surgically absent. Biliary ducts: Nondilated. Pancreas: 2.9 cm hypodensity arising from the ventral pancreatic tail. Ill-defined hypodense mass in the pancreatic head measuring 2.2 cm. Spleen: The spleen is enlarged measuring 16.8 cm in length and contains innumerable rounded hypodensities ranging in size from a few mm to 2.1 cm. Adrenal Glands: No nodules. Kidneys and Ureters: Symmetric enhancement. No nephrolithiasis or hydronephrosis. No hydroureter. Stomach and Bowel: The stomach is within normal limits. There is diffuse proximal small bowel wall thickening involving distal duodenum and several loops of jejunum. 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 Peritoneum: There is a small amount of perihepatic ascites and pelvic ascites. No free air. Ventral Wall: There is a wide necked periumbilical rectus diastasis containing fat, fluid, and nonobstructed small bowel. Infraumbilical Gil's hernia without obstruction. Abdominal Nodes: No retroperitoneal or mesenteric adenopathy by size criteria. Vessels: IVC and aorta are normal caliber. There is marked dilatation of the splenic and portal vein. Partial thrombosis of the superior mesenteric vein just prior to the lexy splenic confluence. Recanalized umbilical vein. There are small perigastric varices. PELVIS: Pelvic Organs: Moderate prostatomegaly. Bladder: Irregular urinary bladder wall thickening with morphology of under distended diverticuli along the posterior superior margin. No calcifications. Pelvic Nodes: No enlarged lymph nodes. Miscellaneous: Small fluid containing left inguinal hernia. Bones: Unremarkable. IMPRESSION: 1. Large right and trace left pleural effusion. 2. 1.4 cm left upper lobe lobulated lung mass suspicious for metastatic disease. There is either metastatic disease or atelectasis involving the central right middle and lower lobes. 3. Cirrhotic liver morphology with several hypodense masses suspicious for neoplasm. 4. Findings of portal hypertension. The enlarged spleen contains numerous masses which are nonspecific but in the setting of known malignancy may indicate metastatic disease. 5. Partial thrombosis of the proximal superior mesenteric vein. 6. Proximal small bowel wall thickening with differential diagnosis of portal enteropathy, early ischemic congestion, or enteritis. 7. Nonobstructing ventral wall hernias. Dictated by: Sharon Mock M.D. on 05/19/2023 at 11:39 Approved by: Sharon Mock M.D. on 05/19/2023 at 11:58
[2023-05-19 10:41] LABS: Alanine Aminotransferase 39 IU/L (<50); Albumin 2.4 g/dL (3.5-5.0); Albumin Globulin Ratio 0.8 (1.0-2.8); Alkaline Phosphatase 150 U/L (38-126); Aspartate Aminotransferase 75 IU/L (17-59); BUN Creatinine Ratio 23.5 (6-22); Bilirubin Total 3.7 mg/dL (0.2-1.3); Blood Urea Nitrogen 38 mg/dL (9-20); Calcium 8.1 mg/dL (8.4-10.2); Carbon Dioxide 18 mmol/L (22-32); Chloride 104 mmol/L (98-107); Estimated Glomerular Filt Rate 43 mL/min (>60); Globulin 3.1 g/dL (1.7-4.1); Glucose 174 mg/dL (80-110); HEMOLYSIS 17 (0-50); Potassium 4.5 mmol/L (3.4-5.1); Sodium 128 mmol/L (137-145); Total Protein 5.5 g/dL (6.3-8.2)
[2023-05-19 11:34] LABS: Lactate Dehydrogenase 325 U/L (120-246)
--- NOTE | 2023-05-19 12:00 | DI.RAD.S_ITS ---
PROCEDURE: XR CHEST 1V INDICATIONS: POST THORACENTESIS TECHNIQUE: One view of the chest was acquired. COMPARISON: [facility], , XR CHEST 1V, 05/19/2023, 10:11. [facility], CR, XR CHEST 1V, 05/17/2023, 12:58. FINDINGS: Surgical changes and devices: None. Lungs and pleura: Moderate right pleural effusion. Diffuse interstitial airspace opacities. No pneumothorax. Mediastinum: Mediastinal contours appear normal. Heart size is normal. Bones and chest wall: No suspicious bony lesions. Overlying soft tissues appear unremarkable. IMPRESSION: Moderate pleural effusion. No pneumothorax. Diffuse interstitial airspace opacities, concerning for pulmonary edema. Superimposed infection not excluded. Dictated by: Aleksandr Coates M.D. on 05/19/2023 at 13:39 Approved by: Aleksandr Coates M.D. on 05/19/2023 at 13:40
[2023-05-19 12:49] LABS: Body Fluid Red Blood Cells 1709 /uL; Body Fluid Tot Nucleated Cells 225 /uL
[2023-05-19 13:11] LABS: Body Fluid Appearance HAZY; Body Fluid Clotted? NO CLOTS PRESENT; Body Fluid Color YELLOW
[2023-05-19 13:30] LABS: Mononuclear WBC Body Fluid 95 %
[2023-05-19 13:31] LABS: Eosinophils Body Fluid 1 %; Polynuclear WBC Body Fluid 4 %
--- NOTE | 2023-05-19 13:55 | PC.NURSE ---
Confirmed with provider will not be transfusing platelets.
== END 2023-05-19 14:30 | disposition home or self-care (01) ==
PROVIDERS: Emergency Provider Emergency Medicine; Family Provider Internal Medicine Gastroenterology; PCP Internal Medicine
DX: J90 Pleural effusion, not elsewhere classified (principal); Z79.01 Long term (current) use of anticoagulants
CPT/HCPCS: 32555; 36415; 71045; 71260; 74177; 80053; 81003; 83615; 85025; 85610; 85730; 86900; 86901; 87070; 87075; 87205; 89051; 99283; 99284

== ENCOUNTER → 2023-05-30 10:46 | Outpatient (CLI) | payer MEDICARE, OTHER, SELFPAY ==
[2020-11-27 10:23] VITALS: BMI 25.0
--- NOTE | 2023-05-30 | DI.RAD.S_ITS ---
PROCEDURE: XR CHEST 1V INDICATIONS: POST THORACENTESIS TECHNIQUE: One view of the chest was acquired. COMPARISON: [facility], , XR CHEST 1V, 05/19/2023, 12:10. [facility], CR, XR CHEST 1V, 05/19/2023, 10:11. FINDINGS: Surgical changes and devices: None. Lungs and pleura: Moderate right pleural effusion, decreased in size since the prior chest radiograph. No visible pneumothorax. Bibasilar pulmonary opacities and left mid lung opacities persist. Mediastinum: Mediastinal and hilar contours appear similar to before. Bones and chest wall: No suspicious bony lesions. Overlying soft tissues appear unremarkable. IMPRESSION: No pneumothorax post thoracentesis. Dictated by: Tino Gregorio M.D. on 05/30/2023 at 11:36 Approved by: Tino Gregorio M.D. on 05/30/2023 at 11:38
--- NOTE | 2023-05-30 10:47 | DI.US.S_ITS ---
PROCEDURE: US THORACENTESIS INDICATIONS: Pleural effusion, not elsewhere classified TECHNIQUE: The indications, alternatives, benefits, risks, and complications of the procedure were explained to the patient. Written informed consent was obtained and placed in the chart. The chest was examined sonographically, and an appropriate site was chosen for thoracentesis. The skin was prepared and draped in the usual sterile fashion, and 1% lidocaine was infiltrated from the skin down through the pleural surface. A 19-gauge catheter-covered needle was then introduced into the pleural space, the catheter was advanced and the needle was withdrawn, and thereafter pleural fluid was aspirated. The catheter was then removed and a dressing was applied. COMPARISON: [facility], CT, CT CHEST ABD PEL W CON, 05/19/2023, 11:01. [facility], US, US THORACENTESIS, 05/19/2023, 11:49. FINDINGS: Access site: Right hemithorax. Needle: One-Step centesis catheter with introducer needle. Fluid volume and description: 1050 mL clear derek fluid Fluid sent for diagnostic testing: Not requested Medications: 1% lidocaine for local anaesthesia. Complications: None; post-procedural chest radiograph is pending to assess for pneumothorax. Other: Trace left pleural effusion. Abdominal free fluid is present. Redemonstrated nonspecific splenic lesions. IMPRESSION: Successful ultrasound-guided thoracentesis. Dictated by: Tino Gregorio M.D. on 05/30/2023 at 12:34 Approved by: Tino Gregorio M.D. on 05/30/2023 at 12:38
== END ==
PROVIDERS: Family Provider Internal Medicine Gastroenterology; PCP Internal Medicine; Referring Provider Internal Medicine; Visit Provider Internal Medicine
DX: J90 Pleural effusion, not elsewhere classified (principal)
CPT/HCPCS: 32555; 71045

== ENCOUNTER 2023-06-07 14:36 | Emergency (ER) | payer MEDICARE, OTHER, SELFPAY ==
[2020-11-27 10:23] VITALS: BMI 25.0
[2023-06-07 14:42] VITALS: BP 141/65; PULSE 87; RESP 22; TEMP 36.6; O2SAT 93; BMI 28.7
[2023-06-07 15:12] LABS: Hemoglobin 12.4 g/dL (13.5-17.5); Lymphocytes Absolute Auto 600 /uL (1100-4500)
[2023-06-07 15:27] LABS: Basophils Absolute Auto 0 /uL (0-100); Basophils Percent Auto 0.2 % (0-2); Eosinophils Absolute Auto 400 /uL (0-450); Eosinophils Percent Auto 6.7 % (2-4); Lymphocytes Percent Auto 9.1 % (25-40); Mean Corpuscular HGB Conc 35.5 % (30-36); Mean Corpuscular Hemoglobin 37.5 PG (26-34); Mean Corpuscular Volume 105.7 fL (80-100); Monocytes Absolute Auto 1400 /uL (0-900); Monocytes Percent Auto 20.6 % (3-14); Neutrophils Absolute Auto 4200 /uL (1500-7000); Neutrophils Percent Auto 63.4 % (50-75); Platelet Count 45 X10^3/uL (150-400); Red Blood Cell Count 3.31 X10^6/uL (4.5-5.9); Red Cell Distribution Width 17.5 % (11.6-14.8); White Blood Cell Count 6.6 X10^3/uL (4.5-11.0)
[2023-06-07 15:29] LABS: INR 1.7 (0.9-1.3); Prothrombin Time 19.3 SECONDS (10.1-12.7)
[2023-06-07 15:34] LABS: Alanine Aminotransferase 38 IU/L (<50); Albumin 2.1 g/dL (3.5-5.0); Albumin Globulin Ratio 0.7 (1.0-2.8); Alkaline Phosphatase 123 U/L (38-126); Aspartate Aminotransferase 60 IU/L (17-59); BUN Creatinine Ratio 26.1 (6-22); Bilirubin Total 5.1 mg/dL (0.2-1.3); Blood Urea Nitrogen 57 mg/dL (9-20); Calcium 7.6 mg/dL (8.4-10.2); Carbon Dioxide 15 mmol/L (22-32); Chloride 105 mmol/L (98-107); Estimated Glomerular Filt Rate 30 mL/min (>60); Globulin 2.9 g/dL (1.7-4.1); Glucose 142 mg/dL (80-110); HEMOLYSIS < 15 (0-50); Lipase 335 U/L (23-300); Potassium 4.7 mmol/L (3.4-5.1); Sodium 127 mmol/L (137-145)
[2023-06-07 15:35] LABS: Add Manual Diff / Slide Review SLIDE REVIEW
[2023-06-07 15:36] LABS: Anisocytosis 1+; Macrocytosis 1+; Platelet Estimate Decreased on smear
[2023-06-07 15:51] LABS: PTT Partial Thromboplastin Tim 31 SECONDS (26-36)
--- NOTE | 2023-06-07 16:22 | DI.RAD.S_ITS ---
PROCEDURE: XR CHEST 1V INDICATIONS: difficulty breathing TECHNIQUE: One view of the chest was acquired. COMPARISON: [facility], CR, XR CHEST 1V, 05/30/2023, 11:30. FINDINGS: Surgical changes and devices: None. Lungs and pleura: Large right pleural effusion with associated compressive this has increased in size from the prior exam. Left lung and pleural space clear Mediastinum: Mediastinal contours appear normal. Heart size is normal. Bones and chest wall: No suspicious bony lesions. Overlying soft tissues appear unremarkable. IMPRESSION: Increasing large right pleural effusion Approved by: Harinder Pretty M.D. on 06/07/2023 at 16:48
[2023-06-07 16:39] VITALS: BP 133/60; PULSE 76; RESP 25; O2SAT 93
[2023-06-07 17:00] VITALS: BP 120/56; PULSE 77; O2SAT 93
[2023-06-07 17:30] VITALS: BP 117/55; PULSE 77; O2SAT 92
[2023-06-07 18:00] VITALS: BP 131/60; PULSE 75; O2SAT 91
--- NOTE | 2023-06-07 18:28 | ED.GENADULT ---
HPI - General Adult General Chief complaint: Shortness of Breath/Dyspnea Stated complaint: difficulty breathing Time Seen by Provider: 06/07/23 15:39 Source: patient and family Mode of arrival: Wheelchair History of Present Illness HPI narrative: 77-year-old male. History of hepatocellular carcinoma. Is being followed by Oncology. Does get immunotherapy. His last infusion was 3 weeks ago. He was supposed to have an effusion last however his oncologist decided to wait because of his ?numbers? he frequently has issues with pulmonary effusions. Has had multiple thoracentesis in the past. Has also had paracentesis. His last thoracentesis was about 1 week ago. He comes in the emergency department today because of fatigue, difficulty breathing, he feels like his abdomen has fluid. Generally just does not feel very well. Fevers. Related Data Home Medications Medication Instructions Recorded Confirmed tamsulosin 0.4 mg capsule (Flomax) 0.4 mg PO BID ##0 01/28/12 02/20/23 furosemide 40 mg tablet 40 mg PO DAILY 10/13/19 02/20/23 spironolactone 100 mg tablet 100 mg PO DAILY 10/13/19 02/20/23 insulin glargine 100 unit/mL (3 24 unit SUBCUT DAILY 08/17/20 02/20/23 mL) subcutaneous pen (Lantus Solostar U-100 Insulin) lactulose 20 gram/30 mL oral 30 gram PO DAILY 05/01/21 02/20/23 solution magnesium 200 mg tablet 200 mg PO PRN PRN Cramps 02/20/23 02/20/23 Previous Rx's Medication Instructions Recorded blood-glucose meter (Glucocard 01 #1 ea 03/26/20 Meter kit) rifaximin 550 mg tablet (Xifaxan) 550 mg PO BID #60 tabs 04/04/20 hydroxychloroquine 200 mg tablet 200 mg PO DAILY muscle crampe #14 04/14/23 tabs Allergies Allergy/AdvReac Type Severity Reaction Status Date / Time No Known Drug Allergies Allergy Verified 06/07/23 14:47 Review of Systems Constitutional Constitutional: Reports system reviewed and no additional complaints, except as documented Respiratory Respiratory: Reports system reviewed and no additional complaints, except as documented Gastrointestinal Gastrointestinal: Reports system reviewed and no additional complaints, except as documented Genitourinary Genitourinary: Reports system reviewed and no additional complaints, except as documented Integumentary/Breasts Skin/Breast: Reports system reviewed and no additional complaints, except as documented Patient History Medical History Ascites BPH (benign prostatic hyperplasia) BPH w urinary obs/LUTS Chronic neutropenia Cirrhosis Diabetes Gallstones Hepatic encephalopathy Hepatocellular carcinoma History of elevated PSA History of urinary retention Hypertension Inguinal hernia Liver disease MIMS (nonalcoholic steatohepatitis) Neutropenia Splenic mass Thrombocytopenia Urinary retention Surgical History H/O prostate biopsy History of colon surgery Hx of appendectomy S/P TIPS (transjugular intrahepatic portosystemic shunt) Family History Mother Pancreatic cancer Hypertension Father Colon cancer Hypertension Social History marital status: number of children: 4 household members: spouse Smoking Status: Former smoker alcohol intake: never caffeine: Yes Smoking Status: Former smoker alcohol intake frequency: holidays/special occasions only Substance Use Type: does not use Exam Initial Vital Signs Initial Vital Signs: Vital Signs Temperature 97.8 F 06/07/23 14:42 Pulse Rate 87 06/07/23 14:42 Respiratory Rate 22 06/07/23 14:42 Blood Pressure 141/65 H 06/07/23 14:42 Pulse Oximetry 93 06/07/23 14:42 Oxygen Delivery Method Room Air 06/07/23 14:42 HENTN Head: normal to inspection and normocephalic Resp Effort & Inspection: normal respiratory effort Auscultation: clear to auscultation bilaterally Cardio Rate: regular rate Rhythm: regular rhythm GI Inspection: distended Palpation: soft, No firm and No tender Neuro General: patient alert, patient awake, patient oriented x3 and moves all extremities Extrem General: edema Course Orders Ordered: Discontinued Medications Ondansetron HCl (Ondansetron 4 Mg Odt) 4 mg PO NOW PRN PRN Reason: Nausea And Vomiting Ondansetron HCl (Ondansetron 4 Mg/2 Ml Inj) 4 mg IV NOW PRN PRN Reason: Nausea And Vomiting Vital Signs Vital signs: Vital Signs - 8 hr 06/07/23 14:42 06/07/23 16:39 06/07/23 16:39 Temperature 97.8 F Pulse Rate 87 76 Respiratory Rate 22 25 H Blood Pressure 141/65 H 133/60 Pulse Oximetry 93 93 Oxygen Delivery Method Room Air 06/07/23 17:00 06/07/23 17:00 Temperature Pulse Rate 77 Respiratory Rate Blood Pressure 120/56 L Pulse Oximetry 93 Oxygen Delivery Method Medical Decision Making Medical Records Medical records reviewed: Yes I reviewed the patient's medical records. Lab Data Lab results reviewed: Yes I reviewed the patient's lab results. 06/07/23 15:00 06/07/23 15:00 Labs: Lab Results 06/07/23 06/07/23 06/07/23 Range/Units 15:00 15:00 15:00 WBC 6.6 (4.5-11.0) X10^3/uL RBC 3.31 L (4.5-5.9) X10^6/uL Hgb 12.4 L (13.5-17.5) g/dL Hct 35.0 L (41-53) % MCV 105.7 H (80-100) fL MCH 37.5 H (26-34) PG MCHC 35.5 (30-36) % RDW 17.5 H (11.6-14.8) % Plt Count 45 L (150-400) X10^3/uL Neut % (Auto) 63.4 (50-75) % Lymph % (Auto) 9.1 L (25-40) % [place] % (Auto) 20.6 H (3-14) % Eos % (Auto) 6.7 H (2-4) % Baso % (Auto) 0.2 (0-2) % Neut # (Auto) 4200 (4221-2184) /uL Lymph # (Auto) 600 L (2790-3529) /uL [place] # (Auto) 1400 H (0-900) /uL Eos # (Auto) 400 (0-450) /uL Baso # (Auto) 0 (0-100) /uL Platelet Estimate Decreased on smear RBC Morphology See below Anisocytosis 1+ H Macrocytosis 1+ H PT 19.3 H (10.1-12.7) SECONDS INR 1.7 H (0.9-1.3) APTT (26-36) SECONDS Sodium 127 L (137-145) mmol/L Potassium 4.7 (3.4-5.1) mmol/L Chloride 105 (98-107) mmol/L Carbon Dioxide 15 L (22-32) mmol/L BUN 57 H (9-20) mg/dL Creatinine 2.18 H (0.66-1.25) mg/dL Estimated GFR 30 L (>60) mL/min BUN/Creatinine Ratio 26.1 H (6-22) Glucose 142 H (80-110) mg/dL Calcium 7.6 L (8.4-10.2) mg/dL Total Bilirubin 5.1 H (0.2-1.3) mg/dL AST 60 H (17-59) IU/L ALT 38 (<50) IU/L Alkaline Phosphatase 123 (38-126) U/L Total Protein 5.0 L (6.3-8.2) g/dL Albumin 2.1 L (3.5-5.0) g/dL Globulin 2.9 (1.7-4.1) g/dL Albumin/Globulin Ratio 0.7 L (1.0-2.8) Lipase 335 H (23-300) U/L 06/07/23 Range/Units 15:00 WBC (4.5-11.0) X10^3/uL RBC (4.5-5.9) X10^6/uL Hgb (13.5-17.5) g/dL Hct (41-53) % MCV (80-100) fL MCH (26-34) PG MCHC (30-36) % RDW (11.6-14.8) % Plt Count (150-400) X10^3/uL Neut % (Auto) (50-75) % Lymph % (Auto) (25-40) % [place] % (Auto) (3-14) % Eos % (Auto) (2-4) % Baso % (Auto) (0-2) % Neut # (Auto) (0830-8690) /uL Lymph # (Auto) (7896-2562) /uL [place] # (Auto) (0-900) /uL Eos # (Auto) (0-450) /uL Baso # (Auto) (0-100) /uL Platelet Estimate RBC Morphology Anisocytosis Macrocytosis PT (10.1-12.7) SECONDS INR (0.9-1.3) APTT 31 (26-36) SECONDS Sodium (137-145) mmol/L Potassium (3.4-5.1) mmol/L Chloride (98-107) mmol/L Carbon Dioxide (22-32) mmol/L BUN (9-20) mg/dL Creatinine (0.66-1.25) mg/dL Estimated GFR (>60) mL/min BUN/Creatinine Ratio (6-22) Glucose (80-110) mg/dL Calcium (8.4-10.2) mg/dL Total Bilirubin (0.2-1.3) mg/dL AST (17-59) IU/L ALT (<50) IU/L Alkaline Phosphatase (38-126) U/L Total Protein (6.3-8.2) g/dL Albumin (3.5-5.0) g/dL Globulin (1.7-4.1) g/dL Albumin/Globulin Ratio (1.0-2.8) Lipase (23-300) U/L Imaging Data Chest x-ray: Radiologist's Impression: PROCEDURE:? XR CHEST 1V ? INDICATIONS:? difficulty? breathing ? TECHNIQUE:? One view of the chest was acquired.? ? COMPARISON:? [facility], CR, XR CHEST 1V, 05/30/2023, 11:30. ? FINDINGS:? ? Surgical changes and devices:? None.? ? Lungs and pleura:? Large right pleural effusion with associated compressive this has increased in size from the prior exam.? Left lung and pleural space clear ? Mediastinum:? Mediastinal contours appear normal.? Heart size is normal.? ? Bones and chest wall:? No suspicious bony lesions.? Overlying soft tissues appear unremarkable.? ? ? IMPRESSION:? Increasing large right pleural effusion MDM Narrative Medical decision making narrative: Patient has a unfortunate issue with problems with multiple organ systems. He has a small amount of ascites today on a bedside ultrasound in given the amount that his there I think that a paracentesis most likely would not improve his breathing all that much. He also has pleural effusion on his chest x-ray but it is less than what it has been in the past. He is not hypoxic but is somewhat tachypneic. We do not have capability of doing a thoracentesis currently and will not have capability until Friday of next week. Patient is also thrombocytopenic. He has needed platelets in the past before any procedures could be completed. He also states that his kidney doctor has told him not to increase any of his diuretics because of his kidney function. I had a long and ann discussion with the patient and his family at bedside. We discussed options to include admitting him to the hospital for gentle diuresis and observation until thoracentesis could be completed on Friday. We discussed the risks and benefits of this. We also discussed the possibility of going home. My initial recommendation will be to admit him to the hospital just given the level of shortness of breath that he was having although we did acknowledge that he was actually not hypoxic here in the ER. After this discussion and despite my recommendation the patient stated that he would like to go home. Given his underlying issues spending more time at home rather than in the hospital is not a unreasonable decision to make. He does know that if any of his symptoms worsen he can return to the emergency department. Patient stated that he was comfortable going home. His family at bedside stated that they were comfortable with him going home. They will take precautions to have him avoid falling Discharge Plan Departure Patient Disposition: Home Clinical Impression: Hepatocellular carcinoma, Shortness of breath, Pleural effusion Instructions: How to Manage Shortness of Breath Activity Restrictions/Additional Instructions: I do recommend that you continue to take all of your medications as directed. Contact your primary doctor for follow-up. Return to the emergency department for new or worsening symptoms like we discussed. Prescriptions: No Action tamsulosin [Flomax] 0.4 MG capsule,extended release 24hr 0.4 mg PO BID Qty: 0 lactulose 20 gram/30 mL solution 30 gram PO DAILY furosemide 40 mg Tablet 40 mg PO DAILY spironolactone 100 mg Tablet 100 mg PO DAILY magnesium 200 mg Tablet 200 mg PO PRN PRN (Reason: Cramps) hydroxychloroquine 200 mg Tablet 200 mg PO DAILY Qty: 14 0RF (DME) blood-glucose meter [Glucocard 01 Meter] Kit See Rx Instructions .ROUTE .MEDSUPPLY Qty: 1 0RF Rx Instructions: Measure blood glucose level 4 times daily Xifaxan 550 mg Tablet 550 mg PO BID Qty: 60 0RF Lantus Solostar U-100 Insulin 100 unit/mL (3 mL) insulin pen 24 unit SUBCUT DAILY Referrals: Katelyn Campbell MD [Primary Care Provider] - Stand Alone Forms: Patient Portal/API
== END 2023-06-07 18:48 | disposition home or self-care (01) ==
PROVIDERS: Emergency Medicine; Emergency Provider Emergency Medicine; Family Provider Internal Medicine Gastroenterology; PCP Internal Medicine
DX: C22.0 Liver cell carcinoma (principal); R06.02 Shortness of breath; J90 Pleural effusion, not elsewhere classified; Z79.899 Other long term (current) drug therapy
CPT/HCPCS: 36415; 71045; 80053; 83690; 85025; 85610; 85730; 99284

== ENCOUNTER 2023-06-09 09:41 | Inpatient (IN) | payer MEDICARE, OTHER, SELFPAY ==
[2020-11-27 10:23] VITALS: BMI 25.0
[2023-06-09] VITALS (15 sets, daily range): BP systolic 120–154; BP diastolic 49–67; PULSE 72–88; RESP 14–36; TEMP 36.6–36.8; O2SAT 90–95; BMI 31.8
--- NOTE | 2023-06-09 10:05 | ED_ITS ---
HPI - Weakness General Chief complaint: Weakness Stated complaint: Thoracentesis here Friday told to come back Time Seen by Provider: 06/09/23 09:55 History of Present Illness HPI Narrative: Patient is a 77-year-old male history of insulin-dependent diabetes hepatocellular carcinoma requiring frequent thoracentesis and paracentesis. He reports that he has been getting thoracentesis every 2 weeks he was seen and evaluated here 2 days ago for something similar. At that time his paracentesis and ascites did not seem big enough to drain. He previously has been thrombocytopenic sometimes requiring platelet transfusion. Today he presents with overall diffuse weakness shortness of breath and increased abdominal distention. No fever but he is coughing he denies any chest pain. He endorses orthopnea last night. According to they went to the driver guard who reports no more increase in his diuretics Related Data Home Medications Medication Instructions Recorded Confirmed tamsulosin 0.4 mg capsule (Flomax) 0.4 mg PO BID ##0 01/28/12 06/09/23 furosemide 40 mg tablet 40 mg PO DAILY 10/13/19 06/09/23 spironolactone 100 mg tablet 100 mg PO DAILY 10/13/19 06/09/23 insulin glargine 100 unit/mL (3 25 unit SUBCUT DAILY 08/17/20 06/09/23 mL) subcutaneous pen (Lantus Solostar U-100 Insulin) lactulose 10 gram/15 mL oral 30 ml PO DAILY 06/09/23 06/09/23 solution (Constulose) rifaximin 550 mg tablet (Xifaxan) 550 mg PO BID 06/09/23 06/09/23 Previous Rx's Medication Instructions Recorded blood-glucose meter (Glucocard 01 #1 ea 03/26/20 Meter kit) Allergies Allergy/AdvReac Type Severity Reaction Status Date / Time No Known Drug Allergies Allergy Verified 06/09/23 10:10 Review of Systems Review of Systems ROS Unobtainable: All systems reviewed & are unremarkable except as noted in HPI and below Patient History Medical History Ascites BPH (benign prostatic hyperplasia) BPH w urinary obs/LUTS Chronic neutropenia Cirrhosis Diabetes Gallstones Hepatic encephalopathy Hepatocellular carcinoma History of elevated PSA History of urinary retention Hypertension Inguinal hernia Liver disease MIMS (nonalcoholic steatohepatitis) Neutropenia Splenic mass Thrombocytopenia Urinary retention Surgical History H/O prostate biopsy History of colon surgery Hx of appendectomy S/P TIPS (transjugular intrahepatic portosystemic shunt) Family History Mother Pancreatic cancer Hypertension Father Colon cancer Hypertension Social History marital status: number of children: 4 household members: spouse Smoking Status: Former smoker alcohol intake: never caffeine: Yes Smoking Status: Former smoker alcohol intake frequency: holidays/special occasions only Substance Use Type: does not use Exam Initial Vital Signs Initial Vital Signs: Vital Signs Temperature 98.2 F 06/09/23 09:55 Pulse Rate 88 06/09/23 09:55 Respiratory Rate 26 H 06/09/23 09:55 Blood Pressure 146/65 H 06/09/23 09:55 Pulse Oximetry 90 L 06/09/23 09:55 Oxygen Delivery Method Room Air 06/09/23 09:55 GENERAL: Alert generally weak chronically ill 77-year-old male HEENT: Head atraumatic,EOMI, pupils reactive, face symmetric, moist mucous membranes CARDIOVASCULAR: Regular rate and rhythm without murmurs, rubs or gallops. RESPIRATORY: Decreased breath sounds on the right side minimal respiratory distress ABDOMEN: Distended hernia positive fluid wave EXTREMITIES: Normal range of motion, no clubbing. +3 pitting edema. Neurovascularly intact NEUROLOGICAL: Alert and oriented x4. SKIN: Warm, dry, no laceration, no petechiae, no rashes or lesions. Course Orders Ordered: ED Orders 06/09/23 10:06 Chest [XR chest 1V] Stat US abdomen limited Stat US thoracentesis Stat 06/09/23 10:10 CBC Auto Diff [Complete Blood Count AUTO DIFF] Stat CMP [Comprehensive Metabolic Panel] Stat Lipase Stat PTT Partial Thromboplastin Floyd Stat Prothrombin Time INR Stat 06/09/23 10:25 Covid-19 + FLU A/B + RSV - PCR Stat 06/09/23 10:27 Blood Culture Stat Type and Screen Stat 06/09/23 11:43 CXR [XR chest 1V] Stat Acetaminophen (Acetaminophen 325 Mg Tablet) 650 mg PO Q4HR PRN PRN Reason: Fever/Mild Pain (1-3) Last Admin: 06/09/23 17:02 Dose: 650 mg Documented By: CHRISTOS Cyclobenzaprine HCl (Cyclobenzaprine 10 Mg Tablet) 10 mg PO Q8HR PRN PRN Reason: Spasms Last Admin: 06/09/23 17:03 Dose: 10 mg Documented By: CHRISTOS Furosemide (Furosemide 40 Mg/4 Ml Vial) 40 mg IV 1600,0800 VARGHESE Last Admin: 06/09/23 17:02 Dose: 40 mg Documented By: CHRISTOS Hydromorphone HCl (Hydromorphone 0.5 Mg Inj) 0.5 mg IV Q1H PRN PRN Reason: Pain, Moderate (4-6) Lorazepam (Lorazepam 2 Mg/Ml Inj) 1 mg IV Q1HR PRN PRN Reason: Agitation/Anxiety Melatonin (Melatonin 3 Mg Tablet) 6 mg PO BEDTIME PRN PRN Reason: Insomnia Metoclopramide HCl (Metoclopramide 10 Mg/2 Ml Inj) 10 mg IV Q4HR PRN PRN Reason: Nausea And Vomiting Ondansetron HCl (Ondansetron 4 Mg/2 Ml Inj) 4 mg IV Q4HR PRN PRN Reason: Nausea And Vomiting Oxycodone HCl (Oxycodone Ir 5 Mg Tablet) 5 mg PO Q4HR PRN PRN Reason: Pain, Moderate (4-6) Pantoprazole Sodium (Pantoprazole Dr 20 Mg Tablet) 40 mg PO 0700 [facility] Polyethylene Glycol (Polyethylene Glycol 3350 17 Gm Powd.Pack) 17 gm PO DAILY PRN PRN Reason: Constipation Sennosides (Sennosides 8.6 Mg Tablet) 8.6 mg PO BID PRN PRN Reason: Constipation Discontinued Medications Hydromorphone HCl (Hydromorphone 0.5 Mg Inj) 0.5 mg IV Q3H PRN PRN Reason: Pain, Moderate (4-6) Furosemide 80 mg/ Sodium (Chloride) 58 mls @ 116 mls/hr IV NOW ONE Stop: 06/09/23 12:49 Last Infusion: 06/09/23 13:30 Dose: 0 mls/hr Documented By: Admin: 06/09/23 12:59 Dose: 116 mls/hr Documented By: JERRY Lorazepam (Lorazepam 0.5 Mg Tablet) 0.5 mg PO TID PRN PRN Reason: Anxiety Ondansetron HCl (Ondansetron 4 Mg/2 Ml Inj) 4 mg IV NOW ONE Stop: 06/09/23 13:10 Last Admin: 06/09/23 13:18 Dose: 4 mg Documented By: JERRY Vital Signs Vital signs: Vital Signs - 8 hr 06/09/23 11:00 06/09/23 11:00 06/09/23 11:15 Pulse Rate 75 73 Respiratory Rate 36 H Blood Pressure 147/65 H Pulse Oximetry 95 94 06/09/23 11:15 06/09/23 11:30 06/09/23 11:30 Pulse Rate 72 Respiratory Rate 24 Blood Pressure 138/63 141/63 H Pulse Oximetry 94 06/09/23 11:45 06/09/23 11:45 06/09/23 11:53 Pulse Rate 74 79 Respiratory Rate 16 22 Blood Pressure 136/61 Pulse Oximetry 92 91 06/09/23 11:53 06/09/23 11:54 06/09/23 11:54 Pulse Rate 79 Respiratory Rate 16 Blood Pressure 120/59 L 125/60 Pulse Oximetry 91 06/09/23 11:55 06/09/23 11:55 06/09/23 11:56 Pulse Rate 80 84 Respiratory Rate 36 H 27 H Blood Pressure 120/58 L Pulse Oximetry 91 91 06/09/23 11:56 Pulse Rate Respiratory Rate Blood Pressure 120/56 L Pulse Oximetry MDM - Weakness Lab Data 06/09/23 10:10 06/09/23 10:10 Labs: Lab Results 06/09/23 06/09/23 06/09/23 Range/Units 10:10 10:10 10:10 WBC 6.0 (4.5-11.0) X10^3/uL RBC 3.26 L (4.5-5.9) X10^6/uL Hgb 12.4 L (13.5-17.5) g/dL Hct 34.5 L (41-53) % MCV 105.6 H (80-100) fL MCH 37.9 H (26-34) PG MCHC 35.9 (30-36) % RDW 17.2 H (11.6-14.8) % Plt Count 51 L (150-400) X10^3/uL Neut % (Auto) 66.0 (50-75) % Lymph % (Auto) 9.2 L (25-40) % [place] % (Auto) 16.2 H (3-14) % Eos % (Auto) 8.3 H (2-4) % Baso % (Auto) 0.3 (0-2) % Neut # (Auto) 4000 (8746-4150) /uL Lymph # (Auto) 500 L (6993-8991) /uL [place] # (Auto) 1000 H (0-900) /uL Eos # (Auto) 500 H (0-450) /uL Baso # (Auto) 0 (0-100) /uL PT 18.0 H (10.1-12.7) SECONDS INR 1.6 H (0.9-1.3) APTT 31 (26-36) SECONDS Sodium 127 L (137-145) mmol/L Potassium 5.0 (3.4-5.1) mmol/L Chloride 106 (98-107) mmol/L Carbon Dioxide 16 L (22-32) mmol/L BUN 67 H (9-20) mg/dL Creatinine 2.08 H (0.66-1.25) mg/dL Estimated GFR 32 L (>60) mL/min BUN/Creatinine Ratio 32.2 H (6-22) Glucose 171 H (80-110) mg/dL Calcium 7.7 L (8.4-10.2) mg/dL Total Bilirubin 4.6 H (0.2-1.3) mg/dL AST 68 H (17-59) IU/L ALT 40 (<50) IU/L Alkaline Phosphatase 132 H (38-126) U/L Total Protein 5.1 L (6.3-8.2) g/dL Albumin 2.2 L (3.5-5.0) g/dL Globulin 2.9 (1.7-4.1) g/dL Albumin/Globulin Ratio 0.8 L (1.0-2.8) Lipase 331 H (23-300) U/L SARS-CoV-2 (PCR) (Negative) Influenza A (RT-PCR) (NEGATIVE) Influenza B (RT-PCR) (NEGATIVE) RSV (PCR) (Negative) Blood Type Antibody Screen 06/09/23 06/09/23 Range/Units 10:25 10:27 WBC (4.5-11.0) X10^3/uL RBC (4.5-5.9) X10^6/uL Hgb (13.5-17.5) g/dL Hct (41-53) % MCV (80-100) fL MCH (26-34) PG MCHC (30-36) % RDW (11.6-14.8) % Plt Count (150-400) X10^3/uL Neut % (Auto) (50-75) % Lymph % (Auto) (25-40) % [place] % (Auto) (3-14) % Eos % (Auto) (2-4) % Baso % (Auto) (0-2) % Neut # (Auto) (8568-2357) /uL Lymph # (Auto) (1266-3017) /uL [place] # (Auto) (0-900) /uL Eos # (Auto) (0-450) /uL Baso # (Auto) (0-100) /uL PT (10.1-12.7) SECONDS INR (0.9-1.3) APTT (26-36) SECONDS Sodium (137-145) mmol/L Potassium (3.4-5.1) mmol/L Chloride (98-107) mmol/L Carbon Dioxide (22-32) mmol/L BUN (9-20) mg/dL Creatinine (0.66-1.25) mg/dL Estimated GFR (>60) mL/min BUN/Creatinine Ratio (6-22) Glucose (80-110) mg/dL Calcium (8.4-10.2) mg/dL Total Bilirubin (0.2-1.3) mg/dL AST (17-59) IU/L ALT (<50) IU/L Alkaline Phosphatase (38-126) U/L Total Protein (6.3-8.2) g/dL Albumin (3.5-5.0) g/dL Globulin (1.7-4.1) g/dL Albumin/Globulin Ratio (1.0-2.8) Lipase (23-300) U/L SARS-CoV-2 (PCR) Negative (Negative) Influenza A (RT-PCR) Flu a negative (NEGATIVE) Influenza B (RT-PCR) Flu b negative (NEGATIVE) RSV (PCR) Negative (Negative) Blood Type O Negative Antibody Screen Negative Imaging Data US - abdomen: Radiologist Impression: PROCEDURE: US ABDOMEN LIMITED ? INDICATIONS:? ASCITES ? TECHNIQUE:? Real-time focused scanning was performed of the abdomen, with image documentation.? ? COMPARISON:? [facility], , US ABDOMEN LIMITED, 09/24/2019, 14:51. ? FINDINGS:? Trace amount of ascites fluid is seen in right lower quadrant, left lower quadrant and left upper quadrant abdomen.? Mild ascites fluid is seen in right upper quadrant abdomen. ? IMPRESSION:? Small amount of ascites fluid, inadequate for safe ultrasound- guided paracentesis. ? ? Dictated by: Carlito Mcdonough M.D. on 06/09/2023 at 11:21 ? ? Chest x-ray: Radiologist Impression: PROCEDURE:? XR CHEST 1V ? INDICATIONS:? right pleural effusion ? TECHNIQUE:? One view of the chest was acquired.? ? COMPARISON:? [facility], , XR CHEST 1V, 06/07/2023, 16:34. ? FINDINGS:? ? Surgical changes and devices:? None.? ? Lungs and pleura:? There is a large right pleural effusion similar in size to the comparison study dated June 07, 2023. No left effusion or airspace consolidation.? No pneumothorax. ? Mediastinum:? Mediastinal contours appear normal.? Heart size is normal.? ? Bones and chest wall:? No suspicious bony lesions.? Overlying soft tissues appear unremarkable.? ? ? IMPRESSION:? Stable large right pleural effusion. ? ? Dictated by: Ashley Gabriel M.D. on 06/09/2023 at 11:06 MDM Narrative Medical decision making narrative: Patient 77-year-old male history of hepatocellular carcinoma, colon cancer presenting today with right-sided pleural effusion and increasing weakness. I have seen evaluated patient myself twice within the last month he is significantly weaker today. He had thoracentesis today which improved his breathing but not necessarily his weakness. mentioned that they are considering hospice they no longer want the immunotherapy for the hepatocellular carcinoma. He seems to be having a rapid decline over the last 2 weeks. actually called hospice today but he is not yet admitted. LABS: Platelets 51, no leukocytosis, sodium 127, bicarb 16, BUN 67, creatinine 2.0 previously 2.18 Thoracentesis removed 1800 cc of clear fluid. Patient has increasing renal function. They were told by hepatology not to do any more diuretics however patient is clearly fluid overloaded with worsening KEENAN. He is given a dose of Lasix here in the ED. they are interested in hospice and comfort care but patient is too weak to go home. Dr. Preciado updated on patient's symptoms test results patient wishes agrees to observation. Discharge Plan Departure Patient Disposition: Admitted as Observation Clinical Impression: KEENAN (acute kidney injury), Hepatocellular carcinoma Admit Date/Time: 06/09/23 13:30 Admit Provider: Robbie Preciado
--- NOTE | 2023-06-09 10:06 | DI.US.S_ITS ---
PROCEDURE: US THORACENTESIS INDICATIONS: RIGHT PLEURAL EFFUSION TECHNIQUE: The indications, alternatives, benefits, risks, and complications of the procedure were explained to the patient. Written informed consent was obtained and placed in the chart. The chest was examined sonographically, and an appropriate site was chosen for thoracentesis. The skin was prepared and draped in the usual sterile fashion, and 1% lidocaine was infiltrated from the skin down through the pleural surface. A 19-gauge catheter-covered needle was then introduced into the pleural space, the catheter was advanced and the needle was withdrawn, and thereafter pleural fluid was aspirated. The catheter was then removed and a dressing was applied. COMPARISON: [facility], THORACENTESIS, 05/30/2023, 11:03. FINDINGS: Access site: Right hemithorax. Needle: One-Step centesis catheter with introducer needle. Fluid volume and description: 1800 mL of clear fluid. Fluid sent for diagnostic testing: None Medications: 1% lidocaine for local anaesthesia. Complications: None; post-procedural chest radiograph is pending to assess for pneumothorax. IMPRESSION: Successful ultrasound-guided thoracentesis. Dictated by: Carlito Mcdonough M.D. on 06/09/2023 at 12:34 Approved by: Carlito Mcdonough M.D. on 06/09/2023 at 12:34
--- NOTE | 2023-06-09 10:06 | DI.US.S_ITS ---
PROCEDURE: US ABDOMEN LIMITED INDICATIONS: ASCITES TECHNIQUE: Real-time focused scanning was performed of the abdomen, with image documentation. COMPARISON: [facility], , US ABDOMEN LIMITED, 09/24/2019, 14:51. FINDINGS: Trace amount of ascites fluid is seen in right lower quadrant, left lower quadrant and left upper quadrant abdomen. Mild ascites fluid is seen in right upper quadrant abdomen. IMPRESSION: Small amount of ascites fluid, inadequate for safe ultrasound-guided paracentesis. Dictated by: Carlito Mcdonough M.D. on 06/09/2023 at 11:21 Approved by: Carlito Mcdonough M.D. on 06/09/2023 at 11:22
--- NOTE | 2023-06-09 10:06 | DI.RAD.S_ITS ---
PROCEDURE: XR CHEST 1V INDICATIONS: right pleural effusion TECHNIQUE: One view of the chest was acquired. COMPARISON: [facility], CR, XR CHEST 1V, 06/07/2023, 16:34. FINDINGS: Surgical changes and devices: None. Lungs and pleura: There is a large right pleural effusion similar in size to the comparison study dated June 07, 2023. No left effusion or airspace consolidation. No pneumothorax. Mediastinum: Mediastinal contours appear normal. Heart size is normal. Bones and chest wall: No suspicious bony lesions. Overlying soft tissues appear unremarkable. IMPRESSION: Stable large right pleural effusion. Dictated by: Ashley Gabriel M.D. on 06/09/2023 at 11:06 Approved by: Ashley Gabriel M.D. on 06/09/2023 at 11:07
[2023-06-09 10:21] LABS: Add Manual Diff / Slide Review NO; Basophils Absolute Auto 0 /uL (0-100); Basophils Percent Auto 0.3 % (0-2); Eosinophils Absolute Auto 500 /uL (0-450); Eosinophils Percent Auto 8.3 % (2-4); Hematocrit 34.5 % (41-53); Hemoglobin 12.4 g/dL (13.5-17.5); Lymphocytes Absolute Auto 500 /uL (1100-4500); Lymphocytes Percent Auto 9.2 % (25-40); Mean Corpuscular HGB Conc 35.9 % (30-36); Mean Corpuscular Hemoglobin 37.9 PG (26-34); Mean Corpuscular Volume 105.6 fL (80-100); Monocytes Absolute Auto 1000 /uL (0-900); Monocytes Percent Auto 16.2 % (3-14); Neutrophils Absolute Auto 4000 /uL (1500-7000); Platelet Count 51 X10^3/uL (150-400); Red Blood Cell Count 3.26 X10^6/uL (4.5-5.9); Red Cell Distribution Width 17.2 % (11.6-14.8)
[2023-06-09 10:26] LABS: INR 1.6 (0.9-1.3)
[2023-06-09 10:29] LABS: PTT Partial Thromboplastin Tim 31 SECONDS (26-36)
[2023-06-09 10:32] LABS: Alanine Aminotransferase 40 IU/L (<50); Albumin 2.2 g/dL (3.5-5.0); Albumin Globulin Ratio 0.8 (1.0-2.8); Alkaline Phosphatase 132 U/L (38-126); Aspartate Aminotransferase 68 IU/L (17-59); BUN Creatinine Ratio 32.2 (6-22); Bilirubin Total 4.6 mg/dL (0.2-1.3); Blood Urea Nitrogen 67 mg/dL (9-20); Calcium 7.7 mg/dL (8.4-10.2); Carbon Dioxide 16 mmol/L (22-32); Chloride 106 mmol/L (98-107); Estimated Glomerular Filt Rate 32 mL/min (>60); Globulin 2.9 g/dL (1.7-4.1); Glucose 171 mg/dL (80-110); HEMOLYSIS 65 (0-50); Lipase 331 U/L (23-300); Sodium 127 mmol/L (137-145); Total Protein 5.1 g/dL (6.3-8.2)
--- NOTE | 2023-06-09 11:43 | DI.RAD.S_ITS ---
PROCEDURE: XR CHEST 1V INDICATIONS: post thoracentesis TECHNIQUE: One view of the chest was acquired. COMPARISON: [facility], CR, XR CHEST 1V, 06/09/2023, 10:09. FINDINGS: Surgical changes and devices: None. Lungs and pleura: There is interval decrease in amount of right-sided pleural effusion with moderate amount of residual right pleural effusion and atelectasis of right middle and lower lobe. No gross pneumothorax. Mild pulmonary vascular congestion is seen. Mediastinum: Mediastinal contours appear normal. Heart size is normal. Bones and chest wall: No suspicious bony lesions. Overlying soft tissues appear unremarkable. IMPRESSION: Post right-sided thoracentesis with decrease in amount of right-sided pleural effusion and slight improved right lung aeration. No gross pneumothorax. Dictated by: Carlito Mcdonough M.D. on 06/09/2023 at 12:22 Approved by: Carlito Mcdonough M.D. on 06/09/2023 at 12:28
[2023-06-09 11:56] LABS: COVID-19 CEPHEID 4-PLEX PCR Negative (Negative); Influenza A - CEPHEID Flu A NEGATIVE (NEGATIVE); Influenza B - CEPHEID Flu B NEGATIVE (NEGATIVE); Respiratory Syncytial Virus Negative (Negative)
[2023-06-09] MEDS: FUROSEMIDE 80 MG in SODIUM CHLORIDE 0.9% 50 ML 116 MG IV (12:59)
[2023-06-09] MEDS: ONDANSETRON 4 MG/2 ML INJ IV (13:18)
--- NOTE | 2023-06-09 16:52 | P.HP_ITS ---
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 Patient is somnolent so history is mostly obtained from . She states he has been battling cancer for 1 year and has been on multiple treatments for his HCC. Things were going relatively well, but it was difficult to come in for biweekly thoras to drain the fluid off his lung. He was walking and interacting normally but about 2 weeks began having a rapid decline with progressive weakness and fatigue. His dyspnea has also been worsening. He was brought to the ED today where a thora drained 1.8L of clear fluid off his right lung. Him and his asked to purse comfort care and hospice. He was admitted for symptom management and to arrange hospice. He has a signed POLST indicating DNR and comfort measures. [facility] Medical History Ascites BPH (benign prostatic hyperplasia) BPH w urinary obs/LUTS Chronic neutropenia Cirrhosis Diabetes Gallstones Hepatic encephalopathy Hepatocellular carcinoma History of elevated PSA History of urinary retention Hypertension Inguinal hernia Liver disease MIMS (nonalcoholic steatohepatitis) Neutropenia Splenic mass Thrombocytopenia Urinary retention Surgical History H/O prostate biopsy History of colon surgery Hx of appendectomy S/P TIPS (transjugular intrahepatic portosystemic shunt) Family History Mother Pancreatic cancer Hypertension Father Colon cancer Hypertension Social History marital status: number of children: 4 household members: spouse Smoking Status: Former smoker alcohol intake: never caffeine: Yes Meds Home Medications and Allergies Home Medications Medication Instructions Recorded Confirmed Type tamsulosin 0.4 mg capsule (Flomax) 0.4 mg PO BID ##0 01/28/12 06/09/23 History furosemide 40 mg tablet 40 mg PO DAILY 10/13/19 06/09/23 History spironolactone 100 mg tablet 100 mg PO DAILY 10/13/19 06/09/23 History blood-glucose meter (Glucocard 01 #1 ea 03/26/20 06/09/23 Rx Meter kit) insulin glargine 100 unit/mL (3 25 unit SUBCUT DAILY 08/17/20 06/09/23 History mL) subcutaneous pen (Lantus Solostar U-100 Insulin) lactulose 10 gram/15 mL oral 30 ml PO DAILY 06/09/23 06/09/23 History solution (Constulose) rifaximin 550 mg tablet (Xifaxan) 550 mg PO BID 06/09/23 06/09/23 History Allergies Allergy/AdvReac Type Severity Reaction Status Date / Time No Known Drug Allergies Allergy Verified 06/09/23 10:10 Review of Systems Review of Systems Narrative: All other systems reviewed with the patient and are negative unless otherwise stated. Exam Vital Signs (past 8 hours): - 06/09/23 09:55 06/09/23 10:06 06/09/23 10:15 Temperature 98.2 F Pulse Rate 88 86 84 Respiratory Rate 26 H 18 21 Blood Pressure 146/65 H Pulse Oximetry 90 L 93 94 Oxygen Delivery Method Room Air Oxygen Flow Rate 06/09/23 10:15 06/09/23 10:30 06/09/23 10:30 Temperature Pulse Rate 79 Respiratory Rate 18 Blood Pressure 154/67 H 144/67 H Pulse Oximetry 94 Oxygen Delivery Method Oxygen Flow Rate 06/09/23 10:45 06/09/23 10:45 06/09/23 11:00 Temperature Pulse Rate 78 Respiratory Rate 17 Blood Pressure 154/67 H 147/65 H Pulse Oximetry 95 Oxygen Delivery Method Oxygen Flow Rate 06/09/23 11:00 06/09/23 11:15 06/09/23 11:15 Temperature Pulse Rate 75 73 Respiratory Rate 36 H Blood Pressure 138/63 Pulse Oximetry 95 94 Oxygen Delivery Method Oxygen Flow Rate 06/09/23 11:30 06/09/23 11:30 06/09/23 11:45 Temperature Pulse Rate 72 Respiratory Rate 24 Blood Pressure 141/63 H 136/61 Pulse Oximetry 94 Oxygen Delivery Method Oxygen Flow Rate 06/09/23 11:45 06/09/23 11:53 06/09/23 11:53 Temperature Pulse Rate 74 79 Respiratory Rate 16 22 Blood Pressure 120/59 L Pulse Oximetry 92 91 Oxygen Delivery Method Oxygen Flow Rate 06/09/23 11:54 06/09/23 11:54 06/09/23 11:55 Temperature Pulse Rate 79 80 Respiratory Rate 16 36 H Blood Pressure 125/60 Pulse Oximetry 91 91 Oxygen Delivery Method Oxygen Flow Rate 06/09/23 11:55 06/09/23 11:56 06/09/23 11:56 Temperature Pulse Rate 84 Respiratory Rate 27 H Blood Pressure 120/58 L 120/56 L Pulse Oximetry 91 Oxygen Delivery Method Oxygen Flow Rate 06/09/23 13:34 06/09/23 14:00 Temperature 97.8 F Pulse Rate 80 Respiratory Rate 14 Blood Pressure 143/49 H Pulse Oximetry 94 Oxygen Delivery Method Room Air Oxygen Flow Rate 0 Oxygen Delivery Method Room Air Oxygen Flow Rate 0 Narrative Exam Narrative: GEN: cachectic ill-appearing male, mildly jaundiced HEENT: moist mucous membranes, PERRL NECK: trachea midline, no JVD CV: regular rate and rhythm, no murmurs PULM: decreased breath sounds bilaterally ABD: distended, tender to RUQ EXT: warm and well perfused with no edema NEURO: somnolent, oriented, no focal deficits Objective Labs 06/09/23 10:10 06/09/23 10:10 Labs: Laboratory Results - last 24 hr 06/09/23 06/09/23 06/09/23 10:10 10:10 10:10 WBC 6.0 RBC 3.26 L Hgb 12.4 L Hct 34.5 L MCV 105.6 H MCH 37.9 H MCHC 35.9 RDW 17.2 H Plt Count 51 L Neut % (Auto) 66.0 Lymph % (Auto) 9.2 L [place] % (Auto) 16.2 H Eos % (Auto) 8.3 H Baso % (Auto) 0.3 Neut # (Auto) 4000 Lymph # (Auto) 500 L [place] # (Auto) 1000 H Eos # (Auto) 500 H Baso # (Auto) 0 PT 18.0 H INR 1.6 H APTT 31 Sodium 127 L Potassium 5.0 Chloride 106 Carbon Dioxide 16 L BUN 67 H Creatinine 2.08 H Estimated GFR 32 L BUN/Creatinine Ratio 32.2 H Glucose 171 H Calcium 7.7 L Total Bilirubin 4.6 H AST 68 H ALT 40 Alkaline Phosphatase 132 H Total Protein 5.1 L Albumin 2.2 L Globulin 2.9 Albumin/Globulin Ratio 0.8 L Lipase 331 H SARS-CoV-2 (PCR) Influenza A (RT-PCR) Influenza B (RT-PCR) RSV (PCR) Blood Type Antibody Screen 06/09/23 06/09/23 10:25 10:27 WBC RBC Hgb Hct MCV MCH MCHC RDW Plt Count Neut % (Auto) Lymph % (Auto) [place] % (Auto) Eos % (Auto) Baso % (Auto) Neut # (Auto) Lymph # (Auto) [place] # (Auto) Eos # (Auto) Baso # (Auto) PT INR APTT Sodium Potassium Chloride Carbon Dioxide BUN Creatinine Estimated GFR BUN/Creatinine Ratio Glucose Calcium Total Bilirubin AST ALT Alkaline Phosphatase Total Protein Albumin Globulin Albumin/Globulin Ratio Lipase SARS-CoV-2 (PCR) Negative Influenza A (RT-PCR) Flu a negative Influenza B (RT-PCR) Flu b negative RSV (PCR) Negative Blood Type O Negative Antibody Screen Negative Assessment & Plan Assessment & Plan narrative: # comfort care -patient likely succumbing to his multiple medical problems, primarily liver failure -patient and seeking hospice -[employer] consulted for hospice arrangement - is interested in pleurx catheter to aid in draining recurrent pleural effusions, will call pulm to see if this is possible -comfort directed measures only -will diurese with lasix to see if this improves his dyspnea for now #HCC s/p cirrhosis and hepatic failure -followed by Dr. Araya Code status is DNR. Proxy is . I have reviewed home meds and used all available resources to reconcile the home meds. Case discussed with ED physician/APC and patient will be admitted to the hospitalist service for further workup and management. This patient will be admitted as inpatient and will require greater than 2 midnights of hospital time to treat fluid overload and arrange hospice. Quality VTE Deep Vein Thrombosis/Pulmonary Embolism Present on Admission: No
[2023-06-09] MEDS: ACETAMINOPHEN 325 MG TABLET 650 MG PO (17:02)
[2023-06-09] MEDS: FUROSEMIDE 40 MG/4 ML VIAL IV (17:02)
[2023-06-09] MEDS: CYCLOBENZAPRINE 10 MG TABLET PO (17:03)
--- NOTE | 2023-06-09 17:22 | PC.NURSE ---
Patient having some intermittent cramping or spasms in abdomen, mostly on right side but states it moves around sometimes. Patient educated on pain management and reviewed available as needed medications as he discussed with Dr. Preciado. Patient is hesitant to take any narcotics at this time as he is worried about maintaining his mentation and his family is visiting. Patient and his requested to try a muscle relaxant and tylenol, notified Dr. Preciado of their requests and given per order. Patient also states yates catheters have caused him pain and bleeding in the past and he is resistant to having one placed at this time, Dr. Preciado notified. Patient has brief in place, urinal within reach, and has been up to the restroom with 1 PA and walker with M[employer]ER [employer] earlier. Bed alarm on, call light within reach. Continue to monitor. Continue to provide comfort measures.
[2023-06-09] MEDS: OXYCODONE IR 5 MG TABLET PO (19:25)
--- NOTE | 2023-06-10 08:39 | PM.PN.1 ---
Subjective Subjective Interval history: Dr. Lona maya consulted and will place pleurx catheter today. Patient agreed to procedure. He states his pain is controlled. Hospice being [place] through [facility] [place]. Exam Vital Signs (past 8 hours): Oxygen Delivery Method Room Air Oxygen Flow Rate 0 Narrative Exam Narrative: GEN: cachectic ill-appearing male, mildly jaundiced HEENT: moist mucous membranes, PERRL NECK: trachea midline, no JVD CV: regular rate and rhythm, no murmurs PULM: decreased breath sounds bilaterally ABD: distended, tender to RUQ, midline ventral hernia present EXT: warm and well perfused with no edema NEURO: somnolent, oriented, no focal deficits Objective Labs 06/09/23 10:10 06/09/23 10:10 Labs: Laboratory Results - last 24 hr 06/09/23 06/09/23 06/09/23 10:10 10:10 10:10 WBC 6.0 RBC 3.26 L Hgb 12.4 L Hct 34.5 L MCV 105.6 H MCH 37.9 H MCHC 35.9 RDW 17.2 H Plt Count 51 L Neut % (Auto) 66.0 Lymph % (Auto) 9.2 L [place] % (Auto) 16.2 H Eos % (Auto) 8.3 H Baso % (Auto) 0.3 Neut # (Auto) 4000 Lymph # (Auto) 500 L [place] # (Auto) 1000 H Eos # (Auto) 500 H Baso # (Auto) 0 PT 18.0 H INR 1.6 H APTT 31 Sodium 127 L Potassium 5.0 Chloride 106 Carbon Dioxide 16 L BUN 67 H Creatinine 2.08 H Estimated GFR 32 L BUN/Creatinine Ratio 32.2 H Glucose 171 H Calcium 7.7 L Total Bilirubin 4.6 H AST 68 H ALT 40 Alkaline Phosphatase 132 H Total Protein 5.1 L Albumin 2.2 L Globulin 2.9 Albumin/Globulin Ratio 0.8 L Lipase 331 H SARS-CoV-2 (PCR) Influenza A (RT-PCR) Influenza B (RT-PCR) RSV (PCR) Blood Type Antibody Screen 06/09/23 06/09/23 10:25 10:27 WBC RBC Hgb Hct MCV MCH MCHC RDW Plt Count Neut % (Auto) Lymph % (Auto) [place] % (Auto) Eos % (Auto) Baso % (Auto) Neut # (Auto) Lymph # (Auto) [place] # (Auto) Eos # (Auto) Baso # (Auto) PT INR APTT Sodium Potassium Chloride Carbon Dioxide BUN Creatinine Estimated GFR BUN/Creatinine Ratio Glucose Calcium Total Bilirubin AST ALT Alkaline Phosphatase Total Protein Albumin Globulin Albumin/Globulin Ratio Lipase SARS-CoV-2 (PCR) Negative Influenza A (RT-PCR) Flu a negative Influenza B (RT-PCR) Flu b negative RSV (PCR) Negative Blood Type O Negative Antibody Screen Negative PFSH Medical History Ascites BPH (benign prostatic hyperplasia) BPH w urinary obs/LUTS Chronic neutropenia Cirrhosis Diabetes Gallstones Hepatic encephalopathy Hepatocellular carcinoma History of elevated PSA History of urinary retention Hypertension Inguinal hernia Liver disease MIMS (nonalcoholic steatohepatitis) Neutropenia Splenic mass Thrombocytopenia Urinary retention Surgical History H/O prostate biopsy History of colon surgery Hx of appendectomy S/P TIPS (transjugular intrahepatic portosystemic shunt) Family History Mother Pancreatic cancer Hypertension Father Colon cancer Hypertension Social History marital status: number of children: 4 household members: spouse Smoking Status: Former smoker alcohol intake: never caffeine: Yes Assessment & Plan Assessment & Plan narrative: # recurrent R-sided hydrothorax -Dr. Lona maya consulted and will place Pleurx cathether on 06/10 to aid in drainage of recurrent effusions -hospice to manage catheter and drainage once home # end-stage liver disease -patient likely succumbing to his multiple medical problems, primarily liver failure -patient and seeking hospice -ELECT[employer] PROJECT MANAGER consulted for hospice arrangement -comfort directed measures only -will diurese with lasix to see if this improves his dyspnea for now #HCC s/p cirrhosis -followed by Dr. Araya Code status is DNR. Proxy is . I have reviewed home meds and used all available resources to reconcile the home meds. Case discussed with ED physician/APC and patient will be admitted to the hospitalist service for further workup and management. This patient will be admitted as inpatient and will require greater than 2 midnights of hospital time to treat fluid overload and arrange hospice. Quality VTE Deep Vein Thrombosis/Pulmonary Embolism Present on Admission: No
--- NOTE | 2023-06-10 09:47 | PC.NURSE ---
Patient awakens at this time, he is pleasant and alert. State he is incredibly thankful for sleeping the whole night last night and hasn't been able to do that for awhile. Denies pain. Assisted upright to eat breakfast.
[2023-06-10] MEDS: FUROSEMIDE 40 MG/4 ML VIAL IV ×2 (09:49→18:25)
--- NOTE | 2023-06-10 11:45 | CM.DPNOTE ---
Faxed new referral to [facility] per [facility] Stephanie request and asked Info Visit to be scheduled steven in order to help plan discharge of home with [facility]. MIGUEL ANGEL Soriano
--- NOTE | 2023-06-10 11:53 | CM.DANOTE ---
Addendum entered by MIGUEL ANGEL Epps 06/10/23 13:26: FLATWORK WASHER left 2 more voicemails for hospice of the (3 total). No response. CM team will continue to follow closely. CANDICE Original Note: DCP Assessment Note Patient is a 77yo male here with a PMH of hepatocellular carcinoma resulting in end-stage liver disease s/p TIPS, colon cancer, recurrent R-sided pleural effusions with weekly thoracenteses, DM2, HTN, and BPH (H&P). PCP Katelyn Reyes Medicare and Omar MICHELLE reviewed EMR. Per hospitalist, pulminologist plans to do a lung cath later today. Patient on comfort care now and awaiting safe d/c plan with hospice at home. FLATWORK WASHER entered room and introduced self and role. Patient was drowsy but communicative and appeared Ox4. Patient accompanied by spouse Thelma at bedside ([phone]). Spouse primary support in d/c planning process. [facility] would [facility] . Equipment needed at the moment would be bed/table/bedside commode/bed ward/walker/wheelchair. Family is thinking they'll be able to get him into the house w/o BLS, 2 steps into the house. Family requested to work with Nurse Soila Montelongo at [facility] the . MIGUEL ANGEL harpm with [facility] . MIGUEL ANGEL Grant kindly agreed to fax initial referral information to [facility] . Carli reported getting referral. Plan: d/c home with family and [facility] . Pending equipment/nursing availability. Transport with family in POV unless patient prognosis changes. CM team will continue to follow closely. MIGUEL ANGEL Epps Discharge Planning/Care Management Advanced directive, confirm from FAMILY Start: 06/09/23 14:39 Freq: Q24H Status: Active Protocol: Document 06/09/23 14:39 CLP (Rec: 06/09/23 16:41 CLP [id number]) Advance Directive, confirm on record Time 14:00 Person contacted Copy received No CM Discharge Assessment Start: 06/10/23 11:52 Freq: Status: Active Protocol: Document 06/10/23 11:52 SL (Rec: 06/10/23 11:53 SL [id number]) Discharge Planning Assessment Assigned Site Specialist MIGUEL ANGEL Brown Advance Directives? Yes: POLST Advance Directives on File No History Provided By Patient,Significant Other, Medical Record Prior Living Arrangements House Comment 2 shallow steps up to house rest is a one level home Household Members spouse Type of transporation used prior to Relies on Others admit Independent with ADL's No Is patient alert and oriented? Yes Needs Assistance With Bathing,Meal Prep,Managing Medications,Home Chores / Shopping DME Already Rented / Owned Cane Comment Home with hospice of the Barriers to Discharge Yes Comment Arranging logistics of Hospice [facility] Discharge Plan Hospice Transportation Arrangement Spouse Referrals Initiated Other Additional Comment [facility] Whiteboard Updated in Patient Room with Yes name and ext. # of Site Specialist Review Status In Process Next Review Type Continued Stay Review
--- NOTE | 2023-06-10 12:14 | PM.CN ---
History of Present Illness Consult details Date Patient Seen: 06/10/23 Time Patient Seen: 13:19 Chief complaint: Thoracentesis here Friday told to come back Reason for consult: recurrent transudative right pleural effusion Requesting provider: Robbie Lake Home Medications and Allergies Home Medications Medication Instructions Recorded Confirmed Type tamsulosin 0.4 mg capsule (Flomax) 0.4 mg PO BID ##0 01/28/12 06/09/23 History furosemide 40 mg tablet 40 mg PO DAILY 10/13/19 06/09/23 History spironolactone 100 mg tablet 100 mg PO DAILY 10/13/19 06/09/23 History blood-glucose meter (Glucocard 01 #1 ea 03/26/20 06/09/23 Rx Meter kit) insulin glargine 100 unit/mL (3 25 unit SUBCUT DAILY 08/17/20 06/09/23 History mL) subcutaneous pen (Lantus Solostar U-100 Insulin) lactulose 10 gram/15 mL oral 30 ml PO DAILY 06/09/23 06/09/23 History solution (Constulose) rifaximin 550 mg tablet (Xifaxan) 550 mg PO BID 06/09/23 06/09/23 History Allergies Allergy/AdvReac Type Severity Reaction Status Date / Time No Known Drug Allergies Allergy Verified 06/09/23 10:10 Exam Vital Signs (past 8 hours): Oxygen Delivery Method Room Air Oxygen Flow Rate 0 Objective Labs 06/09/23 10:10 06/09/23 10:10 PFSH Medical History Ascites BPH (benign prostatic hyperplasia) BPH w urinary obs/LUTS Chronic neutropenia Cirrhosis Diabetes Gallstones Hepatic encephalopathy Hepatocellular carcinoma History of elevated PSA History of urinary retention Hypertension Inguinal hernia Liver disease MIMS (nonalcoholic steatohepatitis) Neutropenia Splenic mass Thrombocytopenia Urinary retention Surgical History H/O prostate biopsy History of colon surgery Hx of appendectomy S/P TIPS (transjugular intrahepatic portosystemic shunt) Family History Mother Pancreatic cancer Hypertension Father Colon cancer Hypertension Social History marital status: number of children: 4 household members: spouse Tobacco & Substance Use Smoking Status: Former smoker alcohol intake: never Diet and Exercise caffeine: Yes
--- NOTE | 2023-06-10 14:03 | PM.CN ---
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 A 1.8 L thoracentesis done yesterday for which he would significant relief and post thoracentesis film without pneumothorax but still a moderate right pleural effusion. Hospice is being arranged. He completed a POLST noting DNR comfort care. His labs on admission revealed macrocytosis but no significant anemia, 9 are 1.6, hyponatremia at 1:27 a.m., creatinine of 2.08, albumin of 2.2 and negative viral panel. He mentions he gets relief with each thoracentesis. The relief was transient. His dyspnea recurs. Today when I am seeing him he is not using supplemental oxygen. He states that multiple sources had recommended consideration for tunneled pleural catheter. He had been offered declotting of his tips but declined this particularly due to the concern for risk of hepatic encephalopathy. He denies any significant abdominal distention. I do note that he is still taking spironolactone and Lasix but continues to have recurring pleural effusions despite this. Meds Home Medications and Allergies Home Medications Medication Instructions Recorded Confirmed Type tamsulosin 0.4 mg capsule (Flomax) 0.4 mg PO BID ##0 01/28/12 06/09/23 History furosemide 40 mg tablet 40 mg PO DAILY 10/13/19 06/09/23 History spironolactone 100 mg tablet 100 mg PO DAILY 10/13/19 06/09/23 History blood-glucose meter (Glucocard 01 #1 ea 03/26/20 06/09/23 Rx Meter kit) insulin glargine 100 unit/mL (3 25 unit SUBCUT DAILY 08/17/20 06/09/23 History mL) subcutaneous pen (Lantus Solostar U-100 Insulin) lactulose 10 gram/15 mL oral 30 ml PO DAILY 06/09/23 06/09/23 History solution (Constulose) rifaximin 550 mg tablet (Xifaxan) 550 mg PO BID 06/09/23 06/09/23 History Allergies Allergy/AdvReac Type Severity Reaction Status Date / Time No Known Drug Allergies Allergy Verified 06/09/23 10:10 Exam Vital Signs (past 8 hours): Oxygen Delivery Method Room Air Oxygen Flow Rate 0 Narrative Exam Narrative: Somewhat chronically ill-appearing elderly male sitting up in hospital bed, pleasant cooperative in no distress [facility] Head: normal to inspection Chest Chest: normal inspection of the chest Resp Effort & Inspection: normal respiratory effort Other: Decreased right lower lung breath sounds otherwise clear without wheezes rhonchi or rales. Normal work of breathing Cardio Rate: regular rate Neuro General: patient alert, patient awake and patient oriented x3 Extrem General: normal to inspection Psych Appearance: grossly normal Objective Imaging Chest x-ray: My impression: I reviewed chest x-ray from 06/09/2023 showing persistent moderate right pleural effusion decreased in size since previous thoracentesis Ultrasound of chest: My impression: I reviewed ultrasound of the chest from 06/09/2023 showing large anechoic right pleural effusion CT scan - chest: My impression: I reviewed CT chest showing large right pleural effusion, atelectasis of the right lung, mild perihepatic ascites, tips in place, cirrhotic liver Labs 06/09/23 10:10 06/09/23 10:10 Labs: I reviewed pleural fluid labs from 05/19/2023 showing RBC count 1709, white blood cell count to 25, 95% mononuclear WBCs, in 2019 he had fluid chemistries sent including a protein less than 2 and LDH [facility] Medical History Ascites BPH (benign prostatic hyperplasia) BPH w urinary obs/LUTS Chronic neutropenia Cirrhosis Diabetes Gallstones Hepatic encephalopathy Hepatocellular carcinoma History of elevated PSA History of urinary retention Hypertension Inguinal hernia Liver disease MIMS (nonalcoholic steatohepatitis) Neutropenia Splenic mass Thrombocytopenia Urinary retention Surgical History H/O prostate biopsy History of colon surgery Hx of appendectomy S/P TIPS (transjugular intrahepatic portosystemic shunt) Family History Mother Pancreatic cancer Hypertension Father Colon cancer Hypertension Social History marital status: number of children: 4 household members: spouse Tobacco & Substance Use Smoking Status: Former smoker alcohol intake: never Diet and Exercise caffeine: Yes Assessment & Plan Assessment and plan (1) Pleural effusion: Problem details: Recurrent right hepatic hydrothorax Status: Acute Assessment & Plan narrative: Patient has a recurrent right hepatic hydrothorax in the setting of cirrhosis complicated by portal hypertension, HCC status post tips procedure which is now occluded. He is planning to transitioned to hospice. He can not come back to the hospital for serial thoracentesis anymore. He would discussion with primary team about declotting the tips which he deferred since that would risk hepatic encephalopathy. We discussed risks benefits of tunneled pleural catheter not limited to malposition, occlusion, and specifically risk for infection particularly in hepatic hydrothorax which is relatively high at 50-60% over a six-month course. I did discuss with him sterile technique which can be used to reduce the risk however specifically in transudative effusions the risk is much higher. He would like to proceed with this since dyspnea with likely overcome him within a couple of weeks and this would allow pleural drainage to focus on comfort from air hunger and shortness of breath. I discussed the risks and benefits and obtain consent. I discussed with him how the procedure is performed and that hospice will typically manage these. I did advise him that wound care will be needed specifically monitoring the wound site as well as not submerging the site under water. There will be addressing however fortunately he will not be connected to any drainage tubing except when drainage is occurring which typically takes 15-30 minutes.. In terms of drainage, he can drain as needed. Draining more frequently we will be unlikely to result in pleurodesis given the nature of hepatic hydrothorax. It will likely result in rapid worsening of hypoalbuminemia and hypoproteinemia as well as malnutrition and dehydration. I suggest draining as needed in the beginning weekly and adjusting accordingly. He will need to train the dressing using sterile technique for which he was provided education although hospice will be contacted to care for the pleurx catheter. All questions were answered. Catheter to be placed today. Time Spent With Patient Time with patient: 70 minutes or more, with 50% spent counseling/coordinating
[2023-06-10 15:00] VITALS: BP 142/40; PULSE 70; RESP 23; TEMP 37.2; O2SAT 93
[2023-06-10] MEDS: CEFAZOLIN 2 GM/100 ML PREMIX 100 ML IV (15:09)
[2023-06-10] MEDS: RIFAXIMIN 550 MG 550 EACH PO ×2 (15:15→21:17)
[2023-06-10] MEDS: TAMSULOSIN 0.4 MG CAPSULE PO ×2 (15:16→21:17)
--- NOTE | 2023-06-10 17:04 | DI.RAD.S_ITS ---
PROCEDURE: XR CHEST 1V INDICATIONS: evaluate new right pleural catheter TECHNIQUE: One view of the chest was acquired. COMPARISON: [facility], CR, XR CHEST 1V, 06/09/2023, 11:57. FINDINGS: Surgical changes and devices: There is a new thoracostomy tube, the distal aspect of which is projected over the mediastinum. Lungs and pleura: There is a large right pleural effusion. There is likely a trace right apical pneumothorax which is new when compared with the study dated June 09, 2023. Diffuse interstitial radiopacities are present bilaterally throughout the aerated portions of the lungs. Mediastinum: Mediastinal contours appear normal. Heart size is normal. Bones and chest wall: No suspicious bony lesions. Overlying soft tissues appear unremarkable. IMPRESSION: 1. Right thoracostomy tube, the exact location of which is difficult to discern from anterior view alone. Lateral view could be used to further characterize the location of the tube. 2. Trace right apical pneumothorax. 3. Probable pulmonary edema within the aerated portions of the lungs. Early ARDS could also be considered in the differential. Dictated by: Ashley Gabriel M.D. on 06/10/2023 at 17:28 Approved by: Ashley Gabriel M.D. on 06/10/2023 at 17:29
--- NOTE | 2023-06-10 17:05 | P.PCN_ITS ---
Procedures Date/Time Date of procedure: 06/10/23 Time of procedure: 17:05 General Procedure description: Right tunneled pleural catheter (PleurX) placement Chest Tube Chest Tube Location: Lateral Chest (right) Amount of initial drainage (ml): 1,000 Post procedure CXR?: Yes Patient tolerated procedure well: Yes Progress: PULMONOLOGY OPERATIVE REPORT Pt. Name/Age/: Leonardo Avina 1945 Date of Surgery: 06/10/23 Preoperative Diagnosis: recurrent right hepatic hydrothorax, discharge to hospice Postoperative Diagnosis: Same Procedure(s): 1. RIGHT Tunneled Pleural Catheter Placement (PleurX Drain) CPT: 07645 Surgeon(s): Oliva Zamorano MD Supervisor Chassis Assembly(s):none Anesthesia: lidocaine 1% with 1:100,000 epinephrine 25mL subcutaneous Antibiotic: 2gm IV cefazolin within 60 minutes prior to incision Findings: Large right anechoic pleural effusion with diaphragmatic eventration Indications: The patient is a recurrent right hepatic hydrothoraxn, symptomatic. Procedure in Detail: After the procedure was explained to the patient, including the risks, benefits and possible complications, the patient signed the informed consent. Following identification, the patient was taken to the operating suite. Following administration of antibiotic, the patient was positioned in a Semi- Gonzalez's position. A timeout was undertaken. The following items were reviewed: Procedure in Detail: The patient was positioned on the hospital stretcher in the semi-Gonzalez's position position. The right chest was prepped and draped sterilely. Thoracic ultrasound was used to identify the large right pleural effusion and brown appropriate site of insertion. Vascular ultrasound was used to rule out any underlying vessels at thoracentesis site. 1% lidocaine with 1:100,000 epinephrine was injected into thoracentesis and tunneling site as well as subcutaneous tract connecting the two sites. Two 1.5cm incisions were made over these sites. 18 gauge finder catheter and needle was used to access the pleural space at thoracentesis site and via Seldinger technique a wire was inserted through the catheter. Subsequently the catheter was removed. Subsequently, tunneling tool was used to tunnel the catheter from catheter inse rtion site to the thoracentesis site and pulled through, ensuring the cuff was 1-2cm under the skin away from catheter insertion site. Finally, using serial dilators and a peel-away, the catheter was inserted over the guidewire into the pleural space. Aspiration of fluid confirmed proper positioning. The one-way valve was attached. Two incision sites were sutured with 2-0 silk. 1L fluid was drained using included drainage kit after which patient experienced symptoms. Finally, the included dressing kit was used to dress the catheter completely under sterile dressing after cleaning. Estimated Blood Loss: Minimal Transfused: No Complications: none Instructions: 1) Drain catheter via provided instructions and video as needed with new dressing applied with each drainage, suggest starting with 1L drainage twice weekly and adjusting accordingly 2) Hospice to receive instructions to drain twice weekly as needed up to 1L 3) Re-dress catheter if soiled; showers okay but do not submerge site under water 4) No specific follow-up in pulmonary clinic given discharge to hospice; routine wound care monitoring for redness, drainage, increasing pain or purulence 5) Anticipate some soreness at insertion site for a few days anticipated to improve 6) Please notify hospice of right pleurx catheter and drainage instructions as well as to order supplies; initial supplies given to patient 3 kits 7) Please have hospice remove both sutures in 2 weeks around 06/24; take care not to damage catheter 8) For any fevers, new chest discomfort or any infectious symptoms, recommend starting antibiotics immediately for skin organisms (keflex or other appropriate oral antibiotic) as hydrothorax with indwelling catheter HIGH risk for infection Specimens: None Drains: Right Pleurx Drain
[2023-06-10 17:20] VITALS: BP 155/39; PULSE 77; RESP 19; TEMP 37; O2SAT 93
--- NOTE | 2023-06-10 18:00 | PC.NURSE ---
Right chest tunneled pleural catheter placed by pulmonology. Consent signed, patient and his family have no further questions or concerns at this time, patient assisted to lay towards his left side. patient tolerated procedure well. Patient denies pain at this time. Dressing intact. Call light placed within reach.
[2023-06-10] MEDS: OXYCODONE IR 5 MG TABLET PO (18:24)
[2023-06-10] MEDS: SODIUM CHLORIDE 0.9% FLUSH 10 ML IV ×2 (18:25→21:18)
[2023-06-11] MEDS: ACETAMINOPHEN 325 MG TABLET 650 MG PO (00:37)
[2023-06-11] MEDS: PANTOPRAZOLE DR 20 MG TABLET 40 MG PO (07:02)
[2023-06-11] MEDS: LACTULOSE 20 GM/30 ML SOLUTION PO (08:23)
[2023-06-11] MEDS: TAMSULOSIN 0.4 MG CAPSULE PO ×2 (08:23→21:59)
[2023-06-11] MEDS: FUROSEMIDE 40 MG/4 ML VIAL IV ×2 (08:23→16:45)
[2023-06-11] MEDS: SPIRONOLACTONE 25 MG TABLET 100 MG PO (08:23)
[2023-06-11] MEDS: RIFAXIMIN 550 MG 550 EACH PO ×2 (08:26→21:59)
[2023-06-11] MEDS: SODIUM CHLORIDE 0.9% FLUSH 10 ML IV (08:28)
[2023-06-11] MEDS: INSULIN GLARGINE 100 UNIT/ML 3ML PEN 25 UNIT SUBCUT (08:56)
[2023-06-11] MEDS: OXYCODONE IR 5 MG TABLET PO ×2 (11:42→21:59)
[2023-06-11] MEDS: CYCLOBENZAPRINE 10 MG TABLET PO ×2 (11:42→21:59)
--- NOTE | 2023-06-11 14:24 | CM.DPC ---
DCP Hospice Planning Per Carli at [facility], completed Info Visit with family last night and ordered DME and will be delivered to the home sometime today and their RN can do start of care in the home tomorrow 06/12 between [id number]. JONATHAN spoke to spouse and she confirms above and confirms DME has been delivered to the home and they are preparing the space for pt to discharge in the morning tomorrow . Family plans to arrive by around 0900 in the morning and confirm they feel they can safely transport pt via POV and have a couple strong guys to assist pt into the home and decline BLS transport. JONATHAN updated MD and RN and plan is discharge in the morning home with [facility] to start. Plan: JONATHAN to follow for plan of pt discharge by 0900 in the AM with family to arrive to provide transport via their POV and [facility] RN to arrive at home around 1000. JONATHAN to fax the d/c summary to [facility] when available. MIGUEL ANGEL Soriano
--- NOTE | 2023-06-11 18:45 | PM.PN.1 ---
Subjective Subjective Interval history: Patient's family at bedside. We discussed his likely short prognosis. Hospice to open tomorrow at 10am and patient will dc then. Exam Vital Signs (past 8 hours): Oxygen Delivery Method Room Air Oxygen Flow Rate 0 Narrative Exam Narrative: GEN: cachectic ill-appearing male, jaundiced HEENT: moist mucous membranes, PERRL, scleral icterus NECK: trachea midline, no JVD CV: regular rate and rhythm, no murmurs PULM: decreased breath sounds bilaterally, R-sided pleurx cath present ABD: distended, tender to RUQ, midline ventral hernia present EXT: warm and well perfused with no edema NEURO: somnolent, oriented, no focal deficits Objective Labs 06/09/23 10:10 06/09/23 10:10 PFS Medical History Ascites BPH (benign prostatic hyperplasia) BPH w urinary obs/LUTS Chronic neutropenia Cirrhosis Diabetes Gallstones Hepatic encephalopathy Hepatocellular carcinoma History of elevated PSA History of urinary retention Hypertension Inguinal hernia Liver disease MIMS (nonalcoholic steatohepatitis) Neutropenia Splenic mass Thrombocytopenia Urinary retention Surgical History H/O prostate biopsy History of colon surgery Hx of appendectomy S/P TIPS (transjugular intrahepatic portosystemic shunt) Family History Mother Pancreatic cancer Hypertension Father Colon cancer Hypertension Social History marital status: number of children: 4 household members: spouse Smoking Status: Former smoker alcohol intake: never caffeine: Yes Assessment & Plan Assessment & Plan narrative: # recurrent R-sided hydrothorax -Dr. Lona maya consulted and placed Pleurx cathether on 06/10 to aid in drainage of recurrent effusions -hospice to manage catheter and drainage once home # end-stage liver disease -patient likely succumbing to his multiple medical problems, primarily liver failure -patient and seeking hospice -PASSENGER INTERLINE CLERK consulted for hospice arrangement -comfort directed measures only #HCC s/p cirrhosis -followed by Dr. Araya Code status is DNR. Proxy is . I have reviewed home meds and used all available resources to reconcile the home meds. Dispo: Home with hospice on 06/12. Quality VTE Deep Vein Thrombosis/Pulmonary Embolism Present on Admission: No
[2023-06-11 20:00] VITALS: BP 110/42; PULSE 67; RESP 18; TEMP 36.4; O2SAT 91
[2023-06-11] MEDS: MELATONIN 3 MG TABLET 6 MG PO (21:59)
[2023-06-12] MEDS: CODEINE/GUAIFENESIN LIQUID 5ML UDC 5 ML PO ×2 (02:22→08:18)
[2023-06-12] MEDS: guaiFENesin ER 600 MG TAB 1200 MG PO ×2 (02:22→08:18)
[2023-06-12] MEDS: PANTOPRAZOLE DR 20 MG TABLET 40 MG PO (06:20)
[2023-06-12] MEDS: ACETAMINOPHEN 325 MG TABLET 650 MG PO (06:25)
[2023-06-12] MEDS: OXYCODONE IR 5 MG TABLET PO (06:25)
[2023-06-12] MEDS: CYCLOBENZAPRINE 10 MG TABLET PO (06:26)
[2023-06-12 08:12] VITALS: BP 131/40; PULSE 73; RESP 20; TEMP 36.4; O2SAT 92
[2023-06-12] MEDS: LACTULOSE 20 GM/30 ML SOLUTION PO (08:18)
[2023-06-12] MEDS: TAMSULOSIN 0.4 MG CAPSULE PO (08:18)
[2023-06-12] MEDS: SPIRONOLACTONE 25 MG TABLET 100 MG PO (08:18)
[2023-06-12] MEDS: RIFAXIMIN 550 MG 550 EACH PO (08:24)
--- NOTE | 2023-06-12 10:37 | CM.DPC ---
DCP Continued: CASING MATERIAL WEIGHER reviewed EMR. Per provider note, d/c home on hospice today between 0900 and 0930.. CASING MATERIAL WEIGHER entered room. Patient accompanied by spouse and son at bedside. CASING MATERIAL WEIGHER provided IMM paperwork to spouse. Family reports feeling comfortable getting patient into home. CASING MATERIAL WEIGHER spoke with Carli at [facility]. CASING MATERIAL WEIGHER will fax d/c summary when available. Plan: patient to transport home today with family, [facility] to open at 1000. No additional needs at this time. CM team will continue to follow as needed. MIGUEL ANGEL Epps
--- NOTE | 2023-06-13 13:08 | P.DS_ITS ---
History of Present Illness History of Present Illness Date Patient Seen: 06/09/23 Time Patient Seen: 17:03 Chief complaint: Thoracentesis here Friday told to come back Narrative: Per admitting provider: Leonardo Avina is a 77yo M with PMH of hepatocellular carcinoma resulting in end- stage liver disease s/p TIPS, colon cancer, recurrent R-sided pleural effusions with weekly thoracenteses, DM2, HTN, and BPH who presents with worsening weakness and dyspnea. Patient is somnolent so history is mostly obtained from . She states he has been battling cancer for 1 year and has been on multiple treatments for his HCC. Things were going relatively well, but it was difficult to come in for biweekly thoras to drain the fluid off his lung. He was walking and interacting normally but about 2 weeks began having a rapid decline with progressive weakness and fatigue. His dyspnea has also been worsening. He was brought to the ED today where a thora drained 1.8L of clear fluid off his right lung. Him and his asked to purse comfort care and hospice. He was admitted for symptom management and to arrange hospice. He has a signed POLST indicating DNR and comfort measures. Discharge Providers Provider Date of admission: 06/09/23 13:30 Discharge Date: 06/12/23 Primary care physician: Katelyn Campbell MD Consults: 06/09/23 13:34 Consult to Discharge Planning Routine Comment: Consult to Hospice Referral Urgent Comment: 06/10/23 08:07 Consult to Pulmonology Routine Comment: Consulting Provider: [facility] Reason for consultation: Dr. Zamorano for pleurx catheter Has provider been notified: Yes Discharge provider: Parag Monteiro MD Summary Hospital Course Discharge Diagnosis: 1. Recurrent right sided hydrothorax 2. Cirrhosis, end stage liver disease s/p TIPS 3. Hepatocellular carcinoma 4. Type 2 DM 5. Hypertension 6. BPH Hospital Course: Mr. Avina was admitted with respiratory distress, he was dependent on frequent thoracentesis to control his recurrent pleural effusion. He did get thoracen tesis in the hospital which quickly reaccumulated. His goals of care were to discharge with hospice. He had a pleur-x cathether placed and was able to be discharged with hospice. Recommendations for his catheter were as follows, per Dr. Zamorano: 1) Drain catheter via provided instructions and video as needed with new dressing applied with each drainage, suggest starting with 1L drainage twice w maribely and adjusting accordingly 2) Hospice to drain twice weekly as needed up to 1L 3) Re-dress catheter if soiled; showers okay but do not submerge site under water 4) No specific follow-up in pulmonary clinic given discharge to hospice; routine wound care monitoring for redness, drainage, increasing pain or purulence 5) Anticipate some soreness at insertion site for a few days anticipated to im prove 6) Please notify hospice of right pleurx catheter and drainage instructions as well as to order supplies; initial supplies given to patient 3 kits 7) Please have hospice remove both sutures in 2 weeks around 06/24; take care not to damage catheter 8) For any fevers, new chest discomfort or any infectious symptoms, recommend starting antibiotics immediately for skin organisms (keflex or other appropriate oral antibiotic) as hydrothorax with indwelling catheter HIGH risk for infection Exam Vital Signs (past 8 hours): Oxygen Delivery Method Room Air Oxygen Flow Rate 0 Narrative Exam Narrative: GEN: cachectic ill-appearing male, jaundiced CV: regular rate and rhythm, no murmurs PULM: decreased breath sounds bilaterally, R-sided pleurx cath present ABD: distended, tender to RUQ, midline ventral hernia present Objective Labs 06/09/23 10:10 06/09/23 10:10 PFSH Medical History Ascites BPH (benign prostatic hyperplasia) BPH w urinary obs/LUTS Chronic neutropenia Cirrhosis Diabetes Gallstones Hepatic encephalopathy Hepatocellular carcinoma History of elevated PSA History of urinary retention Hypertension Inguinal hernia Liver disease MIMS (nonalcoholic steatohepatitis) Neutropenia Splenic mass Thrombocytopenia Urinary retention Surgical History H/O prostate biopsy History of colon surgery Hx of appendectomy S/P TIPS (transjugular intrahepatic portosystemic shunt) Family History Mother Pancreatic cancer Hypertension Father Colon cancer Hypertension Social History marital status: number of children: 4 household members: spouse Smoking Status: Former smoker alcohol intake: never caffeine: Yes Discharge Plan Discharge Plan Patient Disposition: Home Provider Discharge Comment: Mr. Avina has a history of hepatocellular carcinoma. He was receiving frequent thoracentesis. He had a Pleur-x catheter placed, and he and family elected to be discharged on hospice. He should have his lasix and spironolactone held for now due to his kidney injury, but these may be restarted if his water retention increases. Discharge orders & Medications Prescriptions: New cyclobenzaprine 10 mg Tablet 10 mg PO Q8HR PRN (Reason: Spasms) Qty: 20 0RF oxycodone 5 mg Tablet 5 mg PO Q4HR PRN (Reason: Pain, Moderate (4-6)) Qty: 20 0RF guaifenesin [Mucus Relief ER] 600 mg Tablet Extended Release 12hr 1,200 mg PO BID Qty: 20 0RF Continued tamsulosin [Flomax] 0.4 MG capsule,extended release 24hr 0.4 mg PO BID Qty: 0 lactulose [Constulose] 10 gram/15 mL solution 30 ml PO DAILY Xifaxan 550 mg Tablet 550 mg PO BID (DME) blood-glucose meter [Glucocard 01 Meter] Kit See Rx Instructions .ROUTE .MEDSUPPLY Qty: 1 0RF Rx Instructions: Measure blood glucose level 4 times daily Lantus Solostar U-100 Insulin 100 unit/mL (3 mL) insulin pen 25 unit SUBCUT DAILY Discontinued furosemide 40 mg Tablet 40 mg PO DAILY spironolactone 100 mg Tablet 100 mg PO DAILY Follow up/Referrals: Katelyn Campbell MD [Primary Care Provider] - Diet/Activity/Treatments Diet: Regular Visit Report/Discharge Packet Stand Alone Forms: Patient Portal/API, Stroke Signs & Symptoms Discharge Data Primary Care Provider: Katelyn Campbell Discharges patient from system. Discharge Date/Time: 06/12/23 09:45 Quality VTE Deep Vein Thrombosis/Pulmonary Embolism Present on Admission: No
== END 2023-06-12 09:45 | disposition hospice, home (50) | DRG 436 ==
LOC: ED 13:25 → AC 14:29
PROVIDERS: Admitting Provider Student in an Organized Health Care Education/Training Program; Emergency Provider Emergency Medicine; Family Provider Internal Medicine Gastroenterology; PCP Internal Medicine; Visit Provider Student in an Organized Health Care Education/Training Program
DX: C22.0 Liver cell carcinoma (principal); E87.1 Hypo-osmolality and hyponatremia; J94.8 Other specified pleural conditions; R64 Cachexia; R18.8 Other ascites; K76.6 Portal hypertension; J90 Pleural effusion, not elsewhere classified; K72.10 Chronic hepatic failure without coma; Z51.5 Encounter for palliative care; Z66 Do not resuscitate; I10 Essential (primary) hypertension; E11.9 Type 2 diabetes mellitus without complications; K75.81 Nonalcoholic steatohepatitis (NASH); N40.0 Benign prostatic hyperplasia without lower urinary tract symptoms; Z85.038 Personal history of other malignant neoplasm of large intestine; K74.60 Unspecified cirrhosis of liver; R06.02 Shortness of breath; Z79.899 Other long term (current) drug therapy; Z68.31 Body mass index [BMI] 31.0-31.9, adult
CPT/HCPCS: 0241U; 32550; 32555; 36415; 71045; 76705; 80053; 83690; 85025; 85610; 85730; 86850; 86900; 86901; 87040; 96365; 96375; 99233; 99284; J0690; J1940; J2405